=== PATIENT | female | born 1935 | race Caucasian/White ===

== ENCOUNTER 2016-08-21 06:32 | Emergency (ER) | payer MEDICARE ==
[2016-08-21 06:41] VITALS: BP 136/82
[2016-08-21] MEDS ORDERED: Ketorolac 30 MG/ML SDV IM ONE (07:00)
--- NOTE | 2016-08-21 07:16 | EDM.PDOC ---
ED HPI RENAL/ - General Chief Complaint: Flank Pain Stated Complaint: LEFT SIDE PAIN Time Seen by Provider: 08/21/16 06:41 Source: Reports: Patient, Family History Limitations: Reports: No limitations - History of Present Illness INITIAL COMMENTS - FREE TEXT/NARRATIVE: 80 years old w f with h/o kidney stones came to the ed due to left flank pain. Pt took NSAIDs last night without pain improvement. No trauma, has Dysuria, no F /C. Symptom Onset Date: 08/20/16 Symptom Onset Time: 20:00 Timing/Duration: Reports: Hour(s): Location: Reports: flank (left ) Quality: Reports: ache, burning, cramping, fullness, stabbing Severity: severe Improves with: Reports: lying down Worsens with: Reports: urinating, palpation, sitting up Associated Symptoms: Reports: burning, dysuria, frequency, urgency Treatment(s) DIRECTOR OF DIRECT MARKETING: Reports: NSAIDS - Related Data Allergies/ADRs: Allergies Allergy/AdvReac Type Severity Reaction Status Date / Time meperidine [From Demerol] Allergy Itching Verified 08/21/16 06:39 Penicillins Allergy Itching Verified 08/21/16 06:39 promethazine [From Phenergan] Allergy Itching Verified 08/21/16 06:39 Home Meds: Home Meds Metoprolol Tartrate 75 mg PO DAILY 03/27/16 [History] Ciprofloxacin 500 mg PO BID #20 mg 03/28/16 [Rx] Ciprofloxacin HCl [Cipro] 500 mg PO BID #6 tablet 08/21/16 [Rx] Ibuprofen [Motrin] 600 mg PO Q8H PRN #30 tab 08/21/16 [Rx] Past Medical History HEENT History: Reports: Hard of hearing Cardiovascular History: Reports: Hypertension Other Gastrointestinal History: trouble swallowing, Genitourinary History: Reports: Renal calculus Psychiatric History: Reports: Anxiety, Depression Hematologic History: Reports: Blood transfusion(s) - Past Surgical History HEENT Surgical History: Reports: Cataract surgery, Oral surgery, Tonsillectomy Other HEENT Surgeries/Procedures: bilat cataract GI Surgical History: Reports: Appendectomy, Colonoscopy, EGD, Other (see below) Other GI Surgeries/Procedures: ruptured esophagus, Female Surgical History: Reports: Kidney stone extraction, Lithotripsy/ESWL Social & Family History - Tobacco Use Smoking Status *Q: Never Smoker - Caffeine Use Caffeine Use: Reports: Coffee - Recreational Drug Use Recreational Drug Use: No ED ROS GENERAL - Review of Systems Review Of Systems: See Below Constitutional: Reports: no symptoms HEENT: Reports: No symptoms Respiratory: Reports: no symptoms Cardiovascular: Reports: No symptoms Endocrine: Reports: no symptoms GI/Abdominal: Reports: Abdominal pain (left flank pain) : Reports: dysuria Musculoskeletal: Reports: no symptoms Skin: Reports: no symptoms Neurological: Reports: no symptoms Psychiatric: Reports: No symptoms Hematologic/Lymphatic: Reports: no symptoms Immunologic: Reports: no symptoms ED EXAM, RENAL/ - Physical Exam Exam: See Below Exam Limited By: No limitations General Appearance: alert, WD/WN, moderate distress, thin Ears: normal external exam, hearing grossly normal Nose: normal inspection, normal mucosa, no blood Throat/Mouth: Normal inspection, Normal lips, Normal teeth, Normal gums, Normal oropharynx, Normal voice, No airway compromise Head: atraumatic, normocephalic Neck: normal inspection, supple, non-tender, full range of motion Respiratory/Chest: no respiratory distress, lungs clear, normal breath sounds, no accessory muscle use, chest non-tender Cardiovascular: normal peripheral pulses, regular rate, rhythm, no edema, no gallop, no JVD, no murmur, no rub GI/Abdominal: normal bowel sounds, no organomegaly, no distention, no abnormal bruit, no mass, tender (left flank) (Female) Exam: Deferred Rectal (Female) Exam: Deferred Back Exam: normal inspection, full range of motion, NT Extremities: normal inspection, normal range of motion, non-tender, normal capillary refill, no pedal edema Neurological: alert, oriented, CN II-XII intact, normal cognition, normal gait, normal reflexes, no motor/sensory deficits Psychiatric: normal affect, normal mood Skin Exam: Warm, Dry, Intact, Normal color, No rash Lymphatic: no adenopathy Course - Vital Signs Text/Narrative:: 80 years old w f with h/o kidney stones came to the ed due to left flank pain. Pt took NSAIDs last night without pain improvement. No trauma, has Dysuria, no F /C. Pty was seen by her PMD yesterday who gave her 14 tabl of cipro 500 mg PE: left flank pain Imaging: Nephrolithiasis, no hydro labs: WBC was nl UCX were ordered, results are pending. Tx: Pt took Cipro last night and this morning Reexam: Improved Plan: D/C with instructions Last Recorded V/S: Last Vital Signs Temp 36.3 C 08/21/16 06:40 Pulse 68 08/21/16 06:40 Resp 18 08/21/16 06:40 BP 136/82 08/21/16 06:40 Pulse Ox 98 08/21/16 06:40 - Orders/Labs/Meds Orders: Active Orders 24 hr Category Date Time Status Abdomen Pelvis wo Cont [CT] Stat Exams 08/21/16 07:02 Taken CULTURE URINE [RM] Stat Lab 08/21/16 06:45 Received Labs: Laboratory Tests 08/21/16 08/21/16 08/21/16 Range/Units 06:45 07:25 07:25 WBC 6.7 (4.5-12.0) X10-3/uL RBC 4.46 (3.23-5.20) x10(6)uL Hgb 10.6 L (11.5-15.5) g/dL Hct 33.9 (30.0-51.3) % MCV 76.1 L (80-96) fL MCH 23.8 L (27.7-33.6) pg MCHC 31.3 L (32.2-35.4) g/dL RDW 19.2 H (11.5-15.5) % Plt Count 248 (125-369) X10(3)uL MPV 8.5 (7.4-10.4) fL Neut % (Auto) 69.3 (46-82) % Lymph % (Auto) 19.5 (13-37) % Bullock % (Auto) 9.5 (4-12) % Eos % (Auto) 1 (1.0-5.0) % Baso % (Auto) 0 (0-2) % Neut # 4.7 (1.6-8.3) # Lymph # 1.3 (0.6-5.0) # Bullock # 0.6 (0.0-1.3) # Eos # 0.1 (0.0-0.8) # Baso # 0.0 (0.0-0.2) # Sodium 139 (135-145) mmol/L Potassium 3.7 (3.5-5.3) mmol/L Chloride 104 (100-110) mmol/L Carbon Dioxide 28 (23-29) mmol/L BUN 33 H D (8-23) mg/dL Creatinine 1.0 (0.6-1.3) mg/dL Est Cr Clr Drug Dosing 37.27 mL/min Estimated GFR (MDRD) 53 L (>60) BUN/Creatinine Ratio 33.0 H (9-20) Glucose 99 (80-116) mg/dL Lactic Acid (0.5-2.2) mmol/L Calcium 10.1 (8.6-10.2) mg/dL Urine Color Yellow (YELLOW) Urine Appearance Slightly cloudy (CLEAR) Urine pH 5.0 (5.0-6.5) Ur Specific [place] 1.020 (1.010-1.025) Urine Protein Negative (NEGATIVE) mg/dL Urine Glucose (UA) Normal (NEGATIVE) mg/dL Urine Ketones Negative (NEGATIVE) mg/dL Urine Occult Blood Negative (NEGATIVE) Urine Nitrite Positive H (NEGATIVE) Urine Bilirubin Small H (NEGATIVE) Urine Urobilinogen Normal (NEGATIVE) mg/dL Ur Leukocyte Esterase Moderate H (NEGATIVE) Urine RBC 0-5 (0) Urine WBC 20-30 H (0) Ur Squamous Epith Cells Few H (NS,R,O) Urine Bacteria Moderate H (NS) 08/21/16 Range/Units 07:25 WBC (4.5-12.0) X10-3/uL RBC (3.23-5.20) x10(6)uL Hgb (11.5-15.5) g/dL Hct (30.0-51.3) % MCV (80-96) fL MCH (27.7-33.6) pg MCHC (32.2-35.4) g/dL RDW (11.5-15.5) % Plt Count (125-369) X10(3)uL MPV (7.4-10.4) fL Neut % (Auto) (46-82) % Lymph % (Auto) (13-37) % Bullock % (Auto) (4-12) % Eos % (Auto) (1.0-5.0) % Baso % (Auto) (0-2) % Neut # (1.6-8.3) # Lymph # (0.6-5.0) # Bullock # (0.0-1.3) # Eos # (0.0-0.8) # Baso # (0.0-0.2) # Sodium (135-145) mmol/L Potassium (3.5-5.3) mmol/L Chloride (100-110) mmol/L Carbon Dioxide (23-29) mmol/L BUN (8-23) mg/dL Creatinine (0.6-1.3) mg/dL Est Cr Clr Drug Dosing mL/min Estimated GFR (MDRD) (>60) BUN/Creatinine Ratio (9-20) Glucose (80-116) mg/dL Lactic Acid 1.2 (0.5-2.2) mmol/L Calcium (8.6-10.2) mg/dL Urine Color (YELLOW) Urine Appearance (CLEAR) Urine pH (5.0-6.5) Ur Specific [place] (1.010-1.025) Urine Protein (NEGATIVE) mg/dL Urine Glucose (UA) (NEGATIVE) mg/dL Urine Ketones (NEGATIVE) mg/dL Urine Occult Blood (NEGATIVE) Urine Nitrite (NEGATIVE) Urine Bilirubin (NEGATIVE) Urine Urobilinogen (NEGATIVE) mg/dL Ur Leukocyte Esterase (NEGATIVE) Urine RBC (0) Urine WBC (0) Ur Squamous Epith Cells (NS,R,O) Urine Bacteria (NS) Meds: Medications Discontinued Medications Generic Name Dose Route Start Last Admin Trade Name Freq PRN Reason Stop Dose Admin Ketorolac Tromethamine 30 mg 08/21/16 07:00 08/21/16 07:10 Toradol IM 08/21/16 07:01 30 mg ONETIME ONE Administration Departure - Departure Time of Disposition: 07:57 Disposition: Home, Self-Care 01 Condition: good Clinical Impression: Flank pain, Nephrolithiasis, Pyelonephritis Prescriptions: Ciprofloxacin HCl [Cipro] 500 mg PO BID #6 tablet Ibuprofen [Motrin] 600 mg PO Q8H PRN #30 tab PRN Reason: Pain Referrals: Jeanmarie Allen MD [Primary Care Provider] - Forms: ED Department Discharge Additional Instructions: Please f/u in 4 days to check on the urine Culture results. Please take motrin for pain with food, please take cipro for 10 days. Please come back to the ed if your symptoms get worse acutely. - My Orders Last 24 Hours: My Active Orders 08/21/16 06:45 CULTURE URINE [RM] Stat 08/21/16 07:02 Abdomen Pelvis wo Cont [CT] Stat - Assessment/Plan Last 24 Hours: My Active Orders 08/21/16 06:45 CULTURE URINE [RM] Stat 08/21/16 07:02 Abdomen Pelvis wo Cont [CT] Stat
== END 2016-08-21 08:15 | disposition home or self-care (01) ==
LOC: FB.ED 06:32
DX: N20.0 Calculus of kidney (principal); N12 Tubulo-interstitial nephritis, not specified as acute or chronic; R10.9 Unspecified abdominal pain; I10 Essential (primary) hypertension; Z98.49 Cataract extraction status, unspecified eye; Z90.49 Acquired absence of other specified parts of digestive tract; Z87.442 Personal history of urinary calculi; Z98.890 Other specified postprocedural states; Z79.899 Other long term (current) drug therapy; Z88.0 Allergy status to penicillin; Z88.8 Allergy status to other drugs, medicaments and biological substances
CPT/HCPCS: 36415; 74176; 80048; 81001; 83605; 85025; 87086; 87088; 96372; 99284; J1885; 87186; 99283

== ENCOUNTER 2016-08-23 08:20 | Emergency (ER) | payer MEDICARE ==
[2016-08-23] MEDS ORDERED: cefTAZidime 1 GM in Sodium Chloride 0.9% 50 ML IV ONE ×2 (09:40→10:00)
[2016-08-23] MEDS ORDERED: diphenhydrAMINE 50 MG/ML SDV IVPUSH ONE (09:47)
[2016-08-23] MEDS ORDERED: Sodium Chloride 0.9% 250 ML IV SCH (10:00)
[2016-08-23 11:32] VITALS: BP 121/57
--- NOTE | 2016-08-25 16:15 | ER ---
DATE SEEN: 08/23/2016 HISTORY OF PRESENT ILLNESS: This 80-year-old woman comes in with a history of left lower flank pain and difficulty sleeping secondary to the flank pain. The patient cannot sleep, has not been sleeping since 08/22/2015 because she has been awakened at 1 and 2 or 3 o'clock with flank pain. Today, the pain has radiated to her mid axillary region. The pain is on and off, 9/10 in intensity. She has frequency and urgency, but without dysuria. She is a nulliparous. She is attended by her brother. She has decreased hearing and feels weak. 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 FAMILY HISTORY: One sister had pancreatic cancer, had Whipple surgery. Two other sisters alive and well. One brother has kidney cancer, is alive, and one had a CABG. She had a serious surgery when in [place]. She was seen at an [facility] hospital, had an appendectomy with perforation, subsequent endoscopy performed at a later time and had perforation of the duodenum. She was in the hospital for 6 months and in a coma for 6 months because of serious complication of this surgery. Other diagnosis, hypertension. ALLERGIES: Demerol, penicillin, and promethazine. MEDICATIONS: 1. Metoprolol tartrate 75 mg daily. 2. Ibuprofen 600 mg q.6 hours. 3. Cipro started several days ago. REVIEW OF SYSTEMS: Otherwise negative, except as noted above. PHYSICAL EXAMINATION: VITAL SIGNS: Blood pressure 135/84, heart rate 64, respirations 18, oxygen saturation 95%, temperature 36.6 degrees centigrade. Weight 54.4 kg. GENERAL: This asthenic woman is in mild distress. She is anxious. She is hard of hearing. Very well dressed. HEENT: TMs negative, with hearing aids. Pharynx without abnormality. Throat, mucosa is dry. NECK: No cervical adenopathy. No bruits, masses in neck. LUNGS: Clear to auscultation without rales, rhonchi, or wheezes. ABDOMEN: Soft. Mild guarding. She has a midline incision, healed, with mild baseline discomfort left lower quadrant and left upper quadrant. NEURO: Deep tendon reflexes to upper and lower extremities symmetrical, 1+, normoactive. She has slight dysarthria. Oriented x3. She has mild distress to moderate distress. The reflexes in upper and lower extremities are hypoactive, but present. Cranial nerves 2 through 12 intact. Gait appropriate. EXTREMITIES: No joint pain. No edema in lower extremities. LABORATORY FINDINGS: Hemoglobin 10.3, microcytic hyperchromic anemia noted, RDW 19.2, white count 8500, 85 PMNs, 10 lymphs, 1 monos, 4 eosinophils. Moderate toxic granulation, anisocytosis, and microcytosis. Complete metabolic panel; BUN 31, creatinine 1.4. GFR 36. BUN and creatinine ratio 22. ALT is low at 13, otherwise remainder of the enzymes normal. Sodium 140, potassium 4.1, chloride 105, bicarb 24. Liver enzymes normal. Urinalysis; positive nitrite, packed wbc's, many bacteria. ASSESSMENT: 1. Urinary tract infection. 2. Rule out pyelonephritis with her flank discomfort. 3. Allergies to penicillins. 4. Culture pending. The patient is currently on Cipro and her urine infection is not sensitive to Cipro. She has allergies to penicillin. On the basis of her sensitivity, all the medications she could use require intravenous therapy. She is given one dose of ceftazidime. I spoke to the tele- pharmacist regarding the patient's status and we decided that the rash she gets with penicillin is not critical. Consequently, she was given ceftazidime IV 1 g. She did not have any allergic reaction. She had a transient reaction to the 50 mg push of Benadryl; a linear angiitis and erythema that was present for an hour and then slowly resolved. By the time she was taking ceftazidime, the linear Benadryl vasculitis relented completely. The patient was dismissed on Ceftin 250 mg b.i.d., and Florastor 250 mg b.i.d. with hydrocodone p.r.n. Follow up with doctor in 3 to 5 days. Push fluids. DIAGNOSES: 1. Probable pyelonephritis. 2. Urinary tract infection. 3. Anemia with microcytic hyperchromic anemia, etiology indeterminate. 4. Toxic granulation, anisocytosis, microcytosis, probably not related to the patient's medication. She will need repeat CBC and follow up with doctor in next 3 to 5 days. Also, she has previous documented nephrolithiasis. The probability of her passing a stone is mildly high and this could also be causing her flank pain. I chose not to get a CT, as I felt that most likely her diagnosis was urinary infection. Since she has had multiple CAT scans before, less radiation is better. The patient was seen at 0835 hours. The patient has shoulder pain, etiology indeterminate. She has normal shoulder exam. The toxic granulation of CBC, etiology indeterminate. Will need to further follow up. /[id number] OSMIN/ROSA
== END 2016-08-23 12:05 | disposition home or self-care (01) ==
LOC: FB.ED 08:20
DX: N39.0 Urinary tract infection, site not specified (principal); D50.9 Iron deficiency anemia, unspecified; I10 Essential (primary) hypertension; Z88.8 Allergy status to other drugs, medicaments and biological substances; Z88.0 Allergy status to penicillin
CPT/HCPCS: 36415; 51702; 80053; 81001; 85025; 86140; 87040; 87086; 87088; 87186; 96365; 96375; 99283; 99284; J0713; J1200; J7040; J7050

== ENCOUNTER 2016-10-24 17:45 | Emergency (ER) | payer MEDICARE ==
[2016-10-24] MEDS ORDERED: HYDROmorphone 2 MG/ML SDV IVPUSH ONE (18:15)
[2016-10-24] MEDS ORDERED: Sodium Chloride 0.9% 10 ML Syringe FLUSH PRN (18:17)
--- NOTE | 2016-10-24 18:21 | EDM.PDOC ---
ED HPI RENAL/ - General Chief Complaint: Genitourinary Problem Stated Complaint: BACK PAIN Time Seen by Provider: 10/24/16 18:10 Source: Reports: Patient, Old records History Limitations: Reports: No limitations - History of Present Illness INITIAL COMMENTS - FREE TEXT/NARRATIVE: Tessa returns to [facility] ED with a relapse of L CVA and flank pain x 2 days. Pain is colicky, disabling, and associated with some nausea. She saw her PCP yesterday who noted an abnormal UA and dispensed Cipro and Ultracet tabs. There has been no improvement. Of note are similar episodes during March 2016 and August 2016 with similar pain distribution, pos CT for nephrolithiasis but neg for ureterlithiasis, and hematuria. She has seen a Urologist in [place], [place] for removal of L kidney stones in the past. - Related Data Allergies/ADRs: Allergies Allergy/AdvReac Type Severity Reaction Status Date / Time meperidine [From Demerol] Allergy Itching Verified 10/24/16 18:06 Penicillins Allergy Itching Verified 10/24/16 18:06 promethazine [From Phenergan] Allergy Itching Verified 10/24/16 18:06 Home Meds: Home Meds Metoprolol Tartrate 75 mg PO DAILY 03/27/16 [History] Ibuprofen [Motrin] 600 mg PO Q8H PRN #30 tab 08/21/16 [Rx] Ciprofloxacin HCl [Cipro] 1 tab PO DAILY 10/24/16 [History] traMADol Hcl/Acetaminophen [Ultracet Tablet] 1 each PO TID PRN 10/24/16 [History ] Past Medical History HEENT History: Reports: Hard of hearing Cardiovascular History: Reports: Hypertension Other Gastrointestinal History: trouble swallowing, Genitourinary History: Reports: Renal calculus Neurological History: Reports: Other (see below) Other Neuro History: Had an incident with colon surgery, 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 Psychiatric History: Reports: Anxiety, Depression Hematologic History: Reports: Blood transfusion(s) - Past Surgical History HEENT Surgical History: Reports: Cataract surgery, Oral surgery, Tonsillectomy Other HEENT Surgeries/Procedures: bilat cataract GI Surgical History: Reports: Appendectomy, Colonoscopy, EGD, Other (see below) Other GI Surgeries/Procedures: ruptured esophagus, Female Surgical History: Reports: Kidney stone extraction, Lithotripsy/ESWL Social & Family History - Tobacco Use Smoking Status *Q: Current Status Unknown - Caffeine Use Caffeine Use: Reports: Coffee - Recreational Drug Use Recreational Drug Use: No ED ROS GENERAL - Review of Systems Review Of Systems: See Below Constitutional: Reports: decreased appetite HEENT: Reports: No symptoms Respiratory: Reports: No Symptoms Cardiovascular: Reports: No symptoms Endocrine: Reports: no symptoms GI/Abdominal: Reports: Other (L CVA and flank pain) : Reports: flank pain (left), hematuria Musculoskeletal: Reports: no symptoms Skin: Reports: no symptoms Neurological: Reports: No Symptoms Psychiatric: Reports: No symptoms Hematologic/Lymphatic: Reports: no symptoms Immunologic: Reports: no symptoms ED EXAM, RENAL/ - Physical Exam Exam: See Below Exam Limited By: No limitations General Appearance: alert, WD/WN, anxious, moderate distress Head: normocephalic Neck: normal inspection, supple, full range of motion Respiratory/Chest: lungs clear Cardiovascular: regular rate, rhythm, no murmur GI/Abdominal: normal bowel sounds, soft, non tender, no organomegaly, no distention, no mass, tender (limited tenderness of L flank) (Female) Exam: Deferred Rectal (Female) Exam: Deferred Back Exam: normal inspection, CVA tenderness (L) Extremities: normal inspection Neurological: alert, oriented, CN II-XII intact, no motor/sensory deficits Psychiatric: normal affect, anxious Skin Exam: Warm, Dry Lymphatic: no adenopathy Course - Vital Signs Text/Narrative:: Following admission to the [facility] ED, I administered Dilaudid 2 mg IV pending results of lab work: Hgb 9.8 gm, WBC 7,000, plts normal; Na 136, K 3.6, BUN 26, Cr 1.0; UA noting sp gr 1.030, Nit +, Bact mod, 20-30 WBCs per cath spec, UC set up; the urine volume was <20 ml; back pain had subsided within 30 min of hypo; I subsequently administered 2L of NS over the next 2 hrs. A follow up UA notes sp gr 1.025 on a volume of 70 mls at 1st L of solution. Last Recorded V/S: Last Vital Signs Temp 36.8 C 10/24/16 17:56 Pulse 70 10/24/16 17:56 Resp 20 10/24/16 17:56 BP 117/64 10/24/16 17:56 Pulse Ox 98 10/24/16 17:56 - Orders/Labs/Meds Orders: Active Orders 24 hr Category Date Time Status CULTURE URINE [RM] Stat Lab 10/24/16 20:00 Received Sodium Chloride 0.9% [Normal Saline] 2,000 ml Med 10/24/16 21:15 Active IV ASDIRECTED Sodium Chloride 0.9% [Saline Flush] Med 10/24/16 18:17 Active 10 ml FLUSH ASDIRECTED PRN Saline Lock Insert [OM.PC] Routine Oth 10/24/16 18:17 Ordered Medication Orders Sodium Chloride (Normal Saline) 2,000 mls @ 999 mls/hr IV ASDIRECTED AYE Stop: 10/28/16 21:04 Last Admin: 10/24/16 21:12 Dose: 999 mls/hr Sodium Chloride (Saline Flush) 10 ml FLUSH ASDIRECTED PRN PRN Reason: Keep Vein Open Last Admin: 10/24/16 18:30 Dose: 10 ml Labs: Laboratory Tests 10/24/16 10/24/16 10/24/16 Range/Units 18:15 18:15 20:26 WBC 7.1 (4.5-12.0) X10-3/uL RBC 4.17 (3.23-5.20) x10(6)uL Hgb 9.8 L (11.5-15.5) g/dL Hct 31.4 (30.0-51.3) % MCV 75.4 L (80-96) fL MCH 23.6 L (27.7-33.6) pg MCHC 31.3 L (32.2-35.4) g/dL RDW 17.4 H (11.5-15.5) % Plt Count 235 (125-369) X10(3)uL MPV 8.8 (7.4-10.4) fL Neut % (Auto) 67.8 (46-82) % Lymph % (Auto) 19.9 (13-37) % Lee % (Auto) 8.8 (4-12) % Eos % (Auto) 3 (1.0-5.0) % Baso % (Auto) 1 (0-2) % Neut # (Auto) 4.9 (1.6-8.3) # Lymph # (Auto) 1.4 (0.6-5.0) # Lee # (Auto) 0.6 (0.0-1.3) # Eos # (Auto) 0.2 (0.0-0.8) # Baso # (Auto) 0.0 (0.0-0.2) # Sodium 136 (135-145) mmol/L Potassium 3.6 (3.5-5.3) mmol/L Chloride 107 (100-110) mmol/L Carbon Dioxide 22 L (23-29) mmol/L BUN 26 H (8-23) mg/dL Creatinine 1.0 (0.6-1.3) mg/dL Est Cr Clr Drug Dosing TNP Estimated GFR (MDRD) 53 L (>60) BUN/Creatinine Ratio 26.0 H (9-20) Glucose 111 (80-116) mg/dL Calcium 8.8 (8.6-10.2) mg/dL Urine Color Yellow (YELLOW) Urine Appearance Slightly cloudy (CLEAR) Urine pH 5.0 (5.0-6.5) Ur Specific [place] 1.030 H (1.010-1.025) Urine Protein Negative (NEGATIVE) mg/dL Urine Glucose (UA) Normal (NEGATIVE) mg/dL Urine Ketones Negative (NEGATIVE) mg/dL Urine Occult Blood Trace (NEGATIVE) Urine Nitrite Positive H (NEGATIVE) Urine Bilirubin Small H (NEGATIVE) Urine Urobilinogen Normal (NEGATIVE) mg/dL Ur Leukocyte Esterase Moderate H (NEGATIVE) Urine RBC 10-20 H (0) Urine WBC 30-40 H (0) Ur Squamous Epith Cells Occasional (NS,R,O) Urine Bacteria Moderate H (NS) 05/05/17 Range/Units 22:30 WBC (4.5-12.0) X10-3/uL RBC (3.23-5.20) x10(6)uL Hgb (11.5-15.5) g/dL Hct (30.0-51.3) % MCV (80-96) fL MCH (27.7-33.6) pg MCHC (32.2-35.4) g/dL RDW (11.5-15.5) % Plt Count (125-369) X10(3)uL MPV (7.4-10.4) fL Neut % (Auto) (46-82) % Lymph % (Auto) (13-37) % Lee % (Auto) (4-12) % Eos % (Auto) (1.0-5.0) % Baso % (Auto) (0-2) % Neut # (Auto) (1.6-8.3) # Lymph # (Auto) (0.6-5.0) # Lee # (Auto) (0.0-1.3) # Eos # (Auto) (0.0-0.8) # Baso # (Auto) (0.0-0.2) # Sodium (135-145) mmol/L Potassium (3.5-5.3) mmol/L Chloride (100-110) mmol/L Carbon Dioxide (23-29) mmol/L BUN (8-23) mg/dL Creatinine (0.6-1.3) mg/dL Est Cr Clr Drug Dosing Estimated GFR (MDRD) (>60) BUN/Creatinine Ratio (9-20) Glucose (80-116) mg/dL Calcium (8.6-10.2) mg/dL Urine Color Yellow (YELLOW) Urine Appearance Slightly cloudy (CLEAR) Urine pH 5.0 (5.0-6.5) Ur Specific [place] 1.025 (1.010-1.025) Urine Protein Negative (NEGATIVE) mg/dL Urine Glucose (UA) Normal (NEGATIVE) mg/dL Urine Ketones 15 H (NEGATIVE) mg/dL Urine Occult Blood Trace (NEGATIVE) Urine Nitrite Positive H (NEGATIVE) Urine Bilirubin Small H (NEGATIVE) Urine Urobilinogen Normal (NEGATIVE) mg/dL Ur Leukocyte Esterase Large H (NEGATIVE) Urine RBC 10-20 H (0) Urine WBC 30-40 H (0) Ur Squamous Epith Cells Few H (NS,R,O) Urine Bacteria Moderate H (NS) Meds: Medications Generic Name Dose Route Start Last Admin Trade Name Freq PRN Reason Stop Dose Admin Sodium Chloride 2,000 mls @ 999 mls/hr 10/24/16 21:15 10/24/16 21:12 Normal Saline IV 10/28/16 21:04 999 mls/hr ASDIRECTED AYE Administration Sodium Chloride 10 ml 10/24/16 18:17 10/24/16 18:30 Saline Flush FLUSH 10 ml ASDIRECTED PRN Administration Keep Vein Open Discontinued Medications Generic Name Dose Route Start Last Admin Trade Name Adan PRN Reason Stop Dose Admin Hydromorphone HCl 2 mg 10/24/16 18:15 10/24/16 18:36 Dilaudid IVPUSH 10/24/16 18:16 2 mg ONETIME ONE Administration Departure - Departure Time of Disposition: 23:10 Disposition: Home, Self-Care 01 Condition: fair Clinical Impression: Nephrolithiasis, Oligouria - Problem List & Annotations (1) UTI (urinary tract infection) SNOMED Code(s): 23577568 Code(s): N39.0 - URINARY TRACT INFECTION, SITE NOT SPECIFIED Status: Acute Current Visit: No Annotation/Comment:: Finish out antibx per PCP. Current microscopic analysis is unchanged from the Clinic, and a UC is pending. Qualifiers: Encounter type: initial encounter (2) Nephrolithiasis SNOMED Code(s): 06778904 Code(s): N20.0 - CALCULUS OF KIDNEY Status: Acute Current Visit: Yes Annotation/Comment:: No findings to suggest nephrolithiasis contributing to sxs of back pain. (3) Oligouria SNOMED Code(s): 24427436 Code(s): R34 - ANURIA AND OLIGURIA Status: Acute Current Visit: Yes Annotation/Comment:: Urine output improved with 2L of IV administration, and this was discussed with daughter to encourage fluid intake. - Problem List Review Problem List Initiated/Reviewed/Updated: Yes - My Orders Last 24 Hours: My Active Orders 10/24/16 18:17 Sodium Chloride 0.9% [Saline Flush] 10 ml FLUSH ASDIRECTED PRN Saline Lock Insert [OM.PC] Routine 10/24/16 20:00 CULTURE URINE [RM] Stat 10/24/16 21:15 Sodium Chloride 0.9% [Normal Saline] 2,000 ml IV ASDIRECTED - Assessment/Plan Last 24 Hours: My Active Orders 10/24/16 18:17 Sodium Chloride 0.9% [Saline Flush] 10 ml FLUSH ASDIRECTED PRN Saline Lock Insert [OM.PC] Routine 10/24/16 20:00 CULTURE URINE [RM] Stat 10/24/16 21:15 Sodium Chloride 0.9% [Normal Saline] 2,000 ml IV ASDIRECTED Plan: Follow up with PCP.
[2016-10-24] MEDS ORDERED: Sodium Chloride 0.9% 2,000 ML IV SCH (21:15)
[2016-10-24 23:29] VITALS: BP 115/72
== END 2016-10-24 23:25 | disposition home or self-care (01) ==
LOC: FB.ED 17:45
DX: N20.0 Calculus of kidney (principal); I10 Essential (primary) hypertension; F41.9 Anxiety disorder, unspecified; F32.9 Major depressive disorder, single episode, unspecified; Z88.0 Allergy status to penicillin; Z88.8 Allergy status to other drugs, medicaments and biological substances; Z79.899 Other long term (current) drug therapy; Z98.890 Other specified postprocedural states; Z90.49 Acquired absence of other specified parts of digestive tract; Z98.49 Cataract extraction status, unspecified eye
CPT/HCPCS: 36415; 80048; 81001; 85025; 87086; 87088; 96361; 96374; 99284; J1170; J7040; J7050; 87186

== ENCOUNTER 2016-10-27 04:52 | Emergency (ER) | payer MEDICARE ==
[2016-10-27] MEDS ORDERED: Ketorolac 30 MG/ML SDV IVPUSH ONE (05:17)
[2016-10-27] MEDS ORDERED: LORazepam 2 MG/ML MDV IVPUSH ONE (05:18)
[2016-10-27] MEDS ORDERED: Sodium Chloride 0.9% 1,000 ML IV SCH (05:45)
--- NOTE | 2016-10-27 07:19 | ER ---
DATE SEEN: 10/27/2016 She presented with back pain and left flank pain, symptoms lasting 4 days. I saw her last week and she also saw Dr. Monahan recently with the same symptoms. She complains of frequency but no dysuria. Her pain also goes down the left arm and left chest area. No cough or fever. REVIEW OF SYSTEMS: Back pain. No decrease in appetite, no weight changes. ALLERGIES: Please see the nurse's notes. MEDICATIONS: Please see the nurse's notes. PHYSICAL EXAMINATION: GENERAL: She appeared uncomfortable. VITAL SIGNS: Blood pressure is 155/68, temperature 96.5. ABDOMEN: Soft with no tenderness to palpation. SKIN: There is a wound on the left flank that is well healed. MUSCULOSKELETAL: Chest wall is tender on the left. LUNGS: Clear. MENTAL STATUS: Anxious. LABORATORY: Urine positive for nitrites. White cell count is normal. Potassium is 3.4. IMPRESSION: 1. Abdominal pain. 2. Left chest wall pain. PLAN: EKG will be obtained and a troponin. CT of the abdomen and pelvis was done to rule out kidney stone, this is pending. Dr. Monahan will take over, gave her 1 L of normal saline and Toradol for comfort. Time seen is 0630 hours. /[id number] ERI/ROSA
--- NOTE | 2016-10-27 08:05 | PCM.SN ---
- Free Text/Narrative Note: Tessa Brown has L nephrolithiasis, without radiographic signs of obstructive uropathy. Her UC reported E.coli, sens to Cipro, and she is on this antibx. She needs an appt with Urology, and this will be arranged thru PCP office. She will follow up with PCP, Dr Chin.
[2016-10-27 08:44] VITALS: BP 134/59
== END 2016-10-27 08:22 | disposition home or self-care (01) ==
LOC: FB.ED 04:52
DX: R10.9 Unspecified abdominal pain (principal); R07.89 Other chest pain
CPT/HCPCS: 36415; 74177; 80053; 81001; 84484; 85025; 93005; 96361; 96374; 96375; 99284; J1885; J2060; J7040

== ENCOUNTER 2016-11-07 04:15 | Emergency (ER) | payer MEDICARE ==
--- NOTE | 2016-11-07 04:43 | EDM.PDOC ---
ED HPI GENERAL MEDICAL PROBLEM - General Chief Complaint: Back Pain or Injury Stated Complaint: BACK/SIDE/ABDOMINAL PAIN Time Seen by Provider: 11/07/16 04:23 Source of Information: Reports: Patient, Family History Limitations: Reports: Physical Impairment - History of Present Illness INITIAL COMMENTS - FREE TEXT/NARRATIVE: 80 years old w f came to the ed with her brother due to left chest wall pain since 10/27/2016, Pt was seen in the ed, was transfered to [place], admitted. No cause of her chest pain was determined. Pt was on cipro for a bladder infection and switched to Nitrofurantoin last Thursday. No trauma, no SOB, no diaphoresis , F/C, no cough. Pt is a poor historian. 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 Abdomen Pain Score (Numeric/FACES): 10 - Related Data Allergies Allergy/AdvReac Type Severity Reaction Status Date / Time meperidine [From Demerol] Allergy Itching Verified 11/07/16 04:20 Penicillins Allergy Itching Verified 11/07/16 04:20 promethazine [From Phenergan] Allergy Itching Verified 11/07/16 04:20 Home Meds: Home Meds Metoprolol Tartrate 75 mg PO DAILY 03/27/16 [History] Ibuprofen [Motrin] 600 mg PO Q8H PRN #30 tab 08/21/16 [Rx] Ciprofloxacin HCl [Cipro] 500 mg PO DAILY 10/24/16 [History] traMADol Hcl/Acetaminophen [Ultracet Tablet] 1 each PO TID PRN 10/24/16 [History ] Ketorolac [Toradol] 30 mg PO DAILY 10/27/16 [History] hydrOXYzine Pamoate [Vistaril] 50 mg PO DAILY 10/27/16 [History] Hydrocodone/Acetaminophen [Welsh 5-325] 1 tab PO Q4H PRN #10 tablet 11/07/16 [Rx ] Potassium Chloride [Klor-Con M20] 40 meq PO ONETIME #1 tab.er 11/07/16 [Rx] Past Medical History HEENT History: Reports: Hard of Hearing Cardiovascular History: Reports: Hypertension Other Gastrointestinal History: trouble swallowing, Genitourinary History: Reports: Renal Calculus Neurological History: Reports: Other (See Below) Other Neuro History: Had an incident with colon surgery, 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 Psychiatric History: Reports: Anxiety, Depression Hematologic History: Reports: Blood Transfusion(s) - Past Surgical History HEENT Surgical History: Reports: Cataract Surgery, Oral Surgery, Tonsillectomy GI Surgical History: Reports: Appendectomy, Colonoscopy, EGD, Other (See Below) Social & Family History - Family History Family Medical History: Noncontributory - Tobacco Use Smoking Status *Q: Never Smoker Second Hand Smoke Exposure: No - Caffeine Use Caffeine Use: Reports: Coffee - Recreational Drug Use Recreational Drug Use: No ED ROS GENERAL - Review of Systems Review Of Systems: See Below Constitutional: Reports: Weakness HEENT: Reports: No Symptoms Respiratory: Reports: Pleuritic Chest Pain Cardiovascular: Reports: No Symptoms Endocrine: Reports: No Symptoms GI/Abdominal: Reports: No Symptoms : Reports: No Symptoms Musculoskeletal: Reports: No Symptoms Skin: Reports: Wound (left posterior chest wall ) Neurological: Reports: No Symptoms Psychiatric: Reports: No Symptoms Hematologic/Lymphatic: Reports: No Symptoms Immunologic: Reports: No Symptoms ED EXAM,LOWER BACK PAIN/INJURY - Physical Exam Exam: See Below Exam Limited By: Physical Impairment General Appearance: Alert, Mild Distress, Moderate Distress, Thin Eye Exam: Bilateral Eye: Normal Inspection Ears: Normal External Exam Nose: Normal Inspection Throat/Mouth: Normal Inspection Head: Atraumatic, Normocephalic Neck: Normal Inspection, Supple, Non-Tender Respiratory/Chest: No Respiratory Distress, Normal Breath Sounds (poor insp effort) Cardiovascular: Normal Peripheral Pulses GI/Abdominal: Normal Bowel Sounds, Soft, Non-Tender (Female) Exam: Deferred Rectal (Female) Exam: Deferred Back Exam: Other (1"x1" lesion with central necrosis left post chest since 2016) Extremities: Normal Inspection Neurological: Alert, Normal Mood/Affect, Normal Dorsiflexion, CN II-XII Intact Psychiatric: Depressed Mood Skin Exam: Warm, Dry, Pallor Lymphatic: No Adenopathy EKG INTERPRETATION EKG Date: 11/07/16 Time: 06:05 Rhythm: NSR Rate (beats/min): 55 [place]: normal P-wave: present QRS: normal ST-T: normal QT: normal Comparison: NA - no prior EKG Course - Vital Signs Text/Narrative:: 80 years old w f came to the ed with her brother due to left chest wall pain since 10/27/2016, Pt was seen in the ed, was transfered to [place], admitted. No cause of her chest pain was determined. Pt was on cipro for a bladder infection and switched to Nitrofurantoin last Thursday. No trauma, no SOB, no diaphoresis , F/C, no cough. Pt is a poor historian. PE: Thin 80 y.o.w.f old wound left post chest wall with central necrosis, Pleurisy. Poss shingles without rash Imaging: possible minor pneumonia with adenopathy, need f/u Labs: D Dimer 881, Nl WBC. UTI ( pt is on nitroforantoin Lactic acid was 1.1 consultation: Dr. Akins has seen the pt in the ed Impression: Old, healing wound left post chest wall, possible shingles. Atelectasis left lower lung (pneumonia unlikely) Hypokalemia Tx: Oxicodon, Morphin with Zofran, K-Dur Reexam: Improved Plan: D/C with instructions Last Recorded V/S: Last Vital Signs Temp 36.2 C 11/07/16 04:23 Pulse 60 11/07/16 04:23 Resp 18 11/07/16 04:23 BP 171/71 H 11/07/16 06:23 Pulse Ox 96 11/07/16 04:23 - Orders/Labs/Meds Orders: Active Orders 24 hr Category Date Time Status EKG Documentation Completion [RC] ASDIRECTED Care 11/07/16 05:59 Active Ang Chest [CT] Stat Exams 11/07/16 06:31 Taken CULTURE BLOOD [BC] Urgent Lab 11/07/16 07:45 Received CULTURE BLOOD [BC] Urgent Lab 11/07/16 07:50 Received Blood Culture x2 Reflex Set [OM.PC] Urgent Oth 11/07/16 07:29 Ordered EKG 12 Lead [EK] Routine Ther 11/07/16 05:58 Ordered Labs: Laboratory Tests 0511/07/16 11/07/16 Range/Units 04:47 05:00 05:00 WBC 5.7 (4.5-12.0) X10-3/uL RBC 3.97 (3.23-5.20) x10(6)uL Hgb 9.3 L (11.5-15.5) g/dL Hct 29.9 L (30.0-51.3) % MCV 75.3 L (80-96) fL MCH 23.5 L (27.7-33.6) pg MCHC 31.2 L (32.2-35.4) g/dL RDW 17.2 H (11.5-15.5) % Plt Count 331 (125-369) X10(3)uL MPV 8.1 (7.4-10.4) fL Neut % (Auto) 60.0 (46-82) % Lymph % (Auto) 25.1 (13-37) % [place] % (Auto) 11.2 (4-12) % Eos % (Auto) 3 (1.0-5.0) % Baso % (Auto) 1 (0-2) % Neut # (Auto) 3.4 (1.6-8.3) # Lymph # (Auto) 1.4 (0.6-5.0) # [place] # (Auto) 0.6 (0.0-1.3) # Eos # (Auto) 0.2 (0.0-0.8) # Baso # (Auto) 0.1 (0.0-0.2) # D-Dimer, Quantitative (100-400) ng/mL Sodium 139 (135-145) mmol/L Potassium 3.1 L (3.5-5.3) mmol/L Chloride 107 D (100-110) mmol/L Carbon Dioxide 25 (23-29) mmol/L BUN 23 (8-23) mg/dL Creatinine 0.8 (0.6-1.3) mg/dL Est Cr Clr Drug Dosing 46.59 mL/min Estimated GFR (MDRD) > 60 (>60) BUN/Creatinine Ratio 28.8 H (9-20) Glucose 99 (80-116) mg/dL Lactic Acid (0.5-2.2) mmol/L Calcium 9.0 (8.6-10.2) mg/dL Creatine Kinase (60-160) IU/L Troponin I (0.02-0.06) NG/ML Urine Color Yellow (YELLOW) Urine Appearance Slightly cloudy (CLEAR) Urine pH 6.0 (5.0-6.5) Ur Specific [place] 1.015 (1.010-1.025) Urine Protein Negative (NEGATIVE) mg/dL Urine Glucose (UA) Normal (NEGATIVE) mg/dL Urine Ketones Negative (NEGATIVE) mg/dL Urine Occult Blood Negative (NEGATIVE) Urine Nitrite Positive H (NEGATIVE) Urine Bilirubin Negative (NEGATIVE) Urine Urobilinogen Normal (NEGATIVE) mg/dL Ur Leukocyte Esterase Negative (NEGATIVE) Urine RBC 0-5 (0) Urine WBC 0-5 (0) Ur Squamous Epith Cells Few H (NS,R,O) Urine Bacteria Moderate H (NS) 11/07/16 11/07/16 11/07/16 Range/Units 05:00 05:00 05:00 WBC (4.5-12.0) X10-3/uL RBC (3.23-5.20) x10(6)uL Hgb (11.5-15.5) g/dL Hct (30.0-51.3) % MCV (80-96) fL MCH (27.7-33.6) pg MCHC (32.2-35.4) g/dL RDW (11.5-15.5) % Plt Count (125-369) X10(3)uL MPV (7.4-10.4) fL Neut % (Auto) (46-82) % Lymph % (Auto) (13-37) % [place] % (Auto) (4-12) % Eos % (Auto) (1.0-5.0) % Baso % (Auto) (0-2) % Neut # (Auto) (1.6-8.3) # Lymph # (Auto) (0.6-5.0) # [place] # (Auto) (0.0-1.3) # Eos # (Auto) (0.0-0.8) # Baso # (Auto) (0.0-0.2) # D-Dimer, Quantitative 881 H (100-400) ng/mL Sodium (135-145) mmol/L Potassium (3.5-5.3) mmol/L Chloride (100-110) mmol/L Carbon Dioxide (23-29) mmol/L BUN (8-23) mg/dL Creatinine (0.6-1.3) mg/dL Est Cr Clr Drug Dosing mL/min Estimated GFR (MDRD) (>60) BUN/Creatinine Ratio (9-20) Glucose (80-116) mg/dL Lactic Acid (0.5-2.2) mmol/L Calcium (8.6-10.2) mg/dL Creatine Kinase 27 L (60-160) IU/L Troponin I < 0.01 L (0.02-0.06) NG/ML Urine Color (YELLOW) Urine Appearance (CLEAR) Urine pH (5.0-6.5) Ur Specific [place] (1.010-1.025) Urine Protein (NEGATIVE) mg/dL Urine Glucose (UA) (NEGATIVE) mg/dL Urine Ketones (NEGATIVE) mg/dL Urine Occult Blood (NEGATIVE) Urine Nitrite (NEGATIVE) Urine Bilirubin (NEGATIVE) Urine Urobilinogen (NEGATIVE) mg/dL Ur Leukocyte Esterase (NEGATIVE) Urine RBC (0) Urine WBC (0) Ur Squamous Epith Cells (NS,R,O) Urine Bacteria (NS) 11/07/16 Range/Units 07:45 WBC (4.5-12.0) X10-3/uL RBC (3.23-5.20) x10(6)uL Hgb (11.5-15.5) g/dL Hct (30.0-51.3) % MCV (80-96) fL MCH (27.7-33.6) pg MCHC (32.2-35.4) g/dL RDW (11.5-15.5) % Plt Count (125-369) X10(3)uL MPV (7.4-10.4) fL Neut % (Auto) (46-82) % Lymph % (Auto) (13-37) % [place] % (Auto) (4-12) % Eos % (Auto) (1.0-5.0) % Baso % (Auto) (0-2) % Neut # (Auto) (1.6-8.3) # Lymph # (Auto) (0.6-5.0) # [place] # (Auto) (0.0-1.3) # Eos # (Auto) (0.0-0.8) # Baso # (Auto) (0.0-0.2) # D-Dimer, Quantitative (100-400) ng/mL Sodium (135-145) mmol/L Potassium (3.5-5.3) mmol/L Chloride (100-110) mmol/L Carbon Dioxide (23-29) mmol/L BUN (8-23) mg/dL Creatinine (0.6-1.3) mg/dL Est Cr Clr Drug Dosing mL/min Estimated GFR (MDRD) (>60) BUN/Creatinine Ratio (9-20) Glucose (80-116) mg/dL Lactic Acid 1.1 (0.5-2.2) mmol/L Calcium (8.6-10.2) mg/dL Creatine Kinase (60-160) IU/L Troponin I (0.02-0.06) NG/ML Urine Color (YELLOW) Urine Appearance (CLEAR) Urine pH (5.0-6.5) Ur Specific [place] (1.010-1.025) Urine Protein (NEGATIVE) mg/dL Urine Glucose (UA) (NEGATIVE) mg/dL Urine Ketones (NEGATIVE) mg/dL Urine Occult Blood (NEGATIVE) Urine Nitrite (NEGATIVE) Urine Bilirubin (NEGATIVE) Urine Urobilinogen (NEGATIVE) mg/dL Ur Leukocyte Esterase (NEGATIVE) Urine RBC (0) Urine WBC (0) Ur Squamous Epith Cells (NS,R,O) Urine Bacteria (NS) Meds: Medications Discontinued Medications Generic Name Dose Route Start Last Admin Trade Name Freq PRN Reason Stop Dose Admin Ciprofloxacin 500 mg 11/07/16 06:12 11/07/16 06:57 Ciprofloxacin Hcl PO 11/07/16 06:13 Not Given ONETIME ONE Iopamidol 75 ml 11/07/16 06:35 11/07/16 06:54 Isovue-370 (76%) IV 11/07/16 06:36 75 ml ONETIME ONE Administration Morphine Sulfate 2 mg 11/07/16 06:09 11/07/16 06:23 Morphine IVPUSH 11/07/16 06:10 2 mg ONETIME ONE Administration Ondansetron HCl 4 mg 11/07/16 06:09 11/07/16 06:23 Zofran IVPUSH 11/07/16 06:10 4 mg ONETIME ONE Administration Oxycodone/Acetaminophen 1 tab 11/07/16 04:45 11/07/16 05:12 Percocet 325-5 Mg PO 11/07/16 04:46 1 tab ONETIME STA Administration Potassium Chloride 40 meq 11/07/16 05:55 11/07/16 06:12 Klor-Con M20 PO 11/07/16 05:56 40 meq ONETIME ONE Administration Departure - Departure Time of Disposition: 08:14 Disposition: Home, Self-Care 01 Condition: good Clinical Impression: Hypokalemia, Pleurisy without effusion Shingles rash Qualifiers: Herpes zoster complications: without complications Qualified Code(s): B02.9 - Zoster without complications - Discharge Information Prescriptions: Hydrocodone/Acetaminophen [Welsh 5-325] 1 tab PO Q4H PRN #10 tablet PRN Reason: severe pain only Potassium Chloride [Klor-Con M20] 40 meq PO ONETIME #1 tab.er Referrals: Jeanmarie Allen MD [Physician] - Forms: ED Department Discharge Additional Instructions: Please cont Nitrofurantoin, as recommeded, please take Oxycodon for severe pain , please f/u with your PMD, please came back to the ed if your symptoms get worse acutely, please take the potassium tablet at 10 am today. - My Orders Last 24 Hours: My Active Orders 11/07/16 05:58 EKG 12 Lead [EK] Routine 11/07/16 05:59 EKG Documentation Completion [RC] ASDIRECTED 11/07/16 06:31 Ang Chest [CT] Stat 11/07/16 07:29 Blood Culture x2 Reflex Set [OM.PC] Urgent 11/07/16 07:45 CULTURE BLOOD [BC] Urgent 11/07/16 07:50 CULTURE BLOOD [BC] Urgent - Assessment/Plan Last 24 Hours: My Active Orders 11/07/16 05:58 EKG 12 Lead [EK] Routine 11/07/16 05:59 EKG Documentation Completion [RC] ASDIRECTED 11/07/16 06:31 Ang Chest [CT] Stat 11/07/16 07:29 Blood Culture x2 Reflex Set [OM.PC] Urgent 11/07/16 07:45 CULTURE BLOOD [BC] Urgent 11/07/16 07:50 CULTURE BLOOD [BC] Urgent
[2016-11-07] MEDS ORDERED: Acetaminophen/oxyCODONE 325-5 MG Tab PO STA (04:45)
[2016-11-07] MEDS ORDERED: Potassium Chloride 20 MEQ Tab.ER PO ONE (05:55)
[2016-11-07] MEDS ORDERED: Ondansetron 4 MG/2 ML SDV IVPUSH ONE (06:09)
[2016-11-07] MEDS ORDERED: Morphine 2 MG/ML Syringe IVPUSH ONE (06:09)
[2016-11-07] MEDS ORDERED: Ciprofloxacin 500 MG Tab PO ONE (06:12)
[2016-11-07] MEDS ORDERED: Iopamidol 755 Mg/ML 75 ML Bottle IV ONE (06:35)
[2016-11-07 06:46] VITALS: BP 171/71
--- NOTE | 2016-11-07 11:24 | CR ---
INDICATION: Left chest wall pain. CHEST: Portable AP upright view of the chest 11/07/2016. No comparisons. The heart appeared normal in size and shape. The aorta is slightly tortuous with calcification in the arch. A definite active infiltrate or effusion was not identified, however, pulmonary vasculature in the upper lung field is slightly prominent and there is some prominence of the interstitial markings additionally, raising question of a mild degree of pulmonary vascular congestion and interstitial edema. This could be on the basis of an acute myocardial event, fluid overload, renal failure, etcetera, and should be correlated clinically. Otherwise, no acute process is suggested - no consolidating pneumonia or effusion was seen. MTDD
== END 2016-11-07 08:45 | disposition home or self-care (01) ==
LOC: FB.ED 04:15
DX: R09.1 Pleurisy (principal); B02.9 Zoster without complications; E87.6 Hypokalemia; I10 Essential (primary) hypertension; F41.9 Anxiety disorder, unspecified; F32.9 Major depressive disorder, single episode, unspecified; Z88.0 Allergy status to penicillin; Z88.8 Allergy status to other drugs, medicaments and biological substances; Z79.899 Other long term (current) drug therapy; Z98.49 Cataract extraction status, unspecified eye; Z90.49 Acquired absence of other specified parts of digestive tract; Z98.890 Other specified postprocedural states
CPT/HCPCS: 36415; 71010; 71275; 80048; 81001; 82550; 83605; 84484; 85025; 85379; 87040; 93005; 96374; 96375; 99284; A9270; J2270; J2405; Q9967; 99285

== ENCOUNTER 2016-11-23 01:48 | Emergency (ER) | payer MEDICARE ==
[2016-11-23] MEDS: Morphine 4 MG/ML Syringe IM ONE (02:29)
--- NOTE | 2016-11-23 03:27 | ER ---
DATE SEEN: 11/23/2016 CHIEF COMPLAINT: Back pain. HISTORY OF PRESENT ILLNESS: An 80-year-old female with back pain in the left upper back area. She was watering her wesley when this pain started tonight with no radiation, moderate in intensity. She has a history of chronic back and left flank pain. She has seen a neurosurgeon on and Thursday of this week REVIEW OF SYSTEMS: Anxiety. Denies cough or shortness of breath. PAST MEDICAL HISTORY: Please see the nurse's notes. ALLERGIES: Penicillin, Demerol, and Phenergan. PHYSICAL EXAMINATION: VITAL SIGNS: Blood pressure is 156/72, pulse is 96, and temperature 97.6. MENTAL STATUS: Anxious. HEAD: Normal size. NECK: Supple. CHEST: CLEAR. MUSCULOSKELETAL: There is tenderness in the parascapular muscle group on the left side. IMPRESSION: Back pain. PLAN: I gave her Valium 10 mg IM and morphine 4 mg IM. Symptoms improved dramatically. I advised her to go home and rest. Follow up p.r.n. Return to the ED with worsening symptoms. TIME SEEN: 0200 hours. /[id number] ERI/ROSA
[2016-11-23 05:19] VITALS: BP 124/72
== END 2016-11-23 04:02 | disposition home or self-care (01) ==
LOC: FB.ED 01:48
DX: M54.6 Pain in thoracic spine (principal); Z88.0 Allergy status to penicillin; Z88.8 Allergy status to other drugs, medicaments and biological substances
CPT/HCPCS: 96374; 96375; 99282; J2270; J3360; 99283

== ENCOUNTER 2016-12-06 09:09 | Emergency (ER) | payer MEDICARE ==
[2016-12-06] MEDS ORDERED: Ketorolac 30 MG/ML SDV IM ONE (10:16)
[2016-12-06] MEDS ORDERED: hydrOXYzine HCl 50 MG/ML SDV IM ONE (10:16)
[2016-12-06 10:37] VITALS: BP 162/84
--- NOTE | 2016-12-06 20:59 | ER ---
DATE SEEN: 12/06/2016 TIME SEEN: The 81 year old patient was seen at 1000 hours in the morning. CHIEF COMPLAINT: Low back pain and "I can't sleep because of my back pain." HISTORY OF PRESENT ILLNESS: The patient has been seen by Dr. Chin. She is very appreciative of the use of Vistaril and Toradol shots. The pt presents with a business card that Dr. Chin or his nurse has printed vistaril and toradol on the card. She was advised should she have back pain, she would do well to have more of these shots. The patient denies dysesthesia in lower extremities. She has low back pain that does not radiate to her knees. PAST MEDICAL HISTORY: Significant for kidney stones, hypertension, pyelonephritis, shingles, low potassium, and pleurisy without effusion. CURRENT MEDICATIONS: 1. Cipro started 12/06. 2. Tramadol. 3. Vistaril. 4. Potassium chloride. 5. Metoprolol tartrate 75 mg. 6. Ketoralac 30 mg daily. 7. Ibuprofen. 8. Hydrocodone p.r.n. ALLERGIES: Demerol, penicillin, promethazine. REVIEW OF SYSTEMS: Negative except as noted above. She is edentulous. Denies headaches, neck stiffness. She has no shortness of breath, cough, chest pain irregular heartbeat, abdominal discomfort, change in bowels, urine incontinence or stool incontinence, or loss of sensation lower extremities. PHYSICAL EXAMINATION: VITAL SIGNS: Heart rate 72 and regular, respirations 20, and blood pressure 162/84. Weight 54.4 kg. CONSTITUTIONAL: The patient has a slight slurring of her words and they are slightly deliberate and slow delivery. She has dentures, I suspect this is the etiology for some of her mild compromise in speech. HEENT: PERRLA intact. Pharynx without abnormality. Oral mucosa is not dry. No bruits in neck. LUNGS: Clear to auscultation. No rales, rhonchi. HEART: S1, S2. No murmur. No irregular rate or rhythm. ABDOMEN: Soft. No guarding. No abdominal discomfort. EXTREMITIES: Straight leg raise is negative. She has left medial superior iliac quadratus lumborum muscle discomfort. No focal spinous process tenderness. Deep tendon reflexes are hypoactive, but present in lower extremities and upper extremities. LABORATORY DATA: She showed me a MRI picture of her L4-5 herniated disk and also compression fracture of spine. It is pretty dramatic. ASSESSMENT: Back pain secondary to herniated disk 5 and 4, lumbar. PLAN: Treat with Vistaril shot, with Toradol 30 mg IM and dismiss. Also, she has been started on gabapentin and she feels gabapentin helps. The patient advised she can increase her gabapentin by 100 to 300 mg a week. Dilaudid can cause nausea, but no more than 2400 mg per day, which will be equivalent to 8 tablets a day. At this point, she is going to increase no more than 6 tablets per day, which would be 1800 mg per day. Follow up with doctor in a week. /[id number] OSMIN/ROSA MURRELL
== END 2016-12-06 10:44 | disposition home or self-care (01) ==
LOC: FB.ED 09:09
DX: M51.26 Other intervertebral disc displacement, lumbar region (principal); I10 Essential (primary) hypertension; Z88.0 Allergy status to penicillin; Z88.8 Allergy status to other drugs, medicaments and biological substances
CPT/HCPCS: 96372; 99282; J1885; J3410; 99283

== ENCOUNTER 2016-12-31 22:19 | Emergency (ER) | payer MEDICARE ==
[2016-12-31 22:28] VITALS: BP 124/53
--- NOTE | 2016-12-31 22:55 | EDM.PDOC ---
ED HPI GENERAL MEDICAL PROBLEM - General Chief Complaint: Back Pain or Injury Stated Complaint: BACK PAIN Time Seen by Provider: 12/31/16 22:45 Source of Information: Reports: Patient, Old Records, RN History Limitations: Reports: No Limitations - History of Present Illness INITIAL COMMENTS - FREE TEXT/NARRATIVE: 81 yo female with a pHx of lumbar herniated discs and lumbar compression fx's presents with increased low back pain over the past few hours not associated with injury. Was referred to a pain specialist in [place] and sees them next week. Is currently on gabapentin and clonazepam, but occasionally needs more than this. Was in the ER about a month ago and saw Dr. Clarke who ordered Toradol 30 mg IM and Vistail IM(? dose) with good results. 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) (Neurontin and clonazepam) - Related Data Allergies Allergy/AdvReac Type Severity Reaction Status Date / Time meperidine [From Demerol] Allergy Itching Verified 12/06/16 09:22 Penicillins Allergy Itching Verified 12/06/16 09:22 promethazine [From Phenergan] Allergy Itching Verified 12/06/16 09:22 Home Meds: Home Meds Metoprolol Tartrate 75 mg PO DAILY 03/27/16 [History] ClonazePAM [KlonoPIN] 1 tab PO BEDTIME 12/31/16 [History] Gabapentin [Neurontin] 1 cap PO DAILY 12/31/16 [History] Past Medical History - Past Health History Medical/Surgical History: Denies Medical/Surgical History HEENT History: Reports: Hard of Hearing Cardiovascular History: Reports: Hypertension Other Gastrointestinal History: trouble swallowing, Genitourinary History: Reports: Renal Calculus Neurological History: Reports: Other (See Below) Other Neuro History: Had an incident with colon surgery, 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 Psychiatric History: Reports: Anxiety, Depression Hematologic History: Reports: Blood Transfusion(s) - Past Surgical History HEENT Surgical History: Reports: Cataract Surgery, Oral Surgery, Tonsillectomy GI Surgical History: Reports: Appendectomy, Colonoscopy, EGD, Other (See Below) Social & Family History - Family History Family Medical History: Noncontributory - Tobacco Use Smoking Status *Q: Never Smoker Used Tobacco, but Quit: No Second Hand Smoke Exposure: No - Caffeine Use Caffeine Use: Reports: Coffee - Alcohol Use Days Per Week of Alcohol Use: 1 Number of Drinks Per Day: 1 Total Drinks Per Week: 1 - Recreational Drug Use Recreational Drug Use: No ED ROS GENERAL - Review of Systems Review Of Systems: See Below Constitutional: Reports: No Symptoms Respiratory: Reports: No Symptoms Cardiovascular: Reports: No Symptoms GI/Abdominal: Reports: No Symptoms : Reports: No Symptoms Musculoskeletal: Reports: Back Pain Skin: Reports: No Symptoms Neurological: Reports: No Symptoms ED EXAM,LOWER BACK PAIN/INJURY - Physical Exam Exam: See Below Exam Limited By: No Limitations General Appearance: Alert, No Apparent Distress, Thin Ears: Hearing Grossly Normal Nose: Normal Inspection, Normal Mucosa, No Blood Throat/Mouth: Normal Inspection, Normal Lips, Normal Oropharynx, Normal Voice, No Airway Compromise, Other (edentulous) Head: Atraumatic, Normocephalic Neck: Normal Inspection, Supple Respiratory/Chest: No Respiratory Distress, Lungs Clear, Normal Breath Sounds, No Accessory Muscle Use Cardiovascular: Regular Rate, Rhythm GI/Abdominal: Normal Bowel Sounds, Soft, Non-Tender, No Distention Back Exam: Normal Inspection. No: CVA Tenderness (R), CVA Tenderness (L) Extremities: Normal Inspection, Normal Range of Motion, Non-Tender, No Pedal Edema Neurological: Alert, Normal Mood/Affect, CN II-XII Intact, Normal Gait, No Motor /Sensory Deficits, Oriented x 3 Psychiatric: Normal Affect, Normal Mood Skin Exam: Warm, Dry, Intact, Normal Color, No Rash Lymphatic: No Adenopathy Course - Vital Signs Text/Narrative:: Toradol 30 mg IM, Vistaril 50 mg IM Last Recorded V/S: Last Vital Signs Temp 37.1 C 12/31/16 22:26 Pulse 81 12/31/16 22:26 Resp 18 12/31/16 22:26 BP 124/53 L 12/31/16 22:26 Pulse Ox 98 12/31/16 22:26 - Orders/Labs/Meds Orders: Active Orders 24 hr Category Date Time Status UA W/MICROSCOPIC [URIN] Stat Lab 12/31/16 22:48 Ordered Ketorolac [Toradol] Med 12/31/16 23:04 Once 30 mg IM ONETIME ONE hydrOXYzine HCl [Vistaril] Med 12/31/16 23:04 Once 50 mg IM ONETIME ONE Medication Orders Hydroxyzine HCl (Vistaril) 50 mg IM ONETIME ONE Stop: 12/31/16 23:05 Ketorolac Tromethamine (Toradol) 30 mg IM ONETIME ONE Stop: 12/31/16 23:05 Meds: Medications Generic Name Dose Route Start Last Admin Trade Name Freq PRN Reason Stop Dose Admin Hydroxyzine HCl 50 mg 12/31/16 23:04 Vistaril IM 12/31/16 23:05 ONETIME ONE Ketorolac Tromethamine 30 mg 12/31/16 23:04 Toradol IM 12/31/16 23:05 ONETIME ONE Departure - Departure Time of Disposition: 23:35 Disposition: Home, Self-Care 01 Condition: Fair Clinical Impression: Acute exacerbation of chronic low back pain - Discharge Information Forms: ED Department Discharge - My Orders Last 24 Hours: My Active Orders 12/31/16 22:48 UA W/MICROSCOPIC [URIN] Stat 12/31/16 23:04 Ketorolac [Toradol] 30 mg IM ONETIME ONE hydrOXYzine HCl [Vistaril] 50 mg IM ONETIME ONE - Assessment/Plan Last 24 Hours: My Active Orders 12/31/16 22:48 UA W/MICROSCOPIC [URIN] Stat 12/31/16 23:04 Ketorolac [Toradol] 30 mg IM ONETIME ONE hydrOXYzine HCl [Vistaril] 50 mg IM ONETIME ONE
[2016-12-31] MEDS ORDERED: hydrOXYzine HCl 50 MG/ML SDV IM ONE (23:04)
[2016-12-31] MEDS ORDERED: Ketorolac 30 MG/ML SDV IM ONE (23:04)
[2016-12-31] MEDS ORDERED: Acetaminophen/HYDROcodone 325-5 MG Tab PO ONE (23:22)
== END 2016-12-31 23:30 | disposition home or self-care (01) ==
LOC: FB.ED 22:19
DX: M54.5 Low back pain (principal); G89.29 Other chronic pain; I10 Essential (primary) hypertension; F32.9 Major depressive disorder, single episode, unspecified; Z88.8 Allergy status to other drugs, medicaments and biological substances; Z88.0 Allergy status to penicillin; Z79.899 Other long term (current) drug therapy
CPT/HCPCS: 81001; 87086; 87088; 87186; 96372; 99283; A9270; J1885; J3410

== ENCOUNTER 2018-06-21 11:03 | Emergency (ER) | payer MEDICARE ==
--- NOTE | 2018-06-21 11:08 | EDM.PDOC ---
ED HPI GENERAL MEDICAL PROBLEM - General Stated Complaint: loss of weight COUGH Time Seen by Provider: 06/21/18 11:07 Source of Information: Reports: Patient, Family History Limitations: Reports: No Limitations - History of Present Illness INITIAL COMMENTS - FREE TEXT/NARRATIVE: 82 y.o.w.f came with her friend to the ED due to poor po intake in the past 4-5 days, cough, weightless, painful urination, mainly being at home with not much physical activity. Pt is a poor historian. HPI is given by her friend. BP 118/ 58 RR 18 Pulse ox 94% on RA temp 36.8 puls 88 Onset Date: 06/18/18 Onset Time: 09:00 Duration: Day(s):, Getting Worse, Intermittent Location: Reports: Pelvis, Generalized Quality: Reports: Other (cough, feeling weak, ) Improves with: Reports: Rest Worsens with: Reports: None Context: Reports: Sick Contact Associated Symptoms: Reports: Confusion, Cough, Loss of Appetite, Weakness neck Pain Score (Numeric/FACES): 6 - Related Data Allergies Allergy/AdvReac Type Severity Reaction Status Date / Time meperidine [From Demerol] Allergy Itching Verified 06/21/18 11:34 Penicillins Allergy Itching Verified 06/21/18 11:34 promethazine [From Phenergan] Allergy Itching Verified 06/21/18 11:34 Home Meds: Home Meds Levofloxacin 500 mg PO DAILY #10 tablet 06/21/18 [Rx] Past Medical History - Past Health History Medical/Surgical History: Denies Medical/Surgical History HEENT History: Reports: Hard of Hearing Cardiovascular History: Reports: Hypertension Other Gastrointestinal History: trouble swallowing, Genitourinary History: Reports: Renal Calculus Musculoskeletal History: Reports: Arthritis, Fracture, Osteoarthritis Other Musculoskeletal History: L foot fx Neurological History: Reports: Other (See Below) Other Neuro History: Had an incident with colon surgery, 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 Psychiatric History: Reports: Anxiety, Depression Hematologic History: Reports: Blood Transfusion(s) - Infectious Disease History Infectious Disease History: Reports: Shingles - Past Surgical History HEENT Surgical History: Reports: Cataract Surgery, Oral Surgery, Tonsillectomy GI Surgical History: Reports: Appendectomy, Colonoscopy, EGD, Other (See Below) Other GI Surgeries/Procedures: has had trach in past Female Surgical History: Reports: None Social & Family History - Family History Family Medical History: Noncontributory - Caffeine Use Caffeine Use: Reports: Coffee ED ROS GENERAL - Review of Systems Review Of Systems: See Below Constitutional: Reports: Weakness, Decreased Appetite HEENT: Reports: No Symptoms Respiratory: Reports: Cough Cardiovascular: Reports: No Symptoms Endocrine: Reports: No Symptoms GI/Abdominal: Reports: No Symptoms : Reports: Dysuria, Frequency Musculoskeletal: Reports: No Symptoms Skin: Reports: No Symptoms Neurological: Reports: No Symptoms Psychiatric: Reports: No Symptoms Hematologic/Lymphatic: Reports: No Symptoms Immunologic: Reports: No Symptoms ED EXAM, GENERAL - Physical Exam Exam: See Below Exam Limited By: Physical Impairment General Appearance: Alert, WD/WN, Moderate Distress Eye Exam: Bilateral Eye: Normal Inspection Ears: Normal External Exam Ear Exam: Bilateral Ear: Auricle Normal Nose: Normal Inspection, Normal Mucosa Throat/Mouth: Normal Lips, Normal Voice, No Airway Compromise, Other (dry mucosal membrane) Head: Atraumatic, Normocephalic Neck: Normal Inspection, Supple, Non-Tender, Full Range of Motion Respiratory/Chest: No Respiratory Distress, Lungs Clear, Normal Breath Sounds, Other (poor insp effort) Cardiovascular: Normal Peripheral Pulses, Regular Rate, Rhythm, No Edema, No Gallop GI/Abdominal: Normal Bowel Sounds, Soft, Non-Tender, No Organomegaly, No Distention, No Abnormal Bruit (Female) Exam: Deferred Rectal (Female) Exam: Deferred Back Exam: Normal Inspection, Full Range of Motion Extremities: Normal Inspection, Normal Range of Motion Neurological: Alert, Oriented, CN II-XII Intact, Normal Cognition, Abnormal Gait (weak) Psychiatric: Normal Affect, Normal Mood Skin Exam: Warm, Dry, Intact, Normal Color, No Rash Lymphatic: No Adenopathy Course - Vital Signs Text/Narrative:: 82 y.o.w.f came with her friend to the ED due to poor po intake in the past 4-5 days, cough, weightless, painful urination, mainly being at home with not much physical activity. Pt is a poor historian. HPI is given by her friend. BP 118/ 58 RR 18 Pulse ox 94% on RA temp 36.8 puls 88 PE: Cahectic 82 y.o.w.f with cough, weight loss, dysuria Labs: UA pos for UTI, WBC nl MCV 77.6 BMP nl Except BUN 30 Cr. 1.0 GFR 54 BUN/ CR elevated Impression: UTI, Viral syndrome, dehydration, wt loss, poor apatite Tx: NS, Zofran, Levoquin, food Reexam: Pt improved, ate well here in the ED before D/C Plan: D/C with instructions Last Recorded V/S: Last Vital Signs Temp 36.6 C 06/21/18 17:50 Pulse 86 06/21/18 17:50 Resp 16 06/21/18 17:50 BP 151/92 H 06/21/18 17:50 Pulse Ox 98 06/21/18 17:50 - Orders/Labs/Meds Orders: Active Orders 24 hr Category Date Time Status CULTURE URINE [RM] Stat Lab 06/21/18 16:03 Received Labs: Laboratory Tests 06/21/18 06/21/18 06/21/18 Range/Units 11:25 11:25 11:25 WBC 6.2 (4.5-12.0) X10-3/uL RBC 4.78 (3.23-5.20) x10(6)uL Hgb 11.8 (11.5-15.5) g/dL Hct 36.9 (30.0-51.3) % MCV 77.1 L (80-96) fL MCH 24.6 L (27.7-33.6) pg MCHC 31.9 L (32.2-35.4) g/dL RDW 16.2 H (11.5-15.5) % Plt Count 273 (125-369) X10(3)uL MPV 8.8 (7.4-10.4) fL Add Manual Diff Yes Neutrophils % (Manual) 74 (46-82) % Band Neutrophils % 3 (0-6) % Lymphocytes % (Manual) 16 (13-37) % Monocytes % (Manual) 7 (4-12) % Anisocytosis Few Microcytosis Few PT 10.4 (8.7-11.1) INR 1.07 (0.89-1.13) Sodium 139 (135-145) mmol/L Potassium 3.5 (3.5-5.3) mmol/L Chloride 103 (100-110) mmol/L Carbon Dioxide 24 (21-32) mmol/L BUN 30 H (7-18) mg/dL Creatinine 1.0 (0.55-1.02) mg/dL Est Cr Clr Drug Dosing TNP Estimated GFR (MDRD) 53 L (>60) BUN/Creatinine Ratio 30.0 H (9-20) Glucose 123 H (80-116) mg/dL Calcium 9.6 (8.6-10.2) mg/dL Total Bilirubin (0.1-1.3) mg/dL Direct Bilirubin (0.10-0.20) mg/dL AST (5-25) IU/L ALT (12-36) U/L Alkaline Phosphatase (56-112) IU/L C-Reactive Protein (0.5-0.9) mg/dL Total Protein (6.0-8.0) g/dL Albumin (3.2-4.6) g/dL TSH, Ultra Sensitive (0.36-3.74) IU/mL Urine Color (YELLOW) Urine Appearance (CLEAR) Urine pH (5.0-6.5) Ur Specific Ernest (1.010-1.025) Urine Protein (NEGATIVE) mg/dL Urine Glucose (UA) (NEGATIVE) mg/dL Urine Ketones (NEGATIVE) mg/dL Urine Occult Blood (NEGATIVE) Urine Nitrite (NEGATIVE) Urine Bilirubin (NEGATIVE) Urine Urobilinogen (NEGATIVE) mg/dL Ur Leukocyte Esterase (NEGATIVE) Urine RBC (0) Urine WBC (0) Ur Squamous Epith Cells (NS,R,O) Urine Bacteria (NS) 06/21/18 06/21/18 06/21/18 Range/Units 11:25 11:25 11:25 WBC (4.5-12.0) X10-3/uL RBC (3.23-5.20) x10(6)uL Hgb (11.5-15.5) g/dL Hct (30.0-51.3) % MCV (80-96) fL MCH (27.7-33.6) pg MCHC (32.2-35.4) g/dL RDW (11.5-15.5) % Plt Count (125-369) X10(3)uL MPV (7.4-10.4) fL Add Manual Diff Neutrophils % (Manual) (46-82) % Band Neutrophils % (0-6) % Lymphocytes % (Manual) (13-37) % Monocytes % (Manual) (4-12) % Anisocytosis Microcytosis PT (8.7-11.1) INR (0.89-1.13) Sodium (135-145) mmol/L Potassium (3.5-5.3) mmol/L Chloride (100-110) mmol/L Carbon Dioxide (21-32) mmol/L BUN (7-18) mg/dL Creatinine (0.55-1.02) mg/dL Est Cr Clr Drug Dosing Estimated GFR (MDRD) (>60) BUN/Creatinine Ratio (9-20) Glucose (80-116) mg/dL Calcium (8.6-10.2) mg/dL Total Bilirubin 0.4 (0.1-1.3) mg/dL Direct Bilirubin 0.12 (0.10-0.20) mg/dL AST 18 (5-25) IU/L ALT 20 (12-36) U/L Alkaline Phosphatase 87 (56-112) IU/L C-Reactive Protein 3.0 H* (0.5-0.9) mg/dL Total Protein 7.7 (6.0-8.0) g/dL Albumin 3.5 (3.2-4.6) g/dL TSH, Ultra Sensitive 2.09 (0.36-3.74) IU/mL Urine Color (YELLOW) Urine Appearance (CLEAR) Urine pH (5.0-6.5) Ur Specific Ernest (1.010-1.025) Urine Protein (NEGATIVE) mg/dL Urine Glucose (UA) (NEGATIVE) mg/dL Urine Ketones (NEGATIVE) mg/dL Urine Occult Blood (NEGATIVE) Urine Nitrite (NEGATIVE) Urine Bilirubin (NEGATIVE) Urine Urobilinogen (NEGATIVE) mg/dL Ur Leukocyte Esterase (NEGATIVE) Urine RBC (0) Urine WBC (0) Ur Squamous Epith Cells (NS,R,O) Urine Bacteria (NS) 06/21/18 Range/Units 16:03 WBC (4.5-12.0) X10-3/uL RBC (3.23-5.20) x10(6)uL Hgb (11.5-15.5) g/dL Hct (30.0-51.3) % MCV (80-96) fL MCH (27.7-33.6) pg MCHC (32.2-35.4) g/dL RDW (11.5-15.5) % Plt Count (125-369) X10(3)uL MPV (7.4-10.4) fL Add Manual Diff Neutrophils % (Manual) (46-82) % Band Neutrophils % (0-6) % Lymphocytes % (Manual) (13-37) % Monocytes % (Manual) (4-12) % Anisocytosis Microcytosis PT (8.7-11.1) INR (0.89-1.13) Sodium (135-145) mmol/L Potassium (3.5-5.3) mmol/L Chloride (100-110) mmol/L Carbon Dioxide (21-32) mmol/L BUN (7-18) mg/dL Creatinine (0.55-1.02) mg/dL Est Cr Clr Drug Dosing Estimated GFR (MDRD) (>60) BUN/Creatinine Ratio (9-20) Glucose (80-116) mg/dL Calcium (8.6-10.2) mg/dL Total Bilirubin (0.1-1.3) mg/dL Direct Bilirubin (0.10-0.20) mg/dL AST (5-25) IU/L ALT (12-36) U/L Alkaline Phosphatase (56-112) IU/L C-Reactive Protein (0.5-0.9) mg/dL Total Protein (6.0-8.0) g/dL Albumin (3.2-4.6) g/dL TSH, Ultra Sensitive (0.36-3.74) IU/mL Urine Color Yellow (YELLOW) Urine Appearance Slightly cloudy (CLEAR) Urine pH 5.0 (5.0-6.5) Ur Specific Ernest 1.020 (1.010-1.025) Urine Protein Trace (NEGATIVE) mg/dL Urine Glucose (UA) Normal (NEGATIVE) mg/dL Urine Ketones 15 H (NEGATIVE) mg/dL Urine Occult Blood Moderate H (NEGATIVE) Urine Nitrite Positive H (NEGATIVE) Urine Bilirubin Negative (NEGATIVE) Urine Urobilinogen Normal (NEGATIVE) mg/dL Ur Leukocyte Esterase Large H (NEGATIVE) Urine RBC 0-5 (0) Urine WBC 10-20 H (0) Ur Squamous Epith Cells Few H (NS,R,O) Urine Bacteria Many H (NS) Meds: Medications Discontinued Medications Generic Name Dose Route Start Last Admin Trade Name Freq PRN Reason Stop Dose Admin Albuterol/Ipratropium 3 ml 06/21/18 15:56 06/21/18 16:02 Duoneb 3.0-0.5 Mg/3 Ml NEB 06/21/18 15:57 3 ml ONETIME ONE Administration Dexamethasone 4 mg 06/21/18 15:06 06/21/18 16:00 Dexamethasone IVPUSH 06/21/18 15:07 4 mg ONETIME ONE Administration Diphenhydramine HCl 50 mg 06/21/18 12:17 06/21/18 12:31 Benadryl IVPUSH 06/21/18 12:18 50 mg ONETIME ONE Administration Sodium Chloride 1,000 mls @ 999 mls/hr 06/21/18 11:16 06/21/18 12:00 Normal Saline IV 06/21/18 12:16 999 mls/hr .BOLUS ONE Administration Sodium Chloride 1,000 mls @ 125 mls/hr 06/21/18 13:15 06/21/18 13:16 Normal Saline IV 125 mls/hr ASDIRECTED AYE Administration Levofloxacin 500 mg 06/21/18 16:41 06/21/18 17:20 Levaquin PO 06/21/18 16:42 500 mg ONETIME ONE Administration Departure - Departure Time of Disposition: 15:38 Disposition: Home, Self-Care 01 Condition: Good Clinical Impression: Viral syndrome, Dehydration UTI (urinary tract infection) Qualifiers: Encounter type: initial encounter - Discharge Information Prescriptions: Levofloxacin 500 mg PO DAILY #10 tablet Instructions: Urinary Tract Infection, Adult, [id number], Urinary Frequency, Adult, Dehydration, Elderly Referrals: Anselmo Chin MD [Primary Care Provider] - Forms: ED Department Discharge Additional Instructions: Please increase water intake, please increase food intake, please f/u with your PMD, take the Abx as recommended,please come back if your symptoms get worse acutely. - My Orders Last 24 Hours: My Active Orders 06/21/18 16:03 CULTURE URINE [RM] Stat - Assessment/Plan Last 24 Hours: My Active Orders 06/21/18 16:03 CULTURE URINE [RM] Stat
[2018-06-21] MEDS ORDERED: Sodium Chloride 0.9% 1,000 ML IV ONE (11:16)
[2018-06-21] MEDS ORDERED: diphenhydrAMINE 50 MG/ML SDV IVPUSH ONE (12:17)
[2018-06-21] MEDS ORDERED: Sodium Chloride 0.9% 1,000 ML IV SCH (13:15)
[2018-06-21] MEDS ORDERED: Dexamethasone 4 MG/ML SDV IVPUSH ONE (15:06)
--- NOTE | 2018-06-21 15:16 | CR ---
INDICATION: Cough. CHEST: AP and lateral views of the chest were obtained 06-21-18 and compared with 11-07-16 and revealed the heart to remain normal in size and shape. The aorta is calcified in the arch area with minimal tortuosity. Somewhat diminished bone density is suggested compared with osteoporosis. Lungs appear to be somewhat hyperaerated with prominent AP diameter and slightly flattened diaphragm leaves raising question of COPD. A definite active infiltrate or effusion was not identified. IMPRESSION: 1. No acute process. 2. Probable COPD. 3. Osteoporosis likely. 4. ASD aorta. MTDD
[2018-06-21] MEDS ORDERED: Albuterol/Ipratropium 3.0-0.5 MG/3 ML Neb Soln NEB ONE (15:56)
[2018-06-21] MEDS ORDERED: Levofloxacin 500 MG Tab PO ONE (16:41)
[2018-06-21 18:07] VITALS: BP 151/92
== END 2018-06-21 17:54 | disposition home or self-care (01) ==
LOC: FB.ED 11:03
DX: N39.0 Urinary tract infection, site not specified (principal); B34.9 Viral infection, unspecified; E86.0 Dehydration; R63.4 Abnormal weight loss; I10 Essential (primary) hypertension; Z88.0 Allergy status to penicillin; Z88.8 Allergy status to other drugs, medicaments and biological substances
CPT/HCPCS: 36415; 71046; 80048; 80076; 81001; 84443; 85025; 85610; 86140; 87086; 87088; 87186; 94640; 96361; 96374; 96375; 99283; 99285; A9270; J1100; J1200; J7030; J7620-GY

== ENCOUNTER 2018-06-23 10:53 | Observation (INO) | payer MEDICARE ==
[2018-06-23] MEDS ORDERED: Sodium Chloride 0.9% 500 ML IV ONE (11:41)
[2018-06-23] MEDS ORDERED: Sodium Chloride 0.9% 10 ML Syringe FLUSH PRN (11:41)
--- NOTE | 2018-06-23 11:48 | EDM.PDOC ---
ED HPI GENERAL MEDICAL PROBLEM - General Chief Complaint: General Stated Complaint: LOOSE STOOLS Time Seen by Provider: 06/23/18 11:44 Source of Information: Reports: Patient History Limitations: Reports: No Limitations - History of Present Illness INITIAL COMMENTS - FREE TEXT/NARRATIVE: Diagnosed with UTI and rx'd Levaquin on 06/21/18. Patient presents today with diarrhea and generalized weakness x 2 days. Urine Culture shows >100k gm neg rods, further ID pending. Patient lives alone. Duration: Day(s): (2) - Related Data Allergies Allergy/AdvReac Type Severity Reaction Status Date / Time meperidine [From Demerol] Allergy Itching Verified 06/21/18 11:34 Penicillins Allergy Itching Verified 06/21/18 11:34 promethazine [From Phenergan] Allergy Itching Verified 06/21/18 11:34 Home Meds: Home Meds Levofloxacin 500 mg PO DAILY #10 tablet 06/21/18 [Rx] Past Medical History HEENT History: Reports: Hard of Hearing Cardiovascular History: Reports: Hypertension Other Gastrointestinal History: trouble swallowing, Genitourinary History: Reports: Renal Calculus Musculoskeletal History: Reports: Arthritis, Fracture, Osteoarthritis Other Musculoskeletal History: L foot fx Neurological History: Reports: Other (See Below) Other Neuro History: Had an incident with colon surgery, 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 Psychiatric History: Reports: Anxiety, Depression Hematologic History: Reports: Blood Transfusion(s) - Infectious Disease History Infectious Disease History: Reports: Shingles - Past Surgical History HEENT Surgical History: Reports: Cataract Surgery, Oral Surgery, Tonsillectomy GI Surgical History: Reports: Appendectomy, Colonoscopy, EGD, Other (See Below) Other GI Surgeries/Procedures: has had trach in past Female Surgical History: Reports: None Social & Family History - Family History Family Medical History: Noncontributory - Tobacco Use Tobacco Use Within Last Twelve Months: No - Caffeine Use Caffeine Use: Reports: Coffee ED ROS GENERAL - Review of Systems Review Of Systems: See Below Constitutional: Reports: Chills, Weakness, Fatigue. Denies: Fever HEENT: Reports: No Symptoms Respiratory: Reports: Cough Cardiovascular: Reports: No Symptoms Endocrine: Reports: No Symptoms GI/Abdominal: Reports: Diarrhea, Nausea. Denies: Abdominal Pain, Mucous in Stool, Vomiting : Reports: No Symptoms Musculoskeletal: Reports: No Symptoms Skin: Reports: No Symptoms Neurological: Reports: No Symptoms Psychiatric: Reports: No Symptoms Hematologic/Lymphatic: Reports: No Symptoms Immunologic: Reports: No Symptoms ED EXAM, GENERAL - Physical Exam Exam: See Below Exam Limited By: No Limitations General Appearance: Alert, WD/WN, No Apparent Distress Ears: Normal External Exam Nose: Normal Inspection Throat/Mouth: Normal Oropharynx, No Airway Compromise Head: Atraumatic, Normocephalic Neck: Full Range of Motion Respiratory/Chest: No Respiratory Distress, Lungs Clear, Normal Breath Sounds Cardiovascular: Regular Rate, Rhythm, No Murmur GI/Abdominal: Normal Bowel Sounds, Soft, Tender (mild epigastric) Extremities: Normal Range of Motion Neurological: Alert, Normal Cognition, No Motor/Sensory Deficits Psychiatric: Normal Affect, Normal Mood Skin Exam: Warm, Dry, Intact EKG INTERPRETATION EKG Date: 06/23/18 Time: 11:52 Rhythm: NSR Rate (Beats/Min): 59 [place]: RAD-Right [place] Deviation P-Wave: Present QRS: Normal ST-T: Normal QT: Normal Course - Orders/Labs/Meds Orders: Active Orders 24 hr Category Date Time Status Admission Status [Patient Status] [ADT] Routine ADT 06/23/18 13:19 Ordered CDIFF TOXIN A+B GROUP [OP] Stat Lab 06/23/18 11:44 Ordered CULTURE BLOOD [BC] Urgent Lab 06/23/18 11:55 Received CULTURE BLOOD [BC] Urgent Lab 06/23/18 12:01 Received Sodium Chloride 0.9% [Saline Flush] Med 06/23/18 11:41 Active 10 ml FLUSH ASDIRECTED PRN Blood Culture x2 Reflex Set [OM.PC] Urgent Oth 06/23/18 11:39 Ordered Saline Lock Insert [OM.PC] Routine Oth 06/23/18 11:41 Ordered EKG 12 Lead [EK] Stat Ther 06/23/18 11:39 Ordered Medication Orders Sodium Chloride (Saline Flush) 10 ml FLUSH ASDIRECTED PRN PRN Reason: Keep Vein Open Labs: Laboratory Tests 06/23/18 06/23/18 06/23/18 Range/Units 11:55 11:55 11:55 WBC 5.1 (4.5-12.0) X10-3/uL RBC 4.26 (3.23-5.20) x10(6)uL Hgb 10.4 L (11.5-15.5) g/dL Hct 32.8 (30.0-51.3) % MCV 77.0 L (80-96) fL MCH 24.5 L (27.7-33.6) pg MCHC 31.8 L (32.2-35.4) g/dL RDW 16.3 H (11.5-15.5) % Plt Count 253 (125-369) X10(3)uL MPV 9.1 (7.4-10.4) fL Neut % (Auto) 67.2 (46-82) % Lymph % (Auto) 21.5 (13-37) % [place] % (Auto) 10.1 (4-12) % Eos % (Auto) 1 (1.0-5.0) % Baso % (Auto) 1 (0-2) % Neut # (Auto) 3.5 (1.6-8.3) # Lymph # (Auto) 1.1 (0.6-5.0) # [place] # (Auto) 0.5 (0.0-1.3) # Eos # (Auto) 0.0 (0.0-0.8) # Baso # (Auto) 0.0 (0.0-0.2) # Sodium 143 (135-145) mmol/L Potassium 3.4 L (3.5-5.3) mmol/L Chloride 109 D (100-110) mmol/L Carbon Dioxide 24 (21-32) mmol/L BUN 25 H (7-18) mg/dL Creatinine 0.9 (0.55-1.02) mg/dL Est Cr Clr Drug Dosing TNP Estimated GFR (MDRD) 60 (>60) BUN/Creatinine Ratio 27.8 H (9-20) Glucose 98 (80-116) mg/dL Lactic Acid (0.4-2.2) mmol/L Calcium 9.3 (8.6-10.2) mg/dL Magnesium 1.7 L (1.8-2.5) mg/dL Total Bilirubin 0.3 (0.1-1.3) mg/dL AST 18 (5-25) IU/L ALT 18 (12-36) U/L Alkaline Phosphatase 64 (56-112) IU/L Troponin I 0.047 (<0.017-0.056) ng/mL Total Protein 6.4 (6.0-8.0) g/dL Albumin 2.9 L (3.2-4.6) g/dL Globulin 3.5 g/dL Albumin/Globulin Ratio 0.8 06/23/18 Range/Units 11:55 WBC (4.5-12.0) X10-3/uL RBC (3.23-5.20) x10(6)uL Hgb (11.5-15.5) g/dL Hct (30.0-51.3) % MCV (80-96) fL MCH (27.7-33.6) pg MCHC (32.2-35.4) g/dL RDW (11.5-15.5) % Plt Count (125-369) X10(3)uL MPV (7.4-10.4) fL Neut % (Auto) (46-82) % Lymph % (Auto) (13-37) % [place] % (Auto) (4-12) % Eos % (Auto) (1.0-5.0) % Baso % (Auto) (0-2) % Neut # (Auto) (1.6-8.3) # Lymph # (Auto) (0.6-5.0) # [place] # (Auto) (0.0-1.3) # Eos # (Auto) (0.0-0.8) # Baso # (Auto) (0.0-0.2) # Sodium (135-145) mmol/L Potassium (3.5-5.3) mmol/L Chloride (100-110) mmol/L Carbon Dioxide (21-32) mmol/L BUN (7-18) mg/dL Creatinine (0.55-1.02) mg/dL Est Cr Clr Drug Dosing Estimated GFR (MDRD) (>60) BUN/Creatinine Ratio (9-20) Glucose (80-116) mg/dL Lactic Acid 1.4 (0.4-2.2) mmol/L Calcium (8.6-10.2) mg/dL Magnesium (1.8-2.5) mg/dL Total Bilirubin (0.1-1.3) mg/dL AST (5-25) IU/L ALT (12-36) U/L Alkaline Phosphatase (56-112) IU/L Troponin I (<0.017-0.056) ng/mL Total Protein (6.0-8.0) g/dL Albumin (3.2-4.6) g/dL Globulin g/dL Albumin/Globulin Ratio Meds: Medications Generic Name Dose Route Start Last Admin Trade Name Freq PRN Reason Stop Dose Admin Sodium Chloride 10 ml 06/23/18 11:41 Saline Flush FLUSH ASDIRECTED PRN Keep Vein Open Discontinued Medications Generic Name Dose Route Start Last Admin Trade Name Freq PRN Reason Stop Dose Admin Sodium Chloride 500 mls @ 500 mls/hr 06/23/18 11:41 06/23/18 12:00 Normal Saline IV 06/23/18 12:40 500 mls/hr .BOLUS ONE Administration - Re-Assessments/Exams Free Text/Narrative Re-Assessment/Exam: 06/23/18 13:27 Patient feels somewhat better after IVF. 06/23/18 13:28 Dr. Chin will admit patient for observation. Departure - Departure Time of Disposition: 13:28 Disposition: Refer to Observation Condition: Fair Clinical Impression: Cystitis, Generalized weakness - Discharge Information *PRESCRIPTION DRUG MONITORING PROGRAM REVIEWED*: No *COPY OF PRESCRIPTION DRUG MONITORING REPORT IN PATIENT RICHARD: Not Applicable Referrals: Jeanmarie Allen MD [Primary Care Provider] - Forms: ED Department Discharge - My Orders Last 24 Hours: My Active Orders 06/23/18 11:39 Blood Culture x2 Reflex Set [OM.PC] Urgent EKG 12 Lead [EK] Stat 06/23/18 11:41 Sodium Chloride 0.9% [Saline Flush] 10 ml FLUSH ASDIRECTED PRN Saline Lock Insert [OM.PC] Routine 06/23/18 11:44 CDIFF TOXIN A+B GROUP [OP] Stat 06/23/18 11:55 CULTURE BLOOD [BC] Urgent 06/23/18 12:01 CULTURE BLOOD [BC] Urgent 06/23/18 13:19 Admission Status [Patient Status] [ADT] Routine - Assessment/Plan Last 24 Hours: My Active Orders 06/23/18 11:39 Blood Culture x2 Reflex Set [OM.PC] Urgent EKG 12 Lead [EK] Stat 06/23/18 11:41 Sodium Chloride 0.9% [Saline Flush] 10 ml FLUSH ASDIRECTED PRN Saline Lock Insert [OM.PC] Routine 06/23/18 11:44 CDIFF TOXIN A+B GROUP [OP] Stat 06/23/18 11:55 CULTURE BLOOD [BC] Urgent 06/23/18 12:01 CULTURE BLOOD [BC] Urgent 06/23/18 13:19 Admission Status [Patient Status] [ADT] Routine
[2018-06-23] MEDS ORDERED: cefTRIAXone 1 GM Vial IVPUSH SCH (13:45)
[2018-06-23] MEDS: Sodium Chloride 0.9% 1,000 ML IV SCH (15:19)
--- NOTE | 2018-06-23 17:18 | PCM.HP ---
H&P History of Present Illness - General Date of Service: 06/23/18 Admit Problem/Dx: Admission Diagnosis/Problem Admission Diagnosis/Problem UTI, Urinary tract infectious disease Source of Information: Patient, Old Records History Limitations: Reports: No Limitations - History of Present Illness Initial Comments - Free Text/Narative: Ms. Walters is an 82-year-old female presents to ER with decreased oral intake, dehydration and a recent infection of the urinary tract. She has been seen the ER at least 2 times in the last 4 days with diagnosis of UTI, weakness and anxiety. At the time of my history, she complains of no pain, nausea or vomiting. She has been significantly weak, losing about 15-20 pounds in a month and lives alone. Urine culture grew Escherichia coli which is not sensitive to the Levaquin that she's been taking. - Related Data Allergies/Adverse Reactions: Allergies Allergy/AdvReac Type Severity Reaction Status Date / Time meperidine [From Demerol] Allergy Itching Verified 06/23/18 14:06 Penicillins Allergy Itching Verified 06/23/18 14:06 promethazine [From Phenergan] Allergy Itching Verified 06/23/18 14:06 Home Medications: Home Meds Levofloxacin 500 mg PO DAILY #10 tablet 06/21/18 [Rx] Past Medical History HEENT History: Reports: Hard of Hearing Cardiovascular History: Reports: Hypertension, Other (See Below) Other Cardiovascular History: Rheumatic fever as a child. Respiratory History: Reports: Other (See Below) Other Respiratory History: Has had a trach in past. Gastrointestinal History: Reports: Other (See Below) Other Gastrointestinal History: Trouble swallowing. Indigestion. Genitourinary History: Reports: Renal Calculus Musculoskeletal History: Reports: Arthritis, Fracture, Osteoarthritis Other Musculoskeletal History: Left foot fracture. 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 Psychiatric History: Reports: Anxiety, Depression Hematologic History: Reports: Blood Transfusion(s) - Infectious Disease History Infectious Disease History: Reports: Chicken Pox, Shingles Other Infectious Disease History: Patient doesn't recall her childhood diseases. - Past Surgical History HEENT Surgical History: Reports: Cataract Surgery, Oral Surgery, Tonsillectomy Cardiovascular Surgical History: Reports: Other (See Below) GI Surgical History: Reports: Appendectomy, Colonoscopy, EGD, Other (See Below) Other GI Surgeries/Procedures: Perforated duodenum with endoscopy. Social & Family History - Family History Family Medical History: Noncontributory - Tobacco Use Smoking Status *Q: Never Smoker - Caffeine Use Caffeine Use: Reports: Coffee - Alcohol Use Days Per Week of Alcohol Use: 1 Number of Drinks Per Day: 2 Total Drinks Per Week: 2 - Recreational Drug Use Recreational Drug Use: No H&P Review of Systems - Review of Systems: Review Of Systems: ROS reveals no pertinent complaints other than HPI. Exam - Exam Exam: See Below - Vital Signs Vital Signs: Last Vital Signs Temp 98.2 F 06/23/18 16:00 Pulse 63 06/23/18 16:00 Resp 18 06/23/18 16:00 BP 124/64 06/23/18 16:00 Pulse Ox 95 06/23/18 16:00 Weight: 52.707 kg - Exam General: Alert, Oriented, 4 HEENT: PERRLA, Hearing Intact, Mucosa Moist & [place], Nares Patent, Normal Nasal Septum, Posterior Pharynx Clear, Conjunctiva Clear, EOMI, EACs Clear, TMs Clear Neck: Supple, Trachea Midline, 2 Lungs: Clear to Auscultation, Normal Respiratory Effort Cardiovascular: Regular Rate, Regular Rhythm GI/Abdominal Exam: Normal Bowel Sounds, Soft, Non-Tender, No Organomegaly, No Distention, No Abnormal Bruit, No Mass, Pelvis Stable (Female) Exam: Normal External Exam, Normal Speculum Exam, Normal Bimanual Exam Rectal (Female) Exam: Normal Exam, Normal Rectal Tone Back Exam: Normal Inspection, Full Range of Motion, NT Extremities: Normal Inspection, Normal Range of Motion, Non-Tender, No Pedal Edema, Normal Capillary Refill Skin: Warm, Dry, Intact Neurological: Cranial Nerves Intact, Reflexes Equal Bilateral Neuro Extensive - Mental Status: Alert, Oriented x3, Normal Mood/Affect, Normal Cognition Neuro Extensive - Motor, Sensory, Reflexes: CN II-XII Intact, Normal Gait, Normal Reflexes Psychiatric: Alert, Normal Affect, Normal Mood - Patient Data Lab Results Last 24 hrs: Laboratory Results - last 24 hr 06/23/18 06/23/18 06/23/18 Range/Units 11:55 11:55 11:55 WBC 5.1 (4.5-12.0) X10-3/uL RBC 4.26 (3.23-5.20) x10(6)uL Hgb 10.4 L (11.5-15.5) g/dL Hct 32.8 (30.0-51.3) % MCV 77.0 L (80-96) fL MCH 24.5 L (27.7-33.6) pg MCHC 31.8 L (32.2-35.4) g/dL RDW 16.3 H (11.5-15.5) % Plt Count 253 (125-369) X10(3)uL MPV 9.1 (7.4-10.4) fL Neut % (Auto) 67.2 (46-82) % Lymph % (Auto) 21.5 (13-37) % [place] % (Auto) 10.1 (4-12) % Eos % (Auto) 1 (1.0-5.0) % Baso % (Auto) 1 (0-2) % Neut # (Auto) 3.5 (1.6-8.3) # Lymph # (Auto) 1.1 (0.6-5.0) # [place] # (Auto) 0.5 (0.0-1.3) # Eos # (Auto) 0.0 (0.0-0.8) # Baso # (Auto) 0.0 (0.0-0.2) # Sodium 143 (135-145) mmol/L Potassium 3.4 L (3.5-5.3) mmol/L Chloride 109 D (100-110) mmol/L Carbon Dioxide 24 (21-32) mmol/L BUN 25 H (7-18) mg/dL Creatinine 0.9 (0.55-1.02) mg/dL Est Cr Clr Drug Dosing TNP Estimated GFR (MDRD) 60 (>60) BUN/Creatinine Ratio 27.8 H (9-20) Glucose 98 (80-116) mg/dL Lactic Acid (0.4-2.2) mmol/L Calcium 9.3 (8.6-10.2) mg/dL Magnesium 1.7 L (1.8-2.5) mg/dL Total Bilirubin 0.3 (0.1-1.3) mg/dL AST 18 (5-25) IU/L ALT 18 (12-36) U/L Alkaline Phosphatase 64 (56-112) IU/L Troponin I 0.047 (<0.017-0.056) ng/mL Total Protein 6.4 (6.0-8.0) g/dL Albumin 2.9 L (3.2-4.6) g/dL Globulin 3.5 g/dL Albumin/Globulin Ratio 0.8 06/23/18 Range/Units 11:55 WBC (4.5-12.0) X10-3/uL RBC (3.23-5.20) x10(6)uL Hgb (11.5-15.5) g/dL Hct (30.0-51.3) % MCV (80-96) fL MCH (27.7-33.6) pg MCHC (32.2-35.4) g/dL RDW (11.5-15.5) % Plt Count (125-369) X10(3)uL MPV (7.4-10.4) fL Neut % (Auto) (46-82) % Lymph % (Auto) (13-37) % [place] % (Auto) (4-12) % Eos % (Auto) (1.0-5.0) % Baso % (Auto) (0-2) % Neut # (Auto) (1.6-8.3) # Lymph # (Auto) (0.6-5.0) # [place] # (Auto) (0.0-1.3) # Eos # (Auto) (0.0-0.8) # Baso # (Auto) (0.0-0.2) # Sodium (135-145) mmol/L Potassium (3.5-5.3) mmol/L Chloride (100-110) mmol/L Carbon Dioxide (21-32) mmol/L BUN (7-18) mg/dL Creatinine (0.55-1.02) mg/dL Est Cr Clr Drug Dosing Estimated GFR (MDRD) (>60) BUN/Creatinine Ratio (9-20) Glucose (80-116) mg/dL Lactic Acid 1.4 (0.4-2.2) mmol/L Calcium (8.6-10.2) mg/dL Magnesium (1.8-2.5) mg/dL Total Bilirubin (0.1-1.3) mg/dL AST (5-25) IU/L ALT (12-36) U/L Alkaline Phosphatase (56-112) IU/L Troponin I (<0.017-0.056) ng/mL Total Protein (6.0-8.0) g/dL Albumin (3.2-4.6) g/dL Globulin g/dL Albumin/Globulin Ratio Result Diagrams: 06/23/18 11:55 06/23/18 11:55 - Problem List (1) TOD (generalized anxiety disorder) SNOMED Code(s): 81641580 ICD Code: F41.1 - GENERALIZED ANXIETY DISORDER Status: Acute Current Visit: Yes (2) Generalized weakness SNOMED Code(s): 54808849 ICD Code: R53.1 - WEAKNESS Status: Acute Current Visit: Yes (3) UTI (urinary tract infection) SNOMED Code(s): 97301891 ICD Code: N39.0 - URINARY TRACT INFECTION, SITE NOT SPECIFIED Status: Acute Current Visit: Yes Problem Details: Finish out antibx per PCP. Current microscopic analysis is unchanged from the Clinic, and a UC is pending. Qualifiers: Encounter type: initial encounter (4) Dehydration SNOMED Code(s): 30358881 ICD Code: E86.0 - DEHYDRATION Status: Acute Current Visit: No Problem List Initiated/Reviewed/Updated: Yes Orders Last 24hrs: Active Orders 24 hr Category Date Time Status Admission Status [Patient Status] [ADT] Routine ADT 06/23/18 13:19 Active Antiembolic Devices [RC] .Routine Care 06/23/18 13:39 Active Height and Weight [RC] 0600 Care 06/23/18 13:39 Active Intake and Output [RC] 06,14,22 Care 06/23/18 13:39 Active Pulse Oximetry [RC] PRN Care 06/23/18 13:39 Active Up With Assistance [RC] ASDIRECTED Care 06/23/18 13:39 Active VTE/DVT Education [RC] Click to Edit Care 06/23/18 13:39 Active Vital Signs [RC] 00,04,08,12,16,20 Care 06/23/18 13:39 Active Regular Diet [DIET] Diet 06/23/18 Dinner Active BASIC METABOLIC PANEL,BMP [CHEM] AM Lab 06/24/18 05:11 Ordered CBC WITH AUTO DIFF [HEME] AM Lab 06/24/18 05:11 Ordered CDIFF TOXIN A+B GROUP [OP] Stat Lab 06/23/18 11:44 Ordered CULTURE BLOOD [BC] Urgent Lab 06/23/18 11:55 Received CULTURE BLOOD [BC] Urgent Lab 06/23/18 12:01 Received Sodium Chloride 0.9% [Normal Saline] 1,000 ml Med 06/23/18 13:45 Active IV ASDIRECTED Sodium Chloride 0.9% [Saline Flush] Med 06/23/18 11:41 Active 10 ml FLUSH ASDIRECTED PRN cefTRIAXone [Rocephin] Med 06/23/18 13:45 Active 1 gm IVPUSH Q24H Blood Culture x2 Reflex Set [OM.PC] Urgent Oth 06/23/18 11:39 Ordered DVT/VTE Prophylaxis Reflex [OM.PC] Per Unit Routine Oth 06/23/18 13:39 Ordered Saline Lock Insert [OM.PC] Routine Oth 06/23/18 11:41 Ordered Resuscitation Status Routine Resus Stat 06/23/18 13:39 Ordered EKG 12 Lead [EK] Stat Ther 06/23/18 11:39 Ordered Medication Orders Ceftriaxone Sodium (Rocephin) 1 gm IVPUSH Q24H [facility] Last Admin: 06/23/18 14:20 Dose: 1 gm Sodium Chloride (Normal Saline) 1,000 mls @ 100 mls/hr IV ASDIRECTED AYE Last Admin: 06/23/18 15:19 Dose: 100 mls/hr Sodium Chloride (Saline Flush) 10 ml FLUSH ASDIRECTED PRN PRN Reason: Keep Vein Open Last Admin: 06/23/18 14:22 Dose: 10 ml Assessment/Plan Comment:: I agree with fluids,IV Rocephin.Possibly DC in Am
[2018-06-24] MEDS: Sodium Chloride 0.9% 1,000 ML IV SCH (00:11)
[2018-06-24] MEDS ORDERED: Levofloxacin 500 MG Tab PO SCH (09:00)
--- NOTE | 2018-06-24 09:08 | PCM.PN ---
- General Info Date of Service: 06/24/18 Subjective Update: Ms. Brown feels much better today, IV fluids. She denies abdominal pain dysuria or diarrhea. Slept well. She does have some confusion. - Review of Systems Pulmonary: Reports: No Symptoms Cardiovascular: Reports: No Symptoms Musculoskeletal: Reports: No Symptoms - Patient Data Vitals - Most Recent: Last Vital Signs Temp 97.8 F 06/24/18 00:00 Pulse 70 06/24/18 00:00 Resp 16 06/24/18 00:00 BP 156/81 H 06/24/18 00:00 Pulse Ox 94 L 06/24/18 00:00 Weight - Most Recent: 59.534 kg I&O - Last 24 Hours: Intake & Output 06/23/18 06/24/18 06/24/18 22:59 06:59 14:59 Intake Total 800 Balance 800 Lab Results Last 24 Hours: Laboratory Results - last 24 hr 06/23/18 06/23/18 06/23/18 Range/Units 11:55 11:55 11:55 WBC 5.1 (4.5-12.0) X10-3/uL RBC 4.26 (3.23-5.20) x10(6)uL Hgb 10.4 L (11.5-15.5) g/dL Hct 32.8 (30.0-51.3) % MCV 77.0 L (80-96) fL MCH 24.5 L (27.7-33.6) pg MCHC 31.8 L (32.2-35.4) g/dL RDW 16.3 H (11.5-15.5) % Plt Count 253 (125-369) X10(3)uL MPV 9.1 (7.4-10.4) fL Neut % (Auto) 67.2 (46-82) % Lymph % (Auto) 21.5 (13-37) % [place] % (Auto) 10.1 (4-12) % Eos % (Auto) 1 (1.0-5.0) % Baso % (Auto) 1 (0-2) % Neut # (Auto) 3.5 (1.6-8.3) # Lymph # (Auto) 1.1 (0.6-5.0) # [place] # (Auto) 0.5 (0.0-1.3) # Eos # (Auto) 0.0 (0.0-0.8) # Baso # (Auto) 0.0 (0.0-0.2) # Sodium 143 (135-145) mmol/L Potassium 3.4 L (3.5-5.3) mmol/L Chloride 109 D (100-110) mmol/L Carbon Dioxide 24 (21-32) mmol/L BUN 25 H (7-18) mg/dL Creatinine 0.9 (0.55-1.02) mg/dL Est Cr Clr Drug Dosing TNP Estimated GFR (MDRD) 60 (>60) BUN/Creatinine Ratio 27.8 H (9-20) Glucose 98 (80-116) mg/dL Lactic Acid (0.4-2.2) mmol/L Calcium 9.3 (8.6-10.2) mg/dL Magnesium 1.7 L (1.8-2.5) mg/dL Total Bilirubin 0.3 (0.1-1.3) mg/dL AST 18 (5-25) IU/L ALT 18 (12-36) U/L Alkaline Phosphatase 64 (56-112) IU/L Troponin I 0.047 (<0.017-0.056) ng/mL Total Protein 6.4 (6.0-8.0) g/dL Albumin 2.9 L (3.2-4.6) g/dL Globulin 3.5 g/dL Albumin/Globulin Ratio 0.8 06/23/18 06/24/18 06/24/18 Range/Units 11:55 06:45 06:45 WBC 4.2 L (4.5-12.0) X10-3/uL RBC 3.98 (3.23-5.20) x10(6)uL Hgb 9.4 L (11.5-15.5) g/dL Hct 30.8 (30.0-51.3) % MCV 77.3 L (80-96) fL MCH 23.7 L (27.7-33.6) pg MCHC 30.7 L (32.2-35.4) g/dL RDW 16.4 H (11.5-15.5) % Plt Count 226 (125-369) X10(3)uL MPV 8.9 (7.4-10.4) fL Neut % (Auto) 56.1 (46-82) % Lymph % (Auto) 31.4 (13-37) % [place] % (Auto) 11.4 (4-12) % Eos % (Auto) 1 (1.0-5.0) % Baso % (Auto) 0 (0-2) % Neut # (Auto) 2.4 (1.6-8.3) # Lymph # (Auto) 1.3 (0.6-5.0) # [place] # (Auto) 0.5 (0.0-1.3) # Eos # (Auto) 0.0 (0.0-0.8) # Baso # (Auto) 0.0 (0.0-0.2) # Sodium 144 (135-145) mmol/L Potassium 3.0 L (3.5-5.3) mmol/L Chloride 112 H (100-110) mmol/L Carbon Dioxide 22 (21-32) mmol/L BUN 19 H (7-18) mg/dL Creatinine 0.7 (0.55-1.02) mg/dL Est Cr Clr Drug Dosing 53.83 Estimated GFR (MDRD) > 60 (>60) BUN/Creatinine Ratio 27.1 H (9-20) Glucose 88 (80-116) mg/dL Lactic Acid 1.4 (0.4-2.2) mmol/L Calcium 8.3 L (8.6-10.2) mg/dL Magnesium (1.8-2.5) mg/dL Total Bilirubin (0.1-1.3) mg/dL AST (5-25) IU/L ALT (12-36) U/L Alkaline Phosphatase (56-112) IU/L Troponin I (<0.017-0.056) ng/mL Total Protein (6.0-8.0) g/dL Albumin (3.2-4.6) g/dL Globulin g/dL Albumin/Globulin Ratio Med Orders - Current: Current Medications Ceftriaxone Sodium (Rocephin) 1 gm IVPUSH Q24H [facility] Last Admin: 06/23/18 14:20 Dose: 1 gm Sodium Chloride (Normal Saline) 1,000 mls @ 100 mls/hr IV ASDIRECTED [facility] Last Admin: 06/24/18 00:11 Dose: 100 mls/hr Sodium Chloride (Saline Flush) 10 ml FLUSH ASDIRECTED PRN PRN Reason: Keep Vein Open Last Admin: 06/23/18 14:22 Dose: 10 ml Discontinued Medications Sodium Chloride (Normal Saline) 500 mls @ 500 mls/hr IV .BOLUS ONE Stop: 06/23/18 12:40 Last Admin: 06/23/18 12:00 Dose: 500 mls/hr Levofloxacin (Levaquin) 500 mg PO DAILY AYE - Exam General: Alert, Oriented, Cooperative HEENT: Pupils Equal Neck: Supple Lungs: Clear to Auscultation Cardiovascular: Regular Rate GI/Abdominal Exam: Normal Bowel Sounds, Non-Tender Skin: Warm - Problem List & Annotations (1) TDO (generalized anxiety disorder) SNOMED Code(s): 73429326 Code(s): F41.1 - GENERALIZED ANXIETY DISORDER Status: Acute Current Visit : Yes (2) Generalized weakness SNOMED Code(s): 40475314 Code(s): R53.1 - WEAKNESS Status: Acute Current Visit: Yes (3) UTI (urinary tract infection) SNOMED Code(s): 03495830 Code(s): N39.0 - URINARY TRACT INFECTION, SITE NOT SPECIFIED Status: Acute Current Visit: Yes Qualifiers: Encounter type: initial encounter Annotation/Comment:: Finish out antibx per PCP. Current microscopic analysis is unchanged from the Clinic, and a UC is pending. (4) Dehydration SNOMED Code(s): 02259847 Code(s): E86.0 - DEHYDRATION Status: Acute Current Visit: No (5) Dementia SNOMED Code(s): 68103882 Code(s): F03.90 - UNSPECIFIED DEMENTIA WITHOUT BEHAVIORAL DISTURBANCE Status: Acute Current Visit: Yes - Problem List Review Problem List Initiated/Reviewed/Updated: Yes - Plan Plan:: DC home with Oral Cephalexin.Will need evaluation for and treatment of possible dementia,and depression.
[2018-06-24 09:16] VITALS: BP 144/87
== END 2018-06-24 11:30 | disposition home or self-care (01) ==
LOC: FB.ED 10:53 → FB.MS 13:19
PROVIDERS: ADMIT Family Medicine; ATTEND Family Medicine
DX: N30.90 Cystitis, unspecified without hematuria (principal); I10 Essential (primary) hypertension; M19.90 Unspecified osteoarthritis, unspecified site; F41.9 Anxiety disorder, unspecified; F32.9 Major depressive disorder, single episode, unspecified; N39.0 Urinary tract infection, site not specified; E86.0 Dehydration; R53.1 Weakness; Z88.5 Allergy status to narcotic agent; Z88.0 Allergy status to penicillin; Z88.8 Allergy status to other drugs, medicaments and biological substances; Z79.2 Long term (current) use of antibiotics
CPT/HCPCS: 36415; 80048; 80053; 83605; 83735; 84484; 85025; 87040; 87324; 93005; 93010; 96361; 96374; 99284; 99285; G0378; J0696; J7030; J7040; 96360

== ENCOUNTER 2018-11-11 17:04 | Inpatient (IN) | payer MEDICARE ==
[2018-11-11] MEDS ORDERED: Morphine 4 MG/ML Syringe IM ONE (17:26)
--- NOTE | 2018-11-11 18:08 | EDM.PDOC ---
ED HPI GENERAL MEDICAL PROBLEM - General Chief Complaint: Back Pain or Injury Stated Complaint: COLD, L BACK PAIN Time Seen by Provider: 11/11/18 17:04 Source of Information: Reports: Patient, Family History Limitations: Reports: Altered Mental Status, Physical Impairment - History of Present Illness INITIAL COMMENTS - FREE TEXT/NARRATIVE: 82 y.o.w.f with chronic low back pain, had sudden onset of left lower back pain while eating breakfast. No Trauma. 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 Pt was seen initially at he clinic and sent to the ed for further care of her left lower back pain. 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 Pt was found to have a UTI and was started on Abx Nitrofurantoin. Pt was transported by PC with her sister to the ED. Pt is a poor historian. She was dx' d in the past with shingles. The was no rash. No N/V/D no dizziness. Pt lives in her own home and cares for herself. 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, NSAIDS L mid-back region Pain Score (Numeric/FACES): 8 asleep Pain Score (Numeric/FACES): 0 denies Pain Score (Numeric/FACES): 0 - Related Data Allergies Allergy/AdvReac Type Severity Reaction Status Date / Time meperidine [From Demerol] Allergy Itching Verified 11/11/18 17:11 Penicillins Allergy Itching Verified 11/11/18 17:11 promethazine [From Phenergan] Allergy Itching Verified 11/11/18 17:11 Home Meds: Home Meds Acetaminophen [Tylenol Extra Strength] 1,000 mg PO BID PRN 11/11/18 [History] Metoprolol Tartrate 25 mg BEDTIME 11/11/18 [History] Nitrofurantoin Monohyd/M-Cryst [Macrobid 100 mg Capsule] 100 mg PO BID 11/11/18 [History] Past Medical History HEENT History: Reports: Hard of Hearing Cardiovascular History: Reports: Hypertension, Other (See Below) Other Cardiovascular History: Rheumatic fever as a child. Respiratory History: Reports: Other (See Below) Other Respiratory History: Has had a trach in past. Gastrointestinal History: Reports: Other (See Below) Other Gastrointestinal History: Trouble swallowing. Indigestion. Genitourinary History: Reports: Renal Calculus Musculoskeletal History: Reports: Arthritis, Fracture, Osteoarthritis Other Musculoskeletal History: Left foot fracture. 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 Psychiatric History: Reports: Anxiety, Depression Hematologic History: Reports: Blood Transfusion(s) - Infectious Disease History Infectious Disease History: Reports: Chicken Pox, Shingles Other Infectious Disease History: Patient doesn't recall her childhood diseases. - Past Surgical History HEENT Surgical History: Reports: Cataract Surgery, Oral Surgery, Tonsillectomy Cardiovascular Surgical History: Reports: Other (See Below) GI Surgical History: Reports: Appendectomy, Colonoscopy, EGD, Other (See Below) Other GI Surgeries/Procedures: Perforated duodenum with endoscopy. Social & Family History - Family History Family Medical History: Noncontributory - Caffeine Use Caffeine Use: Reports: Coffee ED ROS GENERAL - Review of Systems Review Of Systems: See Below Constitutional: Reports: Weakness, Weight Loss HEENT: Reports: No Symptoms Respiratory: Reports: No Symptoms Cardiovascular: Reports: No Symptoms Endocrine: Reports: No Symptoms GI/Abdominal: Reports: No Symptoms : Reports: Dysuria, Flank Pain (left) Musculoskeletal: Reports: Back Pain Skin: Reports: Pallor Neurological: Reports: No Symptoms, Difficulty Walking, Gait Disturbance Psychiatric: Reports: No Symptoms Hematologic/Lymphatic: Reports: No Symptoms Immunologic: Reports: No Symptoms ED EXAM,LOWER BACK PAIN/INJURY - Physical Exam Exam: See Below Exam Limited By: Physical Impairment General Appearance: Alert, Moderate Distress, Cachetic Eye Exam: Bilateral Eye: Normal Inspection Ears: Normal External Exam, Normal Canal Nose: Normal Inspection, Normal Mucosa, Nasal Swelling Throat/Mouth: Normal Lips, Normal Voice, No Airway Compromise Head: Atraumatic, Normocephalic Neck: Normal Inspection, Supple, Non-Tender, Full Range of Motion Respiratory/Chest: No Respiratory Distress, Lungs Clear, Normal Breath Sounds, Chest Non-Tender Cardiovascular: Normal Peripheral Pulses, Regular Rate, Rhythm, No Edema GI/Abdominal: Normal Bowel Sounds, No Organomegaly, No Mass (Female) Exam: Deferred Rectal (Female) Exam: Deferred Back Exam: CVA Tenderness (L), Decreased Range of Motion, Muscle Spasm, Paraspinal Tenderness, Vertebral Tenderness Extremities: Normal Inspection, Normal Capillary Refill Neurological: Alert, Normal Mood/Affect, Normal Dorsiflexion, CN II-XII Intact, Normal Gait (with back pain), Oriented x 3 Psychiatric: Anxious Skin Exam: Warm, Dry, Intact, Pallor Lymphatic: No Adenopathy Course - Vital Signs Text/Narrative:: 82 y.o.w.f with chronic low back pain, had sudden onset of left lower back pain while eating breakfast. No Trauma. 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 Pt was seen initially at clinic and sent to the ed for further care of her left lower back pain. 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 Pt was found to have a UTI and was started on Abx Nitrofurantoin. Pt was transported by PC with her sister to the ED. Pt is a poor historian. She was dx' d in the past with shingles. The was no rash. No N/V/D no dizziness. Pt lives in her own home and cares for herself. BP 146/61 RR 20 Pulse ox 98% on RA, Temp 36.1 Pulse 74 PE: Cachectic 82 y.o.w.f with a UTI and severe left lower back/flank pain, sudden onset this am. 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 Pt needs a CT abd/pelvic in am Flan: Admit for obs for pain control Last Recorded V/S: Last Vital Signs Temp 36.4 C 11/14/18 20:00 Pulse 72 11/14/18 20:00 Resp 17 11/14/18 20:00 BP 137/54 L 11/14/18 20:00 Pulse Ox 92 L 11/14/18 20:00 - Orders/Labs/Meds Orders: Medication Orders Acetaminophen (Tylenol Extra Strength) 1,000 mg PO BID PRN PRN Reason: Pain Last Admin: 11/13/18 09:35 Dose: 1,000 mg Cyclobenzaprine HCl (Flexeril) 10 mg PO BEDTIME [facility] Last Admin: 11/14/18 20:06 Dose: 10 mg Admin: 11/13/18 21:29 Dose: 10 mg Admin: 11/12/18 20:34 Dose: 10 mg Hydroxyzine HCl (Vistaril) 50 mg IM Q6H PRN PRN Reason: Nausea Last Admin: 11/13/18 10:04 Dose: 50 mg Morphine Sulfate (Morphine) 2 mg IM Q4H PRN PRN Reason: Pain (severe 7-10) Last Admin: 11/14/18 10:08 Dose: 2 mg Admin: 11/13/18 10:19 Dose: 2 mg Admin: 11/12/18 15:53 Dose: 2 mg Admin: 11/12/18 06:31 Dose: 2 mg Nitrofurantoin Macrocrystals (Macrobid) 100 mg PO BID [facility] Last Admin: 11/14/18 20:05 Dose: 100 mg Admin: 11/14/18 10:58 Dose: 100 mg Admin: 11/13/18 21:29 Dose: 100 mg Admin: 11/13/18 09:35 Dose: 100 mg Admin: 11/12/18 20:34 Dose: 100 mg Admin: 11/12/18 13:05 Dose: 100 mg Admin: 11/11/18 22:27 Dose: Ondansetron HCl (Zofran Odt) 4 mg PO Q4H PRN PRN Reason: nausea, able to take PO Last Admin: 11/13/18 18:47 Dose: 4 mg Pantoprazole Sodium (Protonix Iv) 40 mg IVPUSH DAILY [facility] Last Admin: 11/14/18 20:05 Dose: 40 mg Sucralfate (Carafate) 1 gm PO QIDACANDBED AYE Last Admin: 11/14/18 20:05 Dose: 1 gm Labs: Laboratory Tests 11/12/18 11/12/18 11/12/18 Range/Units 06:10 06:10 06:10 WBC 4.2 L (4.5-12.0) X10-3/uL RBC 3.65 (3.23-5.20) x10(6)uL Hgb 7.4 L (11.5-15.5) g/dL Hct 24.4 L (30.0-51.3) % MCV 66.9 L (80-96) fL MCH 20.3 L (27.7-33.6) pg MCHC 30.3 L (32.2-35.4) g/dL RDW 18.0 H (11.5-15.5) % Plt Count 255 (125-369) X10(3)uL MPV 8.4 (7.4-10.4) fL Neut % (Auto) 62.2 (46-82) % Lymph % (Auto) 24.6 (13-37) % Wood % (Auto) 9.5 (4-12) % Eos % (Auto) 3 (1.0-5.0) % Baso % (Auto) 1 (0-2) % Neut # (Auto) 2.7 (1.6-8.3) # Lymph # (Auto) 1.0 (0.6-5.0) # Wood # (Auto) 0.4 (0.0-1.3) # Eos # (Auto) 0.1 (0.0-0.8) # Baso # (Auto) 0.0 (0.0-0.2) # PT 10.0 (8.7-11.1) INR 1.03 (0.89-1.13) Sodium 147 H (135-145) mmol/L Potassium 3.1 L (3.5-5.3) mmol/L Chloride 112 H (100-110) mmol/L Carbon Dioxide 24 (21-32) mmol/L BUN 27 H (7-18) mg/dL Creatinine 0.8 (0.55-1.02) mg/dL Est Cr Clr Drug Dosing 41.42 mL/min Estimated GFR (MDRD) > 60 (>60) BUN/Creatinine Ratio 33.8 H (9-20) Glucose 87 (80-116) mg/dL Calcium 9.0 (8.6-10.2) mg/dL Total Bilirubin (0.1-1.3) mg/dL AST (5-25) IU/L ALT (12-36) U/L Alkaline Phosphatase (56-112) IU/L Total Protein (6.0-8.0) g/dL Albumin (3.2-4.6) g/dL Globulin g/dL Albumin/Globulin Ratio Blood Type Gel Antibody Screen Crossmatch 11/13/18 11/13/18 11/13/18 Range/Units 06:25 06:25 06:26 WBC 4.5 (4.5-12.0) X10-3/uL RBC 3.51 (3.23-5.20) x10(6)uL Hgb 7.1 L (11.5-15.5) g/dL Hct 23.4 L (30.0-51.3) % MCV 66.7 L (80-96) fL MCH 20.3 L (27.7-33.6) pg MCHC 30.5 L (32.2-35.4) g/dL RDW 18.9 H (11.5-15.5) % Plt Count 239 (125-369) X10(3)uL MPV 8.3 (7.4-10.4) fL Neut % (Auto) 56.2 (46-82) % Lymph % (Auto) 28.5 (13-37) % Wood % (Auto) 10.4 (4-12) % Eos % (Auto) 4 (1.0-5.0) % Baso % (Auto) 1 (0-2) % Neut # (Auto) 2.5 (1.6-8.3) # Lymph # (Auto) 1.3 (0.6-5.0) # Wood # (Auto) 0.5 (0.0-1.3) # Eos # (Auto) 0.2 (0.0-0.8) # Baso # (Auto) 0.0 (0.0-0.2) # PT (8.7-11.1) INR (0.89-1.13) Sodium 146 H (135-145) mmol/L Potassium 3.4 L (3.5-5.3) mmol/L Chloride 112 H (100-110) mmol/L Carbon Dioxide 26 (21-32) mmol/L BUN 27 H (7-18) mg/dL Creatinine 0.8 (0.55-1.02) mg/dL Est Cr Clr Drug Dosing 41.42 mL/min Estimated GFR (MDRD) > 60 (>60) BUN/Creatinine Ratio 33.8 H (9-20) Glucose 82 (80-116) mg/dL Calcium 8.4 L (8.6-10.2) mg/dL Total Bilirubin 0.3 (0.1-1.3) mg/dL AST 14 D (5-25) IU/L ALT 16 D (12-36) U/L Alkaline Phosphatase 83 (56-112) IU/L Total Protein 5.9 L (6.0-8.0) g/dL Albumin 2.8 L (3.2-4.6) g/dL Globulin 3.1 g/dL Albumin/Globulin Ratio 0.9 Blood Type A POSITIVE Gel Antibody Screen Negative Crossmatch See Detail Meds: Medications Generic Name Dose Route Start Last Admin Trade Name Reyq PRN Reason Stop Dose Admin Acetaminophen 1,000 mg 11/11/18 20:04 11/13/18 09:35 Tylenol Extra Strength PO 1,000 mg BID PRN Administration Pain Cyclobenzaprine HCl 10 mg 11/12/18 21:00 11/14/18 20:06 Flexeril PO 10 mg BEDTIME AYE Administration Hydroxyzine HCl 50 mg 11/13/18 08:42 11/13/18 10:04 Vistaril IM 50 mg Q6H PRN Administration Nausea Morphine Sulfate 2 mg 11/11/18 19:59 11/14/18 10:08 Morphine IM 2 mg Q4H PRN Administration Pain (severe 7-10) Nitrofurantoin Macrocrystals 100 mg 11/11/18 21:00 11/14/18 20:05 Macrobid PO 100 mg BID AYE Administration Ondansetron HCl 4 mg 11/11/18 19:59 11/13/18 18:47 Zofran Odt PO 4 mg Q4H PRN Administration nausea, able to take PO Pantoprazole Sodium 40 mg 11/14/18 19:30 11/14/18 20:05 Protonix Iv IVPUSH 40 mg DAILY AYE Administration Sucralfate 1 gm 11/14/18 19:30 11/14/18 20:05 Carafate PO 1 gm QIDACANDBED AYE Administration Discontinued Medications Generic Name Dose Route Start Last Admin Trade Name Freq PRN Reason Stop Dose Admin Sodium Chloride 250 mls @ 100 mls/hr 11/13/18 09:00 11/13/18 10:02 Normal Saline IV 100 mls/hr ASDIRECTED AYE Administration Potassium Chloride/Sodium Chloride 1,000 mls @ 100 mls/hr 11/13/18 09:00 10:52 1/2 Ns With 20 Meq Kcl IV 100 mls/hr ASDIRECTED AYE Administration Sodium Chloride 250 mls @ 100 mls/hr 11/13/18 11:30 11/13/18 14:00 Normal Saline IV 100 mls/hr ASDIRECTED AYE Administration Sodium Chloride 250 mls @ 100 mls/hr 11/13/18 15:15 11/13/18 17:40 Normal Saline IV 100 mls/hr ASDIRECTED AYE Administration Ketorolac Tromethamine 15 mg 11/12/18 09:22 Toradol IVPUSH Q6H PRN BREAKTHROUGH PAIN Lorazepam 1 mg 11/11/18 18:06 11/11/18 21:37 Ativan IM 11/11/18 18:07 Not Given ONETIME STA Metoprolol Tartrate 25 mg 11/11/18 21:00 11/12/18 20:34 Lopressor PO 25 mg BEDTIME AYE Administration Morphine Sulfate 3 mg 11/11/18 17:26 11/11/18 17:53 Morphine IM 11/11/18 17:27 3 mg ONETIME ONE Administration Morphine Sulfate Confirm 11/11/18 17:52 11/11/18 17:56 Morphine Administered 11/11/18 17:53 Not Given Dose 4 mg .ROUTE .STK-MED ONE Morphine Sulfate 2 mg 11/11/18 20:12 11/11/18 20:15 Morphine IM 11/11/18 20:13 2 mg ONETIME ONE Administration Pantoprazole Sodium 40 mg 11/14/18 09:00 Protonix PO 0600 AYE Pantoprazole Sodium 80 mg 11/13/18 08:58 11/13/18 10:24 Protonix Iv IVPUSH 11/13/18 08:59 80 mg .BOLUS ONE Administration Departure - Departure Time of Disposition: 21:00 Disposition: Refer to Observation Condition: Fair (anemia) Clinical Impression: Anemia Qualifiers: Anemia type: iron deficiency - Discharge Information
[2018-11-11] MEDS: LORazepam 2 MG/ML SDV IM STA ×2 (18:17→21:37)
[2018-11-11] MEDS ORDERED: Ondansetron 4 MG Tab.DIS PO PRN (19:59)
[2018-11-11] MEDS ORDERED: Morphine 2 MG/ML Syringe IM ONE (20:12)
[2018-11-11] MEDS: MACROCRYSTALLINE PO SCH (22:27)
[2018-11-11] MEDS: NITROFURANTOIN MONOHYDRATE PO SCH (22:27)
[2018-11-12] MEDS: Morphine 2 MG/ML Syringe IM PRN ×2 (06:31→15:53)
--- NOTE | 2018-11-12 09:00 | PCM.HP ---
H&P History of Present Illness - General Date of Service: 11/12/18 Admit Problem/Dx: Admission Diagnosis/Problem Admission Diagnosis/Problem Back pain Source of Information: Patient, Old Records History Limitations: Reports: No Limitations - History of Present Illness Initial Comments - Free Text/Narative: 82 yo with left flank and lower back pain. Being treated for UTI-she returned to ER with worsening pain,sharp,non radiating and admitted to control the pain. No fever ,nausea or vomiting.She has a h/o chronic back pain,shingles,recurrent UTi,anemia( iron deficiency,last hgb 8.3 on 11/11),and Generalized anxiety. L mid-back region Pain Score (Numeric/FACES): 8 - Related Data Allergies/Adverse Reactions: Allergies Allergy/AdvReac Type Severity Reaction Status Date / Time meperidine [From Demerol] Allergy Itching Verified 11/11/18 17:11 Penicillins Allergy Itching Verified 11/11/18 17:11 promethazine [From Phenergan] Allergy Itching Verified 11/11/18 17:11 Home Medications: Home Meds Acetaminophen [Tylenol Extra Strength] 1,000 mg PO BID PRN 11/11/18 [History] Metoprolol Tartrate 25 mg BEDTIME 11/11/18 [History] Nitrofurantoin Monohyd/M-Cryst [Macrobid 100 mg Capsule] 100 mg PO BID 11/11/18 [History] Past Medical History HEENT History: Reports: Hard of Hearing Cardiovascular History: Reports: Hypertension, Other (See Below) Other Cardiovascular History: Rheumatic fever as a child. Respiratory History: Reports: Other (See Below) Other Respiratory History: Has had a trach in past. Gastrointestinal History: Reports: Other (See Below) Other Gastrointestinal History: Trouble swallowing. Indigestion. Genitourinary History: Reports: Renal Calculus Musculoskeletal History: Reports: Arthritis, Fracture, Osteoarthritis Other Musculoskeletal History: Left foot fracture. 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 Psychiatric History: Reports: Anxiety, Depression Hematologic History: Reports: Blood Transfusion(s) - Infectious Disease History Infectious Disease History: Reports: Chicken Pox, Shingles Other Infectious Disease History: Patient doesn't recall her childhood diseases. - Past Surgical History HEENT Surgical History: Reports: Cataract Surgery, Oral Surgery, Tonsillectomy Cardiovascular Surgical History: Reports: Other (See Below) GI Surgical History: Reports: Appendectomy, Colonoscopy, EGD, Other (See Below) Other GI Surgeries/Procedures: Perforated duodenum with endoscopy. Social & Family History - Family History Family Medical History: Noncontributory - Tobacco Use Smoking Status *Q: Never Smoker - Caffeine Use Caffeine Use: Reports: Coffee - Recreational Drug Use Recreational Drug Use: No H&P Review of Systems - Review of Systems: Review Of Systems: ROS reveals no pertinent complaints other than HPI. Exam - Exam Exam: See Below - Vital Signs Vital Signs: Last Vital Signs Temp 97.6 F 11/12/18 03:00 Pulse 70 11/12/18 03:00 Resp 16 11/12/18 03:00 BP 110/51 L 11/12/18 03:00 Pulse Ox 93 L 11/12/18 03:00 Weight: 50.122 kg - Exam General: Alert, Oriented HEENT: PERRLA Neck: Supple Lungs: Clear to Auscultation Cardiovascular: Regular Rate GI/Abdominal Exam: Normal Bowel Sounds, Non-Tender (Female) Exam: Normal External Exam Rectal (Female) Exam: Normal Exam Back Exam: Normal Inspection, CVA Tenderness (L) Extremities: Normal Inspection Skin: Warm Neurological: Cranial Nerves Intact Neuro Extensive - Mental Status: Alert, Oriented x3 Neuro Extensive - Motor, Sensory, Reflexes: CN II-XII Intact Psychiatric: Alert, Anxious - Patient Data Lab Results Last 24 hrs: Laboratory Results - last 24 hr 11/12/18 11/12/18 11/12/18 Range/Units 06:10 06:10 06:10 WBC 4.2 L (4.5-12.0) X10-3/uL RBC 3.65 (3.23-5.20) x10(6)uL Hgb 7.4 L (11.5-15.5) g/dL Hct 24.4 L (30.0-51.3) % MCV 66.9 L (80-96) fL MCH 20.3 L (27.7-33.6) pg MCHC 30.3 L (32.2-35.4) g/dL RDW 18.0 H (11.5-15.5) % Plt Count 255 (125-369) X10(3)uL MPV 8.4 (7.4-10.4) fL Neut % (Auto) 62.2 (46-82) % Lymph % (Auto) 24.6 (13-37) % [place] % (Auto) 9.5 (4-12) % Eos % (Auto) 3 (1.0-5.0) % Baso % (Auto) 1 (0-2) % Neut # (Auto) 2.7 (1.6-8.3) # Lymph # (Auto) 1.0 (0.6-5.0) # [place] # (Auto) 0.4 (0.0-1.3) # Eos # (Auto) 0.1 (0.0-0.8) # Baso # (Auto) 0.0 (0.0-0.2) # PT 10.0 (8.7-11.1) INR 1.03 (0.89-1.13) Sodium 147 H (135-145) mmol/L Potassium 3.1 L (3.5-5.3) mmol/L Chloride 112 H (100-110) mmol/L Carbon Dioxide 24 (21-32) mmol/L BUN 27 H (7-18) mg/dL Creatinine 0.8 (0.55-1.02) mg/dL Est Cr Clr Drug Dosing 41.42 mL/min Estimated GFR (MDRD) > 60 (>60) BUN/Creatinine Ratio 33.8 H (9-20) Glucose 87 (80-116) mg/dL Calcium 9.0 (8.6-10.2) mg/dL Result Diagrams: 11/12/18 06:10 11/12/18 06:10 - Problem List (1) Acute exacerbation of chronic low back pain SNOMED Code(s): 377063671 ICD Code: M54.5 - LOW BACK PAIN; G89.29 - OTHER CHRONIC PAIN Status: Acute Current Visit: No (2) Degenerative joint disease (DJD) of lumbar spine Status: Acute Current Visit: No Qualifiers: Spinal osteoarthritis complication: unspecified spinal osteoarthritis Qualified Code(s): M47.816 - Spondylosis without myelopathy or radiculopathy, lumbar region (3) Flank pain SNOMED Code(s): 414483144 ICD Code: R10.9 - UNSPECIFIED ABDOMINAL PAIN Status: Acute Current Visit : No (4) TOD (generalized anxiety disorder) SNOMED Code(s): 99103955 ICD Code: F41.1 - GENERALIZED ANXIETY DISORDER Status: Acute Current Visit: No (5) Anemia SNOMED Code(s): 610281967 ICD Code: D64.9 - ANEMIA, UNSPECIFIED Status: Acute Current Visit: Yes Qualifiers: Anemia type: iron deficiency (6) UTI (urinary tract infection) SNOMED Code(s): 79990773 ICD Code: N39.0 - URINARY TRACT INFECTION, SITE NOT SPECIFIED Status: Acute Current Visit: Yes (7) Dementia SNOMED Code(s): 79334025 ICD Code: F03.90 - UNSPECIFIED DEMENTIA WITHOUT BEHAVIORAL DISTURBANCE Status: Acute Current Visit: No Qualifiers: Dementia type: unspecified type Problem List Initiated/Reviewed/Updated: Yes Orders Last 24hrs: Active Orders 24 hr Category Date Time Status Patient Status [ADT] Routine ADT 11/11/18 19:59 Active Cooling Warming Measures [RC] ASDIRECTED Care 11/11/18 17:28 Active Oxygen Therapy [RC] PRN Care 11/11/18 19:59 Active Up With Assistance [RC] ASDIRECTED Care 11/11/18 19:59 Active VTE/DVT Education [RC] Per Unit Routine Care 11/11/18 19:59 Active Vital Signs [RC] Q4H Care 11/11/18 19:59 Active Abdomen Pelvis wo Cont [CT] Stat Exams 11/11/18 17:26 Taken Acetaminophen [Tylenol Extra Strength] Med 11/11/18 20:04 Active 1,000 mg PO BID PRN Metoprolol Tartrate [Lopressor] Med 11/11/18 21:00 Active 25 mg PO BEDTIME Morphine Med 11/11/18 19:59 Active 2 mg IM Q4H PRN Nitrofurantoin [place]/Macrocryst [Macrobid] Med 11/11/18 21:00 Active 100 mg PO BID Ondansetron [Zofran ODT] Med 11/11/18 19:59 Active 4 mg PO Q4H PRN Ice Bag [Ice Therapy] [OM.PC] Routine Oth 11/11/18 17:28 Ordered Resuscitation Status Routine Resus Stat 11/11/18 19:59 Ordered Medication Orders Acetaminophen (Tylenol Extra Strength) 1,000 mg PO BID PRN PRN Reason: Pain Metoprolol Tartrate (Lopressor) 25 mg PO BEDTIME AYE Last Admin: 11/11/18 22:19 Dose: 25 mg Morphine Sulfate (Morphine) 2 mg IM Q4H PRN PRN Reason: Pain (severe 7-10) Last Admin: 11/12/18 06:31 Dose: 2 mg Nitrofurantoin Macrocrystals (Macrobid) 100 mg PO BID [facility] Last Admin: 11/11/18 22:27 Dose: Ondansetron HCl (Zofran Odt) 4 mg PO Q4H PRN PRN Reason: nausea, able to take PO Assessment/Plan Comment:: Hemoglobin down to 7.4 g/dl,although no overt signs of bleeding. She still has pain,on the lower back. I will keep her one more day.Use prn Toradol for pain control,morphine if necessary.I will get PT/PAGE MAKEUP SYSTEM OPERATOR involved to determine disposition.
[2018-11-12] MEDS ORDERED: Ketorolac 15 MG/ML SDV IVPUSH PRN (09:22)
--- NOTE | 2018-11-12 09:30 | CT ---
INDICATION: Back pain, right flank pain. CT ABDOMEN AND PELVIS WITHOUT CONTRAST: Spiral 2.5 mm axial sections were obtained through the abdomen and pelvis with sagittal and coronal reconstructions, 11/11/18, and compared with 03/30/18. Total exam DLP = 335.32 mGy-cm. There is some infiltrative appearing change in the apical segment of the right lower lobe, which may represent scarring from previous pneumonia. Unchanged fibrotic appearing densities are noted at the right lower lobe of moderate degree. The heart did not appear enlarged. No pericardial effusion was seen. Coronary artery calcification is noted. The gallbladder is absent, compatible with history of its removal. The common bile duct is enlarged, which likely is on that basis. No intrahepatic ductal dilatation was suggested. The liver overall appears normal. Clips are noted in the gallbladder bed. There is no evidence of renal calcinosis of any significance with a very tiny calcification in the lower pole of the right kidney, not obstructive. On the left, however, renal calcinosis is present with significant sized calcification at the lower pole, measuring approximately 7.6 mm, as well as several smaller calcifications in the middle pole area of the left kidney. Slightly increased size of low density masses are noted in the left kidney. The largest is 35 x 46 mm on the current study, compared with 33 x 44 mm on the previous study and is in the mid pole, splaying the renal parenchyma in that area, mostly exophytic. An upper pole posterior lesion is noted, which now measures 17 mm, compared with approximately 13 mm on the previous study. No evidence of obstructive uropathy was identified. No definite bowel obstruction was seen. The urinary bladder was not distended. However, there did appear to be a gas bubble in the urinary bladder. This raises question of emphysematous cystitis, although it could be on the basis of instrumentation and should be correlated clinically. The appendix is absent, compatible with history of its removal. Uterine artery calcifications are noted. Calcifications are noted in the abdominal aorta at the origins of the renal arteries and in the iliac and femoral arteries. No definite retroperitoneal masses could be identified. There were some retroperitoneal lymph nodes of mild to moderate degree, which are nonspecific, apparently present previously. No additional mass lesions, organomegaly, or free fluid collections were identified in the abdomen or pelvis. No ventral hernias were identified. Evidence of bowel surgery is again noted. Degenerative changes and disk disease are noted in the thoracolumbosacral spine of moderate to moderately severe degree but relatively sparing the L3-4 level. Vacuum disk phenomena are noted at the other levels. A moderate dextroconcave scoliosis is noted at the thoracolumbar spine. IMPRESSION: 1. Slightly enlarged 4+ cm mass anterolateral left kidney mid pole has increased slightly in size and is splaying the renal parenchyma somewhat. 2. 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 3. No evidence of obstructive uropathy or right-sided renal calcinosis. 4. Mild renal cortical scarring in general. 5. Post cholecystectomy. 6. Degenerative changes, disk disease, scoliosis lumbosacral spine. 7. Gas bubble in the urinary bladder, raising question of instrumentation versus emphysematous cystitis. 8. Appendectomy. 9. ASD. 10. Fibrosis is also noted in the superior segment of the right lower lobe, when compared with 11/07/16 CT of the chest, which showed much more prominent infiltrate in that area. The residual that is present at this time is likely fibrotic from a previous pneumonia, therefore. 11. ASHD. Report was called to Dr. Mercado at 1930 hours on 11/11/18. MTDD
[2018-11-12] MEDS: MACROCRYSTALLINE PO SCH ×2 (13:05→20:34)
[2018-11-12] MEDS: NITROFURANTOIN MONOHYDRATE PO SCH ×2 (13:05→20:34)
[2018-11-12] MEDS: Cyclobenzaprine 10 MG Tab PO SCH (20:34)
[2018-11-13] MEDS ORDERED: hydrOXYzine HCl 50 MG/ML SDV IM PRN (08:42)
[2018-11-13] MEDS ORDERED: Pantoprazole 40 MG Vial IVPUSH ONE (08:58)
--- NOTE | 2018-11-13 09:04 | PCM.PN ---
- General Info Date of Service: 11/13/18 Subjective Update: Tessa states that her back is better however, she complains of some pain epigastrium associated with nausea, and generalized weakness. She does have some confusion and disorientation to time. No further history is obtained from her. In sourcing the electronic record at [facility], I do not see any evidence of a previous anemia or workup thereof. I do not see any record of a colonoscopy, though she may have had it in [place] where she moved from 2 years ago. - Review of Systems HEENT: Reports: No Symptoms Pulmonary: Reports: No Symptoms Cardiovascular: Reports: No Symptoms Gastrointestinal: Reports: Nausea. Denies: Diarrhea Genitourinary: Reports: No Symptoms - Patient Data Vitals - Most Recent: Last Vital Signs Temp 97.1 F 11/13/18 03:30 Pulse 83 11/13/18 03:30 Resp 16 11/13/18 03:30 BP 125/55 L 11/13/18 03:30 Pulse Ox 91 L 11/13/18 03:30 Weight - Most Recent: 50.122 kg Lab Results Last 24 Hours: Laboratory Results - last 24 hr 11/13/18 11/13/18 Range/Units 06:25 06:25 WBC 4.5 (4.5-12.0) X10-3/uL RBC 3.51 (3.23-5.20) x10(6)uL Hgb 7.1 L (11.5-15.5) g/dL Hct 23.4 L (30.0-51.3) % MCV 66.7 L (80-96) fL MCH 20.3 L (27.7-33.6) pg MCHC 30.5 L (32.2-35.4) g/dL RDW 18.9 H (11.5-15.5) % Plt Count 239 (125-369) X10(3)uL MPV 8.3 (7.4-10.4) fL Neut % (Auto) 56.2 (46-82) % Lymph % (Auto) 28.5 (13-37) % [place] % (Auto) 10.4 (4-12) % Eos % (Auto) 4 (1.0-5.0) % Baso % (Auto) 1 (0-2) % Neut # (Auto) 2.5 (1.6-8.3) # Lymph # (Auto) 1.3 (0.6-5.0) # [place] # (Auto) 0.5 (0.0-1.3) # Eos # (Auto) 0.2 (0.0-0.8) # Baso # (Auto) 0.0 (0.0-0.2) # Sodium 146 H (135-145) mmol/L Potassium 3.4 L (3.5-5.3) mmol/L Chloride 112 H (100-110) mmol/L Carbon Dioxide 26 (21-32) mmol/L BUN 27 H (7-18) mg/dL Creatinine 0.8 (0.55-1.02) mg/dL Est Cr Clr Drug Dosing 41.42 mL/min Estimated GFR (MDRD) > 60 (>60) BUN/Creatinine Ratio 33.8 H (9-20) Glucose 82 (80-116) mg/dL Calcium 8.4 L (8.6-10.2) mg/dL Total Bilirubin 0.3 (0.1-1.3) mg/dL AST 14 D (5-25) IU/L ALT 16 D (12-36) U/L Alkaline Phosphatase 83 (56-112) IU/L Total Protein 5.9 L (6.0-8.0) g/dL Albumin 2.8 L (3.2-4.6) g/dL Globulin 3.1 g/dL Albumin/Globulin Ratio 0.9 Med Orders - Current: Current Medications Acetaminophen (Tylenol Extra Strength) 1,000 mg PO BID PRN PRN Reason: Pain Cyclobenzaprine HCl (Flexeril) 10 mg PO BEDTIME [facility] Last Admin: 11/12/18 20:34 Dose: 10 mg Hydroxyzine HCl (Vistaril) 50 mg IM Q6H PRN PRN Reason: Nausea Sodium Chloride (Normal Saline) 250 mls @ 100 mls/hr IV ASDIRECTED [facility] Potassium Chloride/Sodium Chloride (1/2 Ns With 20 Meq Kcl) 1,000 mls @ 100 mls /hr IV ASDIRECTED [facility] Ketorolac Tromethamine (Toradol) 15 mg IVPUSH Q6H PRN PRN Reason: BREAKTHROUGH PAIN Morphine Sulfate (Morphine) 2 mg IM Q4H PRN PRN Reason: Pain (severe 7-10) Last Admin: 11/12/18 15:53 Dose: 2 mg Nitrofurantoin Macrocrystals (Macrobid) 100 mg PO BID [facility] Last Admin: 11/12/18 20:34 Dose: 100 mg Ondansetron HCl (Zofran Odt) 4 mg PO Q4H PRN PRN Reason: nausea, able to take PO Pantoprazole Sodium (Protonix Iv) 80 mg IVPUSH .BOLUS ONE Stop: 11/13/18 08:59 Discontinued Medications Lorazepam (Ativan) 1 mg IM ONETIME STA Stop: 11/11/18 18:07 Last Admin: 11/11/18 21:37 Dose: Not Given Metoprolol Tartrate (Lopressor) 25 mg PO BEDTIME [facility] Last Admin: 11/12/18 20:34 Dose: 25 mg Morphine Sulfate (Morphine) 3 mg IM ONETIME ONE Stop: 11/11/18 17:27 Last Admin: 11/11/18 17:53 Dose: 3 mg Morphine Sulfate (Morphine) Confirm Administered Dose 4 mg .ROUTE .STK-MED ONE Stop: 11/11/18 17:53 Last Admin: 11/11/18 17:56 Dose: Not Given Morphine Sulfate (Morphine) 2 mg IM ONETIME ONE Stop: 11/11/18 20:13 Last Admin: 11/11/18 20:15 Dose: 2 mg Pantoprazole Sodium (Protonix) 40 mg PO 0600 [facility] - Exam General: Alert, Lethargic Lungs: Clear to Auscultation Cardiovascular: Regular Rate GI/Abdominal Exam: Normal Bowel Sounds, Soft, No Mass, Guarding Back Exam: Normal Inspection Extremities: Normal Inspection Psy/Mental Status: Anxious - Problem List & Annotations (1) Acute exacerbation of chronic low back pain SNOMED Code(s): 815120774 Code(s): M54.5 - LOW BACK PAIN; G89.29 - OTHER CHRONIC PAIN Status: Acute Current Visit: No (2) Degenerative joint disease (DJD) of lumbar spine Status: Acute Current Visit: No Qualifiers: Spinal osteoarthritis complication: unspecified spinal osteoarthritis Qualified Code(s): M47.816 - Spondylosis without myelopathy or radiculopathy, lumbar region (3) Flank pain SNOMED Code(s): 509956220 Code(s): R10.9 - UNSPECIFIED ABDOMINAL PAIN Status: Acute Current Visit: No (4) TOD (generalized anxiety disorder) SNOMED Code(s): 69549854 Code(s): F41.1 - GENERALIZED ANXIETY DISORDER Status: Acute Current Visit : No (5) Anemia SNOMED Code(s): 456664607 Code(s): D64.9 - ANEMIA, UNSPECIFIED Status: Acute Current Visit: Yes Qualifiers: Anemia type: iron deficiency (6) UTI (urinary tract infection) SNOMED Code(s): 03259863 Code(s): N39.0 - URINARY TRACT INFECTION, SITE NOT SPECIFIED Status: Acute Current Visit: Yes Qualifiers: Urinary tract infection type: acute cystitis (7) Dementia SNOMED Code(s): 10447186 Code(s): F03.90 - UNSPECIFIED DEMENTIA WITHOUT BEHAVIORAL DISTURBANCE Status: Acute Current Visit: No Qualifiers: Dementia type: unspecified type - Problem List Review Problem List Initiated/Reviewed/Updated: Yes - My Orders Last 24 Hours: My Active Orders 11/12/18 09:21 OT Evaluation and Treatment [CONS] Routine PT Evaluation and Treatment [CONS] Routine 11/12/18 09:22 Ketorolac [Toradol] 15 mg IVPUSH Q6H PRN 11/12/18 21:00 Cyclobenzaprine [Flexeril] 10 mg PO BEDTIME 11/13/18 08:42 hydrOXYzine HCl [Vistaril] 50 mg IM Q6H PRN 11/13/18 08:52 Consult to Physician [CONS] Urgent 11/13/18 08:53 Notify Provider Consults [RC] ASDIRECTED RED BLOOD CELLS LP [BBK] Routine TYPE AND SCREEN [BBK] Routine Transfuse Red Blood Cells [COMM] Routine 11/13/18 08:57 OCCULT BLOOD SCREEN [OP] Routine 11/13/18 08:58 Pantoprazole [ProTONIX IV] 80 mg IVPUSH .BOLUS ONE 11/13/18 09:00 Sodium Chloride 0.45% with KCl [1/2 NS with 20 mEq KCl] 1,000 ml IV ASDIRECTED Sodium Chloride 0.9% [Normal Saline] 250 ml IV ASDIRECTED 11/14/18 05:11 CBC WITH AUTO DIFF [HEME] AM COMPREHENSIVE METABOLIC PN,CMP [CHEM] AM - Plan Plan:: I will switch her to inpatient care. Consulted Dr. Hawley for possible upper or lower GI or both. I will give her 2 units of PRBCs, start Protonix and obtain stool for fecal blood testing. I made a telephone call to Khris, a brother and discussed the plan with him.
[2018-11-13] MEDS: MACROCRYSTALLINE PO SCH ×2 (09:35→21:29)
[2018-11-13] MEDS: NITROFURANTOIN MONOHYDRATE PO SCH ×2 (09:35→21:29)
[2018-11-13] MEDS: Acetaminophen 500 MG Tab PO PRN (09:35)
[2018-11-13] MEDS: Sodium Chloride 0.9% 250 ML IV SCH ×3 (10:02→18:20)
--- NOTE | 2018-11-13 10:10 | PCM.CONS ---
H&P History of Present Illness - General Date of Service: 11/13/18 Admit Problem/Dx: Admission Diagnosis/Problem Admission Diagnosis/Problem Back pain Source of Information: Patient, Old Records - History of Present Illness Initial Comments - Free Text/Narative: 82 yo lexx who was admitted with some back/hip issues. She has a hx of chronic anemia and undergoes a monthly B12 shots. She was noted to have a drop in her Hgb since her admission. She notes epigastric abd pain. This was made worse with eating this am. Denies any black or bloody bowel movements. She has a hx of an upper gi bleed in the past as well as perforation secondary to an upper endoscopy. She has alot of anxiety regarding the risk of perforation from any endoscopic procedure. L mid-back region Pain Score (Numeric/FACES): 8 asleep Pain Score (Numeric/FACES): 0 denies Pain Score (Numeric/FACES): 0 - Related Data Allergies/Adverse Reactions: Allergies Allergy/AdvReac Type Severity Reaction Status Date / Time meperidine [From Demerol] Allergy Itching Verified 11/11/18 17:11 Penicillins Allergy Itching Verified 11/11/18 17:11 promethazine [From Phenergan] Allergy Itching Verified 11/11/18 17:11 Home Medications: Home Meds Acetaminophen [Tylenol Extra Strength] 1,000 mg PO BID PRN 11/11/18 [History] Metoprolol Tartrate 25 mg BEDTIME 11/11/18 [History] Nitrofurantoin Monohyd/M-Cryst [Macrobid 100 mg Capsule] 100 mg PO BID 11/11/18 [History] Past Medical History HEENT History: Reports: Hard of Hearing Cardiovascular History: Reports: Hypertension, Other (See Below) Other Cardiovascular History: Rheumatic fever as a child. Respiratory History: Reports: Other (See Below) Other Respiratory History: Has had a trach in past. Gastrointestinal History: Reports: Other (See Below) Other Gastrointestinal History: Trouble swallowing. Indigestion. Genitourinary History: Reports: Renal Calculus Musculoskeletal History: Reports: Arthritis, Fracture, Osteoarthritis Other Musculoskeletal History: Left foot fracture. 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 Psychiatric History: Reports: Anxiety, Depression Hematologic History: Reports: Blood Transfusion(s) - Infectious Disease History Infectious Disease History: Reports: Chicken Pox, Shingles Other Infectious Disease History: Patient doesn't recall her childhood diseases. - Past Surgical History HEENT Surgical History: Reports: Cataract Surgery, Oral Surgery, Tonsillectomy Cardiovascular Surgical History: Reports: Other (See Below) GI Surgical History: Reports: Appendectomy, Colonoscopy, EGD, Other (See Below) Other GI Surgeries/Procedures: Perforated duodenum with endoscopy. Social & Family History - Family History Family Medical History: Noncontributory - Tobacco Use Smoking Status *Q: Never Smoker - Caffeine Use Caffeine Use: Reports: Coffee - Recreational Drug Use Recreational Drug Use: No H&P Review of Systems - Review of Systems: Review Of Systems: See Below General: Reports: No Symptoms Cardiovascular: Reports: No Symptoms Gastrointestinal: Reports: Abdominal Pain. Denies: Black Stool, Bloody Stool Musculoskeletal: Reports: Back Pain, Joint Pain (hip) Psychiatric: Reports: Anxiety Exam - Exam Exam: See Below - Vital Signs Vital Signs: Last Vital Signs Temp 97.4 F 11/13/18 09:00 Pulse 96 11/13/18 09:00 Resp 22 H 11/13/18 09:00 BP 108/51 L 11/13/18 09:00 Pulse Ox 94 L 11/13/18 09:00 Weight: 50.122 kg - Exam General: Alert, Oriented, Cooperative Lungs: Clear to Auscultation, Normal Respiratory Effort Cardiovascular: Regular Rate, Regular Rhythm GI/Abdominal Exam: Normal Bowel Sounds, Soft, Tender (in the epigastrium ) Psychiatric: Alert, Anxious - Patient Data Lab Results Last 24 hrs: Laboratory Results - last 24 hr 11/13/18 11/13/18 11/13/18 Range/Units 06:25 06:25 06:26 WBC 4.5 (4.5-12.0) X10-3/uL RBC 3.51 (3.23-5.20) x10(6)uL Hgb 7.1 L (11.5-15.5) g/dL Hct 23.4 L (30.0-51.3) % MCV 66.7 L (80-96) fL MCH 20.3 L (27.7-33.6) pg MCHC 30.5 L (32.2-35.4) g/dL RDW 18.9 H (11.5-15.5) % Plt Count 239 (125-369) X10(3)uL MPV 8.3 (7.4-10.4) fL Neut % (Auto) 56.2 (46-82) % Lymph % (Auto) 28.5 (13-37) % [place] % (Auto) 10.4 (4-12) % Eos % (Auto) 4 (1.0-5.0) % Baso % (Auto) 1 (0-2) % Neut # (Auto) 2.5 (1.6-8.3) # Lymph # (Auto) 1.3 (0.6-5.0) # [place] # (Auto) 0.5 (0.0-1.3) # Eos # (Auto) 0.2 (0.0-0.8) # Baso # (Auto) 0.0 (0.0-0.2) # Sodium 146 H (135-145) mmol/L Potassium 3.4 L (3.5-5.3) mmol/L Chloride 112 H (100-110) mmol/L Carbon Dioxide 26 (21-32) mmol/L BUN 27 H (7-18) mg/dL Creatinine 0.8 (0.55-1.02) mg/dL Est Cr Clr Drug Dosing 41.42 mL/min Estimated GFR (MDRD) > 60 (>60) BUN/Creatinine Ratio 33.8 H (9-20) Glucose 82 (80-116) mg/dL Calcium 8.4 L (8.6-10.2) mg/dL Total Bilirubin 0.3 (0.1-1.3) mg/dL AST 14 D (5-25) IU/L ALT 16 D (12-36) U/L Alkaline Phosphatase 83 (56-112) IU/L Total Protein 5.9 L (6.0-8.0) g/dL Albumin 2.8 L (3.2-4.6) g/dL Globulin 3.1 g/dL Albumin/Globulin Ratio 0.9 Blood Type A POSITIVE Gel Antibody Screen Negative Crossmatch See Detail Result Diagrams: 11/13/18 06:25 11/13/18 06:25 Consult PN Assessment/Plan Procedures: Procedures AIRWAY INHALATION TREATMENT (06/21/18) ASSAY OF CK (CPK) (11/07/16) ASSAY OF LACTIC ACID (06/23/18) ASSAY OF MAGNESIUM (06/23/18) ASSAY OF TROPONIN QUANT (06/23/18) ASSAY THYROID STIM HORMONE (06/21/18) BLOOD CULTURE FOR BACTERIA (06/23/18) C-REACTIVE PROTEIN (06/21/18) CHEST X-RAY 1 VIEW FRONTAL (11/07/16) CLOSTRIDIUM AG IA (06/23/18) COMPLETE CBC W/AUTO DIFF WBC (06/23/18) COMPREHEN METABOLIC PANEL (06/23/18) CT ABD & PELV 1/> REGNS (03/27/16) CT ABD & PELV W/CONTRAST (10/27/16) CT ABD & PELVIS W/O CONTRAST (03/30/18) CT ANGIOGRAPHY CHEST (11/07/16) ELECTROCARDIOGRAM REPORT (06/23/18) ELECTROCARDIOGRAM TRACING (06/23/18) EMERGENCY DEPT VISIT (06/23/18) EMERGENCY DEPT VISIT (06/23/18) EMERGENCY DEPT VISIT (06/21/18) EMERGENCY DEPT VISIT (06/21/18) EMERGENCY DEPT VISIT (06/04/18) EMERGENCY DEPT VISIT (04/19/18) EMERGENCY DEPT VISIT (04/18/18) EMERGENCY DEPT VISIT (12/06/16) EMERGENCY DEPT VISIT (11/07/16) EMERGENCY DEPT VISIT (08/23/16) EMERGENCY DEPT VISIT (08/23/16) FIBRIN DEGRADATION QUANT (11/07/16) HEPATIC FUNCTION PANEL (06/21/18) HYDRATE IV INFUSION ADD-ON (06/23/18) INSERT TEMP BLADDER CATH (08/23/16) METABOLIC PANEL TOTAL CA (06/23/18) MICROBE SUSCEPTIBLE ARNOL (06/21/18) PROTHROMBIN TIME (06/21/18) PT EVAL LOW COMPLEX 20 MIN (08/26/17) ROUTINE VENIPUNCTURE (06/23/18) THER/PROPH/DIAG INJ IV PUSH (06/23/18) THER/PROPH/DIAG INJ SC/IM (06/04/18) THER/PROPH/DIAG IV INF INIT (08/23/16) THERAPEUTIC EXERCISES (08/26/17) TX/PRO/DX INJ NEW DRUG ADDON (06/21/18) URINALYSIS AUTO W/SCOPE (06/21/18) URINE BACTERIA CULTURE (06/21/18) URINE CULTURE/COLONY COUNT (06/21/18) X-RAY EXAM CHEST 2 VIEWS (06/21/18) (1) Anemia SNOMED Code(s): 500596117 Code(s): D64.9 - ANEMIA, UNSPECIFIED Current Visit: Yes Comment: given PMH as well a her complaints need to entertain a possible upper gi etiology. Qualifiers: Anemia type: iron deficiency Problem List Initiated/Reviewed/Updated: Yes My Orders Last 24 Hours: My Active Orders 11/13/18 Lunch NPO Now [Nothing per Oral Now Diet] [DIET] Plan: She would like to talk over any possible dx procedures with her sister Cheryl whom I have talked to. I will make in her NPO. stop toradol due to it being an NSAID.
[2018-11-13] MEDS: Morphine 2 MG/ML Syringe IM PRN (10:19)
[2018-11-13] MEDS ORDERED: Sodium Chloride 0.9% 250 ML IV SCH ×2 (11:30→15:15)
--- NOTE | 2018-11-13 14:50 | PCM.SN ---
- Free Text/Narrative Note: Pt after discussing with her sister has decided to go ahead with an egd. Will arrange for the am. Procedure and risks explained to the pt to include bleeding , infection and perforation. she asks us to proceed.
[2018-11-13] MEDS: Sodium Chloride 0.45% with KCl 1,000 ML IV SCH (18:40)
[2018-11-13] MEDS: Cyclobenzaprine 10 MG Tab PO SCH (21:29)
[2018-11-14] MEDS: Sodium Chloride 0.45% with KCl 1,000 ML IV SCH ×2 (04:36→10:52)
[2018-11-14] MEDS ORDERED: Propofol 200 MG/20 ML SDV IV ONE (08:42)
[2018-11-14] MEDS ORDERED: Lidocaine 2% 100 MG/5 ML Syringe IVPUSH ONE (08:42)
[2018-11-14] MEDS ORDERED: Pantoprazole 40 MG Tab.CR PO SCH (09:00)
--- NOTE | 2018-11-14 09:01 | PCM.OPNOTE ---
- General Post-Op/Procedure Note Date of Surgery/Procedure: 11/14/18 Operative Procedure(s): egd with biopsy Findings: gastritis with bleeding Pre Op Diagnosis: anemia. epigastric abd pain Post-Op Diagnosis: gastritis with bleeding. Anesthesia Technique: MAC Primary Surgeon: Gold Hawley Anesthesia Provider: Yumiko Dumont Pathology: gastric Complications: None Condition: Fair Free Text/Narrative:: Intake & Output 11/13/18 11/14/18 11/14/18 22:59 06:59 14:59 Intake Total 691 812 Output Total 400 Balance 291 812
[2018-11-14] MEDS: Morphine 2 MG/ML Syringe IM PRN (10:08)
--- NOTE | 2018-11-14 10:29 | PCM.PN ---
- General Info Date of Service: 11/14/18 Subjective Update: She complains of back pain in the left side. Very anxious. She had an EGD this morning. She received 2 units of blood yesterday. - Review of Systems Cardiovascular: Reports: No Symptoms Gastrointestinal: Reports: No Symptoms Genitourinary: Reports: No Symptoms - Patient Data Vitals - Most Recent: Last Vital Signs Temp 98.1 F 11/14/18 09:10 Pulse 83 11/14/18 09:10 Resp 20 11/14/18 09:10 BP 146/61 H 11/14/18 09:10 Pulse Ox 92 L 11/14/18 09:10 Weight - Most Recent: 50.122 kg I&O - Last 24 Hours: Intake & Output 11/13/18 11/14/18 11/14/18 22:59 06:59 14:59 Intake Total 691 812 Output Total 400 Balance 291 812 Lab Results Last 24 Hours: Laboratory Results - last 24 hr 11/13/18 Range/Units 06:26 Blood Type A POSITIVE Gel Antibody Screen Negative Crossmatch See Detail Med Orders - Current: Current Medications Acetaminophen (Tylenol Extra Strength) 1,000 mg PO BID PRN PRN Reason: Pain Last Admin: 11/13/18 09:35 Dose: 1,000 mg Cyclobenzaprine HCl (Flexeril) 10 mg PO BEDTIME [facility] Last Admin: 11/13/18 21:29 Dose: 10 mg Hydroxyzine HCl (Vistaril) 50 mg IM Q6H PRN PRN Reason: Nausea Last Admin: 11/13/18 10:04 Dose: 50 mg Potassium Chloride/Sodium Chloride (1/2 Ns With 20 Meq Kcl) 1,000 mls @ 100 mls /hr IV ASDIRECTED [facility] Last Admin: 11/14/18 04:36 Dose: 100 mls/hr Morphine Sulfate (Morphine) 2 mg IM Q4H PRN PRN Reason: Pain (severe 7-10) Last Admin: 11/14/18 10:08 Dose: 2 mg Nitrofurantoin Macrocrystals (Macrobid) 100 mg PO BID [facility] Last Admin: 11/13/18 21:29 Dose: 100 mg Ondansetron HCl (Zofran Odt) 4 mg PO Q4H PRN PRN Reason: nausea, able to take PO Last Admin: 11/13/18 18:47 Dose: 4 mg Discontinued Medications Sodium Chloride (Normal Saline) 250 mls @ 100 mls/hr IV ASDIRECTED [facility] Last Admin: 11/13/18 10:02 Dose: 100 mls/hr Sodium Chloride (Normal Saline) 250 mls @ 100 mls/hr IV ASDIRECTED [facility] Last Admin: 11/13/18 14:00 Dose: 100 mls/hr Sodium Chloride (Normal Saline) 250 mls @ 100 mls/hr IV ASDIRECTED [facility] Last Admin: 11/13/18 17:40 Dose: 100 mls/hr Ketorolac Tromethamine (Toradol) 15 mg IVPUSH Q6H PRN PRN Reason: BREAKTHROUGH PAIN Lorazepam (Ativan) 1 mg IM ONETIME STA Stop: 11/11/18 18:07 Last Admin: 11/11/18 21:37 Dose: Not Given Metoprolol Tartrate (Lopressor) 25 mg PO BEDTIME [facility] Last Admin: 11/12/18 20:34 Dose: 25 mg Morphine Sulfate (Morphine) 3 mg IM ONETIME ONE Stop: 11/11/18 17:27 Last Admin: 11/11/18 17:53 Dose: 3 mg Morphine Sulfate (Morphine) Confirm Administered Dose 4 mg .ROUTE .STK-MED ONE Stop: 11/11/18 17:53 Last Admin: 11/11/18 17:56 Dose: Not Given Morphine Sulfate (Morphine) 2 mg IM ONETIME ONE Stop: 11/11/18 20:13 Last Admin: 11/11/18 20:15 Dose: 2 mg Pantoprazole Sodium (Protonix) 40 mg PO 0600 [facility] Pantoprazole Sodium (Protonix Iv) 80 mg IVPUSH .BOLUS ONE Stop: 11/13/18 08:59 Last Admin: 11/13/18 10:24 Dose: 80 mg - Exam General: Alert, Oriented, Mild Distress Neck: Supple Lungs: Clear to Auscultation Cardiovascular: Regular Rate Back Exam: Normal Inspection, CVA Tenderness (L) Extremities: Normal Inspection - Problem List & Annotations (1) Acute exacerbation of chronic low back pain SNOMED Code(s): 196746249 Code(s): M54.5 - LOW BACK PAIN; G89.29 - OTHER CHRONIC PAIN Status: Acute Current Visit: No (2) Degenerative joint disease (DJD) of lumbar spine Status: Acute Current Visit: No Qualifiers: Spinal osteoarthritis complication: unspecified spinal osteoarthritis Qualified Code(s): M47.816 - Spondylosis without myelopathy or radiculopathy, lumbar region (3) Flank pain SNOMED Code(s): 107577358 Code(s): R10.9 - UNSPECIFIED ABDOMINAL PAIN Status: Acute Current Visit: No (4) TOD (generalized anxiety disorder) SNOMED Code(s): 41175301 Code(s): F41.1 - GENERALIZED ANXIETY DISORDER Status: Acute Current Visit : No (5) Anemia SNOMED Code(s): 699247805 Code(s): D64.9 - ANEMIA, UNSPECIFIED Status: Acute Current Visit: Yes Qualifiers: Anemia type: iron deficiency Annotation/Comment:: given PMH as well a her complaints need to entertain a possible upper gi etiology. (6) UTI (urinary tract infection) SNOMED Code(s): 54077230 Code(s): N39.0 - URINARY TRACT INFECTION, SITE NOT SPECIFIED Status: Acute Current Visit: Yes Qualifiers: Urinary tract infection type: acute cystitis (7) Dementia SNOMED Code(s): 94479049 Code(s): F03.90 - UNSPECIFIED DEMENTIA WITHOUT BEHAVIORAL DISTURBANCE Status: Acute Current Visit: No Qualifiers: Dementia type: unspecified type - Problem List Review Problem List Initiated/Reviewed/Updated: Yes - My Orders Last 24 Hours: My Active Orders 11/14/18 10:20 BASIC METABOLIC PANEL,BMP [CHEM] Stat CBC WITH AUTO DIFF [HEME] Stat - Plan Plan:: The EGD showed some gastritis. Ordered a repeat CBC today we'll use morphine as needed for pain in the back, regarding anticipation of discharge tomorrow.
[2018-11-14] MEDS: MACROCRYSTALLINE PO SCH ×2 (10:58→20:05)
[2018-11-14] MEDS: NITROFURANTOIN MONOHYDRATE PO SCH ×2 (10:58→20:05)
--- NOTE | 2018-11-14 12:39 | OR ---
DATE OF OPERATION: 11/14/2018 SURGEON: Gold Hawley MD PROCEDURE PERFORMED: Esophagogastroduodenoscopy with cold forceps biopsy. PREOPERATIVE DIAGNOSES: Anemia, epigastric abdominal pain. POSTOPERATIVE DIAGNOSES: Gastritis with hemorrhage. INDICATIONS FOR PROCEDURE: This is an 82-year-old white female who was consulted on yesterday. The patient has a history of chronic anemia, had an acute drop in her hemoglobin and hematocrit. She was complaining of abdominal pain. Apparently has a history of gastric bleeding in the past, was offered and accepted an upper endoscopy. DESCRIPTION OF OPERATION: After an excellent IV sedation was administered, the bite block was inserted. The flexible endoscope was passed without difficulty down the patient's esophagus into the stomach. Stomach was insufflated. Scope passed through the pylorus, second portion of the duodenum and slowly withdrawn. Following findings were noted. Duodenum is unremarkable. Stomach demonstrated diffuse gastritis. Multiple biopsies were taken as well as photo. Esophagus was unremarkable. The patient was taken to recovery in good condition. We will be starting her on a proton pump inhibitor and Carafate, and her regular diet may be resumed. /[id number] /MODL
[2018-11-14] MEDS: Sucralfate Suspension 1 GM/10 ML Cup PO SCH (20:05)
[2018-11-14] MEDS: Pantoprazole 40 MG Vial IVPUSH SCH (20:05)
[2018-11-14] MEDS: Cyclobenzaprine 10 MG Tab PO SCH (20:06)
[2018-11-15] MEDS: Sucralfate Suspension 1 GM/10 ML Cup PO SCH ×5 (01:07→20:03)
[2018-11-15] MEDS: Acetaminophen 500 MG Tab PO PRN ×2 (02:08→16:08)
[2018-11-15] MEDS ORDERED: Acetaminophen/HYDROcodone 325-5 MG Tab PO ONE (04:12)
--- NOTE | 2018-11-15 08:34 | PCM.PN ---
- General Info Date of Service: 11/15/18 Subjective Update: Tessa noted to be confused at times, very anxious restless sleep well at night. She is intermittent pain in the low back denies any nausea vomiting or urinary symptoms. Functional Status: Reports: Pain Controlled - Review of Systems General: Reports: No Symptoms Cardiovascular: Reports: No Symptoms Gastrointestinal: Reports: Nausea Genitourinary: Reports: No Symptoms Musculoskeletal: Reports: Back Pain - Patient Data Vitals - Most Recent: Last Vital Signs Temp 97.5 F 11/15/18 07:26 Pulse 66 11/15/18 07:26 Resp 20 11/15/18 07:26 BP 153/63 H 11/15/18 07:26 Pulse Ox 92 L 11/15/18 07:26 Weight - Most Recent: 50.122 kg Lab Results Last 24 Hours: Laboratory Results - last 24 hr 11/14/18 11/14/18 Range/Units 10:20 10:20 WBC 5.2 (4.5-12.0) X10-3/uL RBC 4.64 (3.23-5.20) x10(6)uL Hgb 11.0 L D (11.5-15.5) g/dL Hct 34.2 D (30.0-51.3) % MCV 73.7 L (80-96) fL MCH 23.7 L (27.7-33.6) pg MCHC 32.2 (32.2-35.4) g/dL RDW 23.0 H (11.5-15.5) % Plt Count 222 (125-369) X10(3)uL MPV 8.6 (7.4-10.4) fL Neut % (Auto) 74.3 (46-82) % Lymph % (Auto) 16.1 (13-37) % [place] % (Auto) 6.4 (4-12) % Eos % (Auto) 3 (1.0-5.0) % Baso % (Auto) 1 (0-2) % Neut # (Auto) 4.0 (1.6-8.3) # Lymph # (Auto) 0.8 (0.6-5.0) # [place] # (Auto) 0.3 (0.0-1.3) # Eos # (Auto) 0.1 (0.0-0.8) # Baso # (Auto) 0.0 (0.0-0.2) # Sodium 144 (135-145) mmol/L Potassium 4.1 (3.5-5.3) mmol/L Chloride 110 (100-110) mmol/L Carbon Dioxide 25 (21-32) mmol/L BUN 16 D (7-18) mg/dL Creatinine 0.8 (0.55-1.02) mg/dL Est Cr Clr Drug Dosing 41.42 mL/min Estimated GFR (MDRD) > 60 (>60) BUN/Creatinine Ratio 20.0 (9-20) Glucose 84 (80-116) mg/dL Calcium 8.8 (8.6-10.2) mg/dL Med Orders - Current: Current Medications Acetaminophen (Tylenol Extra Strength) 1,000 mg PO BID PRN PRN Reason: Pain Last Admin: 11/15/18 02:08 Dose: 1,000 mg Cyclobenzaprine HCl (Flexeril) 10 mg PO BEDTIME [facility] Last Admin: 11/14/18 20:06 Dose: 10 mg Hydroxyzine HCl (Vistaril) 50 mg IM Q6H PRN PRN Reason: Nausea Last Admin: 11/13/18 10:04 Dose: 50 mg Morphine Sulfate (Morphine) 2 mg IM Q4H PRN PRN Reason: Pain (severe 7-10) Last Admin: 11/14/18 10:08 Dose: 2 mg Nitrofurantoin Macrocrystals (Macrobid) 100 mg PO BID [facility] Last Admin: 11/14/18 20:05 Dose: 100 mg Ondansetron HCl (Zofran Odt) 4 mg PO Q4H PRN PRN Reason: nausea, able to take PO Last Admin: 11/13/18 18:47 Dose: 4 mg Pantoprazole Sodium (Protonix Iv) 40 mg IVPUSH DAILY [facility] Last Admin: 11/14/18 20:05 Dose: 40 mg Sucralfate (Carafate) 1 gm PO QIDACANDBED [facility] Last Admin: 11/15/18 07:24 Dose: 1 gm Discontinued Medications Hydrocodone Bitart/Acetaminophen ([place] 325-5 Mg) 1 tab PO ONETIME ONE Stop: 11/15/18 04:13 Last Admin: 11/15/18 04:25 Dose: 1 tab Sodium Chloride (Normal Saline) 250 mls @ 100 mls/hr IV ASDIRECTED [facility] Last Admin: 11/13/18 10:02 Dose: 100 mls/hr Potassium Chloride/Sodium Chloride (1/2 Ns With 20 Meq Kcl) 1,000 mls @ 100 mls /hr IV ASDIRECTED [facility] Last Admin: 11/14/18 10:52 Dose: 100 mls/hr Sodium Chloride (Normal Saline) 250 mls @ 100 mls/hr IV ASDIRECTED [facility] Last Admin: 11/13/18 14:00 Dose: 100 mls/hr Sodium Chloride (Normal Saline) 250 mls @ 100 mls/hr IV ASDIRECTED [facility] Last Admin: 11/13/18 17:40 Dose: 100 mls/hr Ketorolac Tromethamine (Toradol) 15 mg IVPUSH Q6H PRN PRN Reason: BREAKTHROUGH PAIN Lorazepam (Ativan) 1 mg IM ONETIME STA Stop: 11/11/18 18:07 Last Admin: 11/11/18 21:37 Dose: Not Given Metoprolol Tartrate (Lopressor) 25 mg PO BEDTIME [facility] Last Admin: 11/12/18 20:34 Dose: 25 mg Morphine Sulfate (Morphine) 3 mg IM ONETIME ONE Stop: 11/11/18 17:27 Last Admin: 11/11/18 17:53 Dose: 3 mg Morphine Sulfate (Morphine) Confirm Administered Dose 4 mg .ROUTE .STK-MED ONE Stop: 11/11/18 17:53 Last Admin: 11/11/18 17:56 Dose: Not Given Morphine Sulfate (Morphine) 2 mg IM ONETIME ONE Stop: 11/11/18 20:13 Last Admin: 11/11/18 20:15 Dose: 2 mg Pantoprazole Sodium (Protonix) 40 mg PO 0600 [facility] Pantoprazole Sodium (Protonix Iv) 80 mg IVPUSH .BOLUS ONE Stop: 11/13/18 08:59 Last Admin: 11/13/18 10:24 Dose: 80 mg - Exam General: Alert HEENT: Pupils Equal Cardiovascular: Regular Rate Psy/Mental Status: Alert, Labile Mood, Anxious, Agitated - Problem List & Annotations (1) Acute exacerbation of chronic low back pain SNOMED Code(s): 505485100 Code(s): M54.5 - LOW BACK PAIN; G89.29 - OTHER CHRONIC PAIN Status: Acute Current Visit: No (2) Degenerative joint disease (DJD) of lumbar spine Status: Acute Current Visit: No Qualifiers: Spinal osteoarthritis complication: unspecified spinal osteoarthritis Qualified Code(s): M47.816 - Spondylosis without myelopathy or radiculopathy, lumbar region (3) Flank pain SNOMED Code(s): 220479527 Code(s): R10.9 - UNSPECIFIED ABDOMINAL PAIN Status: Acute Current Visit: No (4) TOD (generalized anxiety disorder) SNOMED Code(s): 72731794 Code(s): F41.1 - GENERALIZED ANXIETY DISORDER Status: Acute Current Visit : No (5) Anemia SNOMED Code(s): 122875648 Code(s): D64.9 - ANEMIA, UNSPECIFIED Status: Acute Current Visit: Yes Qualifiers: Anemia type: iron deficiency Annotation/Comment:: given PMH as well a her complaints need to entertain a possible upper gi etiology. (6) UTI (urinary tract infection) SNOMED Code(s): 75559771 Code(s): N39.0 - URINARY TRACT INFECTION, SITE NOT SPECIFIED Status: Acute Current Visit: Yes Qualifiers: Urinary tract infection type: acute cystitis (7) Dementia SNOMED Code(s): 29552589 Code(s): F03.90 - UNSPECIFIED DEMENTIA WITHOUT BEHAVIORAL DISTURBANCE Status: Acute Current Visit: No Qualifiers: Dementia type: unspecified type (8) Cognitive dysfunction SNOMED Code(s): 675555021 Code(s): F09 - UNSP MENTAL DISORDER DUE TO KNOWN PHYSIOLOGICAL CONDITION Status: Acute Current Visit: Yes - Problem List Review Problem List Initiated/Reviewed/Updated: Yes - My Orders Last 24 Hours: My Active Orders 11/14/18 Lunch Regular Diet [DIET] 11/15/18 08:27 UA W/MICROSCOPIC [URIN] Routine - Plan Plan:: The EGD showed some gastritis. Ordered a repeat UA today we'll use morphine as needed for pain in the back, regarding anticipation of discharge tomorrow. I feel that she will be able to return to personal home, and we will explore an independent living facility. Her PCP Dr. Allen will see her tomorrow,maybe approach that subject
[2018-11-15] MEDS: MACROCRYSTALLINE PO SCH ×2 (10:32→20:03)
[2018-11-15] MEDS: NITROFURANTOIN MONOHYDRATE PO SCH ×2 (10:32→20:03)
[2018-11-15] MEDS: Pantoprazole 40 MG Vial IVPUSH SCH (10:35)
[2018-11-15] MEDS ORDERED: Sodium Chloride 0.9% 10 ML Syringe FLUSH PRN (10:41)
[2018-11-15] MEDS: Cyclobenzaprine 10 MG Tab PO SCH (20:03)
[2018-11-16] MEDS: Acetaminophen 500 MG Tab PO PRN (01:23)
[2018-11-16] MEDS: Sucralfate Suspension 1 GM/10 ML Cup PO SCH ×4 (06:53→20:19)
[2018-11-16] MEDS: NITROFURANTOIN MONOHYDRATE PO SCH (08:55)
[2018-11-16] MEDS: MACROCRYSTALLINE PO SCH (08:55)
[2018-11-16] MEDS: Pantoprazole 40 MG Vial IVPUSH SCH (08:57)
--- NOTE | 2018-11-16 10:30 | PN ---
DATE SEEN: 11/16/2018 SUBJECTIVE: Tessa Brown is an 82-year-old, female, admitted initially with acute complicated back pain. She was found to have a hemoglobin that went from 8.3 to 7.1. Upper endoscopy on 11/14/2018 revealed diffuse gastritis of the stomach. Multiple biopsies were taken and photographed. Recovery has been beneficial. Hemoglobin has risen from 7.1 on 11/13/2018 to 11.0. Hemoglobin to be performed today. Of concern, CT abdomen on 11/11/2018, revealed evidence of a 4 cm mass anterolateral left mid pole kidney, increased in size. Origin etiology to be evaluated. OBJECTIVE: VITAL SIGNS: 36.7, 62, 132/64, 86, 18, and 92%. GENERAL: Appears comfortable. Main complaint is right mid back pain. NECK: Benign. Thyroid small. No JVD. CHEST: Clear in all lung [place]o. No adventitious sounds. HEART: Occasional ectopy. Soft murmur present. ABDOMEN: Benign. ASSESSMENT: 1. Acute gastritis, upper gastrointestinal bleed. 2. Mid back pain. 3. Left kidney mass. PLAN: We will consult with CT on kidney finding. Plain radiographs of the lumbar spine will be performed, follow up hemoglobin and hematocrit. Discuss CT with Radiology. /[id number] BRENDA/ROSA
[2018-11-16] MEDS: Cyclobenzaprine 10 MG Tab PO SCH (20:19)
[2018-11-17] MEDS: Pantoprazole 40 MG Tab.CR PO SCH (06:47)
[2018-11-17] MEDS: Sucralfate Suspension 1 GM/10 ML Cup PO SCH ×4 (07:47→21:27)
[2018-11-17] MEDS ORDERED: ALPRAZolam 0.25 MG Tab PO ONE (08:38)
--- NOTE | 2018-11-17 08:59 | PCM.PN ---
- General Info Date of Service: 11/17/18 Subjective Update: Complains of epigastric pain,nausea and dyspepsia. Functional Status: Reports: Pain Controlled - Review of Systems Pulmonary: Reports: No Symptoms Cardiovascular: Reports: No Symptoms Genitourinary: Reports: No Symptoms - Patient Data Vitals - Most Recent: Last Vital Signs Temp 98.3 F 11/17/18 07:51 Pulse 76 11/17/18 07:51 Resp 18 11/17/18 07:51 BP 155/87 H 11/17/18 07:51 Pulse Ox 92 L 11/17/18 07:51 Weight - Most Recent: 50.122 kg Lab Results Last 24 Hours: Laboratory Results - last 24 hr 11/16/18 11/16/18 Range/Units 09:55 11:40 Hgb 11.5 (11.5-15.5) g/dL Hct 35.8 (30.0-51.3) % Urine Color Yellow (YELLOW) Urine Appearance Slightly cloudy (CLEAR) Urine pH 7.0 H (5.0-6.5) Ur Specific [place] 1.015 (1.010-1.025) Urine Protein Negative (NEGATIVE) mg/dL Urine Glucose (UA) Normal (NORMAL) mg/dL Urine Ketones Negative (NEGATIVE) mg/dL Urine Occult Blood Negative (NEGATIVE) Urine Nitrite Negative (NEGATIVE) Urine Bilirubin Negative (NEGATIVE) Urine Urobilinogen Normal (NEGATIVE) mg/dL Ur Leukocyte Esterase Moderate H (NEGATIVE) Urine WBC 0-5 (0-5) Ur Squamous Epith Cells Few H (NS,R,O) Urine Bacteria Few H (NS) [place] Results Last 24 Hours: Microbiology 11/16/18 13:45 Occult Blood - Preliminary Stool / Feces Med Orders - Current: Current Medications Acetaminophen (Tylenol Extra Strength) 1,000 mg PO BID PRN PRN Reason: Pain Last Admin: 11/16/18 01:23 Dose: 1,000 mg Al Hydroxide/Mg Hydroxide (Mag-Al Susp) 30 ml PO TID [facility] Cyclobenzaprine HCl (Flexeril) 10 mg PO BEDTIME [facility] Last Admin: 11/16/18 20:19 Dose: 10 mg Hydroxyzine HCl (Vistaril) 50 mg IM Q6H PRN PRN Reason: Nausea Last Admin: 11/13/18 10:04 Dose: 50 mg Morphine Sulfate (Morphine) 2 mg IM Q4H PRN PRN Reason: Pain (severe 7-10) Last Admin: 11/14/18 10:08 Dose: 2 mg Ondansetron HCl (Zofran Odt) 4 mg PO Q4H PRN PRN Reason: nausea, able to take PO Last Admin: 11/13/18 18:47 Dose: 4 mg Pantoprazole Sodium (Protonix) 40 mg PO 0600 [facility] Last Admin: 11/17/18 06:47 Dose: 40 mg Sodium Chloride (Saline Flush) 10 ml FLUSH ASDIRECTED PRN PRN Reason: saline lock flush Last Admin: 11/15/18 12:04 Dose: 10 ml Sucralfate (Carafate) 1 gm PO QIDACANDBED [facility] Last Admin: 11/17/18 07:47 Dose: 1 gm Discontinued Medications Hydrocodone Bitart/Acetaminophen ([place] 325-5 Mg) 1 tab PO ONETIME ONE Stop: 11/15/18 04:13 Last Admin: 11/15/18 04:25 Dose: 1 tab Alprazolam (Xanax) 0.25 mg PO ONETIME ONE Stop: 11/17/18 08:39 Sodium Chloride (Normal Saline) 250 mls @ 100 mls/hr IV ASDIRECTED [facility] Last Admin: 11/13/18 10:02 Dose: 100 mls/hr Potassium Chloride/Sodium Chloride (1/2 Ns With 20 Meq Kcl) 1,000 mls @ 100 mls /hr IV ASDIRECTED [facility] Last Admin: 11/14/18 10:52 Dose: 100 mls/hr Sodium Chloride (Normal Saline) 250 mls @ 100 mls/hr IV ASDIRECTED [facility] Last Admin: 11/13/18 14:00 Dose: 100 mls/hr Sodium Chloride (Normal Saline) 250 mls @ 100 mls/hr IV ASDIRECTED [facility] Last Admin: 11/13/18 17:40 Dose: 100 mls/hr Ketorolac Tromethamine (Toradol) 15 mg IVPUSH Q6H PRN PRN Reason: BREAKTHROUGH PAIN Lorazepam (Ativan) 1 mg IM ONETIME STA Stop: 11/11/18 18:07 Last Admin: 11/11/18 21:37 Dose: Not Given Metoprolol Tartrate (Lopressor) 25 mg PO BEDTIME [facility] Last Admin: 11/12/18 20:34 Dose: 25 mg Morphine Sulfate (Morphine) 3 mg IM ONETIME ONE Stop: 11/11/18 17:27 Last Admin: 11/11/18 17:53 Dose: 3 mg Morphine Sulfate (Morphine) Confirm Administered Dose 4 mg .ROUTE .STK-MED ONE Stop: 11/11/18 17:53 Last Admin: 11/11/18 17:56 Dose: Not Given Morphine Sulfate (Morphine) 2 mg IM ONETIME ONE Stop: 11/11/18 20:13 Last Admin: 11/11/18 20:15 Dose: 2 mg Nitrofurantoin Macrocrystals (Macrobid) 100 mg PO BID [facility] Last Admin: 11/16/18 08:55 Dose: 100 mg Pantoprazole Sodium (Protonix) 40 mg PO 0600 [facility] Pantoprazole Sodium (Protonix Iv) 80 mg IVPUSH .BOLUS ONE Stop: 11/13/18 08:59 Last Admin: 11/13/18 10:24 Dose: 80 mg Pantoprazole Sodium (Protonix Iv) 40 mg IVPUSH DAILY [facility] Last Admin: 11/16/18 08:57 Dose: 40 mg - Exam General: Alert, Lethargic (anxious), Other Neck: Supple Lungs: Clear to Auscultation Cardiovascular: Regular Rate GI/Abdominal Exam: Soft, No Distention, Guarding, Tender (Epigastrium) Neurological: No New Focal Deficit Psy/Mental Status: Alert, Labile Mood, Anxious - Problem List & Annotations (1) Acute exacerbation of chronic low back pain SNOMED Code(s): 712801180 Code(s): M54.5 - LOW BACK PAIN; G89.29 - OTHER CHRONIC PAIN Status: Acute Current Visit: No (2) Degenerative joint disease (DJD) of lumbar spine Status: Acute Current Visit: No Qualifiers: Spinal osteoarthritis complication: unspecified spinal osteoarthritis Qualified Code(s): M47.816 - Spondylosis without myelopathy or radiculopathy, lumbar region (3) Flank pain SNOMED Code(s): 069512620 Code(s): R10.9 - UNSPECIFIED ABDOMINAL PAIN Status: Acute Current Visit: No (4) TOD (generalized anxiety disorder) SNOMED Code(s): 82094885 Code(s): F41.1 - GENERALIZED ANXIETY DISORDER Status: Acute Current Visit : No (5) Anemia SNOMED Code(s): 730111043 Code(s): D64.9 - ANEMIA, UNSPECIFIED Status: Acute Current Visit: Yes Qualifiers: Anemia type: iron deficiency Annotation/Comment:: given PMH as well a her complaints need to entertain a possible upper gi etiology. (6) Dementia SNOMED Code(s): 59978052 Code(s): F03.90 - UNSPECIFIED DEMENTIA WITHOUT BEHAVIORAL DISTURBANCE Status: Acute Current Visit: No Qualifiers: Dementia type: unspecified type (7) Cognitive dysfunction SNOMED Code(s): 370452952 Code(s): F09 - UNSP MENTAL DISORDER DUE TO KNOWN PHYSIOLOGICAL CONDITION Status: Acute Current Visit: Yes (8) Gastritis SNOMED Code(s): 5342218 Code(s): K29.70 - GASTRITIS, UNSPECIFIED, WITHOUT BLEEDING Status: Acute Current Visit: Yes - Problem List Review Problem List Initiated/Reviewed/Updated: Yes - My Orders Last 24 Hours: My Active Orders 11/16/18 13:45 OCCULT BLOOD SCREEN [OP] Routine 11/17/18 09:00 Alum Hydroxide/Mag Hydroxide [Mag-Al Susp] 30 ml PO TID - Plan Plan:: I will try some Maalox and a tiny dose of Xanax. I believe she does have some gastritis but possibly also some anxiety and functional dyspepsia. Plan is to discharge her later today if possible, with home health
--- NOTE | 2018-11-17 09:00 | PN ---
DATE SEEN: 11/16/2018 eTssa Brown is seen in followup. Hemoccult was negative. Laboratory studies; hemoglobin 11 to 11.5, doing well. Iron replacement in place. Urinalysis was free of any signs of infection. Macrobid was discontinued. /[id number] BRENDA/ROSA
[2018-11-17] MEDS: Aluminum Hydroxide/Magnesium Hydroxide Susp 30 ML Cup PO SCH ×3 (09:08→21:27)
[2018-11-17] MEDS: Cyclobenzaprine 10 MG Tab PO SCH (21:27)
[2018-11-18] MEDS: Acetaminophen 500 MG Tab PO PRN (04:02)
[2018-11-18] MEDS: Pantoprazole 40 MG Tab.CR PO SCH (06:33)
[2018-11-18] MEDS: Sucralfate Suspension 1 GM/10 ML Cup PO SCH (06:33)
[2018-11-18] MEDS: Aluminum Hydroxide/Magnesium Hydroxide Susp 30 ML Cup PO SCH (08:55)
--- NOTE | 2018-11-18 09:06 | PCM.PN ---
- General Info Date of Service: 11/18/18 Subjective Update: Wants to go home. Functional Status: Reports: Pain Controlled, Tolerating Diet, Ambulating - Review of Systems HEENT: Reports: No Symptoms Pulmonary: Reports: No Symptoms Cardiovascular: Reports: No Symptoms - Patient Data Vitals - Most Recent: Last Vital Signs Temp 97.5 F 11/18/18 02:45 Pulse 88 11/18/18 02:45 Resp 18 11/18/18 02:45 BP 141/72 H 11/18/18 02:45 Pulse Ox 97 11/18/18 02:45 Weight - Most Recent: 50.122 kg Med Orders - Current: Current Medications Acetaminophen (Tylenol Extra Strength) 1,000 mg PO BID PRN PRN Reason: Pain Last Admin: 11/18/18 04:02 Dose: 1,000 mg Al Hydroxide/Mg Hydroxide (Mag-Al Susp) 30 ml PO TID [facility] Last Admin: 11/18/18 08:55 Dose: 30 ml Cyclobenzaprine HCl (Flexeril) 10 mg PO BEDTIME [facility] Last Admin: 11/17/18 21:27 Dose: 10 mg Hydroxyzine HCl (Vistaril) 50 mg IM Q6H PRN PRN Reason: Nausea Last Admin: 11/13/18 10:04 Dose: 50 mg Morphine Sulfate (Morphine) 2 mg IM Q4H PRN PRN Reason: Pain (severe 7-10) Last Admin: 11/14/18 10:08 Dose: 2 mg Ondansetron HCl (Zofran Odt) 4 mg PO Q4H PRN PRN Reason: nausea, able to take PO Last Admin: 11/13/18 18:47 Dose: 4 mg Pantoprazole Sodium (Protonix) 40 mg PO 0600 [facility] Last Admin: 11/18/18 06:33 Dose: 40 mg Sodium Chloride (Saline Flush) 10 ml FLUSH ASDIRECTED PRN PRN Reason: saline lock flush Last Admin: 11/15/18 12:04 Dose: 10 ml Sucralfate (Carafate) 1 gm PO QIDACANDBED [facility] Last Admin: 11/18/18 06:33 Dose: 1 gm Discontinued Medications Hydrocodone Bitart/Acetaminophen ([place] 325-5 Mg) 1 tab PO ONETIME ONE Stop: 11/15/18 04:13 Last Admin: 11/15/18 04:25 Dose: 1 tab Alprazolam (Xanax) 0.25 mg PO ONETIME ONE Stop: 11/17/18 08:39 Last Admin: 11/17/18 09:07 Dose: 0.25 mg Sodium Chloride (Normal Saline) 250 mls @ 100 mls/hr IV ASDIRECTED [facility] Last Admin: 11/13/18 10:02 Dose: 100 mls/hr Potassium Chloride/Sodium Chloride (1/2 Ns With 20 Meq Kcl) 1,000 mls @ 100 mls /hr IV ASDIRECTED [facility] Last Admin: 11/14/18 10:52 Dose: 100 mls/hr Sodium Chloride (Normal Saline) 250 mls @ 100 mls/hr IV ASDIRECTED [facility] Last Admin: 11/13/18 14:00 Dose: 100 mls/hr Sodium Chloride (Normal Saline) 250 mls @ 100 mls/hr IV ASDIRECTED [facility] Last Admin: 11/13/18 17:40 Dose: 100 mls/hr Ketorolac Tromethamine (Toradol) 15 mg IVPUSH Q6H PRN PRN Reason: BREAKTHROUGH PAIN Lorazepam (Ativan) 1 mg IM ONETIME STA Stop: 11/11/18 18:07 Last Admin: 11/11/18 21:37 Dose: Not Given Metoprolol Tartrate (Lopressor) 25 mg PO BEDTIME [facility] Last Admin: 11/12/18 20:34 Dose: 25 mg Morphine Sulfate (Morphine) 3 mg IM ONETIME ONE Stop: 11/11/18 17:27 Last Admin: 11/11/18 17:53 Dose: 3 mg Morphine Sulfate (Morphine) Confirm Administered Dose 4 mg .ROUTE .STK-MED ONE Stop: 11/11/18 17:53 Last Admin: 11/11/18 17:56 Dose: Not Given Morphine Sulfate (Morphine) 2 mg IM ONETIME ONE Stop: 11/11/18 20:13 Last Admin: 11/11/18 20:15 Dose: 2 mg Nitrofurantoin Macrocrystals (Macrobid) 100 mg PO BID [facility] Last Admin: 11/16/18 08:55 Dose: 100 mg Pantoprazole Sodium (Protonix) 40 mg PO 0600 [facility] Pantoprazole Sodium (Protonix Iv) 80 mg IVPUSH .BOLUS ONE Stop: 11/13/18 08:59 Last Admin: 11/13/18 10:24 Dose: 80 mg Pantoprazole Sodium (Protonix Iv) 40 mg IVPUSH DAILY [facility] Last Admin: 11/16/18 08:57 Dose: 40 mg - Exam General: Alert, Oriented, Cooperative Neck: Supple Psy/Mental Status: Alert, Normal Affect - Problem List & Annotations (1) Acute exacerbation of chronic low back pain SNOMED Code(s): 523149992 Code(s): M54.5 - LOW BACK PAIN; G89.29 - OTHER CHRONIC PAIN Status: Acute Current Visit: No (2) Degenerative joint disease (DJD) of lumbar spine Status: Acute Current Visit: No Qualifiers: Spinal osteoarthritis complication: unspecified spinal osteoarthritis Qualified Code(s): M47.816 - Spondylosis without myelopathy or radiculopathy, lumbar region (3) Flank pain SNOMED Code(s): 377234661 Code(s): R10.9 - UNSPECIFIED ABDOMINAL PAIN Status: Acute Current Visit: No (4) TOD (generalized anxiety disorder) SNOMED Code(s): 81435683 Code(s): F41.1 - GENERALIZED ANXIETY DISORDER Status: Acute Current Visit : No (5) Anemia SNOMED Code(s): 230519613 Code(s): D64.9 - ANEMIA, UNSPECIFIED Status: Acute Current Visit: Yes Qualifiers: Anemia type: iron deficiency Annotation/Comment:: given PMH as well a her complaints need to entertain a possible upper gi etiology. (6) Dementia SNOMED Code(s): 44259655 Code(s): F03.90 - UNSPECIFIED DEMENTIA WITHOUT BEHAVIORAL DISTURBANCE Status: Acute Current Visit: No Qualifiers: Dementia type: unspecified type (7) Cognitive dysfunction SNOMED Code(s): 075237535 Code(s): F09 - UNSP MENTAL DISORDER DUE TO KNOWN PHYSIOLOGICAL CONDITION Status: Acute Current Visit: Yes (8) Gastritis SNOMED Code(s): 6955036 Code(s): K29.70 - GASTRITIS, UNSPECIFIED, WITHOUT BLEEDING Status: Acute Current Visit: Yes - Problem List Review Problem List Initiated/Reviewed/Updated: Yes - My Orders Last 24 Hours: My Active Orders 11/17/18 09:00 Alum Hydroxide/Mag Hydroxide [Mag-Al Susp] 30 ml PO TID - Plan Plan:: Feels better. Concern exists about being home alone,but patient is adamant she would rather go home with home health ,hopefully today.
[2018-11-18 11:29] VITALS: BP 102/60
--- NOTE | 2018-11-18 13:21 | DISCH ---
DISCHARGE DATE: 11/18/2018 REASON FOR ADMISSION: 1. Urinary tract infection. 2. Back pain. 3. Anxiety disorder. 4. Mild cognitive dysfunction. 5. Gastritis. 6. Anemia. BRIEF HISTORY AND HOSPITAL COURSE: An 82-year-old female, who came in with back pain, left-sided. She has a history of chronic back pain and recurrent urinary tract infection. Her urine was found to be dirty. She was treated with Macrobid. Her pain was uncontrolled in the past few days. Physical Therapy did see her, did not pick her up. She continued to have some confusion and delirium at times, and anxiety. Her hemoglobin dropped down to 7.4, and she had [address] Hawley was consulted. An upper GI revealed some gastritis. Hemoglobin did come up to 11.5. There is a question of transfer to either an assisted living facility or swing bed, but she did not qualify and was not interested to going to any facility, except home. Eventually, we settled on her going home with Home Health. She will go home on the following medications: 1. Protonix 40 mg a day. 2. Sucralfate 1 g q.i.d. 3. Alprazolam 0.25 mg daily p.r.n. 4. Iron supplementation. FOLLOWUP: She is advised to see Dr. Allen next week on Thursday. Return to the ED with any worsening symptoms. I spent more than 35 minutes in the discharge of the patient. /[id number] ERI/ROSA
== END 2018-11-18 10:55 | disposition home health service (06) | DRG 690 ==
LOC: FB.ED 17:04 → FB.MS 20:07 → OBSVTOIN 11-13 09:04 → UNDODISIN 11-13 09:30
PROVIDERS: ADMIT Emergency Medicine; ATTEND Family Medicine
PROC: 30233N1 Transfusion of Nonautologous Red Blood Cells into Peripheral Vein, Percutaneous Approach (ICD-10-PCS; 2018-11-13)
PROC: 0DB68ZX Excision of Stomach, Via Natural or Artificial Opening Endoscopic, Diagnostic (ICD-10-PCS; principal; 2018-11-14)
DX: N39.0 Urinary tract infection, site not specified (principal); Z66 Do not resuscitate; F03.90 Unspecified dementia, unspecified severity, without behavioral disturbance, psychotic disturbance, mood disturbance, and anxiety; D50.9 Iron deficiency anemia, unspecified; K29.70 Gastritis, unspecified, without bleeding; M54.5 Low back pain; G89.29 Other chronic pain; M51.36 Other intervertebral disc degeneration, lumbar region; R10.9 Unspecified abdominal pain; I10 Essential (primary) hypertension; M41.9 Scoliosis, unspecified; N28.1 Cyst of kidney, acquired; F41.1 Generalized anxiety disorder; H91.90 Unspecified hearing loss, unspecified ear; M19.90 Unspecified osteoarthritis, unspecified site; Z87.440 Personal history of urinary (tract) infections; Z88.5 Allergy status to narcotic agent; Z88.0 Allergy status to penicillin; Z88.8 Allergy status to other drugs, medicaments and biological substances; G31.84 Mild cognitive impairment of uncertain or unknown etiology; K30 Functional dyspepsia
CPT/HCPCS: 00731 ×2; 36415 ×2; 74176; 80048; 80053; 85025 ×2; 85610; 86850; 86900; 86901; 86920; 86922; 96374; 96376; 97161; 99284; A9270 ×5; J2270 ×4; 36430; 81001; 82270; 85014; 85018; 99285; C9113; J2001; J2060; J2704; J3410; J3480; J7050; P9016

== ENCOUNTER 2019-02-08 06:36 | Day surgery (SDC) | payer MEDICARE ==
[2019-02-08] MEDS ORDERED: Propofol 200 MG/20 ML SDV IV ONE (06:37)
[2019-02-08] MEDS ORDERED: Lactated Ringers 1,000 ML IV SCH (06:45)
[2019-02-08] MEDS ORDERED: Sodium Chloride 0.9% 10 ML Syringe FLUSH PRN (06:45)
--- NOTE | 2019-02-08 08:20 | PCM.OPNOTE ---
- General Post-Op/Procedure Note Date of Surgery/Procedure: 02/08/19 Operative Procedure(s): egd with bx Findings: gastritis hiatal hernia Pre Op Diagnosis: hx of gastric ulcer and anemia Post-Op Diagnosis: gastritis. hiatal hernia Anesthesia Technique: MAXIMUS Primary Surgeon: Gold Hawley Anesthesia Provider: Cliff Tang Pathology: stomach Complications: None Condition: Good Free Text/Narrative:: see dictation
[2019-02-08 09:39] VITALS: BP 121/69; PULSE 68
--- NOTE | 2019-02-08 11:17 | OR ---
DATE OF OPERATION: 02/08/2019 SURGEON: Gold Hawley MD PROCEDURE PERFORMED: Upper endoscopy. PREOPERATIVE DIAGNOSIS: Personal history of gastric ulcer. POSTOPERATIVE DIAGNOSES: Mild gastritis, hiatal hernia. INDICATIONS FOR PROCEDURE: This 83-year-old white female was scoped several weeks ago, found to have a gastric ulcer. This is a followup scope to ensure healing. DESCRIPTION OF OPERATION: After an excellent IV sedation was administered, bite block was inserted. Flexible endoscope was passed down the patient's esophagus into the stomach. Stomach was insufflated. Scope passed through the pylorus to the second portion of the duodenum and slowly withdrawn. Following findings were noted. The duodenum is unremarkable. Stomach demonstrated healing of the ulcer. There was evidence of some mild gastritis. Biopsies were taken. The patient has a hiatal hernia with approximately 10 cm of her stomach in her chest. Diaphragm was approximately 40 cm and the GE junction was at 30. Stomach was deflated. Scope was removed. The esophagus was unremarkable. Results by letter. /[id number] /MODL
== END 2019-02-08 08:56 | disposition home or self-care (01) ==
LOC: FB.SDS 06:36
PROVIDERS: ATTEND Surgery
DX: K25.9 Gastric ulcer, unspecified as acute or chronic, without hemorrhage or perforation (principal); K29.70 Gastritis, unspecified, without bleeding; K44.9 Diaphragmatic hernia without obstruction or gangrene; K31.7 Polyp of stomach and duodenum; I10 Essential (primary) hypertension; E53.8 Deficiency of other specified B group vitamins; M51.16 Intervertebral disc disorders with radiculopathy, lumbar region; Z79.899 Other long term (current) drug therapy; Z88.0 Allergy status to penicillin; Z88.8 Allergy status to other drugs, medicaments and biological substances; Z88.2 Allergy status to sulfonamides
CPT/HCPCS: 00731; 43239; 88305; 88342; J2704; J7120

== ENCOUNTER 2019-03-14 08:24 | Emergency (ER) | payer MEDICARE ==
[2019-03-14] MEDS ORDERED: Ketorolac 30 MG/ML SDV IVPUSH ONE (08:49)
--- NOTE | 2019-03-14 08:57 | EDM.PDOC ---
ED HPI GENERAL MEDICAL PROBLEM - General Stated Complaint: VOMITING ABD PAIN Time Seen by Provider: 03/14/19 08:24 Source of Information: Reports: Patient, Family History Limitations: Reports: Other (poor historian) - History of Present Illness INITIAL COMMENTS - FREE TEXT/NARRATIVE: 83 y.o.w.f came to the ED with her sister due to left flank pain. pt took motrin PERFUMER without help of her pain. Pt denied trauma. Pt has similar symptoms in the past. As per sister, pt has poor po intake, lived by herself. Pt had an episode of nausea and loose stool, which subsided PERFUMER. No SOB, no CP or any other acute med issues. BP 11/57 Pulse ox 95% on RA RR 17 pulse 92 Temp 36.8 Onset Date: 03/11/19 Onset Time: 10:00 Duration: Getting Worse, Intermittent Location: Reports: Abdomen Quality: Reports: Ache, Burning, Dull, Same as Previous Episode Severity: Moderate Improves with: Reports: Medication Worsens with: Reports: Other (dehydraytion) Context: Reports: Other Associated Symptoms: Reports: Other (left flank pain) Treatments PERFUMER: Reports: NSAIDS - Related Data Allergies Allergy/AdvReac Type Severity Reaction Status Date / Time meperidine [From Demerol] Allergy Itching Verified 03/14/19 08:33 Penicillins Allergy Itching Verified 03/14/19 08:33 promethazine [From Phenergan] Allergy Itching Verified 03/14/19 08:33 Sulfa (Sulfonamide Allergy Dizziness Verified 03/14/19 08:33 Antibiotics) Home Meds: Home Meds Acetaminophen [Tylenol Extra Strength] 1,000 mg PO BID PRN 11/11/18 [History] Ferrous Sulfate 325 mg PO BIDMEALS #60 tab 11/18/18 [Rx] Pantoprazole [ProTONIX] 40 mg PO 0600 #60 tab.cr 11/18/18 [Rx] Acetaminophen [Acetaminophen 8 Hour] 650 mg PO Q6H PRN 02/07/19 [History] Ciprofloxacin HCl [Cipro] 500 mg PO BID #20 tablet 03/14/19 [Rx] Famotidine 20 mg PO BEDTIME 03/14/19 [History] Ketorolac [Toradol] 10 mg PO Q6H PRN 03/14/19 [History] Phenazopyridine HCl [Pyridium] 100 mg PO Q8HR #9 tablet 03/14/19 [Rx] Past Medical History - Past Health History Medical/Surgical History: Denies Medical/Surgical History HEENT History: Reports: Hard of Hearing Cardiovascular History: Reports: Hypertension, Other (See Below) Other Cardiovascular History: Rheumatic fever as a child. Respiratory History: Reports: Other (See Below) Other Respiratory History: HX OF TRACH Gastrointestinal History: Reports: Other (See Below) Other Gastrointestinal History: HX GASTRIC ULCER W/O HEMORRHAGE. Genitourinary History: Reports: Renal Calculus, UTI, Recurrent Musculoskeletal History: Reports: Arthritis, Fracture, Osteoarthritis Other Musculoskeletal History: Left foot fracture. 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 Psychiatric History: Reports: Anxiety, Depression Hematologic History: Reports: B12 Deficiency, Blood Transfusion(s) Immunologic History: Reports: None Oncologic (Cancer) History: Reports: None Dermatologic History: Reports: None - Infectious Disease History Infectious Disease History: Reports: Chicken Pox, Shingles Other Infectious Disease History: Patient doesn't recall her childhood diseases. - Past Surgical History Head Surgeries/Procedures: Reports: None HEENT Surgical History: Reports: Cataract Surgery, Oral Surgery, Tonsillectomy Other HEENT Surgeries/Procedures: bilat cataract Cardiovascular Surgical History: Reports: Other (See Below) Respiratory Surgical History: Reports: Tracheostomy GI Surgical History: Reports: Appendectomy, Cholecystectomy, Colonoscopy, EGD, Other (See Below) Other GI Surgeries/Procedures: Perforated duodenum with endoscopy. Female Surgical History: Reports: None Social & Family History - Family History Family Medical History: Noncontributory - Caffeine Use Caffeine Use: Reports: Coffee ED ROS GENERAL - Review of Systems Review Of Systems: See Below Constitutional: Reports: No Symptoms HEENT: Reports: No Symptoms Respiratory: Reports: No Symptoms Cardiovascular: Reports: No Symptoms Endocrine: Reports: No Symptoms GI/Abdominal: Reports: No Symptoms : Reports: Dysuria, Flank Pain (left) Musculoskeletal: Reports: No Symptoms Skin: Reports: No Symptoms Neurological: Reports: No Symptoms Psychiatric: Reports: No Symptoms Hematologic/Lymphatic: Reports: Anemia Immunologic: Reports: No Symptoms ED EXAM, GI/ABD - Physical Exam Exam: See Below Exam Limited By: Other (poor historian) General Appearance: Alert, Mild Distress, Cachetic Eyes: Bilateral: Normal Appearance Ears: Normal External Exam, Normal Canal Nose: Normal Inspection, Normal Mucosa, No Blood Throat/Mouth: Normal Lips, Normal Voice, No Airway Compromise Head: Atraumatic Neck: Normal Inspection, Supple, Non-Tender, Full Range of Motion Respiratory/Chest: No Respiratory Distress, Lungs Clear, Normal Breath Sounds, Chest Non-Tender Cardiovascular: Normal Peripheral Pulses, Regular Rate, Rhythm, No Edema GI/Abdominal Exam: Soft, Tender (left flank) (Female) Exam: Deferred Rectal (Female) Exam: Deferred Back Exam: CVA Tenderness (L) Extremities: Normal Inspection, Normal Range of Motion, Non-Tender Neurological: Alert, Oriented, CN II-XII Intact, Normal Gait Psychiatric: Normal Affect, Normal Mood Skin Exam: Warm, Dry, Intact, Normal Color, No Rash Lymphatic: No Adenopathy Course - Vital Signs Text/Narrative:: 83 y.o.w.f came to the ED with her sister due to left flank pain. pt took Motrin PERFUMER without help of her pain. Pt denied trauma. Pt has similar symptoms in the past. As per sister, pt has poor po intake, lived by herself. Pt had an episode of nausea and loose stool, which subsided PERFUMER. No SOB, no CP or any other acute med issues. BP 11/57 Pulse ox 95% on RA RR 17 pulse 92 Temp 36.8 PE: Thin 83 y.o.w.f with left flank pain and unable to void Imaging: CT abd/pelvis: Nephrolithiasis, no obstruction Labs; UA: UTI without hematuria CBC: WBC 8.5 HGB 8.5 HCT 27.4 BUN.CR Ratio 25 Impression: Left nephrolithiasis (no obstruction), UTI, chronic anemia Tx: NS, Vicodin, Pyridium Levaquin Consultation: Dr. Chin, Hospitalist: Knows Pt. Hydrate pt per i.v, pain iv pain meds, send pt home. Reexam: Pt improved, was walking to the bathroom, ate lunch and takes water well. Plan: D/C with instructions Last Recorded V/S: Last Vital Signs Temp 36.4 C 03/14/19 13:15 Pulse 98 03/14/19 13:15 Resp 18 03/14/19 13:15 BP 111/89 03/14/19 13:15 Pulse Ox 96 03/14/19 13:15 - Orders/Labs/Meds Orders: Active Orders 24 hr Category Date Time Status Abdomen Pelvis wo Cont [CT] Stat Exams 03/14/19 08:45 Taken CULTURE URINE [RM] Stat Lab 03/14/19 08:45 Results Labs: Laboratory Tests 03/14/19 03/14/19 03/14/19 Range/Units 08:45 09:20 09:20 WBC 9.1 (4.5-12.0) X10-3/uL RBC 3.91 (3.23-5.20) x10(6)uL Hgb 8.5 L D (11.5-15.5) g/dL Hct 27.9 L (30.0-51.3) % MCV 71.3 L (80-96) fL MCH 21.8 L (27.7-33.6) pg MCHC 30.6 L (32.2-35.4) g/dL RDW 18.5 H (11.5-15.5) % Plt Count 408 H (125-369) X10(3)uL MPV 8.8 (7.4-10.4) fL Add Manual Diff Yes Neutrophils % (Manual) 87 H (46-82) % Lymphocytes % (Manual) 9 L (13-37) % Monocytes % (Manual) 4 (4-12) % Hypochromasia Few Anisocytosis Few Microcytosis Moderate H Sodium 143 (135-145) mmol/L Potassium 4.5 (3.5-5.3) mmol/L Chloride 108 (100-110) mmol/L Carbon Dioxide 24 (21-32) mmol/L BUN 25 H (7-18) mg/dL Creatinine 1.0 (0.55-1.02) mg/dL Est Cr Clr Drug Dosing 32.53 mL/min Estimated GFR (MDRD) 53 L (>60) BUN/Creatinine Ratio 25.0 H (9-20) Glucose 106 (80-116) mg/dL Calcium 9.3 (8.6-10.2) mg/dL Urine Color Yellow (YELLOW) Urine Appearance Clear (CLEAR) Urine pH 5.0 (5.0-6.5) Ur Specific [place] 1.020 (1.010-1.025) Urine Protein Trace (NEGATIVE) mg/dL Urine Glucose (UA) Normal (NORMAL) mg/dL Urine Ketones 15 H (NEGATIVE) mg/dL Urine Occult Blood Negative (NEGATIVE) Urine Nitrite Positive H (NEGATIVE) Urine Bilirubin Negative (NEGATIVE) Urine Urobilinogen Normal (NEGATIVE) mg/dL Ur Leukocyte Esterase Moderate H (NEGATIVE) Urine RBC 0-5 (0-5) Urine WBC 20-30 H (0-5) Ur Squamous Epith Cells Few H (NS,R,O) Urine Bacteria Many H (NS) Meds: Medications Discontinued Medications Generic Name Dose Route Start Last Admin Trade Name Adan PRN Reason Stop Dose Admin Hydrocodone Bitart/Acetaminophen 1 tab 03/14/19 10:43 03/14/19 10:[address] 325-5 Mg PO 03/14/19 10:44 1 tab ONETIME ONE Administration Sodium Chloride 1,000 mls @ 125 mls/hr 03/14/19 09:00 03/14/19 09:17 Normal Saline IV 125 mls/hr ASDIRECTED AYE Administration Ketorolac Tromethamine 15 mg 03/14/19 08:49 03/14/19 09:04 Toradol IVPUSH 03/14/19 08:50 15 mg ONETIME ONE Administration Levofloxacin 500 mg 03/14/19 12:13 03/14/19 12:37 Levaquin PO 03/14/19 12:14 500 mg ONETIME ONE Administration Phenazopyridine HCl 95 mg 03/14/19 13:00 03/14/19 12:37 Urinary Pain Relief PO 95 mg TIDPC AYE Administration Departure - Departure Time of Disposition: 12:46 Disposition: Home, Self-Care 01 Condition: Good Clinical Impression: Dehydration, Nephrolithiasis UTI (urinary tract infection) Qualifiers: Encounter type: initial encounter Anemia Qualifiers: Anemia type: iron deficiency - Discharge Information Prescriptions: Phenazopyridine HCl [Pyridium] 100 mg PO Q8HR #9 tablet Ciprofloxacin HCl [Cipro] 500 mg PO BID #20 tablet Instructions: Phenazopyridine tablets, Urinary Tract Infection, Adult, Easy-to- Read, Ciprofloxacin tablets Referrals: Jeanmarie Allen MD [Primary Care Provider] - Forms: ED Department Discharge Additional Instructions: Please increase water intake, please take the meds as recommended, please f/u, come back if your symptoms get worse acutely - My Orders Last 24 Hours: My Active Orders 03/14/19 08:45 Abdomen Pelvis wo Cont [CT] Stat CULTURE URINE [RM] Stat - Assessment/Plan Last 24 Hours: My Active Orders 03/14/19 08:45 Abdomen Pelvis wo Cont [CT] Stat CULTURE URINE [RM] Stat
[2019-03-14] MEDS ORDERED: Sodium Chloride 0.9% 1,000 ML IV SCH (09:00)
[2019-03-14] MEDS ORDERED: Acetaminophen/HYDROcodone 325-5 MG Tab PO ONE (10:43)
[2019-03-14] MEDS ORDERED: Levofloxacin 500 MG Tab PO ONE (12:13)
[2019-03-14] MEDS ORDERED: Phenazopyridine 95 MG Tab PO SCH (13:00)
[2019-03-14 17:52] VITALS: BP 111/89; PULSE 98
== END 2019-03-14 13:20 | disposition home or self-care (01) ==
LOC: FB.ED 08:24
DX: N20.0 Calculus of kidney (principal); D50.9 Iron deficiency anemia, unspecified; E86.0 Dehydration; Z88.0 Allergy status to penicillin; Z88.8 Allergy status to other drugs, medicaments and biological substances; Z88.2 Allergy status to sulfonamides; Z79.899 Other long term (current) drug therapy
CPT/HCPCS: 36415; 74176; 80048; 81001; 85025; 87086; 87088; 87186; 96361; 96374; 99284; A9270; J1885; J7030

== ENCOUNTER 2019-09-11 10:55 | Inpatient (IN) | payer MEDICARE ==
[2019-09-11] MEDS ORDERED: Morphine 2 MG/ML Syringe IVPUSH ONE ×2 (11:25→14:03)
--- NOTE | 2019-09-11 11:30 | EDM.PDOC ---
ED HPI GENERAL MEDICAL PROBLEM - General Chief Complaint: Upper Extremity Injury/Pain Stated Complaint: FALL Time Seen by Provider: 09/11/19 11:26 Source of Information: Reports: Patient History Limitations: Reports: No Limitations - History of Present Illness INITIAL COMMENTS - FREE TEXT/NARRATIVE: Patient got up from bed @0400 this morning, lost her balance and fell against her night stand. Complains of right rib and upper abdominal pain. She states she may have struck her head, denies LOC, no headache, but does complain of mild neck pain. Patient lives alone. Onset Date: 09/11/19 Onset Time: 04:00 Location: Reports: Chest, Abdomen Severity: Moderate right rib cage Pain Score (Numeric/FACES): 10 - Related Data Allergies Allergy/AdvReac Type Severity Reaction Status Date / Time meperidine [From Demerol] Allergy Itching Verified 09/11/19 11:41 nitrofurantoin Allergy Itching Verified 09/11/19 11:41 Penicillins Allergy Itching Verified 09/11/19 11:41 promethazine [From Phenergan] Allergy Itching Verified 09/11/19 11:41 Sulfa (Sulfonamide Allergy Dizziness Verified 09/11/19 11:41 Antibiotics) Home Meds: Home Meds Ferrous Sulfate 325 mg PO BIDMEALS #60 tab 11/18/18 [Rx] Pantoprazole [ProTONIX] 40 mg PO 0600 #60 tab.cr 11/18/18 [Rx] Multivit-Min/Iron/Folic/Lutein [Multivitamin Women 50 Plus Tab] 2 tab PO DAILY 09/11/19 [History] Past Medical History HEENT History: Reports: Hard of Hearing Cardiovascular History: Reports: Hypertension, Other (See Below) Other Cardiovascular History: Rheumatic fever as a child. Respiratory History: Reports: Other (See Below) Other Respiratory History: HX OF TRACH Gastrointestinal History: Reports: Other (See Below) Other Gastrointestinal History: HX GASTRIC ULCER W/O HEMORRHAGE. Genitourinary History: Reports: Renal Calculus, UTI, Recurrent Musculoskeletal History: Reports: Arthritis, Fracture, Osteoarthritis Other Musculoskeletal History: Left foot fracture. 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 Psychiatric History: Reports: Anxiety, Depression Hematologic History: Reports: B12 Deficiency, Blood Transfusion(s) Immunologic History: Reports: None Oncologic (Cancer) History: Reports: None Dermatologic History: Reports: None - Infectious Disease History Infectious Disease History: Reports: Chicken Pox, Shingles Other Infectious Disease History: Patient doesn't recall her childhood diseases. - Past Surgical History Head Surgeries/Procedures: Reports: None HEENT Surgical History: Reports: Cataract Surgery, Oral Surgery, Tonsillectomy Other HEENT Surgeries/Procedures: bilat cataract Cardiovascular Surgical History: Reports: Other (See Below) Respiratory Surgical History: Reports: Tracheostomy GI Surgical History: Reports: Appendectomy, Cholecystectomy, Colonoscopy, EGD, Other (See Below) Other GI Surgeries/Procedures: Perforated duodenum with endoscopy. Female Surgical History: Reports: None Social & Family History - Family History Family Medical History: Noncontributory - Caffeine Use Caffeine Use: Reports: Coffee Review of Systems - Review of Systems Review Of Systems: Comprehensive ROS is negative, except as noted in HPI. ED EXAM, GENERAL - Physical Exam Exam: See Below Exam Limited By: No Limitations General Appearance: Alert, WD/WN, No Apparent Distress Eye Exam: Bilateral Eye: EOMI, PERRL Nose: Normal Inspection Throat/Mouth: Normal Oropharynx, No Airway Compromise Head: Atraumatic, Normocephalic Neck: Non-Tender, Full Range of Motion Respiratory/Chest: No Respiratory Distress, Lungs Clear, Normal Breath Sounds Cardiovascular: Regular Rate, Rhythm, No Murmur, Other (Right anterolateral chest wall tenderness.) GI/Abdominal: Normal Bowel Sounds, Soft, No Distention, Tender (RUQ) Back Exam: Full Range of Motion Extremities: Normal Range of Motion Neurological: Alert, Normal Cognition, No Motor/Sensory Deficits Skin Exam: Warm, Dry, Intact EKG INTERPRETATION EKG Date: 09/11/19 Time: 11:40 Rhythm: NSR Rate (Beats/Min): 72 [place]: Normal P-Wave: Present QRS: Normal ST-T: Normal QT: Normal Course - Vital Signs Last Recorded V/S: Last Vital Signs Temp 36.4 C 09/11/19 11:00 Pulse 96 09/11/19 11:00 Resp 16 09/11/19 11:00 BP 161/110 H 09/11/19 11:00 Pulse Ox 100 09/11/19 11:00 - Orders/Labs/Meds Orders: Active Orders 24 hr Category Date Time Status Admission Status [Patient Status] [ADT] Routine ADT 09/11/19 14:04 Ordered EKG Documentation Completion [RC] ASDIRECTED Care 09/11/19 11:28 Active C-Spine [Cervical Spine wo Cont] [CT] Stat Exams 09/11/19 12:45 Taken CXR [Chest 1V Frontal] [CR] Stat Exams 09/11/19 11:24 Taken Chest Abdomen Pelvis w Cont [CT] Stat Exams 09/11/19 12:46 Taken Head wo Cont [CT] Stat Exams 09/11/19 12:45 Taken CULTURE URINE [RM] Stat Lab 09/11/19 11:24 Received Sodium Chloride 0.9% [Saline Flush] Med 09/11/19 11:25 Active 10 ml FLUSH ASDIRECTED PRN Saline Lock Insert [OM.PC] Routine Oth 09/11/19 11:25 Ordered EKG 12 Lead [EK] Stat Ther 09/11/19 11:27 Ordered Medication Orders Sodium Chloride (Saline Flush) 10 ml FLUSH ASDIRECTED PRN PRN Reason: Keep Vein Open Last Admin: 09/11/19 11:59 Dose: 10 ml Labs: Laboratory Tests 09/11/19 09/11/19 09/11/19 Range/Units 11:24 12:04 12:04 WBC 10.1 (4.5-12.0) X10-3/uL RBC 4.93 (3.23-5.20) x10(6)uL Hgb 15.1 D (11.5-15.5) g/dL Hct 45.3 D (30.0-51.3) % MCV 91.8 (80-96) fL MCH 30.5 (27.7-33.6) pg MCHC 33.3 (32.2-35.4) g/dL RDW 13.7 (11.5-15.5) % Plt Count 184 (125-369) X10(3)uL MPV 8.4 (7.4-10.4) fL Add Manual Diff Yes Neutrophils % (Manual) 88 H (46-82) % Lymphocytes % (Manual) 7 L (13-37) % Monocytes % (Manual) 5 (4-12) % Sodium 142 (135-145) mmol/L Potassium 4.8 (3.5-5.3) mmol/L Chloride 105 (100-110) mmol/L Carbon Dioxide 28 (21-32) mmol/L BUN 19 H (7-18) mg/dL Creatinine 0.8 (0.55-1.02) mg/dL Est Cr Clr Drug Dosing 40.50 mL/min Estimated GFR (MDRD) > 60 (>60) BUN/Creatinine Ratio 23.8 H (9-20) Glucose 116 (80-116) mg/dL Calcium 9.5 (8.6-10.2) mg/dL Total Bilirubin 0.5 (0.1-1.3) mg/dL AST 80 H D (5-25) IU/L ALT 72 H D (12-36) U/L Alkaline Phosphatase 119 H (56-112) IU/L Total Protein 8.0 (6.0-8.0) g/dL Albumin 3.7 (3.2-4.6) g/dL Globulin 4.3 g/dL Albumin/Globulin Ratio 0.9 Urine Color Yellow (YELLOW) Urine Appearance Cloudy (CLEAR) Urine pH 7.0 H (5.0-6.5) Ur Specific [place] 1.010 (1.010-1.025) Urine Protein Negative (NEGATIVE) mg/dL Urine Glucose (UA) Normal (NORMAL) mg/dL Urine Ketones Negative (NEGATIVE) mg/dL Urine Occult Blood Trace (NEGATIVE) Urine Nitrite Positive H (NEGATIVE) Urine Bilirubin Negative (NEGATIVE) Urine Urobilinogen Normal (NEGATIVE) mg/dL Ur Leukocyte Esterase Negative (NEGATIVE) Urine RBC 0-5 (0-5) Urine WBC 0-5 (0-5) Ur Squamous Epith Cells Few H (NS,R,O) Urine Bacteria Many H (NS) Meds: Medications Generic Name Dose Route Start Last Admin Trade Name Freq PRN Reason Stop Dose Admin Sodium Chloride 10 ml 09/11/19 11:25 09/11/19 11:59 Saline Flush FLUSH 10 ml ASDIRECTED PRN Administration Keep Vein Open Discontinued Medications Generic Name Dose Route Start Last Admin Trade Name Freq PRN Reason Stop Dose Admin Iopamidol 100 ml 09/11/19 12:51 09/11/19 13:12 Isovue-370 (76%) IV 09/11/19 12:52 57 ml . DIRECTED ONE Administration Morphine Sulfate 2 mg 09/11/19 11:25 09/11/19 11:58 Morphine IVPUSH 09/11/19 11:26 2 mg ONETIME ONE Administration Morphine Sulfate 2 mg 09/11/19 14:03 Morphine IVPUSH 09/11/19 14:04 ONETIME ONE - Radiology Interpretation Free Text/Narrative:: Head CT w/o contrast: No acute intracranial injury or disease. ([facility], Dr. Brenner ) C-Spine CT w/o contrast: No acute cervical fracture. Degenerative changes. ([facility] , Dr. Brenner) CT Chest/Abd/Pelvis w/ IV contrast: Acute nondisplaced fractures of the right 4th through 8th ribs. Dependent atelectasis within both lungs. No consolidation , pleural effusion or pneumothorax. A few pulmonary nodules. No solid organ injury within the abdomen. No abdominal or pelvic free fluid. Departure - Departure Time of Disposition: 14:09 Disposition: Admitted As Inpatient 64 Condition: Fair Clinical Impression: UTI (urinary tract infection), uncomplicated Multiple rib fractures Qualifiers: Encounter type: initial encounter Fracture type: closed Laterality: right Qualified Code(s): S22.41XA - Multiple fractures of ribs, right side, initial encounter for closed fracture - Discharge Information *PRESCRIPTION DRUG MONITORING PROGRAM REVIEWED*: No *COPY OF PRESCRIPTION DRUG MONITORING REPORT IN PATIENT RICHARD: Not Applicable Referrals: PCP,None [Ordering Only Provider] - Forms: ED Department Discharge Sepsis Event Note - Evaluation Sepsis Screening Result: No Definite Risk - Focused Exam Vital Signs: Vital Signs Temp Pulse Resp BP Pulse Ox 09/11/19 11:00 36.4 C 96 16 161/110 H 100 Date Exam was Performed: 09/11/19 Time Exam was Performed: 14:05 - My Orders Last 24 Hours: My Active Orders 09/11/19 11:24 CXR [Chest 1V Frontal] [CR] Stat CULTURE URINE [RM] Stat 09/11/19 11:25 Sodium Chloride 0.9% [Saline Flush] 10 ml FLUSH ASDIRECTED PRN Saline Lock Insert [OM.PC] Routine 09/11/19 11:27 EKG 12 Lead [EK] Stat 09/11/19 11:28 EKG Documentation Completion [RC] ASDIRECTED 09/11/19 12:45 C-Spine [Cervical Spine wo Cont] [CT] Stat Head wo Cont [CT] Stat 09/11/19 12:46 Chest Abdomen Pelvis w Cont [CT] Stat 09/11/19 14:04 Admission Status [Patient Status] [ADT] Routine - Assessment/Plan Last 24 Hours: My Active Orders 09/11/19 11:24 CXR [Chest 1V Frontal] [CR] Stat CULTURE URINE [RM] Stat 09/11/19 11:25 Sodium Chloride 0.9% [Saline Flush] 10 ml FLUSH ASDIRECTED PRN Saline Lock Insert [OM.PC] Routine 09/11/19 11:27 EKG 12 Lead [EK] Stat 09/11/19 11:28 EKG Documentation Completion [RC] ASDIRECTED 09/11/19 12:45 C-Spine [Cervical Spine wo Cont] [CT] Stat Head wo Cont [CT] Stat 09/11/19 12:46 Chest Abdomen Pelvis w Cont [CT] Stat 09/11/19 14:04 Admission Status [Patient Status] [ADT] Routine
[2019-09-11] MEDS: Sodium Chloride 0.9% 10 ML Syringe FLUSH PRN ×4 (11:59→19:55)
[2019-09-11] MEDS ORDERED: Iopamidol 755 Mg/ML 100 ML Bottle IV ONE (12:51)
[2019-09-11] MEDS ORDERED: Polyethylene Glycol 3350 Powder 17 GM Packet PO PRN (14:40)
[2019-09-11] MEDS ORDERED: Ibuprofen 400 MG Tab PO PRN (14:40)
[2019-09-11] MEDS ORDERED: Morphine 2 MG/ML Syringe IVPUSH PRN (14:40)
[2019-09-11] MEDS ORDERED: Docusate Sodium 100 MG Cap PO PRN (14:40)
--- NOTE | 2019-09-11 14:54 | PCM.HP.2 ---
H&P History of Present Illness - General Date of Service: 09/11/19 Admit Problem/Dx: Admission Diagnosis/Problem Admission Diagnosis/Problem Rib injury, UTI Source of Information: Patient, EMS Notes Reviewed, Provider - History of Present Illness Initial Comments - Free Text/Narative: Patient got up from bed @0400 this morning to urinate, lost her balance and fell against her night stand. Complains of right rib and upper abdominal pain. She states she may have struck her head, denies LOC, no headache, but does complain of mild neck pain. Patient lives alone. Denies fevers, chills, shortness of breath, nausea, vomiting, constipation or diarrhea. States her urine has smelled bad for the past few days. Hurts to take a deep breath. States she has allergies and having some rhinorrhea and scratchy throat. WBC was normal. Hands and feet are always cold. No bruising or rashes. History of recurrent UTIs. right rib cage Pain Score (Numeric/FACES): 10 - Related Data Allergies/Adverse Reactions: Allergies Allergy/AdvReac Type Severity Reaction Status Date / Time meperidine [From Demerol] Allergy Itching Verified 09/11/19 11:41 nitrofurantoin Allergy Itching Verified 09/11/19 11:41 Penicillins Allergy Itching Verified 09/11/19 11:41 promethazine [From Phenergan] Allergy Itching Verified 09/11/19 11:41 Sulfa (Sulfonamide Allergy Dizziness Verified 09/11/19 11:41 Antibiotics) Home Medications: Home Meds Ferrous Sulfate 325 mg PO BIDMEALS #60 tab 11/18/18 [Rx] Pantoprazole [ProTONIX] 40 mg PO 0600 #60 tab.cr 11/18/18 [Rx] Multivit-Min/Iron/Folic/Lutein [Multivitamin Women 50 Plus Tab] 2 tab PO DAILY 09/11/19 [History] Past Medical History - Past Health History Medical/Surgical History: Denies Medical/Surgical History HEENT History: Reports: Hard of Hearing Cardiovascular History: Reports: Hypertension, Other (See Below) Other Cardiovascular History: Rheumatic fever as a child. Respiratory History: Reports: Other (See Below) Other Respiratory History: HX OF TRACH Gastrointestinal History: Reports: Other (See Below) Other Gastrointestinal History: HX GASTRIC ULCER W/O HEMORRHAGE. Genitourinary History: Reports: Renal Calculus, UTI, Recurrent Musculoskeletal History: Reports: Arthritis, Fracture, Osteoarthritis Other Musculoskeletal History: Left foot fracture. 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 Psychiatric History: Reports: Anxiety, Depression Hematologic History: Reports: B12 Deficiency, Blood Transfusion(s) Immunologic History: Reports: None Oncologic (Cancer) History: Reports: None Dermatologic History: Reports: None - Infectious Disease History Infectious Disease History: Reports: Chicken Pox, Shingles Other Infectious Disease History: Patient doesn't recall her childhood diseases. - Past Surgical History Head Surgeries/Procedures: Reports: None HEENT Surgical History: Reports: Cataract Surgery, Oral Surgery, Tonsillectomy Other HEENT Surgeries/Procedures: bilat cataract Cardiovascular Surgical History: Reports: Other (See Below) Respiratory Surgical History: Reports: Tracheostomy GI Surgical History: Reports: Appendectomy, Cholecystectomy, Colonoscopy, EGD, Other (See Below) Other GI Surgeries/Procedures: Perforated duodenum with endoscopy. Female Surgical History: Reports: None Social & Family History - Family History Family Medical History: Noncontributory - Tobacco Use Smoking Status *Q: Former Smoker Used Tobacco, but Quit: Yes Month/Year Tobacco Last Used: unable to remember Tobacco Use Comment: states that she only smoked when she was a teenager. Second Hand Smoke Exposure: No - Caffeine Use Caffeine Use: Reports: Coffee - Recreational Drug Use Recreational Drug Use: No H&P Review of Systems - Review of Systems: Review Of Systems: See Below General: Reports: No Symptoms HEENT: Reports: Rhinitis, Sore Throat, Other (Bilateral hearing aids, dentures upper & lower.). Denies: Ear Pain, Eye Pain, Headaches, Sinus Congestion Pulmonary: Reports: Pleuritic Chest Pain. Denies: Shortness of Breath, Wheezing , Cough Cardiovascular: Reports: Chest Pain. Denies: Palpitations, Lightheadedness Gastrointestinal: Reports: Abdominal Pain. Denies: Constipation, Diarrhea, Nausea, Vomiting Genitourinary: Reports: Frequency, Flank Pain (right), Other (foul smell to urine for 2-3 days). Denies: Dysuria Musculoskeletal: Reports: Neck Pain, Muscle Pain Skin: Reports: Pallor. Denies: Bruising, Rash, Wound Psychiatric: Reports: No Symptoms Neurological: Reports: No Symptoms Hematologic/Lymphatic: Reports: Anemia (iron) Immunologic: Reports: Other (med allergies, rhinitis) Exam - Exam Exam: See Below - Vital Signs Vital Signs: Last Vital Signs Temp 97.6 F 09/11/19 11:00 Pulse 87 09/11/19 14:10 Resp 16 09/11/19 14:10 BP 156/86 H 09/11/19 14:10 Pulse Ox 97 09/11/19 14:10 Weight: 110 lb - Exam General: Alert, Oriented, Cooperative, Mild Distress (pain with movement) HEENT: PERRLA, Conjunctiva Clear, EOMI, Mucosa Moist & [place], Nares Patent, Normal Nasal Septum, Posterior Pharynx Clear, TMs Clear. No: Hearing Intact ( bilateral hearing aids) Neck: Supple, Trachea Midline. No: Lymphadenopathy Lungs: Clear to Auscultation, Normal Respiratory Effort, Other (TTP on right rib cage from T4-T10). No: Crackles, Wheezing Cardiovascular: Regular Rate, Regular Rhythm GI/Abdominal Exam: Normal Bowel Sounds, Soft, No Distention, Guarding, Tender ( RUQ, Right flank). No: Rigid, Rebound (Female) Exam: Deferred Rectal (Female) Exam: Deferred Extremities: No Pedal Edema Peripheral Pulses: 1+: Radial (L), Radial (R), Posterior Tibial (L), Posterior Tibial (R), Dorsalis Pedis (L), Dorsalis Pedis (R) Skin: Dry, Intact, Cool. No: Rash, Ecchymosis Neurological: Normal Speech, Normal Tone Psychiatric: Normal Affect, Normal Mood - Patient Data Lab Results Last 24 hrs: Laboratory Results - last 24 hr 09/11/19 09/11/19 09/11/19 Range/Units 11:24 12:04 12:04 WBC 10.1 (4.5-12.0) X10-3/uL RBC 4.93 (3.23-5.20) x10(6)uL Hgb 15.1 D (11.5-15.5) g/dL Hct 45.3 D (30.0-51.3) % MCV 91.8 (80-96) fL MCH 30.5 (27.7-33.6) pg MCHC 33.3 (32.2-35.4) g/dL RDW 13.7 (11.5-15.5) % Plt Count 184 (125-369) X10(3)uL MPV 8.4 (7.4-10.4) fL Add Manual Diff Yes Neutrophils % (Manual) 88 H (46-82) % Lymphocytes % (Manual) 7 L (13-37) % Monocytes % (Manual) 5 (4-12) % Sodium 142 (135-145) mmol/L Potassium 4.8 (3.5-5.3) mmol/L Chloride 105 (100-110) mmol/L Carbon Dioxide 28 (21-32) mmol/L BUN 19 H (7-18) mg/dL Creatinine 0.8 (0.55-1.02) mg/dL Est Cr Clr Drug Dosing 40.50 mL/min Estimated GFR (MDRD) > 60 (>60) BUN/Creatinine Ratio 23.8 H (9-20) Glucose 116 (80-116) mg/dL Calcium 9.5 (8.6-10.2) mg/dL Total Bilirubin 0.5 (0.1-1.3) mg/dL AST 80 H D (5-25) IU/L ALT 72 H D (12-36) U/L Alkaline Phosphatase 119 H (56-112) IU/L Total Protein 8.0 (6.0-8.0) g/dL Albumin 3.7 (3.2-4.6) g/dL Globulin 4.3 g/dL Albumin/Globulin Ratio 0.9 Urine Color Yellow (YELLOW) Urine Appearance Cloudy (CLEAR) Urine pH 7.0 H (5.0-6.5) Ur Specific [place] 1.010 (1.010-1.025) Urine Protein Negative (NEGATIVE) mg/dL Urine Glucose (UA) Normal (NORMAL) mg/dL Urine Ketones Negative (NEGATIVE) mg/dL Urine Occult Blood Trace (NEGATIVE) Urine Nitrite Positive H (NEGATIVE) Urine Bilirubin Negative (NEGATIVE) Urine Urobilinogen Normal (NEGATIVE) mg/dL Ur Leukocyte Esterase Negative (NEGATIVE) Urine RBC 0-5 (0-5) Urine WBC 0-5 (0-5) Ur Squamous Epith Cells Few H (NS,R,O) Urine Bacteria Many H (NS) Result Diagrams: 09/11/19 12:04 09/11/19 12:04 Imaging Impressions Last 24 hrs: CT head: no acute injury or disease. CT cervical: no acute fractures. CT chest: Acute nondisplaced fractures of right 4th-8th ribs. Dependent atelectasis bibasilar. No consolidation, effusion or pneumothorax. Few pulmonary nodules, recommended comparison or follow up CT. No solid organ injury of abdomen. No abdominal or pelvic free fluid. EKG INTERPRETATION EKG Date: 09/11/19 Time: 11:40 Rhythm: NSR Rate (Beats/Min): 72 [place]: Normal P-Wave: Present QRS: Normal ST-T: Normal QT: Normal EKG Interpretation Comments: Normal sinus rhythm, early transition R wave progression. No Q waves or ST-T wave changes. No arrhythmias or ischemic changes. Sepsis Event Note - Evaluation Sepsis Screening Result: No Definite Risk - Focused Exam Vital Signs: Vital Signs Temp Pulse Resp BP Pulse Ox 09/11/19 14:10 87 16 156/86 H 97 09/11/19 11:00 97.6 F 96 16 161/110 H 100 Date Exam was Performed: 09/11/19 Time Exam was Performed: 15:30 - Problem List (1) UTI (urinary tract infection), uncomplicated SNOMED Code(s): 04890300 ICD Code: N39.0 - URINARY TRACT INFECTION, SITE NOT SPECIFIED Status: Acute Current Visit: Yes (2) Multiple rib fractures SNOMED Code(s): 5241048 ICD Code: S22.49XA - MULTIPLE FRACTURES OF RIBS, UNSP SIDE, INIT FOR CLOS FX Status: Acute Current Visit: Yes Onset Date: ~09/11/19 Qualifiers: Encounter type: initial encounter Fracture type: closed Laterality: right Qualified Code(s): S22.41XA - Multiple fractures of ribs, right side, initial encounter for closed fracture (3) Fall at home SNOMED Code(s): 33044879 ICD Code: W19.XXXA - UNSPECIFIED FALL, INITIAL ENCOUNTER; Y92.009 - UNSP PLACE IN UNSP NON-[facility] RESIDENCE PLACE Status: Acute Current Visit: Yes (4) Physical deconditioning SNOMED Code(s): 91393967761938 ICD Code: R53.81 - OTHER MALAISE Status: Acute Current Visit: Yes (5) Elevated liver enzymes SNOMED Code(s): 404754963 ICD Code: R74.8 - ABNORMAL LEVELS OF OTHER SERUM ENZYMES Status: Acute Current Visit: Yes (6) Anemia SNOMED Code(s): 322487801 ICD Code: D64.9 - ANEMIA, UNSPECIFIED Status: Chronic Current Visit: No Problem Details: given PMH as well a her complaints need to entertain a possible upper gi etiology. 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 Current Visit: No Qualifiers: Spinal osteoarthritis complication: unspecified spinal osteoarthritis Qualified Code(s): M47.816 - Spondylosis without myelopathy or radiculopathy, lumbar region (8) TOD (generalized anxiety disorder) SNOMED Code(s): 00120634 ICD Code: F41.1 - GENERALIZED ANXIETY DISORDER Status: Chronic Current Visit: No (9) Gastritis SNOMED Code(s): 7197443 ICD Code: K29.70 - GASTRITIS, UNSPECIFIED, WITHOUT BLEEDING Status: Chronic Current Visit: No Problem List Initiated/Reviewed/Updated: Yes Orders Last 24hrs: Active Orders 24 hr Category Date Time Status Admission Status [Patient Status] [ADT] Routine ADT 09/11/19 14:04 Active Antiembolic Devices [RC] .Routine Care 09/11/19 14:40 Active EKG Documentation Completion [RC] ASDIRECTED Care 09/11/19 11:28 Active Oxygen Therapy [RC] PRN Care 09/11/19 14:40 Active Up With Assistance [RC] ASDIRECTED Care 09/11/19 14:40 Active Up to Chair [RC] ASDIRECTED Care 09/11/19 14:40 Active VTE/DVT Education [RC] Per Unit Routine Care 09/11/19 14:40 Active Vital Signs [RC] Q4H Care 09/11/19 14:40 Active OT Evaluation and Treatment [CONS] Routine Cons 09/11/19 14:40 Active PT Evaluation and Treatment [CONS] Routine Cons 09/11/19 14:40 Active Regular Diet [DIET] Diet 09/11/19 Lunch Active C-Spine [Cervical Spine wo Cont] [CT] Stat Exams 09/11/19 12:45 Taken CXR [Chest 1V Frontal] [CR] Stat Exams 09/11/19 11:24 Taken Chest Abdomen Pelvis w Cont [CT] Stat Exams 09/11/19 12:46 Taken Head wo Cont [CT] Stat Exams 09/11/19 12:45 Taken COMPREHENSIVE METABOLIC PN,CMP [CHEM] Routine Lab 09/12/19 06:00 Ordered CULTURE URINE [RM] Stat Lab 09/11/19 11:24 Received Ciprofloxacin in D5W [Cipro in D5W 200 MG/100 ML] 200 Med 09/11/19 14:45 Ordered mg Premix Bag 1 bag IV Q12HR Docusate Sodium [Colace] Med 09/11/19 14:40 Ordered 100 mg PO BID PRN Enoxaparin [Lovenox] Med 09/11/19 14:45 Ordered 30 mg SUBCUT Q24H Ferrous Sulfate Med 09/11/19 18:00 Ordered 325 mg PO BIDMEALS Ibuprofen [Motrin] Med 09/11/19 14:40 Ordered 400 mg PO Q6H PRN Morphine Med 09/11/19 14:40 Ordered 2 mg IVPUSH Q4H PRN Multivit-Min/Iron/Folic/Lutein [Multivitamin Women 50 Med 09/12/19 09:00 Ordered Plus Tab] 2 tab PO DAILY Pantoprazole [ProTONIX] Med 09/12/19 06:00 Ordered 40 mg PO 0600 Sodium Chloride 0.9% [Saline Flush] Med 09/11/19 11:25 Active 10 ml FLUSH ASDIRECTED PRN polyethylene glycoL 3350 [MiraLAX] Med 09/11/19 14:40 Ordered 17 gm PO DAILY PRN traMADol [Ultram] Med 09/11/19 14:44 Ordered 50 mg PO Q8H PRN Antiembolic Hose [OM.PC] Per Unit Routine Oth 09/11/19 14:41 Ordered Saline Lock Insert [OM.PC] Routine Oth 09/11/19 11:25 Ordered Resuscitation Status Routine Resus Stat 09/11/19 14:40 Ordered EKG 12 Lead [EK] Stat Ther 09/11/19 11:27 Ordered Medication Orders Docusate Sodium (Colace) 100 mg PO BID PRN PRN Reason: Constipation Enoxaparin Sodium (Lovenox) 30 mg SUBCUT Q24H [facility] Ferrous Sulfate (Ferrous Sulfate) 325 mg PO BIDMEALS [facility] Ciprofloxacin/Dextrose 200 mg/ (Premix) 100 mls @ 100 mls/hr IV Q12HR [facility] Ibuprofen (Motrin) 400 mg PO Q6H PRN PRN Reason: Pain (mild 1-3) Morphine Sulfate (Morphine) 2 mg IVPUSH Q4H PRN PRN Reason: Pain (severe 7-10) Non-Formulary Medication (Multivit-Min/Iron/Folic/Lutein [Multivitamin Women 50 Plus Tab]) 2 tab PO DAILY [facility] Pantoprazole Sodium (Protonix) 40 mg PO 0600 [facility] Polyethylene Glycol (Miralax) 17 gm PO DAILY PRN PRN Reason: Constipation Sodium Chloride (Saline Flush) 10 ml FLUSH ASDIRECTED PRN PRN Reason: Keep Vein Open Last Admin: 09/11/19 14:08 Dose: 10 ml Admin: 09/11/19 11:59 Dose: 10 ml Tramadol HCl (Ultram) 50 mg PO Q8H PRN PRN Reason: Pain (moderate 4-6) Assessment/Plan Comment:: 1. Admit for UTI, multiple rib fractures. 2. Ciprofloxacin 200 mg IV q12h for 5 days. UC pending. 3. Morphine 2 mg IV q2h as needed severe pain, Tramadol 50 mg po q8h as needed moderate pain, Ibuprofen 400 mg po q6h as needed mild pain(elevated LFTs so will hold any Tylenol). 4. Elevated LFTs will repeat CMP tomorrow. 5. Regular diet. 6. Up with assistance, to chair tid. 7. PT/OT consult for ambulating, strengthening & ADLs. 8. DVT prophylaxis: Lovenox 30 mg SQ daily. TEDs bilateral knee high. 9. Resume home medications. 10. DNR/DNI. - Mortality Measure Prognosis:: Poor
[2019-09-11] MEDS ORDERED: Ciprofloxacin in D5W 200 MG in Premix Bag 1 BAG IV SCH ×2 (15:00)
[2019-09-11] MEDS ORDERED: cefTRIAXone 1 GM in Sodium Chloride 0.9% 50 ML IV SCH (16:15)
[2019-09-11] MEDS: traMADol 50 MG Tab PO PRN (16:35)
[2019-09-11] MEDS: Enoxaparin 30 MG/0.3 ML Syringe SUBCUT SCH (16:55)
[2019-09-11] MEDS: Ferrous Sulfate 325 MG Tab PO SCH (18:04)
[2019-09-12] MEDS: traMADol 50 MG Tab PO PRN ×3 (01:03→16:21)
[2019-09-12] MEDS: Pantoprazole 40 MG Tab.CR PO SCH (05:19)
[2019-09-12] MEDS: Sodium Chloride 0.9% 10 ML Syringe FLUSH PRN ×2 (07:26→16:46)
[2019-09-12] MEDS: Multivitamins with Iron/Calcium/Folic Acid/Minerals Tab PO SCH (08:22)
[2019-09-12] MEDS: Ferrous Sulfate 325 MG Tab PO SCH ×2 (08:22→16:59)
--- NOTE | 2019-09-12 08:42 | PCM.PN ---
- General Info Date of Service: 09/12/19 Subjective Update: Patient still in pain with breathing, using ice/heat on right side. Says she gets itchy after the morphine shots. She states the ibuprofen does help and Tramadol she's tolerating. No abdominal pain. No nausea or vomiting. - Patient Data Vitals - Most Recent: Last Vital Signs Temp 97.5 F 09/12/19 05:00 Pulse 67 09/12/19 05:00 Resp 18 09/12/19 05:00 BP 118/77 09/12/19 05:00 Pulse Ox 93 L 09/12/19 05:00 Weight - Most Recent: 123 lb 6.4 oz Lab Results Last 24 Hours: Laboratory Results - last 24 hr 09/11/19 09/11/19 09/11/19 Range/Units 11:24 12:04 12:04 WBC 10.1 (4.5-12.0) X10-3/uL RBC 4.93 (3.23-5.20) x10(6)uL Hgb 15.1 D (11.5-15.5) g/dL Hct 45.3 D (30.0-51.3) % MCV 91.8 (80-96) fL MCH 30.5 (27.7-33.6) pg MCHC 33.3 (32.2-35.4) g/dL RDW 13.7 (11.5-15.5) % Plt Count 184 (125-369) X10(3)uL MPV 8.4 (7.4-10.4) fL Add Manual Diff Yes Neutrophils % (Manual) 88 H (46-82) % Lymphocytes % (Manual) 7 L (13-37) % Monocytes % (Manual) 5 (4-12) % Sodium 142 (135-145) mmol/L Potassium 4.8 (3.5-5.3) mmol/L Chloride 105 (100-110) mmol/L Carbon Dioxide 28 (21-32) mmol/L BUN 19 H (7-18) mg/dL Creatinine 0.8 (0.55-1.02) mg/dL Est Cr Clr Drug Dosing 40.50 mL/min Estimated GFR (MDRD) > 60 (>60) BUN/Creatinine Ratio 23.8 H (9-20) Glucose 116 (80-116) mg/dL Calcium 9.5 (8.6-10.2) mg/dL Total Bilirubin 0.5 (0.1-1.3) mg/dL AST 80 H D (5-25) IU/L ALT 72 H D (12-36) U/L Alkaline Phosphatase 119 H (56-112) IU/L Total Protein 8.0 (6.0-8.0) g/dL Albumin 3.7 (3.2-4.6) g/dL Globulin 4.3 g/dL Albumin/Globulin Ratio 0.9 Urine Color Yellow (YELLOW) Urine Appearance Cloudy (CLEAR) Urine pH 7.0 H (5.0-6.5) Ur Specific [place] 1.010 (1.010-1.025) Urine Protein Negative (NEGATIVE) mg/dL Urine Glucose (UA) Normal (NORMAL) mg/dL Urine Ketones Negative (NEGATIVE) mg/dL Urine Occult Blood Trace (NEGATIVE) Urine Nitrite Positive H (NEGATIVE) Urine Bilirubin Negative (NEGATIVE) Urine Urobilinogen Normal (NEGATIVE) mg/dL Ur Leukocyte Esterase Negative (NEGATIVE) Urine RBC 0-5 (0-5) Urine WBC 0-5 (0-5) Ur Squamous Epith Cells Few H (NS,R,O) Urine Bacteria Many H (NS) 09/12/19 Range/Units 06:25 WBC (4.5-12.0) X10-3/uL RBC (3.23-5.20) x10(6)uL Hgb (11.5-15.5) g/dL Hct (30.0-51.3) % MCV (80-96) fL MCH (27.7-33.6) pg MCHC (32.2-35.4) g/dL RDW (11.5-15.5) % Plt Count (125-369) X10(3)uL MPV (7.4-10.4) fL Add Manual Diff Neutrophils % (Manual) (46-82) % Lymphocytes % (Manual) (13-37) % Monocytes % (Manual) (4-12) % Sodium 143 (135-145) mmol/L Potassium 4.2 (3.5-5.3) mmol/L Chloride 105 (100-110) mmol/L Carbon Dioxide 30 (21-32) mmol/L BUN 20 H (7-18) mg/dL Creatinine 0.8 (0.55-1.02) mg/dL Est Cr Clr Drug Dosing 45.43 mL/min Estimated GFR (MDRD) > 60 (>60) BUN/Creatinine Ratio 25.0 H (9-20) Glucose 100 (80-116) mg/dL Calcium 8.8 (8.6-10.2) mg/dL Total Bilirubin 0.6 (0.1-1.3) mg/dL AST 58 H D (5-25) IU/L ALT 68 H (12-36) U/L Alkaline Phosphatase 112 (56-112) IU/L Total Protein 8.1 H (6.0-8.0) g/dL Albumin 3.6 (3.2-4.6) g/dL Globulin 4.5 g/dL Albumin/Globulin Ratio 0.8 Urine Color (YELLOW) Urine Appearance (CLEAR) Urine pH (5.0-6.5) Ur Specific [place] (1.010-1.025) Urine Protein (NEGATIVE) mg/dL Urine Glucose (UA) (NORMAL) mg/dL Urine Ketones (NEGATIVE) mg/dL Urine Occult Blood (NEGATIVE) Urine Nitrite (NEGATIVE) Urine Bilirubin (NEGATIVE) Urine Urobilinogen (NEGATIVE) mg/dL Ur Leukocyte Esterase (NEGATIVE) Urine RBC (0-5) Urine WBC (0-5) Ur Squamous Epith Cells (NS,R,O) Urine Bacteria (NS) Med Orders - Current: Current Medications Ceftriaxone Sodium (Rocephin) 1 gm IVPUSH Q24H [facility] Docusate Sodium (Colace) 100 mg PO BID PRN PRN Reason: Constipation Enoxaparin Sodium (Lovenox) 30 mg SUBCUT Q24H [facility] Last Admin: 09/11/19 16:55 Dose: 30 mg Ferrous Sulfate (Ferrous Sulfate) 325 mg PO BIDMEALS [facility] Last Admin: 09/12/19 08:22 Dose: 325 mg Ibuprofen (Motrin) 400 mg PO Q6H PRN PRN Reason: Pain (mild 1-3) Last Admin: 09/12/19 05:19 Dose: 400 mg Multivitamins/Minerals (Thera M Plus) 1 tab PO DAILY [facility] Last Admin: 09/12/19 08:22 Dose: 1 tab Pantoprazole Sodium (Protonix) 40 mg PO 0600 [facility] Last Admin: 09/12/19 05:19 Dose: 40 mg Polyethylene Glycol (Miralax) 17 gm PO DAILY PRN PRN Reason: Constipation Sodium Chloride (Saline Flush) 10 ml FLUSH ASDIRECTED PRN PRN Reason: Keep Vein Open Last Admin: 09/12/19 07:26 Dose: 10 ml Tramadol HCl (Ultram) 50 mg PO Q8H PRN PRN Reason: Pain (moderate 4-6) Last Admin: 09/12/19 01:03 Dose: 50 mg Discontinued Medications Ciprofloxacin/Dextrose 200 mg/ (Premix) 100 mls @ 100 mls/hr IV Q12H [facility] Last Admin: 09/11/19 16:16 Dose: Not Given Ceftriaxone Sodium 1 gm/ (Sodium Chloride) 50 mls @ 200 mls/hr IV Q24H [facility] Last Admin: 09/11/19 16:41 Dose: 200 mls/hr Iopamidol (Isovue-370 (76%)) 100 ml IV . DIRECTED ONE Stop: 09/11/19 12:52 Last Admin: 09/11/19 13:12 Dose: 57 ml Morphine Sulfate (Morphine) 2 mg IVPUSH ONETIME ONE Stop: 09/11/19 11:26 Last Admin: 09/11/19 11:58 Dose: 2 mg Morphine Sulfate (Morphine) 2 mg IVPUSH ONETIME ONE Stop: 09/11/19 14:04 Last Admin: 09/11/19 14:08 Dose: 2 mg Morphine Sulfate (Morphine) 2 mg IVPUSH Q4H PRN PRN Reason: Pain (severe 7-10) Last Admin: 09/11/19 19:53 Dose: 2 mg - Exam General: Alert, Oriented, Cooperative, No Acute Distress Lungs: Clear to Auscultation, Normal Respiratory Effort, Other (pain with deep inspiration) Cardiovascular: Regular Rate, Regular Rhythm GI/Abdominal Exam: Normal Bowel Sounds, Soft, Non-Tender, No Distention Extremities: No Pedal Edema Skin: Warm, Dry, Intact Sepsis Event Note - Evaluation Sepsis Screening Result: No Definite Risk - Focused Exam Vital Signs: Vital Signs Temp Pulse Resp BP Pulse Ox 09/12/19 05:00 97.5 F 67 18 118/77 93 L 09/12/19 00:00 97.5 F 64 20 146/77 H 94 L Date Exam was Performed: 09/12/19 Time Exam was Performed: 08:30 - Problem List & Annotations (1) UTI (urinary tract infection), uncomplicated SNOMED Code(s): 26846399 Code(s): N39.0 - URINARY TRACT INFECTION, SITE NOT SPECIFIED Status: Acute Current Visit: Yes (2) Multiple rib fractures SNOMED Code(s): 5588922 Code(s): S22.49XA - MULTIPLE FRACTURES OF RIBS, UNSP SIDE, INIT FOR CLOS FX Status: Acute Current Visit: Yes Onset Date: ~09/11/19 Qualifiers: Encounter type: initial encounter Fracture type: closed Laterality: right Qualified Code(s): S22.41XA - Multiple fractures of ribs, right side, initial encounter for closed fracture (3) Fall at home SNOMED Code(s): 91020138 Code(s): W19.XXXA - UNSPECIFIED FALL, INITIAL ENCOUNTER; Y92.009 - UNSP PLACE IN UNSP NON-[facility] (PRIVATE) RESIDENCE PLACE Status: Acute Current Visit: Yes (4) Physical deconditioning SNOMED Code(s): 58219846739786 Code(s): R53.81 - OTHER MALAISE Status: Acute Current Visit: Yes (5) Elevated liver enzymes SNOMED Code(s): 523876989 Code(s): R74.8 - ABNORMAL LEVELS OF OTHER SERUM ENZYMES Status: Acute Current Visit: Yes Annotation/Comment:: improving (6) Anemia SNOMED Code(s): 341291803 Code(s): D64.9 - ANEMIA, UNSPECIFIED Status: Chronic Current Visit: No Qualifiers: Anemia type: iron deficiency Annotation/Comment:: (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 Current Visit: No Qualifiers: Spinal osteoarthritis complication: unspecified spinal osteoarthritis Qualified Code(s): M47.816 - Spondylosis without myelopathy or radiculopathy, lumbar region (8) TOD (generalized anxiety disorder) SNOMED Code(s): 46156627 Code(s): F41.1 - GENERALIZED ANXIETY DISORDER Status: Chronic Current Visit: No (9) Gastritis SNOMED Code(s): 8966886 Code(s): K29.70 - GASTRITIS, UNSPECIFIED, WITHOUT BLEEDING Status: Chronic Current Visit: No - Problem List Review Problem List Initiated/Reviewed/Updated: Yes - My Orders Last 24 Hours: My Active Orders 09/11/19 14:40 Antiembolic Devices [RC] DAILY Oxygen Therapy [RC] PRN Up With Assistance [RC] ASDIRECTED Up to Chair [RC] ASDIRECTED VTE/DVT Education [RC] Per Unit Routine Vital Signs [RC] 00,04,08,12,16,20 OT Evaluation and Treatment [CONS] Routine PT Evaluation and Treatment [CONS] Routine Docusate Sodium [Colace] 100 mg PO BID PRN Ibuprofen [Motrin] 400 mg PO Q6H PRN Morphine 2 mg IVPUSH Q4H PRN polyethylene glycoL 3350 [MiraLAX] 17 gm PO DAILY PRN Resuscitation Status Routine 09/11/19 14:41 Antiembolic Hose [OM.PC] Per Unit Routine 09/11/19 14:44 traMADol [Ultram] 50 mg PO Q8H PRN 09/11/19 15:00 Enoxaparin [Lovenox] 30 mg SUBCUT Q24H 09/11/19 15:51 RT Incentive Spirometry [RC] Q2HWA 09/11/19 18:00 Ferrous Sulfate 325 mg PO BIDMEALS 09/11/19 Lunch Regular Diet [DIET] 09/12/19 06:00 Pantoprazole [ProTONIX] 40 mg PO 0600 09/12/19 09:00 Multivitamins w-Iron/Ca/FA/Min [Thera M Plus] 1 tab PO DAILY 09/12/19 17:00 cefTRIAXone [Rocephin] 1 gm IVPUSH Q24H - Plan Plan:: 1. Ciprofloxacin 200 mg IV q12h for 5 days. UC pending. 2. Discontinue Morphine due to itching, change Tramadol 50 mg po q6h as needed moderate pain, discontinue Ibuprofen and start Meloxicam at noon daily. 3. LFTs improving. 4. Up with assistance, to chair tid. 5. PT/OT consult for ambulating, strengthening & ADLs. 6. DVT prophylaxis: Lovenox 30 mg SQ daily. TEDs bilateral knee high.
--- NOTE | 2019-09-12 10:40 | CR ---
INDICATION: Trauma, fell out of bed. CHEST, ONE VIEW: An AP upright portable of the chest 09/11/2019 was compared with 06/21/2018 and 11/07/2016. Heart remains normal in size and shape, the aorta is somewhat tortuous with calcification in the arch. Pulmonary markings appear overall similar to the previous study allowing for a poor inspiration, without a definite active infiltrate of effusion. The are some areas of decreased markings in the right mid lung field and at the right lung base raising question of bullae in a patient with emphysema. This should be correlated clinically. A definite active infiltrate or effusion was not identified. IMPRESSION: 1. Probable emphysema possibly with bullae on the right. 2. ASD aorta. MTDD
[2019-09-12] MEDS ORDERED: Meloxicam 7.5 MG Tab PO SCH (12:00)
[2019-09-12] MEDS: Enoxaparin 30 MG/0.3 ML Syringe SUBCUT SCH (15:49)
[2019-09-12] MEDS: cefTRIAXone 1 GM Vial IVPUSH SCH (16:46)
[2019-09-12] MEDS ORDERED: hydrOXYzine HCl 25 MG Tab PO PRN (19:27)
[2019-09-13] MEDS: traMADol 50 MG Tab PO PRN ×2 (00:38→08:21)
[2019-09-13] MEDS: Pantoprazole 40 MG Tab.CR PO SCH (06:49)
[2019-09-13] MEDS: Multivitamins with Iron/Calcium/Folic Acid/Minerals Tab PO SCH (08:22)
[2019-09-13] MEDS: Ferrous Sulfate 325 MG Tab PO SCH ×2 (08:22→17:44)
[2019-09-13] MEDS ORDERED: Ketorolac 15 MG/ML SDV IVPUSH SCH (09:01)
[2019-09-13] MEDS: fentaNYL 100 MCG/2 ML SDV IVPUSH PRN (09:16)
[2019-09-13] MEDS: Sodium Chloride 0.9% 10 ML Syringe FLUSH PRN ×5 (09:16→22:32)
--- NOTE | 2019-09-13 09:17 | PCM.PN ---
- General Info Date of Service: 09/13/19 Subjective Update: In extreme pain.Right side,ribs.Very anxious.No GI symptoms except she does endorse Constipation. Functional Status: Denies: Pain Controlled, Tolerating Diet - Review of Systems HEENT: Reports: No Symptoms Pulmonary: Reports: Other (Pleuritic chest pain) Cardiovascular: Reports: No Symptoms Gastrointestinal: Reports: Constipation Musculoskeletal: Reports: No Symptoms Skin: Reports: No Symptoms Psychiatric: Reports: Mood Lability, Anxiety - Patient Data Vitals - Most Recent: Last Vital Signs Temp 97.4 F 09/13/19 00:00 Pulse 67 09/13/19 00:00 Resp 16 09/13/19 00:00 BP 121/64 09/13/19 00:00 Pulse Ox 91 L 09/13/19 00:00 Weight - Most Recent: 55.973 kg I&O - Last 24 Hours: Intake & Output 09/12/19 09/13/19 09/13/19 22:59 06:59 14:59 Intake Total 200 Balance 200 Stuart Results Last 24 Hours: Microbiology 09/11/19 11:24 Urine Culture - Final Urine, Clean Catch Escherichia Coli Escherichia Coli#2 Med Orders - Current: Current Medications Ceftriaxone Sodium (Rocephin) 1 gm IVPUSH Q24H [facility] Last Admin: 09/12/19 16:46 Dose: 1 gm Docusate Sodium (Colace) 200 mg PO DAILY [facility] Enoxaparin Sodium (Lovenox) 30 mg SUBCUT Q24H [facility] Last Admin: 09/12/19 15:49 Dose: 30 mg Fentanyl (Sublimaze) 50 mcg IVPUSH Q6H PRN PRN Reason: Breakthrough Pain Ferrous Sulfate (Ferrous Sulfate) 325 mg PO BIDMEALS [facility] Last Admin: 09/13/19 08:22 Dose: 325 mg Hydroxyzine HCl (Atarax) 50 mg PO Q4H PRN PRN Reason: Itching Last Admin: 09/12/19 19:43 Dose: 50 mg Ketorolac Tromethamine (Toradol) 15 mg IVPUSH Q6H [facility] Stop: 09/18/19 08:59 Multivitamins/Minerals (Thera M Plus) 1 tab PO DAILY [facility] Last Admin: 09/13/19 08:22 Dose: 1 tab Pantoprazole Sodium (Protonix) 40 mg PO 0600 [facility] Last Admin: 09/13/19 06:49 Dose: 40 mg Polyethylene Glycol (Miralax) 17 gm PO DAILY PRN PRN Reason: Constipation Sodium Chloride (Saline Flush) 10 ml FLUSH ASDIRECTED PRN PRN Reason: Keep Vein Open Last Admin: 09/12/19 16:46 Dose: 10 ml Tramadol HCl (Ultram) 50 mg PO Q6H PRN PRN Reason: Pain (moderate 4-6) Last Admin: 09/13/19 08:21 Dose: 50 mg Discontinued Medications Docusate Sodium (Colace) 100 mg PO BID PRN PRN Reason: Constipation Ciprofloxacin/Dextrose 200 mg/ (Premix) 100 mls @ 100 mls/hr IV Q12H [facility] Last Admin: 09/11/19 16:16 Dose: Not Given Ceftriaxone Sodium 1 gm/ (Sodium Chloride) 50 mls @ 200 mls/hr IV Q24H [facility] Last Admin: 09/11/19 16:41 Dose: 200 mls/hr Ibuprofen (Motrin) 400 mg PO Q6H PRN PRN Reason: Pain (mild 1-3) Last Admin: 09/12/19 05:19 Dose: 400 mg Iopamidol (Isovue-370 (76%)) 100 ml IV . DIRECTED ONE Stop: 09/11/19 12:52 Last Admin: 09/11/19 13:12 Dose: 57 ml Meloxicam (Mobic) 15 mg PO DAILY@1200 [facility] Last Admin: 09/12/19 11:39 Dose: 15 mg Morphine Sulfate (Morphine) 2 mg IVPUSH ONETIME ONE Stop: 09/11/19 11:26 Last Admin: 09/11/19 11:58 Dose: 2 mg Morphine Sulfate (Morphine) 2 mg IVPUSH ONETIME ONE Stop: 09/11/19 14:04 Last Admin: 09/11/19 14:08 Dose: 2 mg Morphine Sulfate (Morphine) 2 mg IVPUSH Q4H PRN PRN Reason: Pain (severe 7-10) Last Admin: 09/11/19 19:53 Dose: 2 mg Tramadol HCl (Ultram) 50 mg PO Q8H PRN PRN Reason: Pain (moderate 4-6) Last Admin: 09/12/19 01:03 Dose: 50 mg - Exam General: Alert, Oriented HEENT: Pupils Equal Neck: Supple Lungs: Clear to Auscultation, Other (Tender rib cage) Skin: Warm Neurological: No New Focal Deficit Psy/Mental Status: Alert, Anxious Sepsis Event Note - Evaluation Sepsis Screening Result: No Definite Risk - Focused Exam Vital Signs: Vital Signs Temp Pulse Resp BP Pulse Ox 09/13/19 00:00 97.4 F 67 16 121/64 91 L Date Exam was Performed: 09/13/19 Time Exam was Performed: 09:12 - Problem List & Annotations (1) Fall at home SNOMED Code(s): 94136518 Code(s): W19.XXXA - UNSPECIFIED FALL, INITIAL ENCOUNTER; Y92.009 - UNSP PLACE IN UNSP NON-INSTITUT (PRIVATE) RESIDENCE PLACE Status: Acute Current Visit: Yes Qualifiers: Encounter type: subsequent encounter Qualified Code(s): W19.XXXD - Unspecified fall, subsequent encounter; Y92.009 - Unspecified place in unspecified non-institutional (private) residence as the place of occurrence of the external cause (2) Multiple rib fractures SNOMED Code(s): 0754523 Code(s): S22.49XA - MULTIPLE FRACTURES OF RIBS, UNSP SIDE, INIT FOR CLOS FX Status: Acute Current Visit: Yes Onset Date: ~09/11/19 Qualifiers: Encounter type: initial encounter Fracture type: closed Laterality: right Qualified Code(s): S22.41XA - Multiple fractures of ribs, right side, initial encounter for closed fracture (3) UTI (urinary tract infection), uncomplicated SNOMED Code(s): 54405913 Code(s): N39.0 - URINARY TRACT INFECTION, SITE NOT SPECIFIED Status: Acute Current Visit: Yes (4) Degenerative joint disease (DJD) of lumbar spine Status: Chronic Current Visit: No Qualifiers: Spinal osteoarthritis complication: unspecified spinal osteoarthritis Qualified Code(s): M47.816 - Spondylosis without myelopathy or radiculopathy, lumbar region (5) TOD (generalized anxiety disorder) SNOMED Code(s): 53894590 Code(s): F41.1 - GENERALIZED ANXIETY DISORDER Status: Chronic Current Visit: No (6) Constipation SNOMED Code(s): 14536522 Code(s): K59.00 - CONSTIPATION, UNSPECIFIED Status: Acute Current Visit: Yes - Problem List Review Problem List Initiated/Reviewed/Updated: Yes - My Orders Last 24 Hours: My Active Orders 09/13/19 08:59 fentaNYL [Sublimaze] 50 mcg IVPUSH Q6H PRN 09/13/19 09:00 CXR [Chest 2V] [CR] Routine 09/13/19 09:01 Ketorolac [Toradol] 15 mg IVPUSH Q6H 09/13/19 09:15 Docusate Sodium [Colace] 200 mg PO DAILY - Plan Plan:: I have started Fentanyl and Toradol. Repeat CXR. Start scheduled Colace.
[2019-09-13] MEDS ORDERED: ALPRAZolam 0.25 MG Tab PO PRN (09:54)
[2019-09-13] MEDS: Ketorolac 15 MG/ML SDV IVPUSH SCH ×3 (10:33→22:23)
[2019-09-13] MEDS: Docusate Sodium 100 MG Cap PO SCH (10:36)
--- NOTE | 2019-09-13 14:08 | CR ---
INDICATION: Rib fracture. CHEST, 2 VIEWS: PA and lateral views of the chest were obtained 09/13/19 and compared with 09/11/19 CT of the abdomen and pelvis, chest from 06/21/18 and a chest from 09/11/19. Rib fractures are again noted on the right posterolaterally, #4, 5, 6, 7 and 8th. No underlying contusion or pneumothorax, infiltrate or effusion was identified. The heart is grossly normal in size, but there is suggestion of left ventricular enlargement on the lateral view. The aorta is somewhat tortuous with calcification in the arch. Diminished bone density is suggested compared with osteoporosis - correlate clinically. No consolidating pneumonia or effusion was identified. However, at the right costophrenic angle, there may be some very minimal blunting, which may represent some atelectasis or even a minimal amount of pleural fluid. This does make it difficult to entirely exclude very minimal active disease in that area. This may be on the basis of post traumatic change, but should be correlated clinically. IMPRESSION: 1. No definite acute abnormality. However, very minimal findings at the right costophrenic angle make it difficult to entirely exclude minimal post traumatic change in that area. No pneumothorax or significant pleural effusion or significant area of contusion could be identified. 2. ASD aorta. 3. Demineralization suggesting osteoporosis - correlate clinically. MTDD
[2019-09-13] MEDS: Enoxaparin 30 MG/0.3 ML Syringe SUBCUT SCH (15:04)
[2019-09-13] MEDS: cefTRIAXone 1 GM Vial IVPUSH SCH (16:45)
[2019-09-14] MEDS: Sodium Chloride 0.9% 10 ML Syringe FLUSH PRN ×6 (04:38→15:59)
[2019-09-14] MEDS: Ketorolac 15 MG/ML SDV IVPUSH SCH ×3 (04:38→15:57)
[2019-09-14] MEDS: Pantoprazole 40 MG Tab.CR PO SCH (05:46)
[2019-09-14] MEDS: Ferrous Sulfate 325 MG Tab PO SCH (08:19)
[2019-09-14] MEDS: Docusate Sodium 100 MG Cap PO SCH (08:25)
[2019-09-14] MEDS: fentaNYL 100 MCG/2 ML SDV IVPUSH PRN (08:25)
[2019-09-14] MEDS: Multivitamins with Iron/Calcium/Folic Acid/Minerals Tab PO SCH (08:25)
--- NOTE | 2019-09-14 08:56 | PCM.PN ---
- General Info Date of Service: 09/14/19 Functional Status: Reports: Pain Controlled, Tolerating Diet - Review of Systems General: Reports: No Symptoms HEENT: Reports: No Symptoms Pulmonary: Reports: No Symptoms Gastrointestinal: Reports: Constipation - Patient Data Vitals - Most Recent: Last Vital Signs Temp 97.8 F 09/14/19 04:00 Pulse 54 L 09/14/19 04:00 Resp 18 09/14/19 04:00 BP 129/69 09/14/19 04:00 Pulse Ox 95 09/14/19 04:00 Weight - Most Recent: 56.336 kg I&O - Last 24 Hours: Intake & Output 09/13/19 09/14/19 09/14/19 22:59 06:59 14:59 Intake Total 300 Balance 300 Stuart Results Last 24 Hours: Microbiology 09/11/19 11:24 Urine Culture - Final Urine, Clean Catch Escherichia Coli Escherichia Coli#2 Med Orders - Current: Current Medications Alprazolam (Xanax) 0.25 mg PO Q6H PRN PRN Reason: Agitation Last Admin: 09/13/19 10:32 Dose: 0.25 mg Docusate Sodium (Colace) 200 mg PO DAILY [facility] Last Admin: 09/14/19 08:25 Dose: 200 mg Enoxaparin Sodium (Lovenox) 30 mg SUBCUT Q24H [facility] Last Admin: 09/13/19 15:04 Dose: 30 mg Fentanyl (Sublimaze) 50 mcg IVPUSH Q6H PRN PRN Reason: Breakthrough Pain Last Admin: 09/14/19 08:25 Dose: 50 mcg Ferrous Sulfate (Ferrous Sulfate) 325 mg PO BIDMEALS [facility] Last Admin: 09/14/19 08:19 Dose: 325 mg Hydroxyzine HCl (Atarax) 50 mg PO Q4H PRN PRN Reason: Itching Last Admin: 09/12/19 19:43 Dose: 50 mg Ketorolac Tromethamine (Toradol) 15 mg IVPUSH Q6H [facility] Stop: 09/18/19 09:59 Last Admin: 09/14/19 04:38 Dose: 15 mg Multivitamins/Minerals (Thera M Plus) 1 tab PO DAILY [facility] Last Admin: 09/14/19 08:25 Dose: 1 tab Pantoprazole Sodium (Protonix) 40 mg PO 0600 [facility] Last Admin: 09/14/19 05:46 Dose: 40 mg Polyethylene Glycol (Miralax) 17 gm PO DAILY PRN PRN Reason: Constipation Last Admin: 09/13/19 15:04 Dose: 17 gm Sodium Chloride (Saline Flush) 10 ml FLUSH ASDIRECTED PRN PRN Reason: Keep Vein Open Last Admin: 09/14/19 08:26 Dose: 10 ml Discontinued Medications Ceftriaxone Sodium (Rocephin) 1 gm IVPUSH Q24H [facility] Stop: 09/13/19 23:59 Last Admin: 09/13/19 16:45 Dose: 1 gm Docusate Sodium (Colace) 100 mg PO BID PRN PRN Reason: Constipation Ciprofloxacin/Dextrose 200 mg/ (Premix) 100 mls @ 100 mls/hr IV Q12H [facility] Last Admin: 09/11/19 16:16 Dose: Not Given Ceftriaxone Sodium 1 gm/ (Sodium Chloride) 50 mls @ 200 mls/hr IV Q24H [facility] Last Admin: 09/11/19 16:41 Dose: 200 mls/hr Ibuprofen (Motrin) 400 mg PO Q6H PRN PRN Reason: Pain (mild 1-3) Last Admin: 09/12/19 05:19 Dose: 400 mg Iopamidol (Isovue-370 (76%)) 100 ml IV . DIRECTED ONE Stop: 09/11/19 12:52 Last Admin: 09/11/19 13:12 Dose: 57 ml Meloxicam (Mobic) 15 mg PO DAILY@1200 [facility] Last Admin: 09/12/19 11:39 Dose: 15 mg Morphine Sulfate (Morphine) 2 mg IVPUSH ONETIME ONE Stop: 09/11/19 11:26 Last Admin: 09/11/19 11:58 Dose: 2 mg Morphine Sulfate (Morphine) 2 mg IVPUSH ONETIME ONE Stop: 09/11/19 14:04 Last Admin: 09/11/19 14:08 Dose: 2 mg Morphine Sulfate (Morphine) 2 mg IVPUSH Q4H PRN PRN Reason: Pain (severe 7-10) Last Admin: 09/11/19 19:53 Dose: 2 mg Tramadol HCl (Ultram) 50 mg PO Q8H PRN PRN Reason: Pain (moderate 4-6) Last Admin: 09/12/19 01:03 Dose: 50 mg Tramadol HCl (Ultram) 50 mg PO Q6H PRN PRN Reason: Pain (moderate 4-6) Last Admin: 09/13/19 08:21 Dose: 50 mg - Exam General: Alert, Oriented Neck: Supple Lungs: Clear to Auscultation Cardiovascular: Regular Rate GI/Abdominal Exam: Distended, Tender (RLQ) Neurological: No New Focal Deficit Psy/Mental Status: Alert Sepsis Event Note - Evaluation Sepsis Screening Result: No Definite Risk - Focused Exam Vital Signs: Vital Signs Temp Pulse Resp BP Pulse Ox 09/14/19 04:00 97.8 F 54 L 18 129/69 95 09/14/19 00:00 18 Date Exam was Performed: 09/14/19 Time Exam was Performed: 17:04 - Problem List & Annotations (1) Fall at home SNOMED Code(s): 84036117 Code(s): W19.XXXA - UNSPECIFIED FALL, INITIAL ENCOUNTER; Y92.009 - UNSP PLACE IN UNSP NON-INSTITUT (PRIVATE) RESIDENCE PLACE Status: Acute Qualifiers: Encounter type: subsequent encounter Qualified Code(s): W19.XXXD - Unspecified fall, subsequent encounter; Y92.009 - Unspecified place in unspecified non-institutional (private) residence as the place of occurrence of the external cause (2) Multiple rib fractures SNOMED Code(s): 2345878 Code(s): S22.49XA - MULTIPLE FRACTURES OF RIBS, UNSP SIDE, INIT FOR CLOS FX Status: Acute Onset Date: ~09/11/19 Qualifiers: Encounter type: initial encounter Fracture type: closed Laterality: right Qualified Code(s): S22.41XA - Multiple fractures of ribs, right side, initial encounter for closed fracture (3) UTI (urinary tract infection), uncomplicated SNOMED Code(s): 17461724 Code(s): N39.0 - URINARY TRACT INFECTION, SITE NOT SPECIFIED Status: Acute (4) Degenerative joint disease (DJD) of lumbar spine Status: Chronic Qualifiers: Spinal osteoarthritis complication: unspecified spinal osteoarthritis Qualified Code(s): M47.816 - Spondylosis without myelopathy or radiculopathy, lumbar region (5) TOD (generalized anxiety disorder) SNOMED Code(s): 07012858 Code(s): F41.1 - GENERALIZED ANXIETY DISORDER Status: Chronic (6) Constipation SNOMED Code(s): 52604511 Code(s): K59.00 - CONSTIPATION, UNSPECIFIED Status: Acute Qualifiers: Constipation type: unspecified constipation type Qualified Code(s): K59.00 - Constipation, unspecified - Problem List Review Problem List Initiated/Reviewed/Updated: Yes - My Orders Last 24 Hours: My Active Orders 09/13/19 08:59 fentaNYL [Sublimaze] 50 mcg IVPUSH Q6H PRN 09/13/19 09:15 Docusate Sodium [Colace] 200 mg PO DAILY 09/13/19 09:54 ALPRAZolam [Xanax] 0.25 mg PO Q6H PRN 09/13/19 10:00 Ketorolac [Toradol] 15 mg IVPUSH Q6H - Plan Plan:: Spoke with sister. Plan SB today.Continue Pain control. CXR from yesterday better.
[2019-09-14 13:38] VITALS: BP 121/58; PULSE 71
[2019-09-14] MEDS: Enoxaparin 30 MG/0.3 ML Syringe SUBCUT SCH (15:52)
--- NOTE | 2019-09-14 17:36 | DISCH ---
DISCHARGE DATE: 09/14/2019 REASON FOR ADMISSION: 1. Frequent fall. 2. Multiple rib fractures. 3. Urinary tract infection. 4. Anxiety. DISCHARGE DIAGNOSES: 1. Frequent fall. 2. Multiple rib fractures. 3. Urinary tract infection. 4. Anxiety. CONSULTATIONS: Physical Therapy. BRIEF HISTORY AND HOSPITAL COURSE: An 83-year-old female who has had fractures of the right ribcage 4 to 8 after she fell at home. She also was found to have a urinary tract infection. She has anxiety and mild cognitive dysfunction. Lives alone. She is discharged on pain control and rehab because she is unable to perform ADLs. DISCHARGE MEDICATIONS: She finished 3 days of IV Rocephin and now she will go home on oral narcotics, hydrocodone, and naproxen. FOLLOWUP: Continue occupational and physical therapy at the [facility] bed status. I spent more than 35 minutes in the discharge of the patient. /[id number] ERI/ROSA
== END 2019-09-14 16:44 | disposition swing bed (61) | DRG 184 ==
LOC: FB.ED 10:55 → FB.MS 14:04 → OBSVTOIN 14:04
PROVIDERS: ADMIT Emergency Medicine; ATTEND Family Medicine
DX: S22.41XA Multiple fractures of ribs, right side, initial encounter for closed fracture (principal); N39.0 Urinary tract infection, site not specified; W18.39XA Other fall on same level, initial encounter; H91.90 Unspecified hearing loss, unspecified ear; I10 Essential (primary) hypertension; Z87.19 Personal history of other diseases of the digestive system; M19.90 Unspecified osteoarthritis, unspecified site; R53.81 Other malaise; D50.9 Iron deficiency anemia, unspecified; E53.8 Deficiency of other specified B group vitamins; Z98.42 Cataract extraction status, left eye; Z98.41 Cataract extraction status, right eye; M47.816 Spondylosis without myelopathy or radiculopathy, lumbar region; Z66 Do not resuscitate; F41.1 Generalized anxiety disorder; K29.70 Gastritis, unspecified, without bleeding; K29.50 Unspecified chronic gastritis without bleeding; F41.9 Anxiety disorder, unspecified; F32.9 Major depressive disorder, single episode, unspecified; K59.00 Constipation, unspecified; Z88.0 Allergy status to penicillin; Z88.2 Allergy status to sulfonamides; Z88.8 Allergy status to other drugs, medicaments and biological substances; Z90.49 Acquired absence of other specified parts of digestive tract; W01.10XA Fall on same level from slipping, tripping and stumbling with subsequent striking against unspecified object, initial encounter; Y92.009 Unspecified place in unspecified non-institutional (private) residence as the place of occurrence of the external cause
CPT/HCPCS: 36415; 70450; 71045; 71260; 72125; 74177; 80053; 81001; 85025; 87086; 87088 ×2; 87186 ×2; 93005; 99285; J2270; Q9967; 71046; 94150; 97116-GP; 97161-GP; 97165-GO; 97530-GO; 99284; A9270-GY; J0696; J1650; J1885; J3010; J7050

== ENCOUNTER 2019-09-14 16:44 | Inpatient (IN) | payer MEDICARE ==
[2019-09-14] MEDS ORDERED: ALPRAZolam 0.25 MG Tab PO PRN (17:13)
--- NOTE | 2019-09-14 17:20 | PCM.HP.2 ---
H&P History of Present Illness - General Date of Service: 09/14/19 Admit Problem/Dx: Admission Diagnosis/Problem Admission Diagnosis/Problem Rib pain on right side Source of Information: Patient - History of Present Illness Initial Comments - Free Text/Narative: Tessa is an 83-year-old female was brought in because of rib fractures from a fall and did have a UTI. She also has some anxiety and cognitive dysfunction, with a previous history of GI bleed and PUD. She is admitted now to swing bed for pain control. rehabilitation and therapy. Pain is well controlled but she feels anxious and cooped up because she is not able to get visitors.She did endorse some constipation right ribs Pain Score (Numeric/FACES): 0 - Related Data Allergies/Adverse Reactions: Allergies Allergy/AdvReac Type Severity Reaction Status Date / Time ciprofloxacin Allergy Rash Verified 09/11/19 16:06 meperidine [From Demerol] Allergy Itching Verified 09/11/19 11:41 morphine Allergy Itching Verified 09/12/19 08:24 nitrofurantoin Allergy Itching Verified 09/11/19 11:41 Penicillins Allergy Itching Verified 09/11/19 11:41 promethazine [From Phenergan] Allergy Itching Verified 09/11/19 11:41 Sulfa (Sulfonamide Allergy Dizziness Verified 09/11/19 11:41 Antibiotics) Home Medications: Home Meds Ferrous Sulfate 325 mg PO BIDMEALS #60 tab 11/18/18 [Rx] Pantoprazole [ProTONIX] 40 mg PO 0600 #60 tab.cr 11/18/18 [Rx] Multivit-Min/Iron/Folic/Lutein [Multivitamin Women 50 Plus Tab] 2 tab PO DAILY 09/11/19 [History] Past Medical History - Past Health History Medical/Surgical History: Denies Medical/Surgical History HEENT History: Reports: Hard of Hearing Cardiovascular History: Reports: Hypertension, Other (See Below) Other Cardiovascular History: Rheumatic fever as a child. Respiratory History: Reports: Other (See Below) Other Respiratory History: HX OF TRACH Gastrointestinal History: Reports: Other (See Below) Other Gastrointestinal History: HX GASTRIC ULCER W/O HEMORRHAGE. Genitourinary History: Reports: Renal Calculus, UTI, Recurrent Musculoskeletal History: Reports: Arthritis, Fracture, Osteoarthritis Other Musculoskeletal History: Left foot fracture. 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 Psychiatric History: Reports: Anxiety, Depression Hematologic History: Reports: B12 Deficiency, Blood Transfusion(s) Immunologic History: Reports: None Oncologic (Cancer) History: Reports: None Dermatologic History: Reports: None - Infectious Disease History Infectious Disease History: Reports: Chicken Pox, Shingles Other Infectious Disease History: Patient doesn't recall her childhood diseases. - Past Surgical History Head Surgeries/Procedures: Reports: None HEENT Surgical History: Reports: Cataract Surgery, Oral Surgery, Tonsillectomy Other HEENT Surgeries/Procedures: bilat cataract Cardiovascular Surgical History: Reports: Other (See Below) Respiratory Surgical History: Reports: Tracheostomy GI Surgical History: Reports: Appendectomy, Cholecystectomy, Colonoscopy, EGD, Other (See Below) Other GI Surgeries/Procedures: Perforated duodenum with endoscopy. Female Surgical History: Reports: None Social & Family History - Family History Family Medical History: Noncontributory - Caffeine Use Caffeine Use: Reports: Coffee H&P Review of Systems - Review of Systems: Review Of Systems: Comprehensive ROS is negative, except as noted in HPI. Exam - Exam Exam: See Below - Exam General: Alert, Oriented HEENT: PERRLA Lungs: Clear to Auscultation, Other (Tender right side) GI/Abdominal Exam: Normal Bowel Sounds, Distended, Guarding (Female) Exam: Deferred Rectal (Female) Exam: Deferred Neurological: Cranial Nerves Intact Neuro Extensive - Mental Status: Alert, Oriented x3 Psychiatric: Alert, Anxious - Problem List (1) Multiple rib fractures SNOMED Code(s): 7162581 ICD Code: S22.49XA - MULTIPLE FRACTURES OF RIBS, UNSP SIDE, INIT FOR CLOS FX Status: Acute Onset Date: ~09/11/19 Qualifiers: Encounter type: initial encounter Fracture type: closed Laterality: right Qualified Code(s): S22.41XA - Multiple fractures of ribs, right side, initial encounter for closed fracture (2) Fall at home SNOMED Code(s): 21011179 ICD Code: W19.XXXA - UNSPECIFIED FALL, INITIAL ENCOUNTER; Y92.009 - UNSP PLACE IN [facility] (PRIVATE) RESIDENCE PLACE Status: Acute Qualifiers: Encounter type: subsequent encounter Qualified Code(s): W19.XXXD - Unspecified fall, subsequent encounter; Y92.009 - Unspecified place in unspecified non-institutional (private) residence as the place of occurrence of the external cause (3) Acute exacerbation of chronic low back pain SNOMED Code(s): 767334521 ICD Code: M54.5 - LOW BACK PAIN; G89.29 - OTHER CHRONIC PAIN Status: Acute (4) Cognitive dysfunction SNOMED Code(s): 229319357 ICD Code: F09 - UNSP MENTAL DISORDER DUE TO KNOWN PHYSIOLOGICAL CONDITION Status: Acute (5) Constipation SNOMED Code(s): 87039307 ICD Code: K59.00 - CONSTIPATION, UNSPECIFIED Status: Acute Qualifiers: Constipation type: unspecified constipation type Qualified Code(s): K59.00 - Constipation, unspecified (6) Generalized weakness SNOMED Code(s): 28239988 ICD Code: R53.1 - WEAKNESS Status: Acute (7) HTN (hypertension) SNOMED Code(s): 59704168 ICD Code: I10 - ESSENTIAL (PRIMARY) HYPERTENSION Status: Acute Qualifiers: Hypertension type: essential hypertension Qualified Code(s): I10 - Essential (primary) hypertension Problem List Initiated/Reviewed/Updated: Yes Orders Last 24hrs: Active Orders 24 hr Category Date Time Status Patient Status [ADT] Routine ADT 09/14/19 17:13 Active Height and Weight [RC] WEEKLY Care 09/14/19 17:13 Active Oxygen Therapy [RC] PRN Care 09/14/19 17:13 Active Up With Assistance [RC] ASDIRECTED Care 09/14/19 17:13 Active VTE/DVT Education [RC] Per Unit Routine Care 09/14/19 17:13 Active Vital Signs [RC] PER UNIT ROUTINE Care 09/14/19 17:13 Active OT Evaluation and Treatment [CONS] Routine Cons 09/14/19 17:13 Active PT Evaluation and Treatment [CONS] Routine Cons 09/14/19 17:13 Active Regular Diet [DIET] Diet 09/14/19 Breakfast Active ALPRAZolam [Xanax] Med 09/14/19 17:13 Active 0.25 mg PO Q6H PRN Acetaminophen/HYDROcodone [[place] 325-5 MG] Med 09/14/19 17:13 Active 1 tab PO Q4H PRN Celecoxib [CeleBREX] Med 09/14/19 21:00 Active 200 mg PO BID Resuscitation Status Routine Resus Stat 09/14/19 17:13 Ordered Medication Orders Hydrocodone Bitart/Acetaminophen ([place] 325-5 Mg) 1 tab PO Q4H PRN PRN Reason: Pain (moderate 4-6) Alprazolam (Xanax) 0.25 mg PO Q6H PRN PRN Reason: Agitation Celecoxib (Celebrex) 200 mg PO BID [facility] Assessment/Plan Comment:: Admit to SB.PT/OT. Start Oral narcotics for pain control.NSAIDS-I have chosen Cox2 Inhibitors due to her h/o GI bleed and PUD.Miralax for constipation.
[2019-09-14] MEDS ORDERED: Celecoxib 100 MG Cap ONE (21:12)
[2019-09-14] MEDS: Celecoxib 200 MG Cap PO SCH (21:22)
[2019-09-14] MEDS: Acetaminophen/HYDROcodone 325-5 MG Tab PO PRN (21:25)
[2019-09-15] MEDS: Acetaminophen/HYDROcodone 325-5 MG Tab PO PRN ×3 (03:59→18:46)
[2019-09-15] MEDS: Celecoxib 200 MG Cap PO SCH ×2 (09:04→20:18)
[2019-09-15] MEDS: Multivitamins with Iron/Calcium/Folic Acid/Minerals Tab PO SCH (10:52)
[2019-09-15] MEDS: Polyethylene Glycol 3350 Powder 17 GM Packet PO SCH ×2 (10:52→20:19)
[2019-09-15] MEDS: Pantoprazole 40 MG Tab.CR PO SCH (10:54)
[2019-09-16] MEDS: Acetaminophen/HYDROcodone 325-5 MG Tab PO PRN ×4 (04:15→20:21)
[2019-09-16] MEDS: Pantoprazole 40 MG Tab.CR PO SCH (06:05)
[2019-09-16] MEDS: Polyethylene Glycol 3350 Powder 17 GM Packet PO SCH ×2 (08:07→20:16)
[2019-09-16] MEDS: Celecoxib 200 MG Cap PO SCH ×2 (08:07→20:17)
[2019-09-16] MEDS: Multivitamins with Iron/Calcium/Folic Acid/Minerals Tab PO SCH (08:07)
--- NOTE | 2019-09-16 11:26 | PN ---
DATE SEEN: 09/16/2019 SUBJECTIVE: Tessa Brown is an 83-year-old female who is currently in swing bed. She took a fall, hitting on the bedroom dresser, sustaining 5 right rib fractures. Had measurable complicated pain yesterday, better today. Has been up and ambulating with reasonable success. OBJECTIVE: VITAL SIGNS: 36.3, 74, 125/46, 16, and 97. GENERAL: Appears comfortable. A bit of forced speech. NECK: Benign. Thyroid small. No JVD. CHEST: Clear in all lung arroyo, some guarding on the right side. ABDOMEN: Benign. EXTREMITIES: Five rib fractures. PLAN: Pain control on board. Hydrocodone, alprazolam, Celebrex, multivitamin, Protonix, and Maalox. Discharge tomorrow. /[id number] BRENDA/ROSA
[2019-09-17] MEDS: Pantoprazole 40 MG Tab.CR PO SCH (06:27)
[2019-09-17] MEDS: Acetaminophen/HYDROcodone 325-5 MG Tab PO PRN (06:29)
[2019-09-17] MEDS: Polyethylene Glycol 3350 Powder 17 GM Packet PO SCH (08:43)
[2019-09-17] MEDS: Multivitamins with Iron/Calcium/Folic Acid/Minerals Tab PO SCH (08:43)
[2019-09-17] MEDS: Celecoxib 200 MG Cap PO SCH (08:43)
[2019-09-17 09:05] VITALS: BP 119/66; PULSE 73
[2019-09-17] MEDS ORDERED: Acetaminophen 500 MG Tab PO SCH (14:00)
--- NOTE | 2019-09-17 18:48 | DISCH ---
DISCHARGE DATE: 09/17/2019 Complicated chest pain secondary to 5 rib fractures. HISTORY OF PRESENT ILLNESS: Tessa Brown is an 83-year-old female, lives alone. She presented to swing bed for rehab and intervention. Taken a fall sustaining 5 rib fractures. Acute care stay uncomplicated. PT/OT involved. Ambulation. Pain control was satisfactory, and progress was made. A day prior to discharge, she was ambulating, successful dressing, and was comfortable with intervention. OBJECTIVE: VITAL SIGNS: 35.8, 73, 119/66, 14, and 95. GENERAL: In good spirits as always. NECK: Benign. Thyroid small. CHEST: On auscultation, clear all lung arroyo. Intercostal pain, right ribcage. HEART: Distant heart sounds without ectopy or significant murmur. ABDOMEN: Benign. ASSESSMENT: Rib fractures. PLAN: Discharge home. Tylenol 3000 mg in divided doses. Celebrex 200 mg one p.o. b.i.d., home medications, and care. ADDENDUM: Half an hour intervention and planning in discharge of this patient. /[id number] BRENDA/ROSA
== END 2019-09-17 14:50 | disposition home or self-care (01) | DRG 561 ==
LOC: FB.MS 16:44
PROVIDERS: ADMIT Family Medicine; ATTEND Family Medicine
DX: S22.41XD Multiple fractures of ribs, right side, subsequent encounter for fracture with routine healing (principal); M54.5 Low back pain; G89.29 Other chronic pain; K59.00 Constipation, unspecified; I10 Essential (primary) hypertension; W19.XXXD Unspecified fall, subsequent encounter; Y92.009 Unspecified place in unspecified non-institutional (private) residence as the place of occurrence of the external cause
CPT/HCPCS: 97110-GP; 97116-GP; 97530-GO; 97535-GO; A9270-GY

== ENCOUNTER 2021-01-19 13:59 | Emergency (ER) | payer MEDICARE ==
[2021-01-19] MEDS ORDERED: Gabapentin 100 MG Cap PO ONE ×2 (14:00→14:39)
[2021-01-19] MEDS ORDERED: Ketorolac 30 MG/ML SDV IM ONE (14:38)
[2021-01-19] MEDS ORDERED: Sodium Chloride 0.9% 1,000 ML IV ONE (14:48)
[2021-01-19] MEDS ORDERED: Ketorolac 30 MG/ML SDV IVPUSH ONE (14:48)
[2021-01-19] MEDS ORDERED: Sodium Chloride 0.9% 10 ML Syringe FLUSH PRN (15:15)
--- NOTE | 2021-01-19 16:49 | EDM.PDOC ---
ED HPI GENERAL MEDICAL PROBLEM - General Stated Complaint: BACK PAIN/UTI Time Seen by Provider: 01/19/21 14:25 Source of Information: Reports: Patient, Family History Limitations: Reports: No Limitations - History of Present Illness INITIAL COMMENTS - FREE TEXT/NARRATIVE: c/o L low back pain today pt says she had shingles pain in the same area 1y ago, feels the same has pain in the lower back, some radiates to the left lower flank and even a little pain onto the left lateral thigh skin intact, SLR unremarkable pt lives alone, here with sister PMH includes TOD, dementia, cognitive dysfunction has had several pain c/o in past including shingles, pleurisy, postherpetic neuralgia, chronic LBP, DJD l-spine Left Middle Back Pain Score (Numeric/FACES): 5 - Related Data Allergies Allergy/AdvReac Type Severity Reaction Status Date / Time ciprofloxacin Allergy Rash Verified 01/19/21 16:35 meperidine [From Demerol] Allergy Itching Verified 01/19/21 16:35 morphine Allergy Itching Verified 01/19/21 16:35 nitrofurantoin Allergy Itching Verified 01/19/21 16:35 Penicillins Allergy Itching Verified 01/19/21 16:35 promethazine [From Phenergan] Allergy Itching Verified 01/19/21 16:35 Sulfa (Sulfonamide Allergy Dizziness Verified 01/19/21 16:35 Antibiotics) Home Meds: Home Meds Ferrous Sulfate 325 mg PO BIDMEALS #60 tab 11/18/18 [Rx] Pantoprazole [ProTONIX] 40 mg PO 0600 #60 tab.cr 11/18/18 [Rx] Multivit-Min/Iron/Folic/Lutein [Multivitamin Women 50 Plus Tab] 2 tab PO DAILY 09/11/19 [History] Acetaminophen [Tylenol Extra Strength] 1,000 mg PO TID tablet 09/17/19 [Rx] Celecoxib [CeleBREX] 200 mg PO BID #20 cap 09/17/19 [Rx] polyethylene glycoL 3350 [MiraLAX] 17 gm PO BID packet 09/17/19 [Rx] Gabapentin [Neurontin] 100 mg PO TID #15 cap 01/19/21 [Rx] Past Medical History - Past Health History Medical/Surgical History: Denies Medical/Surgical History HEENT History: Reports: Hard of Hearing Cardiovascular History: Reports: Hypertension, Other (See Below) Other Cardiovascular History: Rheumatic fever as a child. Respiratory History: Reports: Other (See Below) Other Respiratory History: HX OF TRACH Gastrointestinal History: Reports: Other (See Below) Other Gastrointestinal History: HX GASTRIC ULCER W/O HEMORRHAGE. Genitourinary History: Reports: Renal Calculus, UTI, Recurrent Musculoskeletal History: Reports: Arthritis, Fracture, Osteoarthritis Other Musculoskeletal History: Left foot fracture. 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 Psychiatric History: Reports: Anxiety, Depression Hematologic History: Reports: B12 Deficiency, Blood Transfusion(s) Immunologic History: Reports: None Oncologic (Cancer) History: Reports: None Dermatologic History: Reports: None - Infectious Disease History Infectious Disease History: Reports: Chicken Pox, Shingles Other Infectious Disease History: Patient doesn't recall her childhood diseases. - Past Surgical History Head Surgeries/Procedures: Reports: None HEENT Surgical History: Reports: Cataract Surgery, Oral Surgery, Tonsillectomy Other HEENT Surgeries/Procedures: bilat cataract Cardiovascular Surgical History: Reports: Other (See Below) Respiratory Surgical History: Reports: Tracheostomy GI Surgical History: Reports: Appendectomy, Cholecystectomy, Colonoscopy, EGD, Other (See Below) Other GI Surgeries/Procedures: Perforated duodenum with endoscopy. Female Surgical History: Reports: None Social & Family History - Family History Family Medical History: No Pertinent Family History - Caffeine Use Caffeine Use: Reports: Coffee ED ROS GENERAL - Review of Systems Review Of Systems: See Below Constitutional: Reports: No Symptoms HEENT: Reports: No Symptoms Respiratory: Reports: No Symptoms Cardiovascular: Reports: No Symptoms Endocrine: Reports: No Symptoms GI/Abdominal: Reports: Abdominal Pain : Reports: No Symptoms Musculoskeletal: Reports: No Symptoms Skin: Reports: No Symptoms Neurological: Reports: No Symptoms Psychiatric: Reports: No Symptoms Hematologic/Lymphatic: Reports: No Symptoms Immunologic: Reports: No Symptoms ED EXAM, GENERAL - Physical Exam Exam: See Below Exam Limited By: No Limitations General Appearance: Alert, WD/WN, Mild Distress Nose: Normal Inspection Throat/Mouth: Normal Voice, No Airway Compromise Head: Atraumatic, Normocephalic Neck: Normal Inspection, Supple, Non-Tender, Full Range of Motion Respiratory/Chest: No Respiratory Distress, Lungs Clear Cardiovascular: Regular Rate, Rhythm, No Edema GI/Abdominal: Normal Bowel Sounds, Soft, Non-Tender, No Distention, Other. No: Guarding, Rigid, Rebound (nontender at L flank, no CVAT b/l) Back Exam: Normal Inspection, Full Range of Motion, Other (SLR to 45 degrees neg). No: CVA Tenderness (R), CVA Tenderness (L), Muscle Spasm, Paraspinal Tenderness, Vertebral Tenderness Extremities: Normal Inspection, Non-Tender, No Pedal Edema Neurological: Alert, Oriented, CN II-XII Intact, Normal Cognition, No Motor/Sensory Deficits Psychiatric: Normal Affect, Normal Mood Skin Exam: Warm, Dry, Intact, Normal Color, No Rash Lymphatic: No Adenopathy Course - Vital Signs Last Recorded V/S: Last Vital Signs Temp 36.2 C 01/19/21 14:00 Pulse 85 01/19/21 14:00 Resp 16 01/19/21 14:00 BP 135/73 01/19/21 14:00 Pulse Ox 92 L 01/19/21 14:00 - Orders/Labs/Meds Orders: Active Orders 24 hr Category Date Time Status Abdomen Pelvis wo Cont [CT] Stat Exams 01/19/21 14:48 Taken Sodium Chloride 0.9% [Saline Flush] Med 01/19/21 15:15 Active 10 ml FLUSH ASDIRECTED PRN Medication Orders Sodium Chloride (Sodium Chloride 0.9% 10 Ml Syringe) 10 ml FLUSH ASDIRECTED PRN PRN Reason: Keep Vein Open Last Admin: 01/19/21 15:15 Dose: 10 ml Documented by: NICK Labs: Laboratory Tests 01/19/21 01/19/21 01/19/21 Range/Units 15:00 15:05 15:05 WBC 6.5 (3.0-10.3) x10-3/uL RBC 4.81 (3.60-5.20) x10(6)uL Hgb 15.0 (11.4-15.5) g/dL Hct 44.2 (34.2-48.2) % MCV 91.8 (76.7-100.5) fL MCH 31.1 (23.9-33.9) pg MCHC 33.9 (31.9-34.8) g/dL RDW 14.3 (12.3-16.5) % Plt Count 216 (151-488) x10(3)uL MPV 8.4 (7.1-12.4) fL Neut % (Auto) 70.4 (30.8-76.2) % Lymph % (Auto) 17.0 L (18.4-52.1) % [place] % (Auto) 10.6 (4.4-15.7) % Eos % (Auto) 1.5 (0.6-8.1) % Baso % (Auto) 0.5 (0.2-1.5) % Neut # (Auto) 4.6 (1.5-6.3) x10-3/uL Lymph # (Auto) 1.1 (1.0-4.4) x10-3/uL [place] # (Auto) 0.7 (0.3-1.0) x10-3/uL Eos # (Auto) 0.1 (0.0-0.8) x10-3/uL Baso # (Auto) 0.0 (0.0-0.1) x10-3/uL Sodium 141 (135-145) mmol/L Potassium 4.2 (3.5-5.3) mmol/L Chloride 104 (100-110) mmol/L Carbon Dioxide 27 (21-32) mmol/L BUN 25 H (7-18) mg/dL Creatinine 1.3 H (0.55-1.02) mg/dL Est Cr Clr Drug Dosing TNP Estimated GFR (MDRD) 39 L (>60) BUN/Creatinine Ratio 19.2 (9-20) Glucose 91 (80-116) mg/dL Calcium 9.1 (8.6-10.2) mg/dL Total Bilirubin 0.5 (0.1-1.3) mg/dL AST 18 D (5-25) IU/L ALT 24 D (12-36) U/L Alkaline Phosphatase 102 (56-112) IU/L C-Reactive Protein (0.5-0.9) mg/dL Total Protein 7.3 (6.0-8.0) g/dL Albumin 3.3 (3.2-4.6) g/dL Globulin 4.0 g/dL Albumin/Globulin Ratio 0.8 Urine Color Yellow (YELLOW) Urine Appearance Slightly cloudy (CLEAR) Urine pH 5.0 (5.0-6.5) Ur Specific [place] 1.010 (1.010-1.025) Urine Protein Negative (NEGATIVE) mg/dL Urine Glucose (UA) Normal (NORMAL) mg/dL Urine Ketones Negative (NEGATIVE) mg/dL Urine Occult Blood Negative (NEGATIVE) Urine Nitrite Negative (NEGATIVE) Urine Bilirubin Negative (NEGATIVE) Urine Urobilinogen Normal (NEGATIVE) mg/dL Ur Leukocyte Esterase Small H (NEGATIVE) Urine RBC 0-5 (0-5) Urine WBC 10-20 H (0-5) Ur Squamous Epith Cells Few H (NS,R,O) Urine Bacteria Few H (NS) 01/19/21 Range/Units 15:05 WBC (3.0-10.3) x10-3/uL RBC (3.60-5.20) x10(6)uL Hgb (11.4-15.5) g/dL Hct (34.2-48.2) % MCV (76.7-100.5) fL MCH (23.9-33.9) pg MCHC (31.9-34.8) g/dL RDW (12.3-16.5) % Plt Count (151-488) x10(3)uL MPV (7.1-12.4) fL Neut % (Auto) (30.8-76.2) % Lymph % (Auto) (18.4-52.1) % [place] % (Auto) (4.4-15.7) % Eos % (Auto) (0.6-8.1) % Baso % (Auto) (0.2-1.5) % Neut # (Auto) (1.5-6.3) x10-3/uL Lymph # (Auto) (1.0-4.4) x10-3/uL [place] # (Auto) (0.3-1.0) x10-3/uL Eos # (Auto) (0.0-0.8) x10-3/uL Baso # (Auto) (0.0-0.1) x10-3/uL Sodium (135-145) mmol/L Potassium (3.5-5.3) mmol/L Chloride (100-110) mmol/L Carbon Dioxide (21-32) mmol/L BUN (7-18) mg/dL Creatinine (0.55-1.02) mg/dL Est Cr Clr Drug Dosing Estimated GFR (MDRD) (>60) BUN/Creatinine Ratio (9-20) Glucose (80-116) mg/dL Calcium (8.6-10.2) mg/dL Total Bilirubin (0.1-1.3) mg/dL AST (5-25) IU/L ALT (12-36) U/L Alkaline Phosphatase (56-112) IU/L C-Reactive Protein 0.8 (0.5-0.9) mg/dL Total Protein (6.0-8.0) g/dL Albumin (3.2-4.6) g/dL Globulin g/dL Albumin/Globulin Ratio Urine Color (YELLOW) Urine Appearance (CLEAR) Urine pH (5.0-6.5) Ur Specific [place] (1.010-1.025) Urine Protein (NEGATIVE) mg/dL Urine Glucose (UA) (NORMAL) mg/dL Urine Ketones (NEGATIVE) mg/dL Urine Occult Blood (NEGATIVE) Urine Nitrite (NEGATIVE) Urine Bilirubin (NEGATIVE) Urine Urobilinogen (NEGATIVE) mg/dL Ur Leukocyte Esterase (NEGATIVE) Urine RBC (0-5) Urine WBC (0-5) Ur Squamous Epith Cells (NS,R,O) Urine Bacteria (NS) Meds: Medications Generic Name Dose Route Start Last Admin Trade Name Freq PRN Reason Stop Dose Admin Sodium Chloride 10 ml 01/19/21 15:15 01/19/21 15:15 Sodium Chloride 0.9% 10 Ml Syringe FLUSH 10 ml ASDIRECTED PRN Administration Keep Vein Open Discontinued Medications Generic Name Dose Route Start Last Admin Trade Name Freq PRN Reason Stop Dose Admin Gabapentin 100 mg 01/19/21 14:39 01/19/21 15:05 Gabapentin 100 Mg Cap PO 01/19/21 14:40 100 mg ONETIME ONE Administration Sodium Chloride 1,000 mls @ 999 mls/hr 01/19/21 14:48 01/19/21 15:05 Normal Saline IV 01/19/21 15:48 999 mls/hr .BOLUS ONE Administration Ketorolac Tromethamine 30 mg 01/19/21 14:38 01/19/21 14:51 Ketorolac 30 Mg/Ml Sdv IM 01/19/21 14:39 Not Given ONETIME ONE Ketorolac Tromethamine 15 mg 01/19/21 14:48 01/19/21 15:05 Ketorolac 30 Mg/Ml Sdv IVPUSH 01/19/21 14:49 15 mg ONETIME ONE Administration - Re-Assessments/Exams Free Text/Narrative Re-Assessment/Exam: 01/19/21 18:07 pt felt better after Toradol IM and gabapentin 100 mg PO, pain went from 5/10 to 4/10, however did have some additional back up to 5/10 at time of d/c and was more restless holding her hand on her L flank, was given APAP 1000 MG and a one time dose of tramadol 50 mg and 4% lidocaine patch at time of d/c pt did seem to tolerate the gabapentin 100 mg without sedation d/t pt's baseline cognitive issues, sister reports she checks on the pt at least 2x daily and puts out her meds CT abd/pelvis without contrast showed mild L hydroureter and hydronephrosis without evidence of a stone although a stricture was hypothesized by radiologist, there was a questionable nodule at LLL however labs and clinical findings show no evidence of infection (negative CRP/WBC/segs) pt does have increase of BUN/creat c/w a partial ureteral obstruction with etiology uncertain, a small stone not seen by radiologist cannot be excluded Departure - Departure Time of Disposition: 17:54 Disposition: Home, Self-Care 01 Condition: Good Clinical Impression: Postherpetic neuralgia, Elevated serum creatinine, Hydroureter, Hydronephrosis - Discharge Information *PRESCRIPTION DRUG MONITORING PROGRAM REVIEWED*: Not Applicable *COPY OF PRESCRIPTION DRUG MONITORING REPORT IN PATIENT RICHARD: Not Applicable Prescriptions: Gabapentin [Neurontin] 100 mg PO TID #15 cap Instructions: Postherpetic Neuralgia Additional Instructions: For pain, take acetaminophen 500 mg 2 tabs 3 times a day for 5 days, longer if needed. For pain, take gabapentin 100 mg 1 capsule 3 times a day for up to 5 days. Be careful when on your feet as sometimes gabapentin can make you sleepy or dizzy. For pain, use 4% lidocaine patch daily for 5 days. For pain, use ice for 10 minutes every 1-2 hours while awake. See Dr Allen or one of his colleagues in 2 days. However, return to Emergency Department this weekend if you are feeling worse. Sepsis Event Note (ED) - Focused Exam Vital Signs: Vital Signs Temp Pulse Resp BP Pulse Ox 01/19/21 14:00 36.2 C 85 16 135/73 92 L - My Orders Last 24 Hours: My Active Orders 01/19/21 14:48 Abdomen Pelvis wo Cont [CT] Stat 01/19/21 15:15 Sodium Chloride 0.9% [Saline Flush] 10 ml FLUSH ASDIRECTED PRN - Assessment/Plan Last 24 Hours: My Active Orders 01/19/21 14:48 Abdomen Pelvis wo Cont [CT] Stat 01/19/21 15:15 Sodium Chloride 0.9% [Saline Flush] 10 ml FLUSH ASDIRECTED PRN
[2021-01-19] MEDS ORDERED: Lidocaine 4% 1 each Patch TOP ONE (17:49)
[2021-01-19] MEDS ORDERED: traMADol 50 MG Tab PO ONE (17:49)
[2021-01-19] MEDS ORDERED: Acetaminophen 500 MG Tab PO ONE (17:50)
[2021-01-19] MEDS ORDERED: Gabapentin 100 MG Cap ONE ×2 (18:18→18:19)
[2021-01-19] MEDS ORDERED: Gabapentin 100 MG Cap PO SCH (21:00)
[2021-01-19 21:02] VITALS: BP 130/70; PULSE 82
== END 2021-01-19 18:20 | disposition home or self-care (01) ==
LOC: FB.ED 13:59
DX: N13.30 Unspecified hydronephrosis (principal); R94.4 Abnormal results of kidney function studies; B02.29 Other postherpetic nervous system involvement; I10 Essential (primary) hypertension; Z88.5 Allergy status to narcotic agent; Z88.1 Allergy status to other antibiotic agents; Z88.0 Allergy status to penicillin; Z88.2 Allergy status to sulfonamides; Z88.8 Allergy status to other drugs, medicaments and biological substances
CPT/HCPCS: 36415; 74176; 80053; 81001; 85025; 86140; 96374; 99284; A9270; J1885; J7030

== ENCOUNTER 2021-08-23 14:08 | Emergency (ER) | payer MEDICARE ==
[2021-08-23] MEDS ORDERED: Sodium Chloride 0.9% 10 ML Syringe FLUSH PRN ×3 (14:17→15:09)
[2021-08-23] MEDS ORDERED: Aspirin 81 MG Tab.Chew PO STA ×2 (14:17→15:12)
[2021-08-23] MEDS ORDERED: Nitroglycerin 0.4 MG Tab.SL SL STA (14:17)
[2021-08-23] MEDS ORDERED: Heparin Sodium 5,000 Units/ML Vial IVPUSH ONE (15:12)
[2021-08-23] MEDS ORDERED: Heparin Sodium/0.45% NaCl 500 ML IV SCH (15:13)
[2021-08-23] MEDS ORDERED: Nitroglycerin 0.4 MG Tab.SL SL PRN (15:14)
[2021-08-23] MEDS ORDERED: Heparin Sodium/0.45% NaCl 25,000 UNITS/500 ML BAG IV SCH (15:30)
[2021-08-23] MEDS ORDERED: diphenhydrAMINE 50 MG/ML SDV IVPUSH STA (15:41)
[2021-08-23] MEDS ORDERED: Morphine 2 MG/ML SYRINGE IVPUSH STA (15:41)
[2021-08-23] MEDS: Metoprolol Tartrate 25 MG Tab PO STA ×2 (16:11→16:24)
[2021-08-23 16:24] VITALS: BP 132/69; PULSE 78
== END 2021-08-23 17:09 ==
LOC: FB.ED 14:08 → SUPCPDRO 14:08 → FB.ED 17:09
DX: I24.9 Acute ischemic heart disease, unspecified (principal); I10 Essential (primary) hypertension; Z88.1 Allergy status to other antibiotic agents; Z88.5 Allergy status to narcotic agent; Z88.0 Allergy status to penicillin; Z88.2 Allergy status to sulfonamides; Z20.822 Contact with and (suspected) exposure to COVID-19
CPT/HCPCS: 36415; 71045; 80053; 83880; 84484; 85025; 85379; 85610; 85730; 93005; 93010; 96365; 96366; 96375; 99284; 99285-25; A9270-GY; J1200; J1644; J2270; U0002

== ENCOUNTER 2021-08-28 11:53 | Inpatient (IN) | payer MEDICARE ==
[2021-08-28] MEDS ORDERED: Albuterol 0.083% 2.5 MG/3 ML Neb Soln INH PRN (17:06)
[2021-08-28] MEDS: Carvedilol 6.25 MG Tab PO SCH (18:09)
[2021-08-28] MEDS: Ticagrelor 90 MG Tab PO SCH (20:33)
[2021-08-29] MEDS: Pantoprazole 40 MG Tab.CR PO SCH (05:18)
[2021-08-29] MEDS: Carvedilol 6.25 MG Tab PO SCH ×2 (08:47→17:28)
[2021-08-29] MEDS: Ticagrelor 90 MG Tab PO SCH ×2 (08:48→20:28)
[2021-08-29] MEDS: Rosuvastatin 20 MG Tab PO SCH (08:48)
[2021-08-29] MEDS: Ferrous Sulfate 325 MG Tab PO SCH (08:48)
[2021-08-29] MEDS: Aspirin 81 MG Tab.EC PO SCH (08:48)
[2021-08-29] MEDS: Lisinopril 5 MG Tab PO SCH (08:49)
[2021-08-29] MEDS: Cyanocobalamin (Vitamin B12) 1,000 MCG Tab PO SCH (08:49)
[2021-08-30] MEDS: Pantoprazole 40 MG Tab.CR PO SCH (06:00)
[2021-08-30] MEDS: Carvedilol 6.25 MG Tab PO SCH ×2 (08:15→17:32)
[2021-08-30] MEDS: Rosuvastatin 20 MG Tab PO SCH (08:16)
[2021-08-30] MEDS: Ticagrelor 90 MG Tab PO SCH ×2 (08:16→20:05)
[2021-08-30] MEDS: Aspirin 81 MG Tab.EC PO SCH (08:17)
[2021-08-30] MEDS: Lisinopril 5 MG Tab PO SCH (08:17)
[2021-08-30] MEDS: Cyanocobalamin (Vitamin B12) 1,000 MCG Tab PO SCH (08:17)
[2021-08-30] MEDS: Ferrous Sulfate 325 MG Tab PO SCH (08:17)
[2021-08-30] MEDS ORDERED: Nitroglycerin 0.4 MG Tab.SL SL PRN (09:23)
[2021-08-31] MEDS: Pantoprazole 40 MG Tab.CR PO SCH (05:48)
[2021-08-31] MEDS: Ferrous Sulfate 325 MG Tab PO SCH (08:39)
[2021-08-31] MEDS: Ticagrelor 90 MG Tab PO SCH ×2 (08:39→20:00)
[2021-08-31] MEDS: Rosuvastatin 20 MG Tab PO SCH (08:39)
[2021-08-31] MEDS: Cyanocobalamin (Vitamin B12) 1,000 MCG Tab PO SCH (08:39)
[2021-08-31] MEDS: Carvedilol 6.25 MG Tab PO SCH ×2 (08:40→17:54)
[2021-08-31] MEDS: Aspirin 81 MG Tab.EC PO SCH (08:40)
[2021-08-31] MEDS: Lisinopril 5 MG Tab PO SCH (08:41)
[2021-08-31] MEDS ORDERED: Ondansetron 4 MG Tab.DIS PO PRN (09:43)
[2021-09-01] MEDS: Pantoprazole 40 MG Tab.CR PO SCH (06:16)
[2021-09-01] MEDS: Carvedilol 6.25 MG Tab PO SCH ×2 (08:47→17:55)
[2021-09-01] MEDS: Ticagrelor 90 MG Tab PO SCH ×2 (08:49→20:04)
[2021-09-01] MEDS: Aspirin 81 MG Tab.EC PO SCH (08:49)
[2021-09-01] MEDS: Ferrous Sulfate 325 MG Tab PO SCH (08:49)
[2021-09-01] MEDS: Rosuvastatin 20 MG Tab PO SCH (08:49)
[2021-09-01] MEDS: Lisinopril 5 MG Tab PO SCH (08:50)
[2021-09-01] MEDS: Cyanocobalamin (Vitamin B12) 1,000 MCG Tab PO SCH (08:50)
[2021-09-02] MEDS: Pantoprazole 40 MG Tab.CR PO SCH (05:04)
[2021-09-02 05:24] VITALS: BP 139/60; PULSE 70
[2021-09-02] MEDS: Cyanocobalamin (Vitamin B12) 1,000 MCG Tab PO SCH (08:17)
[2021-09-02] MEDS: Carvedilol 6.25 MG Tab PO SCH (08:17)
[2021-09-02] MEDS: Aspirin 81 MG Tab.EC PO SCH (08:17)
[2021-09-02] MEDS: Ticagrelor 90 MG Tab PO SCH (08:17)
[2021-09-02] MEDS: Rosuvastatin 20 MG Tab PO SCH (08:17)
[2021-09-02] MEDS: Ferrous Sulfate 325 MG Tab PO SCH (08:17)
[2021-09-02] MEDS: Lisinopril 5 MG Tab PO SCH (08:18)
== END 2021-09-02 14:50 | disposition home health service (06) | DRG 947 ==
LOC: FB.MS 14:44
PROVIDERS: ADMIT Family Medicine; ATTEND Family Medicine
DX: R53.81 Other malaise (principal); I21.9 Acute myocardial infarction, unspecified; I25.10 Atherosclerotic heart disease of native coronary artery without angina pectoris; I10 Essential (primary) hypertension; M47.816 Spondylosis without myelopathy or radiculopathy, lumbar region; F41.1 Generalized anxiety disorder; K29.70 Gastritis, unspecified, without bleeding; H91.90 Unspecified hearing loss, unspecified ear; F32.A Depression, unspecified; D64.9 Anemia, unspecified; E53.8 Deficiency of other specified B group vitamins; M19.90 Unspecified osteoarthritis, unspecified site; Z88.1 Allergy status to other antibiotic agents; Z88.5 Allergy status to narcotic agent; Z88.8 Allergy status to other drugs, medicaments and biological substances; Z88.2 Allergy status to sulfonamides; Z79.82 Long term (current) use of aspirin; Z79.899 Other long term (current) drug therapy; Z90.49 Acquired absence of other specified parts of digestive tract; Z98.41 Cataract extraction status, right eye; Z98.42 Cataract extraction status, left eye
CPT/HCPCS: 97110-GO; 97110-GP; 97116-GP; 97161-GP; 97165-GO; 97530-GO; 97530-GP; 97535-GO; 99305; 99315; A9270-GY; Q0162

== ENCOUNTER 2021-09-03 13:04 | Emergency (ER) | payer MEDICARE ==
[2021-09-03 21:11] VITALS: BP 115/50; PULSE 76
== END 2021-09-03 14:55 | disposition home or self-care (01) ==
LOC: FB.ED 13:04
DX: S09.90XA Unspecified injury of head, initial encounter (principal); M19.90 Unspecified osteoarthritis, unspecified site; I10 Essential (primary) hypertension; Z88.1 Allergy status to other antibiotic agents; Z88.5 Allergy status to narcotic agent; Z88.2 Allergy status to sulfonamides; Z79.02 Long term (current) use of antithrombotics/antiplatelets; Z79.899 Other long term (current) drug therapy; Z79.82 Long term (current) use of aspirin; W18.09XA Striking against other object with subsequent fall, initial encounter
CPT/HCPCS: 70450; 71101-LT; 73562-RT; 99283; 99283-25

== ENCOUNTER 2021-09-19 11:39 | Observation (INO) | payer MEDICARE ==
[2021-09-19] MEDS ORDERED: Nitroglycerin 0.4 MG Tab.SL SL PRN (12:33)
[2021-09-19] MEDS ORDERED: Potassium Chloride 20 MEQ Tab.ER PO ONE (18:06)
[2021-09-19] MEDS ORDERED: Diatrizoate Meglumine/Diatrizoate Sodium 37% 30 ML Bottle PO ONE (19:31)
[2021-09-19] MEDS ORDERED: Iopamidol 755 Mg/ML 75 ML Bottle IV ONE (19:31)
[2021-09-19] MEDS: Carvedilol 6.25 MG Tab *PTOM PO SCH (19:36)
[2021-09-19] MEDS: Lactated Ringers 1,000 ML IV SCH (20:12)
[2021-09-19] MEDS: TICAGRELOR 90 MG PO SCH (20:20)
[2021-09-19] MEDS ORDERED: Rosuvastatin 20 MG Tab *PTOM PO SCH (21:00)
[2021-09-20] MEDS ORDERED: Sodium Chloride 0.9% 10 ML Syringe FLUSH PRN (05:52)
[2021-09-20] MEDS ORDERED: Pantoprazole 40 MG Tab.CR *PTOM PO SCH (06:00)
[2021-09-20] MEDS: Lactated Ringers 1,000 ML IV SCH (06:17)
[2021-09-20] MEDS: Carvedilol 6.25 MG Tab *PTOM PO SCH (08:05)
[2021-09-20] MEDS ORDERED: Aspirin 81 MG Tab.EC *PTOM PO SCH (09:00)
[2021-09-20] MEDS ORDERED: Lisinopril 5 MG Tab *PTOM PO SCH (09:00)
[2021-09-20] MEDS: TICAGRELOR 90 MG PO SCH (11:15)
[2021-09-20 12:15] VITALS: BP 166/82; PULSE 80
== END 2021-09-20 12:40 ==
LOC: INTOOBSV 11:39 → FB.MS 11:39
PROVIDERS: ADMIT Student in an Organized Health Care Education/Training Program; ATTEND Student in an Organized Health Care Education/Training Program
DX: I95.9 Hypotension, unspecified (principal); R53.1 Weakness; K59.00 Constipation, unspecified; I25.10 Atherosclerotic heart disease of native coronary artery without angina pectoris; R53.81 Other malaise; I10 Essential (primary) hypertension; M19.90 Unspecified osteoarthritis, unspecified site; D62 Acute posthemorrhagic anemia; Q25.72 Congenital pulmonary arteriovenous malformation; K27.9 Peptic ulcer, site unspecified, unspecified as acute or chronic, without hemorrhage or perforation; Z51.5 Encounter for palliative care; Z88.1 Allergy status to other antibiotic agents; Z88.6 Allergy status to analgesic agent; Z88.8 Allergy status to other drugs, medicaments and biological substances; Z88.0 Allergy status to penicillin; Z88.2 Allergy status to sulfonamides; Z79.82 Long term (current) use of aspirin; Z79.899 Other long term (current) drug therapy; Z90.49 Acquired absence of other specified parts of digestive tract; Z98.890 Other specified postprocedural states; Z20.822 Contact with and (suspected) exposure to COVID-19
CPT/HCPCS: 36415; 71046; 74177; 80048; 80053; 81001; 82270; 83735; 85025; 87086; 87088; 87186; 93005; A9270; G0378; G0379; J7120; Q9963; Q9967; U0002

== ENCOUNTER 2021-09-24 08:02 | Inpatient (IN) | payer MEDICARE ==
[2021-09-24] MEDS ORDERED: Nitroglycerin 0.4 MG Tab.SL SL PRN (15:03)
[2021-09-24] MEDS: Carvedilol 3.125 MG Tab PO SCH (18:49)
[2021-09-25] MEDS: Pantoprazole 40 MG Tab.CR PO SCH (07:35)
[2021-09-25] MEDS: Aspirin 81 MG Tab.EC PO SCH (08:20)
[2021-09-25] MEDS: Carvedilol 3.125 MG Tab PO SCH ×2 (08:20→17:08)
[2021-09-25] MEDS: Rosuvastatin 20 MG Tab PO SCH (08:20)
[2021-09-25] MEDS: CYANOCOBALAMIN 5000 MCG PO SCH (08:21)
[2021-09-25] MEDS: Lisinopril 5 MG Tab PO SCH (08:21)
[2021-09-25] MEDS: Ferrous Sulfate 325 MG Tab PO SCH (08:21)
[2021-09-25] MEDS: Clopidogrel 75 MG Tab PO SCH (08:21)
[2021-09-25] MEDS: [UNRECOGNIZED DRUG - OTHER] PO SCH (08:22)
[2021-09-25] MEDS ORDERED: Sodium Chloride 0.9% 1,000 ML IV SCH (17:30)
[2021-09-26] MEDS: Pantoprazole 40 MG Tab.CR PO SCH ×2 (05:49→22:03)
[2021-09-26] MEDS: Carvedilol 3.125 MG Tab PO SCH ×2 (08:34→18:47)
[2021-09-26] MEDS: Lisinopril 5 MG Tab PO SCH (08:35)
[2021-09-26] MEDS: Rosuvastatin 20 MG Tab PO SCH (08:35)
[2021-09-26] MEDS: Aspirin 81 MG Tab.EC PO SCH (08:35)
[2021-09-26] MEDS: Clopidogrel 75 MG Tab PO SCH (08:36)
[2021-09-26] MEDS: Ferrous Sulfate 325 MG Tab PO SCH (08:36)
[2021-09-26] MEDS: CYANOCOBALAMIN 5000 MCG PO SCH (08:37)
[2021-09-26] MEDS: [UNRECOGNIZED DRUG - OTHER] PO SCH (08:39)
[2021-09-26] MEDS ORDERED: Potassium Chloride 20 MEQ Tab.ER PO ONE (09:15)
[2021-09-27] MEDS: Ferrous Sulfate 325 MG Tab PO SCH (09:11)
[2021-09-27] MEDS: Rosuvastatin 20 MG Tab PO SCH (09:11)
[2021-09-27] MEDS: Carvedilol 3.125 MG Tab PO SCH ×2 (09:12→18:43)
[2021-09-27] MEDS: CYANOCOBALAMIN 5000 MCG PO SCH (09:12)
[2021-09-27] MEDS: Lisinopril 5 MG Tab PO SCH (09:12)
[2021-09-27] MEDS: [UNRECOGNIZED DRUG - OTHER] PO SCH (09:13)
[2021-09-27] MEDS: Pantoprazole 40 MG Tab.CR PO SCH ×2 (09:14→20:04)
[2021-09-27] MEDS: Clopidogrel 75 MG Tab PO SCH (10:57)
[2021-09-27] MEDS: Aspirin 81 MG Tab.EC PO SCH (10:57)
[2021-09-28] MEDS: [UNRECOGNIZED DRUG - OTHER] PO SCH (08:43)
[2021-09-28] MEDS: CYANOCOBALAMIN 5000 MCG PO SCH (08:43)
[2021-09-28] MEDS: Rosuvastatin 20 MG Tab PO SCH (08:44)
[2021-09-28] MEDS: Ferrous Sulfate 325 MG Tab PO SCH (08:45)
[2021-09-28] MEDS: Clopidogrel 75 MG Tab PO SCH (08:45)
[2021-09-28] MEDS: Lisinopril 5 MG Tab PO SCH (08:46)
[2021-09-28] MEDS: Aspirin 81 MG Tab.EC PO SCH (08:46)
[2021-09-28] MEDS: Pantoprazole 40 MG Tab.CR PO SCH ×2 (08:47→20:21)
[2021-09-28] MEDS: Carvedilol 3.125 MG Tab PO SCH ×2 (08:52→18:08)
[2021-09-29] MEDS: Carvedilol 3.125 MG Tab PO SCH ×2 (07:58→17:29)
[2021-09-29] MEDS: Pantoprazole 40 MG Tab.CR PO SCH ×2 (08:00→20:00)
[2021-09-29] MEDS: Ferrous Sulfate 325 MG Tab PO SCH (08:00)
[2021-09-29] MEDS: Rosuvastatin 20 MG Tab PO SCH (08:01)
[2021-09-29] MEDS: Lisinopril 5 MG Tab PO SCH (08:01)
[2021-09-29] MEDS: Aspirin 81 MG Tab.EC PO SCH (08:01)
[2021-09-29] MEDS: Clopidogrel 75 MG Tab PO SCH (08:03)
[2021-09-29] MEDS: [UNRECOGNIZED DRUG - OTHER] PO SCH (08:04)
[2021-09-29] MEDS: CYANOCOBALAMIN 5000 MCG PO SCH (08:04)
[2021-09-29] MEDS ORDERED: Magnesium Hydroxide 400 MG/5 ML Susp 30 ML Cup PO PRN (18:33)
[2021-09-30] MEDS: Carvedilol 3.125 MG Tab PO SCH ×2 (08:40→18:59)
[2021-09-30] MEDS: Pantoprazole 40 MG Tab.CR PO SCH ×2 (08:42→20:24)
[2021-09-30] MEDS: Lisinopril 5 MG Tab PO SCH (08:42)
[2021-09-30] MEDS: Aspirin 81 MG Tab.EC PO SCH (08:43)
[2021-09-30] MEDS: Rosuvastatin 20 MG Tab PO SCH (08:43)
[2021-09-30] MEDS: Clopidogrel 75 MG Tab PO SCH (08:43)
[2021-09-30] MEDS: Ferrous Sulfate 325 MG Tab PO SCH (08:43)
[2021-09-30] MEDS: CYANOCOBALAMIN 5000 MCG PO SCH (08:44)
[2021-09-30] MEDS: [UNRECOGNIZED DRUG - OTHER] PO SCH (08:45)
[2021-10-01] MEDS: CYANOCOBALAMIN 5000 MCG PO SCH (08:56)
[2021-10-01] MEDS: Ferrous Sulfate 325 MG Tab PO SCH (08:56)
[2021-10-01] MEDS: Clopidogrel 75 MG Tab PO SCH (08:56)
[2021-10-01] MEDS: Carvedilol 3.125 MG Tab PO SCH ×2 (08:56→18:31)
[2021-10-01] MEDS: Lisinopril 5 MG Tab PO SCH (08:56)
[2021-10-01] MEDS: Aspirin 81 MG Tab.EC PO SCH (08:56)
[2021-10-01] MEDS: Rosuvastatin 20 MG Tab PO SCH (08:56)
[2021-10-01] MEDS: [UNRECOGNIZED DRUG - OTHER] PO SCH (08:57)
[2021-10-01] MEDS: Pantoprazole 40 MG Tab.CR PO SCH ×2 (08:58→20:15)
[2021-10-01] MEDS ORDERED: Ondansetron 4 MG Tab.DIS PO PRN (09:44)
[2021-10-02] MEDS: Carvedilol 3.125 MG Tab PO SCH ×2 (08:22→17:45)
[2021-10-02] MEDS: Ferrous Sulfate 325 MG Tab PO SCH (08:22)
[2021-10-02] MEDS: Lisinopril 5 MG Tab PO SCH (08:22)
[2021-10-02] MEDS: Clopidogrel 75 MG Tab PO SCH (08:22)
[2021-10-02] MEDS: [UNRECOGNIZED DRUG - OTHER] PO SCH (08:22)
[2021-10-02] MEDS: Pantoprazole 40 MG Tab.CR PO SCH ×2 (08:22→20:29)
[2021-10-02] MEDS: Aspirin 81 MG Tab.EC PO SCH (08:22)
[2021-10-02] MEDS: Rosuvastatin 20 MG Tab PO SCH (08:22)
[2021-10-02] MEDS: CYANOCOBALAMIN 5000 MCG PO SCH (08:23)
[2021-10-03 06:41] VITALS: BP 124/62; PULSE 77
[2021-10-03] MEDS: Clopidogrel 75 MG Tab PO SCH (08:04)
[2021-10-03] MEDS: Carvedilol 3.125 MG Tab PO SCH (08:04)
[2021-10-03] MEDS: Ferrous Sulfate 325 MG Tab PO SCH (08:04)
[2021-10-03] MEDS: Lisinopril 5 MG Tab PO SCH (08:04)
[2021-10-03] MEDS: Pantoprazole 40 MG Tab.CR PO SCH (08:04)
[2021-10-03] MEDS: Rosuvastatin 20 MG Tab PO SCH (08:04)
[2021-10-03] MEDS: Aspirin 81 MG Tab.EC PO SCH (08:04)
[2021-10-03] MEDS: CYANOCOBALAMIN 5000 MCG PO SCH (08:05)
[2021-10-03] MEDS: [UNRECOGNIZED DRUG - OTHER] PO SCH (08:05)
== END 2021-10-03 13:30 | disposition home health service (06) | DRG 947 ==
LOC: FB.MS 12:53
PROVIDERS: ADMIT Student in an Organized Health Care Education/Training Program; ATTEND Family Medicine
DX: R53.1 Weakness (principal); Q25.72 Congenital pulmonary arteriovenous malformation; E44.0 Moderate protein-calorie malnutrition; K27.9 Peptic ulcer, site unspecified, unspecified as acute or chronic, without hemorrhage or perforation; F03.90 Unspecified dementia, unspecified severity, without behavioral disturbance, psychotic disturbance, mood disturbance, and anxiety; F41.9 Anxiety disorder, unspecified; F32.A Depression, unspecified; M19.90 Unspecified osteoarthritis, unspecified site; Z66 Do not resuscitate; H91.90 Unspecified hearing loss, unspecified ear; D64.9 Anemia, unspecified; E53.8 Deficiency of other specified B group vitamins; I25.10 Atherosclerotic heart disease of native coronary artery without angina pectoris; F41.1 Generalized anxiety disorder; I10 Essential (primary) hypertension; D50.0 Iron deficiency anemia secondary to blood loss (chronic); Z88.1 Allergy status to other antibiotic agents; Z88.5 Allergy status to narcotic agent; Z88.0 Allergy status to penicillin; Z51.5 Encounter for palliative care; Z88.2 Allergy status to sulfonamides; Z79.82 Long term (current) use of aspirin; Z79.899 Other long term (current) drug therapy; Z87.442 Personal history of urinary calculi; Z87.440 Personal history of urinary (tract) infections; Z98.41 Cataract extraction status, right eye; Z98.42 Cataract extraction status, left eye; Z90.49 Acquired absence of other specified parts of digestive tract; I25.2 Old myocardial infarction; Z68.20 Body mass index [BMI] 20.0-20.9, adult
CPT/HCPCS: 36415; 80048; 82270; 83880; 85014; 85018; 85025; 86850; 86900; 86901; 94150; 97110-GO; 97112-GP; 97116-GP; 97161-GP; 97166-GO; 97530-GO; 97530-GP; 97535-GO; 99305; 99308; 99316; A9270-GY; J7030; Q0162

== ENCOUNTER 2021-10-12 05:09 | Emergency (ER) | payer MEDICARE ==
[2021-10-12 05:11] VITALS: BP 153/62; PULSE 110
[2021-10-12] MEDS ORDERED: Sulfamethoxazole/Trimethoprim 800-160 MG Tab PO ONE (06:31)
[2021-10-14] MEDS ORDERED: Haloperidol Lactate 5 MG/ML SDV IM ONE (13:59)
== END 2021-10-12 06:46 | disposition home or self-care (01) ==
LOC: FB.ED 05:09
DX: N39.0 Urinary tract infection, site not specified (principal); I10 Essential (primary) hypertension; Z90.49 Acquired absence of other specified parts of digestive tract; Z79.899 Other long term (current) drug therapy; Z79.82 Long term (current) use of aspirin; Z88.1 Allergy status to other antibiotic agents; Z88.6 Allergy status to analgesic agent; Z88.0 Allergy status to penicillin; Z88.2 Allergy status to sulfonamides; Z88.8 Allergy status to other drugs, medicaments and biological substances
CPT/HCPCS: 74019; 81001; 87086; 87088; 87186; 99282; 99283-25; A9270-GY

== ENCOUNTER 2021-12-07 17:00 | Emergency (ER) | payer MEDICARE ==
[2021-12-07] MEDS: Sodium Chloride 0.9% 1,000 ML IV ONE (17:10)
[2021-12-07] MEDS ORDERED: Sodium Chloride 0.9% 10 ML Syringe FLUSH PRN (17:24)
[2021-12-07] MEDS: cefTRIAXone 1 GM Vial IVPUSH SCH (17:38)
[2021-12-07 17:45] LABS: ESTIMATED GFR 71 mL/min (>60)
[2021-12-07 20:29] VITALS: PULSE 106
[2021-12-08 00:08] VITALS: BP 160/74
== END 2021-12-07 22:25 ==
LOC: FB.ED 17:00
DX: U07.1 COVID-19 (principal); N39.0 Urinary tract infection, site not specified; I25.2 Old myocardial infarction; I10 Essential (primary) hypertension; Z88.2 Allergy status to sulfonamides; M19.90 Unspecified osteoarthritis, unspecified site; Z79.899 Other long term (current) drug therapy
CPT/HCPCS: 36415; 80053; 83605; 85025; 87040; 96361; 96374; 99284; 99285-25; J0696; J7030; U0002

== ENCOUNTER 2021-12-16 11:18 | Inpatient (IN) | payer MEDICARE ==
[2021-12-16] MEDS ORDERED: Nitroglycerin 0.4 MG Tab.SL SL PRN (13:26)
[2021-12-16] MEDS ORDERED: Acetaminophen 500 MG Tab PO PRN (13:26)
[2021-12-16] MEDS: Carvedilol 3.125 MG Tab PO SCH (17:25)
[2021-12-16] MEDS: Docusate Sodium 100 MG Cap PO SCH (21:04)
[2021-12-16] MEDS: Mirtazapine 15 MG Tab PO SCH (21:05)
[2021-12-17] MEDS: Pantoprazole 40 MG Tab.CR PO SCH (05:07)
[2021-12-17] MEDS: Ondansetron 4 MG Tab.DIS PO PRN ×2 (08:17→14:01)
[2021-12-17] MEDS: Carvedilol 3.125 MG Tab PO SCH ×2 (08:25→17:59)
[2021-12-17] MEDS: Ferrous Sulfate 325 MG Tab PO SCH (08:26)
[2021-12-17] MEDS: Docusate Sodium 100 MG Cap PO SCH ×2 (08:26→20:06)
[2021-12-17] MEDS: Rosuvastatin 20 MG Tab PO SCH (08:26)
[2021-12-17] MEDS: Cyanocobalamin (Vitamin B12) 500 MCG Tab PO SCH (08:27)
[2021-12-17] MEDS: Aspirin 81 MG Tab.Chew PO SCH (08:27)
[2021-12-17] MEDS: Clopidogrel 75 MG Tab PO SCH (08:27)
[2021-12-17] MEDS: Polyethylene Glycol 3350 Powder 17 GM Packet PO SCH (08:27)
[2021-12-17] MEDS: Multivitamin Tab PO SCH (16:01)
[2021-12-17] MEDS: Mirtazapine 15 MG Tab PO SCH (20:06)
[2021-12-18] MEDS: Pantoprazole 40 MG Tab.CR PO SCH (05:37)
[2021-12-18] MEDS: Carvedilol 3.125 MG Tab PO SCH ×2 (09:00→18:04)
[2021-12-18] MEDS: Rosuvastatin 20 MG Tab PO SCH (09:20)
[2021-12-18] MEDS: Cyanocobalamin (Vitamin B12) 500 MCG Tab PO SCH (09:20)
[2021-12-18] MEDS: Clopidogrel 75 MG Tab PO SCH (09:20)
[2021-12-18] MEDS: Multivitamin Tab PO SCH (09:20)
[2021-12-18] MEDS: Ferrous Sulfate 325 MG Tab PO SCH (09:20)
[2021-12-18] MEDS: Aspirin 81 MG Tab.Chew PO SCH (09:20)
[2021-12-18] MEDS: Polyethylene Glycol 3350 Powder 17 GM Packet PO SCH (09:21)
[2021-12-18] MEDS: Docusate Sodium 100 MG Cap PO SCH ×2 (09:21→20:23)
[2021-12-18] MEDS: Mirtazapine 15 MG Tab PO SCH (20:23)
[2021-12-19] MEDS: Pantoprazole 40 MG Tab.CR PO SCH (06:14)
[2021-12-19] MEDS: Carvedilol 3.125 MG Tab PO SCH ×2 (08:46→18:19)
[2021-12-19] MEDS: Multivitamin Tab PO SCH (08:46)
[2021-12-19] MEDS: Rosuvastatin 20 MG Tab PO SCH (08:46)
[2021-12-19] MEDS: Clopidogrel 75 MG Tab PO SCH (08:47)
[2021-12-19] MEDS: Cyanocobalamin (Vitamin B12) 500 MCG Tab PO SCH (08:47)
[2021-12-19] MEDS: Ferrous Sulfate 325 MG Tab PO SCH (08:47)
[2021-12-19] MEDS: Aspirin 81 MG Tab.Chew PO SCH (08:48)
[2021-12-19] MEDS: Docusate Sodium 100 MG Cap PO SCH ×2 (08:48→20:54)
[2021-12-19] MEDS: Polyethylene Glycol 3350 Powder 17 GM Packet PO SCH (08:58)
[2021-12-19] MEDS: Mirtazapine 15 MG Tab PO SCH (20:54)
[2021-12-20] MEDS: Pantoprazole 40 MG Tab.CR PO SCH (06:13)
[2021-12-20] MEDS: Carvedilol 3.125 MG Tab PO SCH ×2 (08:06→17:12)
[2021-12-20] MEDS: Aspirin 81 MG Tab.Chew PO SCH (08:06)
[2021-12-20] MEDS: Cyanocobalamin (Vitamin B12) 500 MCG Tab PO SCH (08:07)
[2021-12-20] MEDS: Ferrous Sulfate 325 MG Tab PO SCH (08:07)
[2021-12-20] MEDS: Clopidogrel 75 MG Tab PO SCH (08:07)
[2021-12-20] MEDS: Rosuvastatin 20 MG Tab PO SCH (08:08)
[2021-12-20] MEDS: Multivitamin Tab PO SCH (08:08)
[2021-12-20] MEDS: Docusate Sodium 100 MG Cap PO SCH ×2 (08:09→21:32)
[2021-12-20] MEDS: Polyethylene Glycol 3350 Powder 17 GM Packet PO SCH (08:10)
[2021-12-20] MEDS: Mirtazapine 15 MG Tab PO SCH (21:32)
[2021-12-21] MEDS: Pantoprazole 40 MG Tab.CR PO SCH (05:22)
[2021-12-21] MEDS: Carvedilol 3.125 MG Tab PO SCH ×2 (08:54→17:24)
[2021-12-21] MEDS: Docusate Sodium 100 MG Cap PO SCH ×2 (08:55→21:07)
[2021-12-21] MEDS: Aspirin 81 MG Tab.Chew PO SCH (08:55)
[2021-12-21] MEDS: Ferrous Sulfate 325 MG Tab PO SCH (08:56)
[2021-12-21] MEDS: Rosuvastatin 20 MG Tab PO SCH (08:56)
[2021-12-21] MEDS: Clopidogrel 75 MG Tab PO SCH (08:57)
[2021-12-21] MEDS: Polyethylene Glycol 3350 Powder 17 GM Packet PO SCH (08:58)
[2021-12-21] MEDS: Multivitamin Tab PO SCH (08:58)
[2021-12-21] MEDS: Cyanocobalamin (Vitamin B12) 500 MCG Tab PO SCH (08:58)
[2021-12-21] MEDS: Mirtazapine 15 MG Tab PO SCH (21:07)
[2021-12-22] MEDS: Pantoprazole 40 MG Tab.CR PO SCH (05:56)
[2021-12-22] MEDS: Carvedilol 3.125 MG Tab PO SCH ×2 (08:42→17:48)
[2021-12-22] MEDS: Aspirin 81 MG Tab.Chew PO SCH (08:43)
[2021-12-22] MEDS: Docusate Sodium 100 MG Cap PO SCH ×2 (08:43→20:00)
[2021-12-22] MEDS: Rosuvastatin 20 MG Tab PO SCH (08:43)
[2021-12-22] MEDS: Ferrous Sulfate 325 MG Tab PO SCH (08:44)
[2021-12-22] MEDS: Polyethylene Glycol 3350 Powder 17 GM Packet PO SCH (08:44)
[2021-12-22] MEDS: Clopidogrel 75 MG Tab PO SCH (08:44)
[2021-12-22] MEDS: Multivitamin Tab PO SCH (08:44)
[2021-12-22] MEDS: Cyanocobalamin (Vitamin B12) 500 MCG Tab PO SCH (08:45)
[2021-12-22] MEDS: Mirtazapine 15 MG Tab PO SCH (20:00)
[2021-12-23] MEDS: Pantoprazole 40 MG Tab.CR PO SCH (05:32)
[2021-12-23] MEDS: Carvedilol 3.125 MG Tab PO SCH ×2 (08:59→18:35)
[2021-12-23] MEDS: Aspirin 81 MG Tab.Chew PO SCH (08:59)
[2021-12-23] MEDS: Multivitamin Tab PO SCH (08:59)
[2021-12-23] MEDS: Rosuvastatin 20 MG Tab PO SCH (09:01)
[2021-12-23] MEDS: Cyanocobalamin (Vitamin B12) 500 MCG Tab PO SCH (09:02)
[2021-12-23] MEDS: Ferrous Sulfate 325 MG Tab PO SCH (09:02)
[2021-12-23] MEDS: Clopidogrel 75 MG Tab PO SCH (09:02)
[2021-12-23] MEDS: Docusate Sodium 100 MG Cap PO SCH ×2 (09:02→20:22)
[2021-12-23] MEDS: Polyethylene Glycol 3350 Powder 17 GM Packet PO SCH (09:03)
[2021-12-23] MEDS: Mirtazapine 15 MG Tab PO SCH (20:22)
[2021-12-24] MEDS: Pantoprazole 40 MG Tab.CR PO SCH (05:04)
[2021-12-24] MEDS: Aspirin 81 MG Tab.Chew PO SCH (08:51)
[2021-12-24] MEDS: Carvedilol 3.125 MG Tab PO SCH (08:51)
[2021-12-24 08:52] VITALS: BP 145/59; PULSE 91
[2021-12-24] MEDS: Polyethylene Glycol 3350 Powder 17 GM Packet PO SCH (08:52)
[2021-12-24] MEDS: Clopidogrel 75 MG Tab PO SCH (08:52)
[2021-12-24] MEDS: Multivitamin Tab PO SCH (08:52)
[2021-12-24] MEDS: Cyanocobalamin (Vitamin B12) 500 MCG Tab PO SCH (08:52)
[2021-12-24] MEDS: Rosuvastatin 20 MG Tab PO SCH (08:52)
[2021-12-24] MEDS: Ferrous Sulfate 325 MG Tab PO SCH (08:52)
[2021-12-24] MEDS: Docusate Sodium 100 MG Cap PO SCH (08:52)
== END 2021-12-24 11:10 | disposition home health service (06) | DRG 948 ==
LOC: FB.MS 11:27
PROVIDERS: ADMIT Family Medicine; ATTEND Student in an Organized Health Care Education/Training Program
DX: R53.1 Weakness (principal); F09 Unspecified mental disorder due to known physiological condition; I25.10 Atherosclerotic heart disease of native coronary artery without angina pectoris; F41.1 Generalized anxiety disorder; I10 Essential (primary) hypertension; H91.90 Unspecified hearing loss, unspecified ear; M19.90 Unspecified osteoarthritis, unspecified site; F32.A Depression, unspecified; E53.8 Deficiency of other specified B group vitamins; D64.9 Anemia, unspecified; Z86.19 Personal history of other infectious and parasitic diseases; Z87.11 Personal history of peptic ulcer disease; Z79.02 Long term (current) use of antithrombotics/antiplatelets; Z79.82 Long term (current) use of aspirin; I25.2 Old myocardial infarction; Z87.01 Personal history of pneumonia (recurrent); Z87.19 Personal history of other diseases of the digestive system; Z86.16 Personal history of COVID-19; Z79.899 Other long term (current) drug therapy; Z88.1 Allergy status to other antibiotic agents; Z88.0 Allergy status to penicillin; Z88.5 Allergy status to narcotic agent; Z88.8 Allergy status to other drugs, medicaments and biological substances; Z88.2 Allergy status to sulfonamides; Z87.442 Personal history of urinary calculi; Z98.41 Cataract extraction status, right eye; Z98.42 Cataract extraction status, left eye; Z90.89 Acquired absence of other organs; Z90.49 Acquired absence of other specified parts of digestive tract
CPT/HCPCS: 97110-GO; 97110-GP; 97116-GP; 97161-GP; 97165-GO; 97530-GO; 97530-GP; 97535-GO; 99305; 99308; 99315; A9270-GY; Q0162

== ENCOUNTER 2022-05-12 02:10 | Emergency (ER) | payer MEDICARE ==
[2022-05-12 02:23] VITALS: BP 135/81; PULSE 86
[2022-05-12] MEDS ORDERED: Sodium Chloride 0.9% 10 ML Syringe FLUSH PRN (02:42)
[2022-05-12] MEDS ORDERED: Sodium Chloride 0.9% 500 ML IV ONE (02:45)
[2022-05-12] MEDS ORDERED: Ketorolac 30 MG/ML SDV IVPUSH ONE (02:47)
[2022-05-12 03:14] LABS: ESTIMATED GFR 48 mL/min (>60)
[2022-05-12] MEDS ORDERED: Aspirin 81 MG Tab.Chew PO ONE (03:36)
[2022-05-12] MEDS ORDERED: Iopamidol 755 Mg/ML 75 ML Bottle IV ONE (04:39)
== END 2022-05-12 06:11 | disposition home or self-care (01) ==
LOC: FB.ED 02:10
DX: M54.6 Pain in thoracic spine (principal); I10 Essential (primary) hypertension; I25.2 Old myocardial infarction; Z88.1 Allergy status to other antibiotic agents; Z88.6 Allergy status to analgesic agent; Z88.0 Allergy status to penicillin; Z88.2 Allergy status to sulfonamides; Z79.899 Other long term (current) drug therapy; Z79.82 Long term (current) use of aspirin; Z90.49 Acquired absence of other specified parts of digestive tract
CPT/HCPCS: 36415; 71275; 74176; 80053; 81001; 84484; 85025; 85379; 85610; 85730; 93005; 93010; 96374; 99282; 99284-25; A9270-GY; J1885; J3490; J7040; Q9967

== ENCOUNTER 2022-05-30 12:26 | Emergency (ER) | payer MEDICARE ==
[2022-05-30 13:27] LABS: ESTIMATED GFR 71 mL/min (>60)
[2022-05-30 15:11] VITALS: BP 139/61; PULSE 85
[2022-06-03 18:12] LABS: IRON BIND.CAP.(TIBC) 327 ug/dL (250-450); IRON SATURATION 45 % (15-55); IRON, SERUM 147 ug/dL (27-139); UIBC 180 ug/dL (118-369)
== END 2022-05-30 14:08 | disposition home or self-care (01) ==
LOC: FB.ED 12:26
DX: I25.118 Atherosclerotic heart disease of native coronary artery with other forms of angina pectoris (principal); D50.9 Iron deficiency anemia, unspecified; I10 Essential (primary) hypertension; I25.2 Old myocardial infarction; Z88.1 Allergy status to other antibiotic agents; Z88.0 Allergy status to penicillin; Z88.2 Allergy status to sulfonamides; Z88.8 Allergy status to other drugs, medicaments and biological substances; Z79.82 Long term (current) use of aspirin; Z79.02 Long term (current) use of antithrombotics/antiplatelets; Z79.899 Other long term (current) drug therapy
CPT/HCPCS: 36415; 80048; 82728; 83540; 83550; 84484; 85025; 85045; 86140; 93005; 99283

== ENCOUNTER 2022-09-01 17:03 | Emergency (ER) | payer MEDICARE ==
[2022-09-01 17:33] LABS: ESTIMATED GFR 48 mL/min (>60)
[2022-09-01] MEDS ORDERED: Acetaminophen/HYDROcodone 325-5 MG Tab PO STA (17:37)
[2022-09-01] MEDS ORDERED: Pantoprazole 40 MG Vial IVPUSH ONE (19:47)
[2022-09-01] MEDS ORDERED: Sodium Chloride 0.9% 10 ML Syringe FLUSH PRN (19:47)
[2022-09-01] MEDS ORDERED: diphenhydrAMINE 50 MG/ML SDV IVPUSH ONE (22:37)
[2022-09-02] MEDS: Sodium Chloride 0.9% 250 ML IV SCH ×2 (02:30)
[2022-09-02] MEDS ORDERED: Acetaminophen 325 MG Tab PO ONE (04:54)
[2022-09-02 06:22] LABS: ESTIMATED GFR 71 mL/min (>60)
[2022-09-02 13:03] VITALS: BP 140/69; PULSE 66
== END 2022-09-02 09:22 | disposition home or self-care (01) ==
LOC: FB.ED 17:03
DX: N20.0 Calculus of kidney (principal); D64.9 Anemia, unspecified; I10 Essential (primary) hypertension; I25.2 Old myocardial infarction; M19.90 Unspecified osteoarthritis, unspecified site; Z88.1 Allergy status to other antibiotic agents; Z88.5 Allergy status to narcotic agent; Z88.0 Allergy status to penicillin; Z88.2 Allergy status to sulfonamides; Z79.82 Long term (current) use of aspirin; Z79.899 Other long term (current) drug therapy; Z79.02 Long term (current) use of antithrombotics/antiplatelets
CPT/HCPCS: 36415; 36430; 74176; 80048; 80053; 81001; 84484; 85025; 86850; 86900; 86901; 86920; 86922; 93005; 96361; 96374; 96375; 99284; A9270; C9113; J1200; J3490; J7050; P9016; 93010; 99283

== ENCOUNTER 2022-09-09 09:54 | Day surgery (SDC) | payer MEDICARE ==
[~2022-09-09 09:54] MED LIST: Lactated Ringers 1,000 ML IV SCH; Sodium Chloride 0.9% 10 ML Syringe FLUSH PRN
[2022-09-09] MEDS ORDERED: Lidocaine 2% 5 ML SDV INJECT ONE (09:55)
[2022-09-09] MEDS ORDERED: Propofol 200 MG/20 ML SDV IV ONE (09:55)
[2022-09-09 14:39] VITALS: BP 167/69; PULSE 78
== END 2022-09-09 13:15 | disposition home or self-care (01) ==
LOC: FB.SDS 09:54
PROVIDERS: ATTEND Surgery
DX: K31.819 Angiodysplasia of stomach and duodenum without bleeding (principal); K44.9 Diaphragmatic hernia without obstruction or gangrene; D50.0 Iron deficiency anemia secondary to blood loss (chronic); Z53.8 Procedure and treatment not carried out for other reasons; I10 Essential (primary) hypertension; I25.2 Old myocardial infarction; F41.9 Anxiety disorder, unspecified; F32.A Depression, unspecified; N20.0 Calculus of kidney; Z88.1 Allergy status to other antibiotic agents; Z88.0 Allergy status to penicillin; Z88.8 Allergy status to other drugs, medicaments and biological substances; Z88.5 Allergy status to narcotic agent; Z88.2 Allergy status to sulfonamides; Z79.82 Long term (current) use of aspirin; Z79.899 Other long term (current) drug therapy
CPT/HCPCS: 00813; 36415; 85018; J2704; J7120

== ENCOUNTER 2022-10-28 14:04 | Inpatient (IN) | payer MEDICARE ==
[2022-10-28] MEDS ORDERED: Sodium Chloride 0.9% 500 ML IV ONE (14:54)
[2022-10-28] MEDS: Sodium Chloride 0.9% 10 ML Syringe FLUSH PRN ×2 (15:20→18:05)
[2022-10-28 15:25] LABS: BASOPHILS PERCENT AUTO 0.3 % (0.2-1.5); EOSINOPHILS ABSOLUTE AUTO 0.2 x10-3/uL (0.0-0.8); EOSINOPHILS PERCENT AUTO 2.4 % (0.6-8.1); HEMATOCRIT 31.8 % (34.2-48.2); HEMOGLOBIN 9.9 g/dL (11.4-15.5); LYMPHOCYTES PERCENT AUTO 10.5 % (18.4-52.1); MEAN CORPUSCULAR HEMOGLOBIN 22.9 pg (23.9-33.9); MEAN CORPUSCULAR HGB CONC 31.2 g/dL (31.9-34.8); MEAN CORPUSCULAR VOLUME 73.3 fL (76.7-100.5); MEAN PLATELET VOLUME 8.4 fL (7.1-12.4); MONOCYTES PERCENT AUTO 10.2 % (4.4-15.7); NEUTROPHILS ABSOLUTE AUTO 7.4 x10-3/uL (1.5-6.3); NEUTROPHILS PERCENT AUTO 76.6 % (30.8-76.2); PLATELET COUNT,PLT 263 x10(3)uL (151-488); RED BLOOD CELL COUNT 4.34 x10(6)uL (3.60-5.20); RED CELL DISTRIBUTION WIDTH 23.3 % (12.3-16.5); WHITE BLOOD CELL COUNT,WBC 9.7 x10-3/uL (3.0-10.3)
[2022-10-28 15:27] LABS: BLOOD UREA NITROGEN,BUN 22 mg/dL (7-18); CALCIUM 9.5 mg/dL (8.6-10.2); CARBON DIOXIDE,CO2 25 mmol/L (21-32); CHLORIDE,CL 107 mmol/L (100-110); ESTIMATED GFR 54 mL/min (>60); GLUCOSE RANDOM 101 mg/dL (80-116); POTASSIUM,K 3.9 mmol/L (3.5-5.3); SODIUM,NA 143 mmol/L (135-145)
[2022-10-28 15:30] LABS: BASE EXCESS VENOUS,POC -1 mmol/L (-2 - 3+); PCO2 VENOUS,POC 46 mmHg (41-51); PH VENOUS,POC 7.35 pH Units (7.32-7.43)
[2022-10-28 15:33] LABS: A/G RATIO 0.7; ALANINE AMINOTRANSFERASE,ALT 15 U/L (12-36); ALKALINE PHOSPHATASE 96 IU/L (56-112); ASPARTATE AMNIOTRANSFERASE,AST 18 IU/L (5-25); BILIRUBIN TOTAL 0.4 mg/dL (0.1-1.3); PROTEIN TOTAL,TP 7.2 g/dL (6.0-8.0)
[2022-10-28 15:33] LABS: APPEARANCE,URINE CLOUDY (CLEAR); BACTERIA,URINE MANY (NS); BILIRUBIN,URINE NEGATIVE (NEGATIVE); COLOR,URINE YELLOW (YELLOW); GLUCOSE,URINE NORMAL (NORMAL); KETONES,URINE NEGATIVE (NEGATIVE); LEUKOCYTE ESTERASE,URINE LARGE (NEGATIVE); NITRITE,URINE POSITIVE (NEGATIVE); OCCULT BLOOD,URINE MODERATE (NEGATIVE); PROTEIN,URINE 30 mg/dL (NEGATIVE); SQUAMOUS EPITHELIAL CELLS,UR RARE (NS,R,O); UROBILINOGEN,URINE NORMAL (NEGATIVE); WBC,URINE >100 (0-5)
[2022-10-28 15:40] LABS: TROPONIN I 55.7 pg/mL (4.0-60.3)
[2022-10-28 15:42] LABS: C-REACTIVE PROTEIN 4.4 mg/dL (0.5-0.9)
[2022-10-28 16:03] LABS: INFLUENZA A NAA NEGATIVE (NEGATIVE); INFLUENZA B NAA NEGATIVE (NEGATIVE)
[2022-10-28 16:11] LABS: CORONAVIRUS COVID-19 NAA NEGATIVE (NEGATIVE)
[2022-10-28] MEDS ORDERED: cefTRIAXone 2 GM Vial IVPUSH ONE (16:43)
[2022-10-28] MEDS ORDERED: VANCOmycin 1 GM/200 ML 200 ML IV ONE (18:00)
[2022-10-28] MEDS ORDERED: Acetaminophen 500 MG Tab PO PRN (19:09)
[2022-10-28] MEDS ORDERED: Nitroglycerin 0.4 MG Tab.SL SL PRN (19:09)
[2022-10-28] MEDS: Mirtazapine 15 MG Tab PO SCH (21:33)
[2022-10-28] MEDS: Enoxaparin 40 MG/0.4 ML Syringe SUBCUT SCH (21:34)
[2022-10-28] MEDS: Docusate Sodium 100 MG Cap PO SCH (21:34)
[2022-10-28] MEDS: Rosuvastatin 20 MG Tab PO SCH (21:35)
[2022-10-29] MEDS: Pantoprazole 40 MG Tab.CR PO SCH (06:29)
[2022-10-29 06:58] LABS: BLOOD UREA NITROGEN,BUN 19 mg/dL (7-18); BUN/CREATININE RATIO 27.1 (9-20); CARBON DIOXIDE,CO2 26 mmol/L (21-32); CHLORIDE,CL 110 mmol/L (100-110); CREATININE 0.7 mg/dL (0.55-1.02); EST CRCL DRUG DOSING (CG) 41.92 mL/min; ESTIMATED GFR 83 mL/min (>60); GLUCOSE RANDOM 92 mg/dL (80-116); POTASSIUM,K 3.7 mmol/L (3.5-5.3); SODIUM,NA 144 mmol/L (135-145)
[2022-10-29 07:00] LABS: BASOPHILS PERCENT AUTO 0.4 % (0.2-1.5); EOSINOPHILS ABSOLUTE AUTO 0.3 x10-3/uL (0.0-0.8); EOSINOPHILS PERCENT AUTO 3.5 % (0.6-8.1); HEMATOCRIT 31.1 % (34.2-48.2); HEMOGLOBIN 9.7 g/dL (11.4-15.5); LYMPHOCYTES ABSOLUTE AUTO 0.8 x10-3/uL (1.0-4.4); LYMPHOCYTES PERCENT AUTO 9.6 % (18.4-52.1); MEAN CORPUSCULAR HEMOGLOBIN 22.9 pg (23.9-33.9); MEAN CORPUSCULAR VOLUME 73.8 fL (76.7-100.5); MEAN PLATELET VOLUME 8.5 fL (7.1-12.4); MONOCYTES ABSOLUTE AUTO 0.7 x10-3/uL (0.3-1.0); MONOCYTES PERCENT AUTO 8.3 % (4.4-15.7); NEUTROPHILS ABSOLUTE AUTO 6.4 x10-3/uL (1.5-6.3); NEUTROPHILS PERCENT AUTO 78.2 % (30.8-76.2); PLATELET COUNT,PLT 252 x10(3)uL (151-488); RED BLOOD CELL COUNT 4.22 x10(6)uL (3.60-5.20); RED CELL DISTRIBUTION WIDTH 23.9 % (12.3-16.5); WHITE BLOOD CELL COUNT,WBC 8.2 x10-3/uL (3.0-10.3)
[2022-10-29] MEDS: Aspirin 81 MG Tab.Chew PO SCH (08:48)
[2022-10-29] MEDS: Carvedilol 3.125 MG Tab PO SCH ×2 (08:48→18:04)
[2022-10-29] MEDS: Docusate Sodium 100 MG Cap PO SCH ×2 (08:49→20:12)
[2022-10-29] MEDS: Ondansetron 4 MG/2 ML SDV IVPUSH PRN (08:53)
[2022-10-29] MEDS: Sodium Chloride 0.9% 10 ML Syringe FLUSH PRN ×2 (08:57→17:14)
[2022-10-29] MEDS: metroNIDAZOLE/Normal Saline 500 MG in Premix Bag 1 BAG IV SCH ×2 (10:35→18:04)
[2022-10-29] MEDS ORDERED: VANCOmycin 1.25 GM/250 ML 1.25 GM in Premix Bag 1 BAG IV SCH (12:00)
[2022-10-29] MEDS: cefTRIAXone 1 GM Vial IVPUSH SCH (17:12)
[2022-10-29] MEDS: Sodium Chloride 0.9% 1,000 ML IV SCH (20:08)
[2022-10-29] MEDS: Rosuvastatin 20 MG Tab PO SCH (20:11)
[2022-10-29] MEDS: Mirtazapine 15 MG Tab PO SCH (20:12)
[2022-10-29] MEDS: Enoxaparin 40 MG/0.4 ML Syringe SUBCUT SCH (20:12)
[2022-10-30] MEDS: metroNIDAZOLE/Normal Saline 500 MG in Premix Bag 1 BAG IV SCH ×3 (01:00→18:15)
[2022-10-30] MEDS: Pantoprazole 40 MG Tab.CR PO SCH (06:31)
[2022-10-30 06:36] LABS: BASOPHILS PERCENT AUTO 0.3 % (0.2-1.5); EOSINOPHILS ABSOLUTE AUTO 0.2 x10-3/uL (0.0-0.8); EOSINOPHILS PERCENT AUTO 2.7 % (0.6-8.1); HEMATOCRIT 27.4 % (34.2-48.2); HEMOGLOBIN 8.4 g/dL (11.4-15.5); LYMPHOCYTES ABSOLUTE AUTO 0.9 x10-3/uL (1.0-4.4); LYMPHOCYTES PERCENT AUTO 10.8 % (18.4-52.1); MEAN CORPUSCULAR HEMOGLOBIN 22.8 pg (23.9-33.9); MEAN CORPUSCULAR HGB CONC 30.7 g/dL (31.9-34.8); MEAN CORPUSCULAR VOLUME 74.1 fL (76.7-100.5); MEAN PLATELET VOLUME 8.4 fL (7.1-12.4); MONOCYTES ABSOLUTE AUTO 0.7 x10-3/uL (0.3-1.0); MONOCYTES PERCENT AUTO 8.4 % (4.4-15.7); NEUTROPHILS ABSOLUTE AUTO 6.4 x10-3/uL (1.5-6.3); NEUTROPHILS PERCENT AUTO 77.8 % (30.8-76.2); PLATELET COUNT,PLT 225 x10(3)uL (151-488); RED CELL DISTRIBUTION WIDTH 23.5 % (12.3-16.5); WHITE BLOOD CELL COUNT,WBC 8.2 x10-3/uL (3.0-10.3)
[2022-10-30 06:42] LABS: BLOOD UREA NITROGEN,BUN 21 mg/dL (7-18); CALCIUM 8.7 mg/dL (8.6-10.2); CARBON DIOXIDE,CO2 25 mmol/L (21-32); CHLORIDE,CL 112 mmol/L (100-110); CREATININE 0.7 mg/dL (0.55-1.02); EST CRCL DRUG DOSING (CG) 41.92 mL/min; ESTIMATED GFR 83 mL/min (>60); GLUCOSE RANDOM 102 mg/dL (80-116); POTASSIUM,K 3.7 mmol/L (3.5-5.3); SODIUM,NA 146 mmol/L (135-145)
[2022-10-30] MEDS: Sodium Chloride 0.9% 1,000 ML IV SCH ×2 (07:18→22:00)
[2022-10-30] MEDS: Carvedilol 3.125 MG Tab PO SCH ×2 (08:51→18:14)
[2022-10-30] MEDS: Docusate Sodium 100 MG Cap PO SCH ×2 (08:53→20:17)
[2022-10-30] MEDS: Aspirin 81 MG Tab.Chew PO SCH (08:53)
[2022-10-30] MEDS: guaiFENesin 600 MG Tab.ER PO SCH ×2 (13:53→20:17)
[2022-10-30] MEDS: Benzonatate 100 MG Cap PO SCH ×2 (13:53→20:17)
[2022-10-30] MEDS ORDERED: Codeine/guaiFENesin 10-100 MG/5 ML Syrup 5 ML Cup PO PRN (16:53)
[2022-10-30] MEDS: cefTRIAXone 1 GM Vial IVPUSH SCH (17:24)
[2022-10-30] MEDS: Rosuvastatin 20 MG Tab PO SCH (20:17)
[2022-10-30] MEDS: Mirtazapine 15 MG Tab PO SCH (20:17)
[2022-10-30] MEDS: Enoxaparin 40 MG/0.4 ML Syringe SUBCUT SCH (20:18)
[2022-10-31] MEDS: metroNIDAZOLE/Normal Saline 500 MG in Premix Bag 1 BAG IV SCH ×3 (02:00→17:33)
[2022-10-31] MEDS: Pantoprazole 40 MG Tab.CR PO SCH (06:33)
[2022-10-31 06:46] LABS: BASOPHILS PERCENT AUTO 0.7 % (0.2-1.5); EOSINOPHILS ABSOLUTE AUTO 0.2 x10-3/uL (0.0-0.8); EOSINOPHILS PERCENT AUTO 3.9 % (0.6-8.1); HEMATOCRIT 27.8 % (34.2-48.2); HEMOGLOBIN 8.5 g/dL (11.4-15.5); LYMPHOCYTES ABSOLUTE AUTO 0.9 x10-3/uL (1.0-4.4); LYMPHOCYTES PERCENT AUTO 18.2 % (18.4-52.1); MEAN CORPUSCULAR HEMOGLOBIN 22.8 pg (23.9-33.9); MEAN CORPUSCULAR HGB CONC 30.8 g/dL (31.9-34.8); MEAN PLATELET VOLUME 8.3 fL (7.1-12.4); MONOCYTES ABSOLUTE AUTO 0.4 x10-3/uL (0.3-1.0); MONOCYTES PERCENT AUTO 7.6 % (4.4-15.7); NEUTROPHILS ABSOLUTE AUTO 3.6 x10-3/uL (1.5-6.3); NEUTROPHILS PERCENT AUTO 69.6 % (30.8-76.2); PLATELET COUNT,PLT 233 x10(3)uL (151-488); RED BLOOD CELL COUNT 3.75 x10(6)uL (3.60-5.20); RED CELL DISTRIBUTION WIDTH 23.6 % (12.3-16.5); WHITE BLOOD CELL COUNT,WBC 5.2 x10-3/uL (3.0-10.3)
[2022-10-31 06:50] LABS: BLOOD UREA NITROGEN,BUN 13 mg/dL (7-18); BUN/CREATININE RATIO 21.7 (9-20); CALCIUM 8.6 mg/dL (8.6-10.2); CARBON DIOXIDE,CO2 25 mmol/L (21-32); CHLORIDE,CL 112 mmol/L (100-110); CREATININE 0.6 mg/dL (0.55-1.02); EST CRCL DRUG DOSING (CG) 48.91 mL/min; ESTIMATED GFR 86 mL/min (>60); GLUCOSE RANDOM 94 mg/dL (80-116); POTASSIUM,K 3.4 mmol/L (3.5-5.3); SODIUM,NA 145 mmol/L (135-145)
[2022-10-31 07:23] LABS: C-REACTIVE PROTEIN 4.9 mg/dL (0.5-0.9)
[2022-10-31] MEDS: Aspirin 81 MG Tab.Chew PO SCH (08:24)
[2022-10-31] MEDS: Carvedilol 3.125 MG Tab PO SCH ×2 (08:24→17:26)
[2022-10-31] MEDS: Docusate Sodium 100 MG Cap PO SCH ×2 (08:24→20:53)
[2022-10-31] MEDS: guaiFENesin 600 MG Tab.ER PO SCH ×3 (08:25→20:53)
[2022-10-31] MEDS: Benzonatate 100 MG Cap PO SCH ×3 (08:25→20:53)
[2022-10-31] MEDS: Sodium Chloride 0.9% 10 ML Syringe FLUSH PRN ×4 (11:00→18:59)
[2022-10-31] MEDS: cefTRIAXone 1 GM Vial IVPUSH SCH (17:22)
[2022-10-31] MEDS: Enoxaparin 40 MG/0.4 ML Syringe SUBCUT SCH (20:53)
[2022-10-31] MEDS: Rosuvastatin 20 MG Tab PO SCH (20:53)
[2022-10-31] MEDS: Mirtazapine 15 MG Tab PO SCH (20:53)
[2022-11-01] MEDS: metroNIDAZOLE/Normal Saline 500 MG in Premix Bag 1 BAG IV SCH ×3 (01:30→18:06)
[2022-11-01] MEDS: Sodium Chloride 0.9% 10 ML Syringe FLUSH PRN ×3 (02:35→10:56)
[2022-11-01] MEDS: Ondansetron 4 MG/2 ML SDV IVPUSH PRN (04:50)
[2022-11-01] MEDS: Pantoprazole 40 MG Tab.CR PO SCH (06:42)
[2022-11-01 06:45] LABS: BLOOD UREA NITROGEN,BUN 10 mg/dL (7-18); BUN/CREATININE RATIO 16.7 (9-20); CALCIUM 8.5 mg/dL (8.6-10.2); CARBON DIOXIDE,CO2 26 mmol/L (21-32); CHLORIDE,CL 109 mmol/L (100-110); CREATININE 0.6 mg/dL (0.55-1.02); EST CRCL DRUG DOSING (CG) 48.91 mL/min; ESTIMATED GFR 86 mL/min (>60); GLUCOSE RANDOM 101 mg/dL (80-116); SODIUM,NA 144 mmol/L (135-145)
[2022-11-01] MEDS: Aspirin 81 MG Tab.Chew PO SCH (08:11)
[2022-11-01] MEDS: Carvedilol 3.125 MG Tab PO SCH ×2 (08:11→17:09)
[2022-11-01] MEDS: Docusate Sodium 100 MG Cap PO SCH ×2 (08:11→20:45)
[2022-11-01] MEDS: guaiFENesin 600 MG Tab.ER PO SCH (08:12)
[2022-11-01] MEDS: Benzonatate 100 MG Cap PO SCH (08:12)
[2022-11-01] MEDS ORDERED: Furosemide 20 MG Tab PO ONE (08:28)
[2022-11-01] MEDS ORDERED: Benzonatate 100 MG Cap PO PRN (09:09)
[2022-11-01] MEDS: Potassium Chloride 20 MEQ Tab.ER PO SCH ×2 (09:14→20:45)
[2022-11-01] MEDS: cefTRIAXone 1 GM Vial IVPUSH SCH (17:01)
[2022-11-01] MEDS: Mirtazapine 15 MG Tab PO SCH (20:45)
[2022-11-01] MEDS: Rosuvastatin 20 MG Tab PO SCH (20:45)
[2022-11-01] MEDS: Enoxaparin 40 MG/0.4 ML Syringe SUBCUT SCH (20:46)
[2022-11-02] MEDS: metroNIDAZOLE/Normal Saline 500 MG in Premix Bag 1 BAG IV SCH ×3 (01:45→17:04)
[2022-11-02] MEDS: Sodium Chloride 0.9% 10 ML Syringe FLUSH PRN ×4 (03:05→17:06)
[2022-11-02] MEDS: Pantoprazole 40 MG Tab.CR PO SCH (06:36)
[2022-11-02 07:28] LABS: BLOOD UREA NITROGEN,BUN 13 mg/dL (7-18); BUN/CREATININE RATIO 18.6 (9-20); CALCIUM 8.9 mg/dL (8.6-10.2); CARBON DIOXIDE,CO2 26 mmol/L (21-32); CHLORIDE,CL 112 mmol/L (100-110); CREATININE 0.7 mg/dL (0.55-1.02); EST CRCL DRUG DOSING (CG) 41.92 mL/min; ESTIMATED GFR 83 mL/min (>60); GLUCOSE RANDOM 101 mg/dL (80-116); POTASSIUM,K 3.5 mmol/L (3.5-5.3); SODIUM,NA 146 mmol/L (135-145)
[2022-11-02] MEDS: Carvedilol 3.125 MG Tab PO SCH ×2 (08:18→17:07)
[2022-11-02] MEDS: Aspirin 81 MG Tab.Chew PO SCH (08:18)
[2022-11-02] MEDS: Docusate Sodium 100 MG Cap PO SCH ×2 (08:18→20:37)
[2022-11-02] MEDS: Potassium Chloride 20 MEQ Tab.ER PO SCH (08:20)
[2022-11-02] MEDS: cefTRIAXone 1 GM Vial IVPUSH SCH (17:00)
[2022-11-02] MEDS: Rosuvastatin 20 MG Tab PO SCH (20:36)
[2022-11-02] MEDS: Mirtazapine 15 MG Tab PO SCH (20:36)
[2022-11-02] MEDS: Enoxaparin 40 MG/0.4 ML Syringe SUBCUT SCH (20:37)
[2022-11-03] MEDS: metroNIDAZOLE/Normal Saline 500 MG in Premix Bag 1 BAG IV SCH ×2 (01:57→10:57)
[2022-11-03] MEDS: Sodium Chloride 0.9% 10 ML Syringe FLUSH PRN (03:15)
[2022-11-03] MEDS: Pantoprazole 40 MG Tab.CR PO SCH (06:39)
[2022-11-03 07:04] LABS: BLOOD UREA NITROGEN,BUN 12 mg/dL (7-18); BUN/CREATININE RATIO 17.1 (9-20); CALCIUM 9.1 mg/dL (8.6-10.2); CARBON DIOXIDE,CO2 27 mmol/L (21-32); CHLORIDE,CL 109 mmol/L (100-110); CREATININE 0.7 mg/dL (0.55-1.02); EST CRCL DRUG DOSING (CG) 41.92 mL/min; ESTIMATED GFR 83 mL/min (>60); GLUCOSE RANDOM 102 mg/dL (80-116); POTASSIUM,K 3.6 mmol/L (3.5-5.3); SODIUM,NA 145 mmol/L (135-145)
[2022-11-03] MEDS: Docusate Sodium 100 MG Cap PO SCH ×2 (08:13→20:33)
[2022-11-03] MEDS: Aspirin 81 MG Tab.Chew PO SCH (08:13)
[2022-11-03] MEDS: Carvedilol 3.125 MG Tab PO SCH ×2 (08:13→17:51)
[2022-11-03] MEDS: Rosuvastatin 20 MG Tab PO SCH (20:33)
[2022-11-03] MEDS: Mirtazapine 15 MG Tab PO SCH (20:33)
[2022-11-03] MEDS: Enoxaparin 40 MG/0.4 ML Syringe SUBCUT SCH (20:34)
[2022-11-04] MEDS: Pantoprazole 40 MG Tab.CR PO SCH (06:33)
[2022-11-04] MEDS: Carvedilol 3.125 MG Tab PO SCH (08:12)
[2022-11-04] MEDS: Aspirin 81 MG Tab.Chew PO SCH (08:12)
[2022-11-04] MEDS: Docusate Sodium 100 MG Cap PO SCH (08:13)
[2022-11-04 08:14] VITALS: BP 158/77; PULSE 74
[2022-11-04] MEDS ORDERED: Cephalexin 250 MG Cap PO SCH (09:00)
== END 2022-11-04 10:28 | disposition home health service (06) | DRG 177 ==
LOC: FB.ED 14:04 → FB.MS 16:29
PROVIDERS: ADMIT Student in an Organized Health Care Education/Training Program; ATTEND Family Medicine
DX: J69.0 Pneumonitis due to inhalation of food and vomit (principal); J18.9 Pneumonia, unspecified organism; J96.01 Acute respiratory failure with hypoxia; N39.0 Urinary tract infection, site not specified; I25.10 Atherosclerotic heart disease of native coronary artery without angina pectoris; M47.816 Spondylosis without myelopathy or radiculopathy, lumbar region; F03.90 Unspecified dementia, unspecified severity, without behavioral disturbance, psychotic disturbance, mood disturbance, and anxiety; F41.1 Generalized anxiety disorder; Z51.5 Encounter for palliative care; M19.90 Unspecified osteoarthritis, unspecified site; E86.0 Dehydration; E87.6 Hypokalemia; N18.31 Chronic kidney disease, stage 3a; D63.1 Anemia in chronic kidney disease; I12.9 Hypertensive chronic kidney disease with stage 1 through stage 4 chronic kidney disease, or unspecified chronic kidney disease; E53.8 Deficiency of other specified B group vitamins; F32.A Depression, unspecified; B96.20 Unspecified Escherichia coli [E. coli] as the cause of diseases classified elsewhere; H91.90 Unspecified hearing loss, unspecified ear; I25.2 Old myocardial infarction; Z20.822 Contact with and (suspected) exposure to COVID-19; Z98.890 Other specified postprocedural states; Z88.1 Allergy status to other antibiotic agents; Z88.2 Allergy status to sulfonamides; Z88.8 Allergy status to other drugs, medicaments and biological substances; Z88.5 Allergy status to narcotic agent; Z88.0 Allergy status to penicillin; Z98.49 Cataract extraction status, unspecified eye; Z90.89 Acquired absence of other organs; Z90.49 Acquired absence of other specified parts of digestive tract; I10 Essential (primary) hypertension; Z87.11 Personal history of peptic ulcer disease; Z79.02 Long term (current) use of antithrombotics/antiplatelets; Z79.82 Long term (current) use of aspirin; Z79.899 Other long term (current) drug therapy; Z66 Do not resuscitate; Z93.0 Tracheostomy status; Z87.440 Personal history of urinary (tract) infections
CPT/HCPCS: 0240U; 36415; 51702; 70450; 71045; 74176; 80048; 80053; 80202; 81001; 83605; 83735; 83880; 84484; 85025; 86140; 87040; 87086; 87088; 87186; 93005; 93010; 96361; 96365; 96375; 97110-GO; 97161-GP; 97165-GO; 97530-GO; 97535-GO; 99223; 99233; 99238; 99285; 99285-25; A9270-GY; J0696; J1650; J2405; J3370; J3490; J7030; J7040

== ENCOUNTER 2022-12-13 10:32 | Emergency (ER) | payer MEDICARE ==
[2022-12-13] MEDS ORDERED: Sodium Chloride 0.9% 10 ML Syringe FLUSH PRN (10:48)
[2022-12-13] MEDS ORDERED: Ondansetron 4 MG/2 ML SDV IVPUSH ONE (10:52)
[2022-12-13] MEDS ORDERED: Sodium Chloride 0.9% 1,000 ML IV SCH (11:00)
[2022-12-13 11:03] LABS: BASOPHILS ABSOLUTE AUTO 0.1 x10-3/uL (0.0-0.1); BASOPHILS PERCENT AUTO 1.1 % (0.2-1.5); EOSINOPHILS ABSOLUTE AUTO 0.3 x10-3/uL (0.0-0.8); EOSINOPHILS PERCENT AUTO 4.7 % (0.6-8.1); HEMATOCRIT 26.9 % (34.2-48.2); HEMOGLOBIN 8.3 g/dL (11.4-15.5); LYMPHOCYTES ABSOLUTE AUTO 1.3 x10-3/uL (1.0-4.4); LYMPHOCYTES PERCENT AUTO 23.8 % (18.4-52.1); MEAN CORPUSCULAR HEMOGLOBIN 21.3 pg (23.9-33.9); MEAN CORPUSCULAR HGB CONC 30.8 g/dL (31.9-34.8); MEAN CORPUSCULAR VOLUME 69.1 fL (76.7-100.5); MEAN PLATELET VOLUME 8.1 fL (7.1-12.4); MONOCYTES ABSOLUTE AUTO 0.6 x10-3/uL (0.3-1.0); MONOCYTES PERCENT AUTO 10.9 % (4.4-15.7); NEUTROPHILS ABSOLUTE AUTO 3.3 x10-3/uL (1.5-6.3); NEUTROPHILS PERCENT AUTO 59.5 % (30.8-76.2); PLATELET COUNT,PLT 269 x10(3)uL (151-488); RED BLOOD CELL COUNT 3.89 x10(6)uL (3.60-5.20); RED CELL DISTRIBUTION WIDTH 20.6 % (12.3-16.5); WHITE BLOOD CELL COUNT,WBC 5.5 x10-3/uL (3.0-10.3)
[2022-12-13 11:08] LABS: BLOOD UREA NITROGEN,BUN 19 mg/dL (7-18); BUN/CREATININE RATIO 23.8 (9-20); CARBON DIOXIDE,CO2 23 mmol/L (21-32); CHLORIDE,CL 108 mmol/L (100-110); CREATININE 0.8 mg/dL (0.55-1.02); EST CRCL DRUG DOSING (CG) 36.68 mL/min; ESTIMATED GFR 71 mL/min (>60); GLUCOSE RANDOM 92 mg/dL (80-116); POTASSIUM,K 4.4 mmol/L (3.5-5.3); SODIUM,NA 142 mmol/L (135-145)
[2022-12-13 11:14] LABS: A/G RATIO 0.8; ALANINE AMINOTRANSFERASE,ALT 20 U/L (12-36); ALBUMIN 3.3 g/dL (3.2-4.6); ALKALINE PHOSPHATASE 96 IU/L (56-112); ASPARTATE AMNIOTRANSFERASE,AST 18 IU/L (5-25); BILIRUBIN TOTAL 0.3 mg/dL (0.1-1.3); PROTEIN TOTAL,TP 7.3 g/dL (6.0-8.0)
[2022-12-13 13:54] VITALS: BP 146/51; PULSE 74
== END 2022-12-13 13:12 | disposition home or self-care (01) ==
LOC: FB.ED 10:32
DX: M19.90 Unspecified osteoarthritis, unspecified site (principal); N39.0 Urinary tract infection, site not specified; I12.9 Hypertensive chronic kidney disease with stage 1 through stage 4 chronic kidney disease, or unspecified chronic kidney disease; D63.1 Anemia in chronic kidney disease; N18.31 Chronic kidney disease, stage 3a; N20.0 Calculus of kidney; I25.2 Old myocardial infarction; Z88.1 Allergy status to other antibiotic agents; Z88.0 Allergy status to penicillin; Z88.5 Allergy status to narcotic agent; Z88.2 Allergy status to sulfonamides; Z79.82 Long term (current) use of aspirin; Z79.899 Other long term (current) drug therapy
CPT/HCPCS: 36415; 80053; 82150; 83690; 85025; 87086; 87088; 87186; 96361; 96374; 99284; J2405; J3490; J7030

== ENCOUNTER 2023-04-19 07:49 | Emergency (ER) | payer MEDICARE ==
[2023-04-19 08:56] LABS: BASOPHILS ABSOLUTE AUTO 0.1 x10-3/uL (0.0-0.1); BASOPHILS PERCENT AUTO 1.1 % (0.2-1.5); EOSINOPHILS ABSOLUTE AUTO 0.2 x10-3/uL (0.0-0.8); EOSINOPHILS PERCENT AUTO 3.4 % (0.6-8.1); HEMATOCRIT 31.6 % (34.2-48.2); LYMPHOCYTES ABSOLUTE AUTO 0.8 x10-3/uL (1.0-4.4); LYMPHOCYTES PERCENT AUTO 15.9 % (18.4-52.1); MEAN CORPUSCULAR HEMOGLOBIN 23.8 pg (23.9-33.9); MEAN CORPUSCULAR HGB CONC 31.7 g/dL (31.9-34.8); MEAN CORPUSCULAR VOLUME 74.9 fL (76.7-100.5); MEAN PLATELET VOLUME 8.6 fL (7.1-12.4); MONOCYTES ABSOLUTE AUTO 0.5 x10-3/uL (0.3-1.0); MONOCYTES PERCENT AUTO 9.7 % (4.4-15.7); NEUTROPHILS ABSOLUTE AUTO 3.5 x10-3/uL (1.5-6.3); NEUTROPHILS PERCENT AUTO 69.9 % (30.8-76.2); PLATELET COUNT,PLT 221 x10(3)uL (151-488); RED BLOOD CELL COUNT 4.22 x10(6)uL (3.60-5.20); RED CELL DISTRIBUTION WIDTH 19.7 % (12.3-16.5); WHITE BLOOD CELL COUNT,WBC 5.1 x10-3/uL (3.0-10.3)
[2023-04-19 09:03] LABS: BLOOD UREA NITROGEN,BUN 25 mg/dL (7-18); BUN/CREATININE RATIO 31.3 (9-20); CALCIUM 9.2 mg/dL (8.6-10.2); CARBON DIOXIDE,CO2 28 mmol/L (21-32); CHLORIDE,CL 105 mmol/L (100-110); CREATININE 0.8 mg/dL (0.55-1.02); ESTIMATED GFR 70 mL/min (>60); GLUCOSE RANDOM 87 mg/dL (80-116); SODIUM,NA 140 mmol/L (135-145)
[2023-04-19 09:04] LABS: C-REACTIVE PROTEIN 0.14 mg/dL (<0.33)
[2023-04-19] MEDS ORDERED: Ketorolac 30 MG/ML SDV IVPUSH ONE (09:11)
[2023-04-19 09:14] LABS: A/G RATIO 0.8; ALANINE AMINOTRANSFERASE,ALT 25 U/L (12-36); ALBUMIN 3.2 g/dL (2.9-4.5); ALKALINE PHOSPHATASE 95 IU/L (56-112); ASPARTATE AMNIOTRANSFERASE,AST 28 IU/L (5-25); BILIRUBIN TOTAL 0.2 mg/dL (0.1-1.3); PROTEIN TOTAL,TP 7.2 g/dL (6.0-8.0)
[2023-04-19 09:20] LABS: BILIRUBIN,URINE NEGATIVE (NEGATIVE); GLUCOSE,URINE NORMAL (NORMAL); KETONES,URINE NEGATIVE (NEGATIVE); LEUKOCYTE ESTERASE,URINE SMALL (NEGATIVE); NITRITE,URINE NEGATIVE (NEGATIVE); OCCULT BLOOD,URINE NEGATIVE (NEGATIVE); PROTEIN,URINE NEGATIVE (NEGATIVE); UROBILINOGEN,URINE NORMAL (NEGATIVE)
[2023-04-19 09:21] LABS: APPEARANCE,URINE CLEAR (CLEAR); COLOR,URINE YELLOW (YELLOW)
[2023-04-19 09:30] LABS: RBC,URINE 0-5 (0-5)
[2023-04-19 09:31] LABS: AMORPHOUS SEDIMENT,URINE FEW; BACTERIA,URINE MODERATE (NS); HYALINE CASTS,URINE OCCASIONAL (NS); SQUAMOUS EPITHELIAL CELLS,UR RARE (NS,R,O)
[2023-04-19] MEDS ORDERED: Ondansetron 4 MG/2 ML SDV IVPUSH ONE (09:45)
[2023-04-19] MEDS: fentaNYL 100 MCG/2 ML SDV IVPUSH ONE ×2 (09:48→09:50)
[2023-04-19] MEDS ORDERED: Sodium Chloride 0.9% 1,000 ML IV STA (10:12)
[2023-04-19 16:56] VITALS: BP 142/74; PULSE 70
== END 2023-04-19 12:00 | disposition home or self-care (01) ==
LOC: FB.ED 07:49
DX: R82.81 Pyuria (principal); I25.2 Old myocardial infarction; I10 Essential (primary) hypertension; Z88.1 Allergy status to other antibiotic agents; Z88.5 Allergy status to narcotic agent; Z88.0 Allergy status to penicillin; Z88.2 Allergy status to sulfonamides
CPT/HCPCS: 36415; 74176; 80053; 81001; 83690; 85025; 86140; 87086; 87088; 87186; 96361; 96374; 96375; 99284-25; J1885; J2405; J3010; J7030

== ENCOUNTER 2023-11-05 13:29 | Emergency (ER) | payer MEDICARE ==
[2023-11-05] MEDS ORDERED: Sodium Chloride 0.9% 10 ML Syringe FLUSH PRN (14:12)
[2023-11-05 14:33] LABS: INFLUENZA A NAA NEGATIVE (NEGATIVE); INFLUENZA B NAA NEGATIVE (NEGATIVE); RESPIRATORY SYNCYTIAL VIR NAA NEGATIVE (NEGATIVE)
[2023-11-05 14:36] LABS: CORONAVIRUS COVID-19 NAA POSITIVE (NEGATIVE)
[2023-11-05 14:45] LABS: BASE EXCESS VENOUS,POC -3 mmol/L (-2 - 3+); PCO2 VENOUS,POC 28 mmHg (41-51); PH VENOUS,POC 7.46 pH Units (7.32-7.43)
[2023-11-05 14:47] LABS: BASOPHILS PERCENT AUTO 0.3 % (0.2-1.5); EOSINOPHILS PERCENT AUTO 0.4 % (0.6-8.1); HEMATOCRIT 26.6 % (34.2-48.2); HEMOGLOBIN 8.1 g/dL (11.4-15.5); LYMPHOCYTES ABSOLUTE AUTO 0.8 x10-3/uL (1.0-4.4); LYMPHOCYTES PERCENT AUTO 7.8 % (18.4-52.1); MEAN CORPUSCULAR HEMOGLOBIN 21.8 pg (23.9-33.9); MEAN CORPUSCULAR HGB CONC 30.4 g/dL (31.9-34.8); MEAN CORPUSCULAR VOLUME 71.5 fL (76.7-100.5); MEAN PLATELET VOLUME 8.5 fL (7.1-12.4); MONOCYTES PERCENT AUTO 10.1 % (4.4-15.7); NEUTROPHILS ABSOLUTE AUTO 8.1 x10-3/uL (1.5-6.3); NEUTROPHILS PERCENT AUTO 81.4 % (30.8-76.2); PLATELET COUNT,PLT 210 x10(3)uL (151-488); RED CELL DISTRIBUTION WIDTH 23.2 % (12.3-16.5)
[2023-11-05] MEDS: Sodium Chloride 0.9% 500 ML IV ONE (14:48)
[2023-11-05 14:54] LABS: BLOOD UREA NITROGEN,BUN 18 mg/dL (7-18); BUN/CREATININE RATIO 22.5 (9-20); CARBON DIOXIDE,CO2 21 mmol/L (21-32); CHLORIDE,CL 109 mmol/L (100-110); CREATININE 0.8 mg/dL (0.55-1.02); EST CRCL DRUG DOSING (CG) 35.97 mL/min; ESTIMATED GFR 70 mL/min (>60); GLUCOSE RANDOM 105 mg/dL (80-116); SODIUM,NA 143 mmol/L (135-145)
[2023-11-05 14:59] LABS: RED BLOOD CELL COUNT 3.71 x10(6)uL (3.60-5.20)
[2023-11-05 15:00] LABS: A/G RATIO 0.8; ALANINE AMINOTRANSFERASE,ALT 19 U/L (12-36); ALKALINE PHOSPHATASE 96 IU/L (56-112); ASPARTATE AMNIOTRANSFERASE,AST 24 IU/L (5-25); BILIRUBIN TOTAL 0.4 mg/dL (0.1-1.3); MAGNESIUM 1.9 mg/dL (1.8-2.5)
[2023-11-05 15:07] LABS: C-REACTIVE PROTEIN 1.15 mg/dL (<0.50)
[2023-11-05 15:21] LABS: TROPONIN I 976.9 pg/mL (4.0-60.3)
[2023-11-05 16:02] LABS: BILIRUBIN,URINE NEGATIVE (NEGATIVE); GLUCOSE,URINE NORMAL (NORMAL); KETONES,URINE NEGATIVE (NEGATIVE); LEUKOCYTE ESTERASE,URINE SMALL (NEGATIVE); NITRITE,URINE NEGATIVE (NEGATIVE); OCCULT BLOOD,URINE NEGATIVE (NEGATIVE); PH,URINE 6.5 (5.0-6.5); PROTEIN,URINE NEGATIVE (NEGATIVE); UROBILINOGEN,URINE NORMAL (NEGATIVE)
[2023-11-05 16:04] LABS: AMORPHOUS SEDIMENT,URINE FEW; APPEARANCE,URINE CLEAR (CLEAR); BACTERIA,URINE RARE (NS); COLOR,URINE YELLOW (YELLOW); RBC,URINE 0-5 (0-5); SQUAMOUS EPITHELIAL CELLS,UR OCCASIONAL (NS,R,O); WBC,URINE 0-5 (0-5)
[2023-11-05] MEDS: Acetaminophen 500 MG Tab PO ONE (17:14)
[2023-11-05] MEDS: Iopamidol 755 Mg/ML 100 ML Bottle IV SCH (17:22)
[2023-11-05] MEDS: Sodium Chloride 0.9% 1,000 ML IV SCH (18:19)
[2023-11-05 18:23] VITALS: BP 112/54; PULSE 93
[2023-11-05] MEDS: Dexamethasone 4 MG/ML SDV IVPUSH ONE (18:45)
[2023-11-05] MEDS: Aspirin 81 MG Tab.Chew PO ONE (18:46)
== END 2023-11-05 20:24 ==
LOC: FB.ED 13:29
DX: U07.1 COVID-19 (principal); J96.01 Acute respiratory failure with hypoxia; R79.89 Other specified abnormal findings of blood chemistry; E86.0 Dehydration; I10 Essential (primary) hypertension; I25.10 Atherosclerotic heart disease of native coronary artery without angina pectoris; K21.9 Gastro-esophageal reflux disease without esophagitis; Z79.899 Other long term (current) drug therapy; Z88.0 Allergy status to penicillin; Z88.1 Allergy status to other antibiotic agents; Z88.2 Allergy status to sulfonamides; Z88.5 Allergy status to narcotic agent; Z88.8 Allergy status to other drugs, medicaments and biological substances
CPT/HCPCS: 0241U; 36415; 71045; 71275; 80053; 81001; 83605; 83735; 83880; 84484; 85025; 85379; 86140; 87040; 93005; 96361; 96374; 99285; A9270; J1100; J7030; J7040; Q9967